=== PATIENT | female | born 1970 | race Caucasian/White ===

== ENCOUNTER → 2017-11-26 10:38 | Outpatient (REF) | payer OTHER, SELFPAY ==
[2017-11-26 13:50] LABS: Basophils # 0.1 K/mm3 (0-0.2); Basophils % 1.4 % (0.1-2.0); Eosinophils # 0.4 K/mm3 (0.0-0.4); Eosinophils % 6.4 % (0.1-12.0); Hematocrit 42.4 % (37.0-47.0); Hemoglobin 13.7 g/dL (12.2-16.2); Lymphocytes % 49.4 K/mm3 (10-50); Mean Corpuscular HGB Conc 32.3 g/dL (31.8-35.4); Mean Corpuscular Hemoglobin 31.1 pg (27.0-31.2); Mean Corpuscular Volume 96.2 fl (81-99); Mean Platelet Volume 9.8 fl (7.4-10.4); Monocytes # 0.3 K/mm3 (0.1-1.0); Monocytes % 5.1 % (1.7-9.3); Neutrophils # 2.3 K/mm3 (1.8-7.8); Neutrophils % 37.8 % (37.0-80.0); Platelet Count 360 K/mm3 (142-424); Red Blood Count 4.41 M/mm3 (4.20-5.40); Red Cell Distribution Width 13.4 % (11.5-17.5)
[2017-11-26 14:14] LABS: Alanine Aminotransferase 25 U/L (12-78); Albumin Level 3.9 gm/dL (3.4-5.0); Albumin/Globulin Ratio 1.1 (1.1-1.8); Alkaline Phosphatase 116 U/L (46-116); Anion Gap 12.6 mEq/L (5-15); Aspartate Amino Transferase 17 U/L (15-37); Bilirubin,Total 0.2 mg/dL (0.2-1.0); Blood Urea Nitrogen 8 mg/dL (7-18); Calcium 9.6 mg/dL (8.5-10.1); Carbon Dioxide 28 mmol/L (21.0-32.0); Chloride 103 mmol/L (98-107); Chol/HDL Ratio 6.4 (1-3.5); Cholesterol 290 mg/dL (140-200); Creatinine,Serum 0.76 mg/dL (0.55-1.02); Estimated Glomerular Filt Rate > 60 ml/min (>60); GFR (African American) > 60 ML/MIN (>60); Globulin 3.6 gm/dl (1.3-3.2); Glucose 87 mg/dL (74-106); HDL Cholesterol 45 mg/dL (29-89); LDL Cholesterol 205 mg/dL (0-130); Potassium 4.6 mmoL/L (3.5-5.1); Sodium 139 mmol/L (136-145); T4 (Thyroxine) 8.7 ug/dl (4.7-13.3); Thyroid Stimulating Hormone 5.23 uIU/ml (0.358-3.740); Total Protein,Serum 7.5 gm/dL (6.4-8.2); Triglycerides 202 mg/dL (30-200); VLDL Cholesterol 40 mg/dL (0-40)
[2017-11-28 17:13] LABS: Vitamin B12 311 pg/mL (232-1245); Vitamin D 25 Hydroxy 21.3 ng/mL (30.0-100.0)
== END ==
LOC: LAB 10:38
PROVIDERS: Visit Provider Physician Assistant
DX: M79.7 Fibromyalgia (principal); E78.5 Hyperlipidemia, unspecified; E03.9 Hypothyroidism, unspecified; E55.9 Vitamin D deficiency, unspecified
CPT/HCPCS: 80053; 80061; 82607; 82652; 84436; 84443; 85025

== ENCOUNTER 2018-01-22 11:24 | Emergency (ER) | payer OTHER, SELFPAY ==
[2018-01-22 11:43] VITALS: BP 139/85; PULSE 88; RESP 20; TEMP 36.6; O2SAT 98; BMI 29.2
--- NOTE | 2018-01-22 12:01 | HMH.EDUTC ---
[facility] [place] Disposition Clinical Impression: Viral upper respiratory illness, Nausea Disposition: Home, Self-Care Condition on Discharge: Good Instructions: Sore Throat, DI for Fever (Symptom) -- Adult, DI for Nasal Congestion, Diarrhea Additional Instructions: * Monitor Temp. Tylenol and/or Ibuprofen as needed. ER if fever is no less than 101 despite alternating Tylenol and Ibuprofen * Encourage fluids, water, Gatorade, powerade, pedialyte if /toddler/or child * Warm salt water gargles for throat irritation *Warm fluids *Sore throat lozenges *Sleep elevated *humidifier or vaporizer Lots of rest Increase fluids, water, Gatorade, powerade Follow up IMMEDIATELY for new or worsening of symptoms OR no noticeable improvement over the next 48-72 hours. 911 immediately for any life threatening symptoms such as chest pain or difficulty breathing Prescriptions: Ondansetron [Zofran 4mg ODT] 4 mg PO Q8H #20 tab.rapdis Referrals: Michelle Quiñonez PA [Primary Care Provider] - Forms: Work/School Release Time of Disposition: 12:17 Medical Decision Making - Medical Records Medical records reviewed: Yes: I reviewed the patient's medical records. Vital Signs: 01/22/18 11:43 Temperature 98 F Temperature Source Temporal Artery Scan Pulse Rate [Right] 88 Respiratory Rate 20 Blood Pressure [Right Arm] 139/85 Blood Pressure Mean [Right Arm] 103 Blood Pressure Source [Right Arm] Automatic Cuff Blood Pressure Position [Right Arm] Sitting 02 Sat by Pulse Oximetry 98 Oxygen Delivery Method Room Air - Lab Data Lab results reviewed: Yes: I reviewed the patient's lab results. - Hugo Inquiry Pt receiving controlled substance: No Hugo was queried for this patient: No [facility] HPI - General Stated complaint: nausea,diarrhea,fever,body aches Mode of Arrival: Ambulatory Source of Information: Patient Limitations: No Limitations Description of Symptoms (Recalled from Triage Doc. by RN): N/V BODY ACHES X2 DAYS HEENT Symptoms (Recalled from RN notes): Yes Resp Symptoms (Recalled from RN notes): No Skin Symptoms (Recalled from RN notes): No MS Symptoms (Recalled from RN notes): No Functional Status (Recalled from RN notes): N - History of Present Illness Provider Complaint: Patient states that her daughter recently had the flu States that now she is having flu like symptoms along with nausea, diarrhea, cough, and body aches States that she had to leave work earlier because she had a fever of 100.0 State that fever has been as high as 101.0 - Related Data Home Medications Medication Instructions Recorded Confirmed diazepam 2 mg tablet 2 mg PO BID 11/26/17 duloxetine 30 mg capsule,delayed 30 mg PO QDAY 11/26/17 release tramadol 50 mg tablet 50 mg PO QID 11/26/17 Previous Rx's Medication Instructions Recorded meloxicam 7.5 mg tablet 7.5 mg PO QDAY 90 Days #90 tab 11/26/17 atorvastatin 10 mg tablet 10 mg PO QDAY 90 Days #90 tab 12/01/17 cholecalciferol (vitamin D3) 1,000 1,000 unit PO ONCE 90 Days #90 cap 12/01/17 unit capsule ergocalciferol (vitamin D2) 50,000 50,000 unit PO QWEEK 90 Days #14 12/01/17 unit capsule cap levothyroxine 25 mcg capsule 25 mcg PO ONCE 90 Days #90 cap 12/01/17 meclizine 25 mg tablet 25 mg PO TID 10 Days #30 tab 01/12/18 Ondansetron [Zofran 4mg ODT] 4 mg PO Q8H #20 tab.rapdis 01/22/18 Allergies Allergy/AdvReac Type Severity Reaction Status Date / Time ketorolac [From TORADOL] Allergy Mild I-RASH Verified 01/22/18 11:47 Penicillins [PENICILLINS] Allergy Mild I-RASH Verified 01/22/18 11:47 - Worker's Comp Is this a Worker's Comp case?: No [facility] History I have reviewed the patient's past medical history: Yes Other Medical History: Reports: Arthritis, Fibromyalgia Other Surgeries: Yes: Hysterectomy-Partial, Tubal Ligation Amputation: No Fractures: No Comment: Left Knee. - Social History Smoking Status: Current every day smoker Tobacco Type: cigarette
--- NOTE | 2018-01-22 12:12 | ED_ITS ---
[facility] [place] Clinical Impression: Viral upper respiratory illness, Nausea Disposition: Home, Self-Care Condition on Discharge: Good Instructions: Sore Throat, DI for Fever (Symptom) -- Adult, DI for Nasal Congestion, Diarrhea Additional Instructions: * Monitor Temp. Tylenol and/or Ibuprofen as needed. ER if fever is no less than 101 despite alternating Tylenol and Ibuprofen * Encourage fluids, water, Gatorade, powerade, pedialyte if /toddler/or child * Warm salt water gargles for throat irritation *Warm fluids *Sore throat lozenges *Sleep elevated *humidifier or vaporizer Lots of rest Increase fluids, water, Gatorade, powerade Follow up IMMEDIATELY for new or worsening of symptoms OR no noticeable improvement over the next 48-72 hours. 911 immediately for any life threatening symptoms such as chest pain or difficulty breathing Prescriptions: Ondansetron [Zofran 4mg ODT] 4 mg PO Q8H #20 tab.rapdis Referrals: Michelle Quiñonez PA [Primary Care Provider] - Forms: Work/School Release Time of Disposition: 12:17 Medical Decision Making - Medical Records Medical records reviewed: Yes: I reviewed the patient's medical records. Vital Signs: 01/22/18 11:43 Temperature 98 F Temperature Source Temporal Artery Scan Pulse Rate [Right] 88 Respiratory Rate 20 Blood Pressure [Right Arm] 139/85 Blood Pressure Mean [Right Arm] 103 Blood Pressure Source [Right Arm] Automatic Cuff Blood Pressure Position [Right Arm] Sitting 02 Sat by Pulse Oximetry 98 Oxygen Delivery Method Room Air - Lab Data Lab results reviewed: Yes: I reviewed the patient's lab results. - Hugo Inquiry Pt receiving controlled substance: No Hugo was queried for this patient: No [facility] [place] HPI - General Stated complaint: nausea,diarrhea,fever,body aches Mode of Arrival: Ambulatory Source of Information: Patient Limitations: No Limitations Description of Symptoms (Recalled from Triage Doc. by RN): N/V BODY ACHES X2 DAYS HEENT Symptoms (Recalled from RN notes): Yes Resp Symptoms (Recalled from RN notes): No Skin Symptoms (Recalled from RN notes): No MS Symptoms (Recalled from RN notes): No Functional Status (Recalled from RN notes): N - History of Present Illness Provider Complaint: Patient states that her daughter recently had the flu States that now she is having flu like symptoms along with nausea, diarrhea, cough, and body aches States that she had to leave work earlier because she had a fever of 100.0 State that fever has been as high as 101.0 - Related Data Home Medications Medication Instructions Recorded Confirmed diazepam 2 mg tablet 2 mg PO BID 11/26/17 duloxetine 30 mg capsule,delayed 30 mg PO QDAY 11/26/17 release tramadol 50 mg tablet 50 mg PO QID 11/26/17 Previous Rx's Medication Instructions Recorded meloxicam 7.5 mg tablet 7.5 mg PO QDAY 90 Days #90 tab 11/26/17 atorvastatin 10 mg tablet 10 mg PO QDAY 90 Days #90 tab 12/01/17 cholecalciferol (vitamin D3) 1,000 1,000 unit PO ONCE 90 Days #90 cap 12/01/17 unit capsule ergocalciferol (vitamin D2) 50,000 50,000 unit PO QWEEK 90 Days #14 12/01/17 unit capsule cap levothyroxine 25 mcg capsule 25 mcg PO ONCE 90 Days #90 cap 12/01/17 meclizine 25 mg tablet 25 mg PO TID 10 Days #30 tab 01/12/18 Ondansetron [Zofran 4mg ODT] 4 mg PO Q8H #20 t
[2018-01-22 12:22] VITALS: BP 132/88; PULSE 88; RESP 18; TEMP 36.6
[2018-01-22 14:47] LABS: UTC Influenza A Antigen Negative (Negative); UTC Influenza B Antigen Negative (Negative)
== END 2018-01-22 12:32 | disposition home or self-care (01) ==
PROVIDERS: Emergency Provider Nurse Practitioner; PCP Physician Assistant
DX: J06.9 Acute upper respiratory infection, unspecified (principal); M79.7 Fibromyalgia; F17.210 Nicotine dependence, cigarettes, uncomplicated; Z51.81 Encounter for therapeutic drug level monitoring
CPT/HCPCS: 87804; 99202

== ENCOUNTER → 2018-06-16 12:30 | Outpatient (CLI) | payer OTHER, SELFPAY ==
--- NOTE | 2018-06-16 12:34 | XR_ITS ---
XR knee LT 4V HISTORY: ITS.REASON: knee pain ORDERING PHYSICIAN: Mone Siddiqui PATIENT AGE: 47 years COMPARISON: Left knee 05/23/2016 FINDINGS: Again noted is mild joint space narrowing medially and there is mild spurring of the tibial spines. There is mild narrowing of the patellofemoral space with spurring of the superior border of the patella. There is no definite effusion. There is no fracture or loose body seen. Again seen is a faint density adjacent to the medial border of the patella seen only on the sunrise view possibly an accessory ossification center. No other significant findings IMPRESSION: Mild degenerative changes of knee as noted basically stable and unchanged from the previous exam
== END ==
PROVIDERS: PCP Nurse Practitioner Family; Visit Provider Nurse Practitioner Family
DX: M25.562 Pain in left knee (principal)
CPT/HCPCS: 73564

== ENCOUNTER → 2018-07-20 13:36 | Outpatient (REF) | payer OTHER, SELFPAY ==
[2018-07-20 18:42] LABS: Basophils # 0.1 K/mm3 (0-0.2); Basophils % 0.8 % (0.1-2.0); Eosinophils # 0.2 K/mm3 (0.0-0.4); Eosinophils % 2.9 % (0.1-12.0); Hematocrit 43.5 % (37.0-47.0); Hemoglobin 14.3 g/dL (12.2-16.2); Lymphocytes # 2.7 K/mm3 (0.7-4.5); Lymphocytes % 41.3 K/mm3 (10-50); Mean Corpuscular HGB Conc 32.8 g/dL (31.8-35.4); Mean Corpuscular Hemoglobin 31.7 pg (27.0-31.2); Mean Corpuscular Volume 96.5 fl (81-99); Mean Platelet Volume 9.8 fl (7.4-10.4); Monocytes # 0.2 K/mm3 (0.1-1.0); Monocytes % 3.2 % (1.7-9.3); Neutrophils # 3.4 K/mm3 (1.8-7.8); Neutrophils % 51.7 % (37.0-80.0); Platelet Count 412 K/mm3 (142-424); Red Blood Count 4.51 M/mm3 (4.20-5.40); Red Cell Distribution Width 14.1 % (11.5-17.5); White Blood Count 6.6 K/mm3 (4.8-10.8)
[2018-07-20 18:58] LABS: Alanine Aminotransferase 21 U/L (12-78); Albumin Level 3.8 gm/dL (3.4-5.0); Albumin/Globulin Ratio 1.1 (1.1-1.8); Alkaline Phosphatase 112 U/L (46-116); Anion Gap 13.9 mEq/L (5-15); Aspartate Amino Transferase 13 U/L (15-37); Bilirubin,Total 0.3 mg/dL (0.2-1.0); Blood Urea Nitrogen 12 mg/dL (7-18); Calcium 9.6 mg/dL (8.5-10.1); Carbon Dioxide 28 mmol/L (21.0-32.0); Chloride 103 mmol/L (98-107); Estimated Glomerular Filt Rate 53 ml/min (>60); GFR (African American) 64 ML/MIN (>60); Globulin 3.6 gm/dl (1.3-3.2); Glucose 162 mg/dL (74-106); Potassium 3.9 mmoL/L (3.5-5.1); Sodium 141 mmol/L (136-145); T4 (Thyroxine) 8.7 ug/dl (4.7-13.3); Thyroid Stimulating Hormone 2.26 uIU/ml (0.358-3.740); Total Protein,Serum 7.4 gm/dL (6.4-8.2)
[2018-07-22 14:52] LABS: Vitamin D 25 Hydroxy 26.9 ng/mL (30.0-100.0)
== END ==
LOC: LAB 13:36
PROVIDERS: Visit Provider Physician Assistant
DX: M79.7 Fibromyalgia (principal)
CPT/HCPCS: 80053; 82652; 83036; 84436; 84443; 85025

== ENCOUNTER → 2018-07-20 15:45 | Outpatient (REF) | payer OTHER, SELFPAY ==
[2018-07-22 17:43] LABS: Hemoglobin A1C 5.7 % (0.0-7.0)
== END ==
LOC: LAB 15:45
PROVIDERS: Visit Provider Physician Assistant
DX: M79.7 Fibromyalgia (principal)
CPT/HCPCS: 83036

== ENCOUNTER 2019-03-23 14:54 | Observation (INO) ==
--- NOTE | 2019-03-23 14:52 | Emergency Department Note ---
ED Disposition Clinical Impression: Chest pain Qualifiers: Chest pain type: precordial pain Qualified Code(s): R07.2 - Precordial pain Disposition: Admitted as Observation Condition on Discharge: Fair - Critical Care Critical Care Time: No Attestation: On , the high probability of a clinically significant, sudden or life threatening deterioration of the following system(s) required my full and direct attention, intervention and personal management. The time I documented below is in addition to time spent performing reported procedures but includes the following listed in this critical care notation. Medical Decision Making - Hugo Inquiry Pt receiving controlled substance: Yes Hugo was queried for this patient: No Reason not queried -: Hugo login issues Risks and benefits of using a controlled substance: were not discussed with pt by me Vital Signs: 03/23/19 14:50 03/23/19 15:15 03/23/19 15:49 Temperature 98.0 F Temperature Source Temporal Artery Scan Pulse Rate [Right Brachial] 104 H 94 H 87 Respiratory Rate 22 20 Blood Pressure [Right Arm] 139/101 H 123/74 120/84 Blood Pressure Mean [Right Arm] 113 90 96 Blood Pressure Source [Right Arm] Automatic Cuff Automatic Cuff Automatic Cuff Blood Pressure Position [Right Arm] Sitting Sitting Supine 02 Sat by Pulse Oximetry 100 96 96 Oxygen Delivery Method Room Air Room Air Room Air 03/23/19 16:12 03/23/19 16:55 Temperature Temperature Source Pulse Rate [Right Brachial] 86 80 Respiratory Rate Blood Pressure [Right Arm] 141/83 H 106/73 L Blood Pressure Mean [Right Arm] 102 84 Blood Pressure Source [Right Arm] Automatic Cuff Automatic Cuff Blood Pressure Position [Right Arm] Supine Supine 02 Sat by Pulse Oximetry 97 97 Oxygen Delivery Method Room Air Room Air - Lab Data Lab Results 03/23/19 15:20: WBC 8.3, RBC 4.27, Hgb 13.3, Hct 39.4, MCV 92.3, MCH 31.1, MCHC 33.7, RDW 13.7, Plt Count 347, MPV 8.3, Neut % (Auto) 52.5, Lymph % (Auto) 39.1, [place] % (Auto) 3.5, Eos % (Auto) 4.1, Baso % (Auto) 0.8, Neut # (Auto) 4.4, Lymph # (Auto) 3.3, [place] # (Auto) 0.3, Eos # (Auto) 0.3, Baso # (Auto) 0.1 03/23/19 15:20: Sodium 142, Potassium 3.6, Chloride 105, Carbon Dioxide 26, Anion Gap 14.6, BUN 10, Creatinine 0.83, Estimated Creat Clear 105, Estimated GFR 73, Est GFR ( Amer) 88, Glucose 139 H, Calcium 9.3, Troponin I < 0.02 Result diagrams: 03/23/19 15:20 03/23/19 15:20 Orders (Tests/Meds): ED MEDICATIONS Discontinued Medications Generic Name Dose Route Start Last Admin Trade Name Freq PRN Reason Stop Dose Admin Morphine Sulfate 4 mg 03/23/19 16:50 03/23/19 17:12 Morphine 4mg/Ml Syringe IV 03/23/19 16:51 4 mg ONCE ONE Administration Nitroglycerin 0.4 mg 03/23/19 15:14 03/23/19 15:15 Nitrostat 0.4mg Sl Tablet SL 03/23/19 15:15 0.4 mg ONCE ONE Administration Ondansetron HCl 4 mg 03/23/19 15:22 03/23/19 15:23 Zofran 4mg/2ml Vial IV 03/23/19 15:23 4 mg ONCE ONE Administration - Radiology Data #1 Image(s): Chest Image Reviewed: Yes I have reviewed radiologist's interpretation Preliminary Findings: Normal/NAD - ECG Data Tracing #1 EKG interpreted by Sachin Singh MD: Rhythm: sinus tachycardia Rate: 114 [place]: normal Ectopy: Frequent unifocal PVCs, bigeminy Conduction: normal ST Segment Changes: none T Wave Changes: none Q Waves: none No evidence of acute ischemia or injury - Physician Consults Physician Consulted: Latesha Time: 16:50 Reason -: Admission Comment/Response: Agrees to admit the patient to the hospital. We discussed the patient's clinical information, including history, exam, laboratory and radiology results and ED course. Per hospital procedure, I will write temporary bridge inpatient orders on the patient. Specific orders requested by the admitting physician: Nitropaste, morphine for pain, serial cardiac enzymes, consult cardiology, echocardiogram Additional Consult: MICHAEL Matias, for Dr. Caraballo Time: 16:00 Reason -: Cardiology Eval/Care Comment/Response: He has left to the hospital already, but will follow the patient tomorrow. General Adult HPI - General Chief complaint: Chest Pain Stated complaint: chest pain,diaphoresis Time Seen by Provider: 03/23/19 14:52 - History of Present Illness HPI narrative: Brought in by ambulance from Dr. Charlton's office. She says she was being seen there for a on top of her head that the hairdresser accidentally ripped off a few days ago. However, she also states she in general has not been feeling well for several days. Feels generally weak and is getting pains and "my heart and shoulders". Gets episodes of tachycardia. Gets short of breath, nauseated, and diaphoretic. Nothing seems to bring the discomfort on, but it lasts for hours. She had an episode in the office at Dr. Charlton's. She was given nitroglycerin and aspirin and sent to the emergency room. States she has a history of mitral valve prolapse. She is a smoker. She has never had a stress test or heart cath to her knowledge. - Related Data Home Medications Medication Instructions Recorded Confirmed Cholecalciferol (Vitamin D3) 1,000 unit PO ONCE 09/20/18 03/23/19 [Vitamin D3 1,000 Unit Cap] Ergocalciferol (Vitamin D2) 50,000 unit PO QWEEK 09/20/18 03/23/19 [Drisdol] Meclizine HCl [Wal-[employer]ram 2] 25 mg PO TID PRN 09/20/18 03/23/19 levothyroxine 25 mcg tablet 25 mcg PO DAILY 30 Days #30 tab 10/27/18 03/23/19 tramadol 50 mg tablet 50 mg PO QID PRN tab 10/27/18 03/23/19 Previous Rx's Medication Instructions Recorded ondansetron 8 mg disintegrating 8 mg PO Q8H PRN 5 Days #10 tab 10/27/18 tablet promethazine 25 mg tablet 25 mg PO Q6H PRN #20 tab 10/27/18 Allergies Allergy/AdvReac Type Severity Reaction Status Date / Time ketorolac [From TORADOL] Allergy Mild I-RASH Verified 10/27/18 08:40 Penicillins [PENICILLINS] Allergy Mild I-RASH Verified 10/27/18 08:40 [facility] History - Hepatitis A Screen Attestation statement:: This patient has been screened for Hepatitis A risk factors. I have reviewed the patient's past medical history: Yes Medical History: Reports:: Anxiety, Hyperlipidemia Denies:: Diabetes Mellitus Type 1, Diabetes Mellitus Type 2 Other Medical History: Reports: Arthritis, Fibromyalgia Other Surgeries: Yes: Hysterectomy-Partial, Tubal Ligation Amputation: No Fractures: No Comment: Left Knee. - Social History Smoking Status: Current every day smoker Tobacco Type: cigarettes # Packs/Day (cigarettes): 1 Alcohol Intake: never Substance Use Type: denies use Occupational Status: unemployed Housing: house Household Members: family - Psychiatric History Pschychiatric History:: Reports:: Anxiety Family Hx:: Diabetes Comment: Mom- Fibromyalgia, arthritis ROS Obtained: Yes All systems reviewed & no additional complaints - Constitutional Constitutional: Reports fatigue - Cardiovascular Cardiovascular: Reports chest pain, Reports diaphoresis - Respiratory Respiratory: Yes dyspnea - Gastrointestinal Gastrointestingal: Reports: nausea Physical Exam - General General appearance: alert, anxious - Head Head exam: atraumatic, normocephalic, other (3mm scab on top of head) - Eye Eye exam: Present: normal appearance, EOMI - ENT ENT exam: Present: mucous membranes moist - Neck Neck exam: Present: normal inspection, trachea midline - Chest Chest inspection: Present: normal inspection, symmetric chest wall rise - Respiratory Respiratory exam: Present: normal lung sounds bilaterally. Absent: respiratory distress - Cardiovascular Cardiovascular exam: Present: irregular rhythm (Extrasystoles intermittently), normal heart sounds - Abdominal Exam Abdominal exam: Present: soft. Absent: distention, tenderness, guarding - Extremities Exam Extremities exam: Present: normal inspection, full ROM. Absent: tenderness, calf tenderness - Neurological Exam Neurological exam: Present: alert, oriented X3 - Psychiatric Psychiatric exam: Present: anxious, flat affect - Skin Skin exam: Present: warm, dry
[2019-03-23 15:29] LABS: Basophils # 0.1 K/mm3 (0-0.2); Basophils % 0.8 % (0.1-2.0); Eosinophils # 0.3 K/mm3 (0.0-0.4); Eosinophils % 4.1 % (0.1-12.0); Hematocrit 39.4 % (37.0-47.0); Hemoglobin 13.3 g/dL (12.2-16.2); Lymphocytes # 3.3 K/mm3 (0.7-4.5); Lymphocytes % 39.1 % (10-50); Mean Corpuscular HGB Conc 33.7 g/dL (31.8-35.4); Mean Corpuscular Hemoglobin 31.1 pg (27.0-31.2); Mean Corpuscular Volume 92.3 fl (81-99); Mean Platelet Volume 8.3 fl (7.4-10.4); Monocytes # 0.3 K/mm3 (0.1-1.0); Monocytes % 3.5 % (1.7-9.3); Neutrophils # 4.4 K/mm3 (1.8-7.8); Neutrophils % 52.5 % (37.0-80.0); Platelet Count 347 K/mm3 (142-424); Red Blood Count 4.27 M/mm3 (4.20-5.40); Red Cell Distribution Width 13.7 % (11.5-17.5); White Blood Count 8.3 K/mm3 (4.8-10.8)
[2019-03-23 15:42] LABS: Anion Gap 14.6 mEq/L (5-15); Blood Urea Nitrogen 10 mg/dL (7-18); Calcium 9.3 mg/dL (8.5-10.1); Carbon Dioxide 26 mmol/L (21.0-32.0); Chloride 105 mmol/L (98-107); Glucose 139 mg/dL (74-106); Potassium 3.6 mmoL/L (3.5-5.1); Sodium 142 mmol/L (136-145)
--- NOTE | 2019-03-23 20:41 | History & Physical Report ---
*Admission Date: 03/23/19 *Chief complaint: chest pain *History of present illness: this wf who had episodes of new chest pain with rad to shoulder with feeling of sob and feeling of near syncope and arrthymia - pt was seen in the pcp and referred to ed - [facility] in by ambulance from Dr. Charlton's office. She says she was being seen there for a on top of her head that the hairdresser accidentally ripped off a few days ago. However, she also states she in general has not been feeling well for several days. Feels generally weak and is getting pains and "my heart and shoulders". Gets episodes of tachycardia. Gets short of breath, nauseated, and diaphoretic. Nothing seems to bring the discomfort on, but it lasts for hours. She had an episode in the office at Dr. Charlton's. She was given nitroglycerin and aspirin and sent to the emergency room. States she has a history of mitral valve prolapse. She is a smoker. She has never had a stress test or heart cath to her knowledge. pt was admitted for treatment and eval by cardiology [facility] History I have reviewed the patient's past medical history: Yes Medical History: Reports:: Anxiety, Hyperlipidemia Denies:: Cancer, Diabetes Mellitus Type 1, Diabetes Mellitus Type 2, MRSA *Have you ever received a pneumonia vaccine?: No *Have you received a flu vaccine this season?: No Other Medical History: Reports: Arthritis, Fibromyalgia Other Surgeries: Yes: Hysterectomy-Partial, Tubal Ligation Amputation: No Fractures: No - *Social History Educational Level: Attended High School Smoking Status: Current every day smoker Tobacco Type: cigarettes # Packs/Day (cigarettes): 1 #Yrs smoked (if former smoker): 20 Alcohol Intake: never Substance Use Type: denies use *Occupational Status:: unemployed Housing: house Household Members: family *Travel in the last 8 weeks: None - Psychiatric History Expresses thoughts of harming self/others: None Suicide Plan Description: No Plan Pschychiatric History:: Reports:: Anxiety Family Hx:: Diabetes Review of Systems - Review of Systems Review of systems:: pertinent systems reviewed and negative unless documented below - Constitutional Denies fever(s) - Eyes Denies change in vision - ENT Denies sore throat - *Cardiovascular Reports chest pain at rest, Reports lightheadedness, Reports rapid, pounding, or irregular heartbeat, Reports radiating jaw, neck or arm pain, Reports fast heart rate, Denies shortness of breath - *Respiratory Denies cough - *Gastrointestinal Denies abdominal pain - *Genitourinary Denies blood in urine - *Musculoskeletal Denies joint pain - Integumentary/Breasts Denies rash - *Neurologic Denies seizure-like activity - Psychiatric Denies anxiety Meds Home Medications Medication Instructions Recorded Confirmed Type Cholecalciferol (Vitamin D3) 1,000 unit PO ONCE 09/20/18 03/23/19 History [Vitamin D3 1,000 Unit Cap] Ergocalciferol (Vitamin D2) 50,000 unit PO QWEEK 09/20/18 03/23/19 History [Drisdol] Meclizine HCl [Wal-Dram 2] 25 mg PO TID PRN 09/20/18 03/23/19 History levothyroxine 25 mcg tablet 25 mcg PO DAILY 30 Days #30 tab 10/27/18 03/23/19 History ondansetron 8 mg disintegrating 8 mg PO Q8H PRN 5 Days #10 tab 10/27/18 03/23/19 Rx tablet promethazine 25 mg tablet 25 mg PO Q6H PRN #20 tab 10/27/18 03/23/19 Rx tramadol 50 mg tablet 50 mg PO QID PRN tab 10/27/18 03/23/19 History Allergies Allergy/AdvReac Type Severity Reaction Status Date / Time ketorolac [From TORADOL] Allergy Mild I-RASH Verified 10/27/18 08:40 Penicillins [PENICILLINS] Allergy Mild I-RASH Verified 10/27/18 08:40 Exam Vital signs and Labs for Last 24 Hours: Temp Pulse Resp BP Pulse Ox 98.5 F 79 18 144/86 H 99 03/23/19 18:05 03/23/19 18:05 03/23/19 18:05 03/23/19 18:05 03/23/19 18:05 Laboratory Results - last 24 hr 03/23/19 15:20: WBC 8.3, RBC 4.27, Hgb 13.3, Hct 39.4, MCV 92.3, MCH 31.1, MCHC 33.7, RDW 13.7, Plt Count 347, MPV 8.3, Neut % (Auto) 52.5, Lymph % (Auto) 39.1, [place] % (Auto) 3.5, Eos % (Auto) 4.1, Baso % (Auto) 0.8, Neut # (Auto) 4.4, Lymph # (Auto) 3.3, [place] # (Auto) 0.3, Eos # (Auto) 0.3, Baso # (Auto) 0.1 03/23/19 15:20: Sodium 142, Potassium 3.6, Chloride 105, Carbon Dioxide 26, Anion Gap 14.6, BUN 10, Creatinine 0.83, Estimated Creat Clear 105, Estimated GFR 73, Est GFR ( Amer) 88, Glucose 139 H, Calcium 9.3, Troponin I < 0.02 I & O for Last 24 hours: Intake & Output 03/21/19 03/22/19 03/23/19 03/24/19 11:59 11:59 11:59 11:59 Weight 187 lb - Constitutional no acute distress, obese - *Routine HEENT Exam Head: Present: normocephalic Eye: Present: EOMI, PERRL ENT: Present: mucous membranes dry - *Routine Neck Exam Present: supple - *Routine Respiratory Exam Present: CTA bilaterally - *Routine Cardiovascular Exam Present: RRR, murmur - *Routine Abdominal Exam Present: soft - *Routine Extremities Exam Absent: Emiliano's sign - *Routine Skin Exam Present: intact - *Routine Neurological Exam Present: alert, oriented X3, CN II-XII intact - Routine Psychiatric Exam Present: normal affect Assessment and Plan (1) Angina at rest Current visit: Yes Status: Acute Category: Medical Code(s): I20.8 - Other forms of angina pectoris (2) Fibromyalgia Current visit: No Status: Chronic Category: Medical Code(s): M79.7 - Fibromyalgia (3) Hypothyroidism Current visit: No Status: Chronic Qualifiers: Hypothyroidism type: unspecified Qualified Code(s): E03.9 - Hypothyroidism, unspecified Category: Medical Code(s): E03.9 - Hypothyroidism, unspecified (4) Vitamin D deficiency Current visit: No Status: Chronic Category: Medical Code(s): E55.9 - Vitamin D deficiency, unspecified (5) Tobacco use Current visit: Yes Status: Acute Category: Medical Code(s): Z72.0 - Tobacco use (6) Obesity Current visit: Yes Status: Acute Qualifiers: Obesity type: due to excess calories Obesity classification: adult class 1 (BMI 30 - 34.9) Serious obesity comorbidity presence: with serious comorbidity Body mass index: BMI 32.0-32.9 Qualified Code(s): E66.09 - Other obesity due to excess calories; Z68.32 - Body mass index (BMI) 32.0-32.9, adult Category: Medical Code(s): E66.9 - Obesity, unspecified
[2019-03-23 21:24] LABS: Chol/HDL Ratio 8.3 (1-3.5)
[2019-03-23 21:30] LABS: Thyroid Stimulating Hormone 3.64 uIU/ml (0.358-3.740)
[2019-03-24 07:14] LABS: Basophils # 0.1 K/mm3 (0-0.2); Basophils % 0.7 % (0.1-2.0); Eosinophils # 0.3 K/mm3 (0.0-0.4); Hematocrit 36.8 % (37.0-47.0); Hemoglobin 12.2 g/dL (12.2-16.2); Lymphocytes # 3.1 K/mm3 (0.7-4.5); Lymphocytes % 36.8 % (10-50); Mean Corpuscular HGB Conc 33.2 g/dL (31.8-35.4); Mean Corpuscular Hemoglobin 31.5 pg (27.0-31.2); Mean Corpuscular Volume 94.9 fl (81-99); Monocytes # 0.4 K/mm3 (0.1-1.0); Monocytes % 4.9 % (1.7-9.3); Neutrophils # 4.5 K/mm3 (1.8-7.8); Neutrophils % 53.5 % (37.0-80.0); Platelet Count 308 K/mm3 (142-424); Red Blood Count 3.87 M/mm3 (4.20-5.40); Red Cell Distribution Width 13.7 % (11.5-17.5); White Blood Count 8.4 K/mm3 (4.8-10.8)
[2019-03-24 07:23] LABS: Calcium 8.9 mg/dL (8.5-10.1)
--- NOTE | 2019-03-24 07:36 | Pharmacy Consult Notes ---
[facility] Pharmacy VTE Monitoring - Patient Demographics Admission date: 03/23/19 Report Date: 03/24/19 Time: 07:36 Allergies/Adverse Reactions: Patient Allergies ketorolac [From TORADOL] Allergy (Mild, Verified 10/27/18 08:40) I-RASH Penicillins [PENICILLINS] Allergy (Mild, Verified 10/27/18 08:40) I-RASH Height: 1.63 m Weight: 84.822 kg Patient Problems: Current Active Problems (Updated 03/23/19 @ 20:48 by Forrest Charlton MD) Chest pain (Acute) Angina at rest (Acute) Tobacco use (Acute) Obesity (Acute) - VTE Risk Labs: VTE Related Lab Results Hgb 12.2 g/dL (12.2-16.2) 03/24/19 06:43 Hct 36.8 % (37.0-47.0) L 03/24/19 06:43 Plt Count 308 K/mm3 (142-424) 03/24/19 06:43 BUN 13 mg/dL (7-18) D 03/24/19 06:43 Creatinine 0.76 mg/dL (0.55-1.02) 03/24/19 06:43 Estimated Creat Clear 119 mL/min (50-200) 03/24/19 06:43 VTE Score: 3 VTE Risk Level: Low Risk - Prophylaxis VTE Prophylaxis Ordered?: Yes Types of VTE Prophylaxis: TEDS Knee High Location of Applied Device: Bilateral Lower Extremeties - VTE Diagnosis Confirmed Treatment or plan recommended: Continue Current Treatment
--- NOTE | 2019-03-24 08:24 | Progress Note ---
Internal Medicine - PN: Subj *Date: 03/24/19 *Time: 08:20 Interval history: pt doing better but still with pain - discussed with dr bobo Exam Vital signs and Labs for Last 24 Hours: Temp Pulse Resp BP Pulse Ox 98.2 F 75 16 104/60 L 98 03/24/19 08:00 03/24/19 08:00 03/24/19 08:00 03/24/19 08:00 03/24/19 08:00 Laboratory Results - last 24 hr 03/23/19 15:20: WBC 8.3, RBC 4.27, Hgb 13.3, Hct 39.4, MCV 92.3, MCH 31.1, MCHC 33.7, RDW 13.7, Plt Count 347, MPV 8.3, Neut % (Auto) 52.5, Lymph % (Auto) 39.1, [place] % (Auto) 3.5, Eos % (Auto) 4.1, Baso % (Auto) 0.8, Neut # (Auto) 4.4, Lymph # (Auto) 3.3, [place] # (Auto) 0.3, Eos # (Auto) 0.3, Baso # (Auto) 0.1 03/23/19 15:20: Sodium 142, Potassium 3.6, Chloride 105, Carbon Dioxide 26, Anion Gap 14.6, BUN 10, Creatinine 0.83, Estimated Creat Clear 105, Estimated GFR 73, Est GFR ( Amer) 88, Glucose 139 H, Calcium 9.3, Troponin I < 0.02 03/23/19 15:20: Hemoglobin A1c 5.7 03/23/19 20:20: Troponin I < 0.02 03/23/19 20:20: TSH 3.64 D, Thyroxine (T4) 7.1 03/23/19 20:20: Triglycerides 283 H, Cholesterol 266 H, LDL Cholesterol 177 H, VLDL Cholesterol 57 H, HDL Cholesterol 32, Cholesterol/HDL Ratio 8.3 H 03/23/19 23:10: Troponin I < 0.02 03/24/19 06:43: WBC 8.4, RBC 3.87 L, Hgb 12.2, Hct 36.8 L, MCV 94.9, MCH 31.5 H, MCHC 33.2, RDW 13.7, Plt Count 308, MPV 8.0, Neut % (Auto) 53.5, Lymph % (Auto) 36.8, [place] % (Auto) 4.9, Eos % (Auto) 4.0, Baso % (Auto) 0.7, Neut # (Auto) 4.5, Lymph # (Auto) 3.1, [place] # (Auto) 0.4, Eos # (Auto) 0.3, Baso # (Auto) 0.1 03/24/19 06:43: Sodium 140, Potassium 4.0, Chloride 106, Carbon Dioxide 26, Anion Gap 12.0, BUN 13 D, Creatinine 0.76, Estimated Creat Clear 119, Estimated GFR 81, Est GFR ( Amer) 97, Glucose 95 D, Calcium 8.9, Magnesium 2.2 I & O for Last 24 hours: Intake & Output 03/21/19 03/22/19 03/23/19 03/24/19 11:59 11:59 11:59 11:59 Intake Total 360 / 360 Balance 360 / 360 Weight 187 lb - Constitutional no acute distress, obese - *Routine HEENT Exam Head: Present: normocephalic Eye: Present: EOMI, PERRL ENT: Present: mucous membranes dry - *Routine Neck Exam Present: supple - *Routine Respiratory Exam Present: CTA bilaterally - *Routine Cardiovascular Exam Present: RRR, murmur - *Routine Abdominal Exam Present: soft - *Routine Extremities Exam Absent: Emiliano's sign - *Routine Skin Exam Present: intact - *Routine Neurological Exam Present: alert, CN II-XII intact - Routine Psychiatric Exam Present: normal affect Assessment and Plan (1) Angina at rest Current visit: Yes Status: Acute Category: Medical Code(s): I20.8 - Other forms of angina pectoris (2) Fibromyalgia Current visit: No Status: Chronic Category: Medical Code(s): M79.7 - Fibromyalgia (3) Hypothyroidism Current visit: No Status: Chronic Qualifiers: Hypothyroidism type: unspecified Qualified Code(s): E03.9 - Hypothyroidism, unspecified Category: Medical Code(s): E03.9 - Hypothyroidism, unspecified (4) Vitamin D deficiency Current visit: No Status: Chronic Category: Medical Code(s): E55.9 - Vitamin D deficiency, unspecified (5) Tobacco use Current visit: Yes Status: Acute Category: Medical Code(s): Z72.0 - Tobacco use (6) Obesity Current visit: Yes Status: Acute Qualifiers: Obesity type: due to excess calories Obesity classification: adult class 1 (BMI 30 - 34.9) Serious obesity comorbidity presence: with serious comorbidity Body mass index: BMI 32.0-32.9 Qualified Code(s): E66.09 - Other obesity due to excess calories; Z68.32 - Body mass index (BMI) 32.0-32.9, adult Category: Medical Code(s): E66.9 - Obesity, unspecified (7) Hyperlipidemia Current visit: Yes Status: Acute Qualifiers: Hyperlipidemia type: mixed hyperlipidemia Qualified Code(s): E78.2 - Mixed hyperlipidemia Category: Medical Code(s): E78.5 - Hyperlipidemia, unspecified
--- NOTE | 2019-03-24 10:58 | Consult Report ---
History of Present Illness Consult date: 03/24/19 Requesting physician: Forrest Charlton Consult reason: chest pain Chief complaint: Chest pain Additional Medical History:: 1. Mitral valve prolapse 2. Tobacco user 3. Hyperlipidemiauntreated History of present illness: This is a 48-year-old white female who was admitted to the hospital with chest pain. She states that on Friday she did not feel well. She was extremely fatigued and tired which is unusual for her. She states that she just persisted to feel bad throughout the day and then on Friday she had sudden onset of chest pain. She states that this was a sharp pain in the center of her chest that would shoot across to her left shoulder. She states that the sharp pain in the center of her chest persisted on and off all day throughout the day on Friday. And then yesterday the patient states she started having pressure and tightness in the center of her chest. This radiated to her left shoulder, left arm, left side of her neck and the back of her neck. She states that the left shoulder and neck pain are excruciating. She states that the pressure in the center of her chest is also moderate to severe. This is occurring with rest and with exertion. It is worsened with exertion. She states nothing was really helping to improve the pain. Is associated with shortness of breath and nausea. The patient states that she overall just does not feel well. She she was treated with nitroglycerin and aspirin in the emergency department. Today she continues to have have the chest tightness, shoulder pain and shortness of breath. The patient states that she feels like something is significantly wrong with her. She states that this is very unusual for her. She is a very active person and never feels like she is going to but with this pain and shortness of breath she states that she feels impending doom. She denies any fever, chills, vomiting, diarrhea, PND or orthopnea. [facility] History I have reviewed the patient's past medical history: Yes Medical History: Reports:: Anxiety, Hyperlipidemia, Valvular Heart Disease Denies:: Cancer, Diabetes Mellitus Type 1, Diabetes Mellitus Type 2, MRSA *Have you ever received a pneumonia vaccine?: No *Have you received a flu vaccine this season?: No Other Medical History: Reports: Arthritis, Fibromyalgia Other Surgeries: Yes: Hysterectomy-Partial, Tubal Ligation Amputation: No Fractures: No - *Social History Educational Level: Attended High School Smoking Status: Current every day smoker Tobacco Type: cigarettes # Packs/Day (cigarettes): 1 #Yrs smoked (if former smoker): 20 Alcohol Intake: never Substance Use Type: denies use *Occupational Status:: unemployed Housing: house Household Members: family *Travel in the last 8 weeks: None - Psychiatric History Expresses thoughts of harming self/others: None Suicide Plan Description: No Plan Pschychiatric History:: Reports:: Anxiety Family Hx:: Diabetes Meds Home Medications Medication Instructions Recorded Confirmed Type Cholecalciferol (Vitamin D3) 1,000 unit PO DAILY 09/20/18 03/24/19 History [Vitamin D3 1,000 Unit Cap] Ergocalciferol (Vitamin D2) 50,000 unit PO WEEKLY 09/20/18 03/24/19 History [Drisdol] Meclizine HCl [[employer]-Dram 2] 25 mg PO TIDP PRN 09/20/18 03/24/19 History levothyroxine 25 mcg tablet 25 mcg PO DAILY 30 Days #30 tab 10/27/18 03/23/19 History tramadol 50 mg tablet 50 mg PO QIDP PRN tab 10/27/18 03/24/19 History Allergies Allergy/AdvReac Type Severity Reaction Status Date / Time ketorolac [From TORADOL] Allergy Mild I-RASH Verified 10/27/18 08:40 Penicillins [PENICILLINS] Allergy Mild I-RASH Verified 10/27/18 08:40 Review of Systems - Review of Systems Review of systems:: pertinent systems reviewed and negative unless documented below - *Cardiovascular Reports chest pain, Reports chest pain at rest, Reports chest pain with activity, Reports excessive sweating, Reports shortness of breath, Reports shortness of breath with activity, Reports radiating jaw, neck or arm pain - *Respiratory Reports shortness of breath, Reports shortness of breath with activity - *Gastrointestinal Reports nausea - *Neurologic Denies seizure-like activity Exam Vital signs and Labs for Last 24 Hours: Temp Pulse Resp BP Pulse Ox 98.2 F 70 16 104/60 L 98 03/24/19 08:00 03/24/19 08:34 03/24/19 08:00 03/24/19 08:00 03/24/19 08:00 Laboratory Results - last 24 hr 03/23/19 15:20: WBC 8.3, RBC 4.27, Hgb 13.3, Hct 39.4, MCV 92.3, MCH 31.1, MCHC 33.7, RDW 13.7, Plt Count 347, MPV 8.3, Neut % (Auto) 52.5, Lymph % (Auto) 39.1, Wood % (Auto) 3.5, Eos % (Auto) 4.1, Baso % (Auto) 0.8, Neut # (Auto) 4.4, Lymph # (Auto) 3.3, Wood # (Auto) 0.3, Eos # (Auto) 0.3, Baso # (Auto) 0.1 03/23/19 15:20: Sodium 142, Potassium 3.6, Chloride 105, Carbon Dioxide 26, Anion Gap 14.6, BUN 10, Creatinine 0.83, Estimated Creat Clear 105, Estimated GFR 73, Est GFR ( Amer) 88, Glucose 139 H, Calcium 9.3, Troponin I < 0.02 03/23/19 15:20: Hemoglobin A1c 5.7 03/23/19 20:20: Troponin I < 0.02 03/23/19 20:20: TSH 3.64 D, Thyroxine (T4) 7.1 03/23/19 20:20: Triglycerides 283 H, Cholesterol 266 H, LDL Cholesterol 177 H, VLDL Cholesterol 57 H, HDL Cholesterol 32, Cholesterol/HDL Ratio 8.3 H 03/23/19 23:10: Troponin I < 0.02 03/24/19 06:43: WBC 8.4, RBC 3.87 L, Hgb 12.2, Hct 36.8 L, MCV 94.9, MCH 31.5 H, MCHC 33.2, RDW 13.7, Plt Count 308, MPV 8.0, Neut % (Auto) 53.5, Lymph % (Auto) 36.8, Wood % (Auto) 4.9, Eos % (Auto) 4.0, Baso % (Auto) 0.7, Neut # (Auto) 4.5, Lymph # (Auto) 3.1, Wood # (Auto) 0.4, Eos # (Auto) 0.3, Baso # (Auto) 0.1 03/24/19 06:43: Sodium 140, Potassium 4.0, Chloride 106, Carbon Dioxide 26, Anion Gap 12.0, BUN 13 D, Creatinine 0.76, Estimated Creat Clear 119, Estimated GFR 81, Est GFR ( Amer) 97, Glucose 95 D, Calcium 8.9, Magnesium 2.2 I & O for Last 24 hours: Intake & Output 03/21/19 03/22/19 03/23/19 03/24/19 23:59 23:59 23:59 23:59 Intake Total 360 / 360 Balance 360 / 360 Weight 187 lb 187 lb Narrative: EKG is sinus rhythm with ventricular bigeminy and nonspecific ST abnormalities. - Constitutional no acute distress, obese - *Routine HEENT Exam Head: Present: normocephalic, atraumatic Eye: Present: EOMI, PERRL ENT: Present: mucous membranes moist - *Routine Neck Exam Present: supple, full ROM, normal carotid upstroke. Absent: JVD, carotid bruit, lymphadenopathy - *Routine Respiratory Exam Present: CTA bilaterally - *Routine Cardiovascular Exam Present: RRR, Normal S1, Normal S2. Absent: murmur, gallop - *Routine Abdominal Exam Present: soft, normoactive bowel sounds. Absent: tenderness, distended - *Routine Extremities Exam Present: full ROM, pulses intact, normal capillary refill. Absent: cyanosis, clubbing, edema - *Routine Skin Exam Present: intact, warm. Absent: erythema, rash - *Routine Neurological Exam Present: alert, oriented X3, CN II-XII intact. Absent: sensory deficit, motor deficit - Detailed Eye Exam Eyelids: Left normal inspection Assessment and Plan (1) Typical angina Current visit: Yes Status: Acute Category: Medical Code(s): I20.9 - Angina pectoris, unspecified (2) SOB (shortness of breath) Current visit: Yes Status: Acute Category: Medical Code(s): R06.02 - Shortness of breath (3) Tobacco use Current visit: Yes Status: Acute Category: Medical Code(s): Z72.0 - Tobacco use (4) Hyperlipidemia Current visit: Yes Status: Acute Qualifiers: Hyperlipidemia type: mixed hyperlipidemia Qualified Code(s): E78.2 - Mixed hyperlipidemia Category: Medical Code(s): E78.5 - Hyperlipidemia, unspecified (5) Obesity Current visit: Yes Status: Acute Qualifiers: Obesity type: due to excess calories Obesity classification: adult class 1 (BMI 30 - 34.9) Serious obesity comorbidity presence: with serious comorbidity Body mass index: BMI 32.0-32.9 Qualified Code(s): E66.09 - Other obesity due to excess calories; Z68.32 - Body mass index (BMI) 32.0-32.9, adult Category: Medical Code(s): E66.9 - Obesity, unspecified (6) Fibromyalgia Current visit: No Status: Chronic Category: Medical Code(s): M79.7 - Fibromyalgia (7) Hypothyroidism Current visit: No Status: Chronic Qualifiers: Hypothyroidism type: unspecified Qualified Code(s): E03.9 - Hypothyroidism, unspecified Category: Medical Code(s): E03.9 - Hypothyroidism, unspecified (8) Vitamin D deficiency Current visit: No Status: Chronic Category: Medical Code(s): E55.9 - Vitamin D deficiency, unspecified (9) Abnormal EKG Current visit: Yes Status: Acute Category: Medical Code(s): R94.31 - Abnormal electrocardiogram [ECG] [EKG] - Assessment and plan all Dx Assessment and Plan for all problems:: Plan: 1. The patient was admitted with chest pain and shortness of breath. The patient is still complaining of chest pain and shortness of breath. She has ruled out for an LA. The patient states that she feels an impending doom. She states that she has never felt this way before. She states that she feels like she cannot get an adequate breath because of her severe chest pressure and tightness. 2. We will set the patient up for CTA of the chest today to rule out a PE. If the patient does have a pulmonary embolism then she will need to be on anticoagulation. If her CTA is negative for a PE then we will plan to proceed with left cardiac catheterization tomorrow. 3. The patient is having symptoms consistent with typical angina. She does have an abnormal EKG. She is a tobacco user and does have hyperlipidemia. The patient has high risk factors for coronary artery disease. If the CTA of her chest is negative, we will plan to proceed with left cardiac catheterization tomorrow to evaluate for coronary artery disease. The patient has been educated on the risks and benefits of proceeding with left cardiac catheterization. The patient verbalized understanding and is agreeable to proceeding with the procedure. 4. Her blood pressure is acceptable. 5. Her LDL goal is less than 100. Her LDL is currently 177. We will get her started on statin therapy. 6. Recommend aspirin 81 mg daily. 7. Echocardiogram to evaluate her LV function. 8. Further recommendations will be made pending the patient's response to treatment and the results of her echocardiogram and CTA of the chest today. Thank you for the opportunity to help participate in the care of this patient.
--- NOTE | 2019-03-25 08:36 | Progress Note ---
Subjective Date: 03/25/19 Time: 08:35 Principal diagnosis: Chest pain Interval history: 48-year-old white female in bed in no acute distress. She relates some shoulder discomfort overnight. CTA of the chest showed no evidence of pulmonary embolus or effusion/infiltrate. Patient is scheduled for cardiac catheterization today. All questions answered. Exam Vital signs and Labs for Last 24 Hours: Temp Pulse Resp BP Pulse Ox 98.0 F 89 18 105/55 L 97 03/25/19 04:00 03/25/19 04:00 03/25/19 04:00 03/25/19 04:00 03/25/19 04:00 I & O for Last 24 hours: Intake & Output 03/22/19 03/23/19 03/24/19 03/25/19 11:59 11:59 11:59 11:59 Intake Total 360 / 360 634 / 634 Balance 360 / 360 634 / 634 Weight 187 lb 187 lb 0.008 oz - *Routine HEENT Exam Head: Present: normocephalic Eye: Present: EOMI, PERRL ENT: Present: mucous membranes moist - *Routine Respiratory Exam Present: CTA bilaterally. Absent: accessory muscle use, rales, rhonchi, wheezes - *Routine Cardiovascular Exam Present: RRR. Absent: murmur, gallop, rubs - *Routine Neurological Exam Present: alert, oriented X3, moving all extremities Progress Note: A&P (1) Typical angina Status: Acute Current Visit: Yes (2) SOB (shortness of breath) Status: Acute Current Visit: Yes (3) Tobacco use Status: Acute Current Visit: Yes (4) Hyperlipidemia Status: Acute Current Visit: Yes (5) Obesity Status: Acute Current Visit: Yes (6) Fibromyalgia Status: Chronic Current Visit: No (7) Hypothyroidism Status: Chronic Current Visit: No (8) Vitamin D deficiency Status: Chronic Current Visit: No (9) Abnormal EKG Status: Acute Current Visit: Yes Assessment and Plan for All Diagnoses:: Left heart catheterization today. Further recommendations to follow.
--- NOTE | 2019-03-25 13:16 | Progress Note ---
Internal Medicine - PN: Subj *Date: 03/25/19 *Time: 13:13 Interval history: pt reports pain that radiates into left left shoulder. Exam Vital signs and Labs for Last 24 Hours: Temp Pulse Resp BP Pulse Ox 98.4 F 115 H 16 162/107 H 97 03/25/19 08:00 03/25/19 12:35 03/25/19 12:35 03/25/19 12:35 03/25/19 12:35 I & O for Last 24 hours: Intake & Output 03/23/19 03/24/19 03/25/19 03/26/19 11:59 11:59 11:59 11:59 Intake Total 360 / 360 634 / 634 Balance 360 / 360 634 / 634 Weight 187 lb 187 lb 0.008 oz - Constitutional no acute distress - *Routine HEENT Exam Head: Present: normocephalic Eye: Present: EOMI, PERRL ENT: Present: mucous membranes moist - *Routine Neck Exam Present: supple. Absent: lymphadenopathy - *Routine Respiratory Exam Present: CTA bilaterally - *Routine Cardiovascular Exam Present: RRR - *Routine Abdominal Exam Present: soft, normoactive bowel sounds. Absent: tenderness - *Routine Extremities Exam Absent: cyanosis, clubbing, edema - *Routine Skin Exam Present: warm. Absent: rash - *Routine Neurological Exam Present: alert, oriented X3 - Routine Psychiatric Exam Present: normal affect Assessment and Plan (1) Typical angina Current visit: Yes Status: Acute Category: Medical Code(s): I20.9 - Angina pectoris, unspecified (2) SOB (shortness of breath) Current visit: Yes Status: Acute Category: Medical Code(s): R06.02 - Shortness of breath (3) Tobacco use Current visit: Yes Status: Acute Category: Medical Code(s): Z72.0 - Tobacco use (4) Hyperlipidemia Current visit: Yes Status: Acute Qualifiers: Hyperlipidemia type: mixed hyperlipidemia Qualified Code(s): E78.2 - Mixed hyperlipidemia Category: Medical Code(s): E78.5 - Hyperlipidemia, unspecified (5) Obesity Current visit: Yes Status: Acute Qualifiers: Obesity type: due to excess calories Obesity classification: adult class 1 (BMI 30 - 34.9) Serious obesity comorbidity presence: with serious comorbidity Body mass index: BMI 32.0-32.9 Qualified Code(s): E66.09 - Other obesity due to excess calories; Z68.32 - Body mass index (BMI) 32.0-32.9, adult Category: Medical Code(s): E66.9 - Obesity, unspecified (6) Fibromyalgia Current visit: No Status: Chronic Category: Medical Code(s): M79.7 - Fibromyalgia (7) Hypothyroidism Current visit: No Status: Chronic Qualifiers: Hypothyroidism type: unspecified Qualified Code(s): E03.9 - Hypothyroidism, unspecified Category: Medical Code(s): E03.9 - Hypothyroidism, unspecified (8) Vitamin D deficiency Current visit: No Status: Chronic Category: Medical Code(s): E55.9 - Vitamin D deficiency, unspecified (9) Abnormal EKG Current visit: Yes Status: Acute Category: Medical Code(s): R94.31 - Abnormal electrocardiogram [ECG] [EKG] - Assessment and plan all Dx Assessment and Plan for all problems:: rounded with hilda and all orders per hilda possible dc in am
[2019-03-26 05:15] LABS: Anion Gap 14.5 mEq/L (5-15); Calcium 9.3 mg/dL (8.5-10.1); Potassium 3.5 mmoL/L (3.5-5.1)
[2019-03-26 05:16] LABS: Basophils # 0.1 K/mm3 (0-0.2); Basophils % 0.5 % (0.1-2.0); Eosinophils # 0.2 K/mm3 (0.0-0.4); Eosinophils % 1.9 % (0.1-12.0); Hematocrit 36.4 % (37.0-47.0); Hemoglobin 12.4 g/dL (12.2-16.2); Lymphocytes % 26.1 % (10-50); Mean Corpuscular HGB Conc 34.1 g/dL (31.8-35.4); Mean Corpuscular Hemoglobin 31.8 pg (27.0-31.2); Mean Corpuscular Volume 93.4 fl (81-99); Mean Platelet Volume 8.2 fl (7.4-10.4); Monocytes # 0.3 K/mm3 (0.1-1.0); Neutrophils # 7.9 K/mm3 (1.8-7.8); Neutrophils % 68.6 % (37.0-80.0); Platelet Count 341 K/mm3 (142-424); Red Blood Count 3.89 M/mm3 (4.20-5.40); Red Cell Distribution Width 13.8 % (11.5-17.5); White Blood Count 11.5 K/mm3 (4.8-10.8)
--- NOTE | 2019-03-26 09:19 | Progress Note ---
Subjective Date: 03/26/19 Time: 09:16 Principal diagnosis: Chest pain Interval history: 48-year-old white female in bed in no acute distress. Patient did have some shortness of breath last evening which was felt to be attributed to metoprolol. It was discontinued with institution of bisoprolol and resolution of shortness of breath per patient. She denies any chest pain, pressure or tightness. She is anxious to be discharged home today. Results of her cardiac cath were reviewed with her and need for dual antiplatelet therapy for 1 year. Exam Vital signs and Labs for Last 24 Hours: Temp Pulse Resp BP Pulse Ox 98.4 F 96 H 16 111/71 95 03/26/19 07:55 03/26/19 07:55 03/26/19 07:55 03/26/19 07:55 03/26/19 07:55 Laboratory Results - last 24 hr 03/25/19 11:42: Activated Clotting Time 216 H* 03/26/19 05:00: WBC 11.5 H D, RBC 3.89 L, Hgb 12.4, Hct 36.4 L, MCV 93.4, MCH 31.8 H, MCHC 34.1, RDW 13.8, Plt Count 341, MPV 8.2, Neut % (Auto) 68.6, Lymph % (Auto) 26.1, Baxter % (Auto) 3.0, Eos % (Auto) 1.9, Baso % (Auto) 0.5, Neut # (Auto) 7.9 H, Lymph # (Auto) 3.0, Baxter # (Auto) 0.3, Eos # (Auto) 0.2, Baso # (Auto) 0.1 03/26/19 05:00: Sodium 138, Potassium 3.5, Chloride 104, Carbon Dioxide 23, Anion Gap 14.5, BUN 8 D, Creatinine 1.02 D, Estimated Creat Clear 89, Estimated GFR 57 L, Est GFR ( Amer) 69 D, Glucose 166 H, Calcium 9.3 I & O for Last 24 hours: Intake & Output 03/23/19 03/24/19 03/25/19 03/26/19 11:59 11:59 11:59 11:59 Intake Total 360 / 360 634 / 634 460 / 460 Output Total 2300 / 2300 Balance 360 / 360 634 / 634 -1840 / -1840 Weight 187 lb 187 lb 0.008 oz 188 lb - *Routine HEENT Exam Head: Present: normocephalic Eye: Present: EOMI, PERRL ENT: Present: mucous membranes moist - *Routine Respiratory Exam Present: CTA bilaterally. Absent: accessory muscle use, rales, rhonchi, wheezes - *Routine Cardiovascular Exam Present: RRR. Absent: murmur, gallop, rubs - *Routine Neurological Exam Present: alert, oriented X3, moving all extremities Progress Note: A&P (1) Coronary artery dissection Status: Acute Current Visit: Yes (2) S/P coronary artery stent placement Status: Acute Current Visit: Yes (3) SOB (shortness of breath) Status: Acute Current Visit: Yes (4) Tobacco use Status: Acute Current Visit: Yes (5) Hyperlipidemia Status: Acute Current Visit: Yes (6) Obesity Status: Acute Current Visit: Yes (7) Fibromyalgia Status: Chronic Current Visit: No (8) Hypothyroidism Status: Chronic Current Visit: No (9) Vitamin D deficiency Status: Chronic Current Visit: No (10) Abnormal EKG Status: Acute Current Visit: Yes (11) Coronary artery disease Status: Acute Current Visit: Yes Assessment and Plan for All Diagnoses:: 1. Patient will ambulate in hallway on telemetry to evaluate for arrhythmias. 2. Possibly discharge home later today if stable with follow-up in our office in 1 week 3. Moderate coronary disease of LAD with plans for medical therapy and consideration of stress testing in the future to evaluate ischemic burden. 4. Medication recommendations: Brilinta 90 milligrams twice daily Aspirin 81 mg daily Lipitor 40 mg daily Bisoprolol 10 mg twice daily NTG SL 0.4 mg PRN chest pain
--- NOTE | 2019-03-26 12:05 | Discharge Summary ---
General - General Admission date:: 03/23/19 Discharge date: 03/26/19 HPI HPI: this wf who had episodes of new chest pain with rad to shoulder with feeling of sob and feeling of near syncope and arrthymia - pt was seen in the pcp and referred to ed [facility] in by ambulance from Dr. Charlton's office. She says she was being seen there for a on top of her head that the hairdresser accidentally ripped off a few days ago. However, she also states she in general has not been feeling well for several days. Feels generally weak and is getting pains and "my heart and shoulders". Gets episodes of tachycardia. Gets short of breath, nauseated, and diaphoretic. Nothing seems to bring the discomfort on, but it lasts for hours. She had an episode in the office at Dr. Charlton's. She was given nitroglycerin and aspirin and sent to the emergency room. States she has a history of mitral valve prolapse. She is a smoker. She has never had a stress test or heart cath to her knowledge. pt was admitted for treatment and eval by cardiology Hospital Course Hospital Course: heart cath:IMPRESSION: 1. Moderate coronary artery disease and mid LAD 2. 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 Successful stenting of the ostial proximal mid dominant right coronary artery critical disease reduced to 0% with 3 drug-eluting stents in a contiguous manner 4. Persistent moderate stenosis along a tortuous bend in the mid LAD 5. Moderately elevated LVEDP PLAN: 1. Brilinta and aspirin 2. LDL less than 55 3. Avoidance of tobacco products 4. Risk factor modification 5. In one month I would recommend and exercise Myoview to determine if the mid LAD stenosis has hemodynamic significance 6. Treatment of diastolic dysfunction with diuretics 7. Cardiac rehabilitation Patient admitted with cardiology consult and cardiology work-up. Heart cath was performed yesterday 3 stents placed. Today patient states she feels better still having pain up into her neck area states pain does not worsen with movement or walking. Patient will be discharged home today follow-up with cardiology in 1 week cardiology recommends Brilinta 90 mg twice a day aspirin 81 mg daily Lipitor 40 mg daily bisoprolol 10 mg twice a day and nitroglycerin sublingual 0.4 mg as needed chest pain. Objective Vital signs: Temp Pulse Resp BP Pulse Ox 98.4 F 96 H 16 111/71 95 03/26/19 07:55 03/26/19 08:00 03/26/19 08:00 03/26/19 07:55 03/26/19 08:00 no acute distress - *Routine HEENT Exam Head: Present: normocephalic Eye: Present: PERRL ENT: Present: mucous membranes moist - *Routine Respiratory Exam Present: CTA bilaterally - *Routine Cardiovascular Exam Present: RRR - *Routine Abdominal Exam Present: soft, normoactive bowel sounds - *Routine Extremities Exam Present: full ROM - *Routine Skin Exam Present: intact Comments: Dressing to wrist - *Routine Neurological Exam Present: alert, oriented X3 - Routine Psychiatric Exam Present: normal affect Results Labs on day of discharge: Labs from last 24 hours 03/26/19 03/26/19 03/25/19 05:00 05:00 11:42 WBC 11.5 H D RBC 3.89 L Hgb 12.4 Hct 36.4 L MCV 93.4 MCH 31.8 H MCHC 34.1 RDW 13.8 Plt Count 341 MPV 8.2 Neut % (Auto) 68.6 Lymph % (Auto) 26.1 [place] % (Auto) 3.0 Eos % (Auto) 1.9 Baso % (Auto) 0.5 Neut # (Auto) 7.9 H Lymph # (Auto) 3.0 [place] # (Auto) 0.3 Eos # (Auto) 0.2 Baso # (Auto) 0.1 Activated Clotting Time 216 H* Sodium 138 Potassium 3.5 Chloride 104 Carbon Dioxide 23 Anion Gap 14.5 BUN 8 D Creatinine 1.02 D Estimated Creat Clear 89 Estimated GFR 57 L Est GFR ( Amer) 69 D Glucose 166 H Calcium 9.3 - Additional Comments Rounded with Dr. Charlton all orders per Latesha DS: Diagnosis - Discharge Diagnosis (1) Coronary artery dissection Status: Acute (2) S/P coronary artery stent placement Status: Acute (3) SOB (shortness of breath) Status: Acute (4) Tobacco use Status: Acute (5) Hyperlipidemia Status: Acute (6) Obesity Status: Acute (7) Fibromyalgia Status: Chronic (8) Hypothyroidism Status: Chronic (9) Vitamin D deficiency Status: Chronic (10) Abnormal EKG Status: Acute (11) Coronary artery disease Status: Acute Discharge Plan - Patient Discharge Instructions ACTIVITY: Continue current activity DIET: continue same diet Patient Instructions: High Triglycerides, Angina, Echocardiogram, Nicotine Addiction, Cholesterol-lowering Diet, DI for Angina, DI for Obesity -- Adult - Follow up Plan Follow up with: Michelle Quiñonez PA [Physician Retrofit Installer] - 03/29/19 Louis Caraballo MD [Staff Physician] - 1 week Disposition: Home, Self-Assisted Medications: Home Medications Medication Instructions Recorded Confirmed Type Cholecalciferol (Vitamin D3) 1,000 unit PO DAILY 09/20/18 03/24/19 History [Vitamin D3 1,000 Unit Cap] Ergocalciferol (Vitamin D2) 50,000 unit PO WEEKLY 09/20/18 03/24/19 History [Drisdol] Meclizine HCl [Wal-Dram 2] 25 mg PO TIDP PRN 09/20/18 03/24/19 History levothyroxine 25 mcg tablet 25 mcg PO DAILY 30 Days #30 tab 10/27/18 03/23/19 History tramadol 50 mg tablet 50 mg PO QIDP PRN tab 10/27/18 03/24/19 History Aspirin [Aspirin 81mg EC Tab] 81 mg PO DAILY 30 Days #30 03/26/19 Rx tablet. Atorvastatin Calcium [Lipitor 40mg 40 mg PO HS 30 Days #30 tab 03/26/19 Rx Tablet] Bisoprolol Fumarate [Zebeta 5mg 10 mg PO BID 30 Days #60 tab 03/26/19 Rx tablet] Ticagrelor [Brilinta 90mg Tablet] 90 mg PO BID 30 Days #60 tab 03/26/19 Rx Prescriptions/Medication Reconciliation: New Ticagrelor [Brilinta 90mg Tablet] 90 mg PO BID 30 Days #60 tab Bisoprolol Fumarate [Zebeta 5mg tablet] 10 mg PO BID 30 Days #60 tab Aspirin [Aspirin 81mg EC Tab] 81 mg PO DAILY 30 Days #30 tablet. Atorvastatin Calcium [Lipitor 40mg Tablet] 40 mg PO HS 30 Days #30 tab Continued levothyroxine 25 mcg tablet 25 mcg PO DAILY 30 Days #30 tab tramadol 50 mg tablet 50 mg PO QIDP PRN tab PRN Reason: pain Cholecalciferol (Vitamin D3) [Vitamin D3 1,000 Unit Cap] 1,000 unit PO DAILY Meclizine HCl [Wal-Dram 2] 25 mg PO TIDP PRN PRN Reason: Dizziness Ergocalciferol (Vitamin D2) [Drisdol] 50,000 unit PO WEEKLY
--- NOTE | 2019-03-26 15:59 | Cardiology Report ---
PROCEDURE: 2-D M-mode and color Doppler study INDICATIONS FOR THE TEST: Chest pain X COPD Heart MurmurX Tobacco SmokingX PalpitationsX Fatigue Syncope Edema Hypertension Diabetes Mellitus Rheumatic Fever SOB VALLEJO ObesityXHyperlipidemiaX Family History HD Additional History PATIENT INFORMATION HEIGHT:65 WEIGHT:180 GENDER: Female B/P:144/86 2-D/M-MODE INTERPRETATION: 2-D MEASUREMENTS OBSERVED VALUES IN CMS Right Ventricular Dimension (RVDd) 2.2 Interventricular Septum (Thickness)(IVsd) 1.2 Left Ventricular Internal Dimensions(LVIDd) 4.7 Left Ventricular Posterior Wall (Thickness)(LVPWd) .7 Aortic Root 2.8 Aortic Cusp Separation 1.9 Left Atrial Dimensions (LAD) 3.7 2D 1. Left atrium is normal size, left ventricle is normal size, there is no concentric left ventricular hypertrophy, visually estimated ejection fraction 55% with no regional wall motion abnormality. 2. The right atrium and right ventricle are normal size and contractility. 3. The aortic, mitral and tricuspid valvular grossly normal. 4. The pulmonic valve is poorly visualized. 5. No significant pericardial effusion noted. DOPPLER INTERROGATION: Doppler interrogation of the aortic, mitral and tricuspid valvular presence of mild mitral and tricuspid regurgitation, tricuspid regurgitation jet velocity is inadequate for calculation of the right ventricular systolic pressure, diastolic parameters are within normal range. CONCLUSION: 1. Normal left ventricular size, preserved left ventricular systolic function, visually estimated ejection fraction of 55% with no regional wall motion abnormality, diastolic parameters are within normal range. 2. Mild mitral and tricuspid regurgitation 3. No significant pericardial effusion noted.
== END 2019-03-26 13:13 | disposition home or self-care (01) ==
LOC: ER 14:54 → 2ND 14:54 → ICU 03-25 12:25
PROVIDERS: ADMIT Emergency Medicine; ATTEND Emergency Medicine
CPT/HCPCS: 36415; 71010; 71045; 71275; 80048; 80061; 83036; 83735; 84436; 84443; 84484; 85025; 85347; 92928; 93005; 93306; 93458; 96374; 96375; 99152; 99153; 99284; C1725; C1769; C1876; C9600; G0378; J1644; J2405; Q9967

== ENCOUNTER → 2019-03-31 10:22 | Outpatient (CLI) | payer OTHER, SELFPAY ==
[2019-03-31 10:36] LABS: Basophils # 0.1 K/mm3 (0-0.2); Basophils % 0.8 % (0.1-2.0); Eosinophils # 0.3 K/mm3 (0.0-0.4); Eosinophils % 3.1 % (0.1-12.0); Hematocrit 39.7 % (37.0-47.0); Hemoglobin 13.3 g/dL (12.2-16.2); Lymphocytes # 1.9 K/mm3 (0.7-4.5); Mean Corpuscular HGB Conc 33.4 g/dL (31.8-35.4); Mean Corpuscular Hemoglobin 31.8 pg (27.0-31.2); Mean Corpuscular Volume 95.2 fl (81-99); Mean Platelet Volume 8.3 fl (7.4-10.4); Monocytes # 0.3 K/mm3 (0.1-1.0); Monocytes % 3.3 % (1.7-9.3); Neutrophils # 6.9 K/mm3 (1.8-7.8); Neutrophils % 72.9 % (37.0-80.0); Platelet Count 400 K/mm3 (142-424); Red Blood Count 4.17 M/mm3 (4.20-5.40); Red Cell Distribution Width 13.5 % (11.5-17.5); White Blood Count 9.4 K/mm3 (4.8-10.8)
[2019-03-31 11:14] LABS: Anion Gap 11.2 mEq/L (5-15); Blood Urea Nitrogen 14 mg/dL (7-18); Calcium 9.1 mg/dL (8.5-10.1); Carbon Dioxide 27 mmol/L (21.0-32.0); Chloride 105 mmol/L (98-107); Creatinine,Serum 0.91 mg/dL (0.55-1.02); Estimated Glomerular Filt Rate 65 ml/min (>60); GFR (African American) 79 ML/MIN (>60); Glucose 101 mg/dL (74-106); Potassium 4.2 mmoL/L (3.5-5.1); Sodium 139 mmol/L (136-145)
== END ==
PROVIDERS: Visit Provider Internal Medicine
DX: R07.2 Precordial pain (principal); R06.02 Shortness of breath; I25.110 Atherosclerotic heart disease of native coronary artery with unstable angina pectoris; E78.5 Hyperlipidemia, unspecified
CPT/HCPCS: 36415; 80048; 85025

== ENCOUNTER 2019-04-22 13:49 | Outpatient (RCR) | payer OTHER, SELFPAY | END 2019-06-04 13:18 | disposition home or self-care (01) | LOC: PT 13:49 | PROVIDERS: Visit Provider Urology | DX: Z95.5 Presence of coronary angioplasty implant and graft (principal); I25.10 Atherosclerotic heart disease of native coronary artery without angina pectoris ==

== ENCOUNTER → 2019-06-03 07:18 | Outpatient (CLI) | payer OTHER, SELFPAY ==
--- NOTE | 2019-06-03 07:21 | NM_ITS ---
CARDIOLITE SPECT MYOCARDIAL PERFUSION LEXISCAN, REST AND STRESS: History: Coronary artery disease, hypertension, hyperlipidemia, tobacco use, chest pain and shortness of breath Procedure: Patient received a 0.4 mg of intravenous Lexiscan, resting heart rate was 80 bpm resting blood pressure 131/85, with Lexiscan maximum heart rate achieved was 40 bpm which is less than 85% of the maximum predicted heart rate and a blood pressure was 137/66. With Lexiscan patient complained of nausea requiring intravenous Aminophyllin to reverse symptoms. Electrocardiogram: Resting electrocardiogram showed sinus rhythm nonspecific ST-T changes, with Lexiscan less than 1.[address] segment depression noted from the baseline EKG. Cardiac stress and resting SPECT images: Cardiac stress and the rest images were obtained using technetium 99 Myoview 29.4 mCi stress and 10.1 mCi at rest, gated SPECT further analysis of segmental wall motion and admission of the ejection fraction also done. Cardiac stress and the rest SPECT images show uniform myocardial activity without segmental perfusion abnormality, computer derived ejection fraction is 56% with no regional wall motion abnormality, right ventricle is normal size and contractility. Conclusion: 1. The EKG portion of the Lexiscan Myoview is nondiagnostic. 2. No scintigraphic evidence of reversible ischemia seen, computer derived ejection fraction is 56% with no regional wall motion abnormality, right ventricle is normal size and contractility. 3. Normal Lexiscan Myoview study.
--- NOTE | 2019-06-03 09:29 | HMH.ITSHM ---
Current Home Medications as stated by this patient Doris Ward or traffic representative. []VITAMIN D LEVOTHYROXINE FUROSEMIDE SPIRONOLACTONE VITAMIN D3 LISINROPIL TRAMADOL ASA NITRO METOPROLOL CLOPIDOGREL ATORVASTATIN
[2019-06-03 12:52] LABS: Alanine Aminotransferase 24 U/L (12-78); Albumin Level 3.5 gm/dL (3.4-5.0); Alkaline Phosphatase 117 U/L (46-116); Aspartate Amino Transferase 15 U/L (15-37); Bilirubin,Direct 0.1 mg/dL (0.0-0.2); Bilirubin,Indirect 0.2 mg/dL (0.0-0.9); Bilirubin,Total 0.3 mg/dL (0.2-1.0); Cholesterol 136 mg/dL (140-200); HDL Cholesterol 34 mg/dL (29-89); LDL Cholesterol 71 mg/dL (0-130); Total Protein,Serum 7.1 gm/dL (6.4-8.2); Triglycerides 153 mg/dL (30-200); VLDL Cholesterol 31 mg/dL (0-40)
== END ==
PROVIDERS: Nurse Practitioner Family; PCP Emergency Medicine; Visit Provider Internal Medicine
DX: I25.10 Atherosclerotic heart disease of native coronary artery without angina pectoris (principal); M25.511 Pain in right shoulder; R06.02 Shortness of breath; R53.83 Other fatigue; E78.2 Mixed hyperlipidemia
CPT/HCPCS: 36415; 78452; 80061; 80076; 93017; A9502; J2785

== ENCOUNTER 2019-06-05 06:55 | Observation (INO) ==
--- NOTE | 2019-06-05 07:17 | Emergency Department Note ---
ED Disposition Clinical Impression: Palpitations Disposition: Still a Patient Condition on Discharge: Good (Stable) Referrals: Michelle Quiñonez PA [Primary Care Provider] - - Critical Care Critical Care Time: No Attestation: On 06/05/19, the high probability of a clinically significant, sudden or life threatening deterioration of the following system(s) required my full and direct attention, intervention and personal management. The time I documented below is in addition to time spent performing reported procedures but includes the following listed in this critical care notation. Medical Decision Making - Medical Records Medical records reviewed: Yes: I reviewed the patient's medical records. - Hugo Inquiry Pt receiving controlled substance: No Hugo was queried for this patient: No Vital Signs: 06/05/19 06:51 06/05/19 07:49 06/05/19 07:50 Temperature 98.1 F Temperature Source Oral Pulse Rate [Right Brachial] 131 H 90 Respiratory Rate 16 Blood Pressure [Left Arm] 103/61 L Blood Pressure [Right Arm] 124/86 133/69 Blood Pressure Mean [Left Arm] 75 Blood Pressure Mean [Right Arm] 98 90 Blood Pressure Source [Left Arm] Automatic Cuff Blood Pressure Source [Right Arm] Automatic Cuff Automatic Cuff Blood Pressure Position [Left Arm] Sitting Blood Pressure Position [Right Arm] Sitting Sitting 02 Sat by Pulse Oximetry 100 Oxygen Delivery Method Room Air 06/05/19 08:00 Temperature Temperature Source Pulse Rate [Right Brachial] 92 H Respiratory Rate Blood Pressure [Left Arm] 103/61 L Blood Pressure [Right Arm] Blood Pressure Mean [Left Arm] 75 Blood Pressure Mean [Right Arm] Blood Pressure Source [Left Arm] Blood Pressure Source [Right Arm] Blood Pressure Position [Left Arm] Blood Pressure Position [Right Arm] 02 Sat by Pulse Oximetry 98 Oxygen Delivery Method Orders (Tests/Meds): ED MEDICATIONS Discontinued Medications Generic Name Dose Route Start Last Admin Trade Name Freq PRN Reason Stop Dose Admin Cyclobenzaprine HCl 10 mg 06/05/19 07:40 06/05/19 07:56 Flexeril 10mg Tablet PO 06/05/19 07:41 10 mg ONCE ONE Administration Morphine Sulfate 2 mg 06/05/19 08:04 06/05/19 08:11 Morphine 2mg/Ml Syringe IV 06/05/19 08:05 2 mg ONCE ONE Administration Promethazine HCl 12.5 mg 06/05/19 07:09 06/05/19 07:10 Phenergan 25mg/Ml 1ml Vial IV 06/05/19 07:10 12.5 mg ONCE ONE Administration Sodium Chloride 25 ml 06/05/19 07:09 06/05/19 07:10 Sod Chlor 0.9% 25ml Bag IV 06/05/19 07:10 25 ml ONCE ONE Administration ORDERS Category Date Time Status CT chest w con Stat Cat Scan 06/05/19 07:49 Ordered XR chest 2V Stat Exams 06/05/19 06:59 Taken Cardiac Enzymes Stat Lab 06/05/19 07:45 Received Complete Blood Count Auto Diff Stat Lab 06/05/19 06:59 Received Comprehensive Metabolic Panel Stat Lab 06/05/19 07:45 Received Free T4 (Free Thyroxine) Stat Lab 06/05/19 08:07 Ordered MAG [Magnesium] Stat Lab 06/05/19 07:45 Received Thyroid Stimulating Hormone Stat Lab 06/05/19 07:45 Received - ECG Data Tracing #1 I reviewed this ECG and interpreted as documented below: (EKG at 07:44 shows normal sinus rhythm.) Medical Decision Narrative: 07:45 Pt evaluated. Cardiac work up ordered and pending. Phenergan 12.5 mg IVPB and Flexeril 10 mg PO ordered. Pt care will be transferred to my relieving physician at 08:00. Arrhythmia/Palpitations HPI - General Chief Complaint: Arrhythmia/Palpitations Stated Complaint: INCR HR, BACK PAIN Time Seen by Provider: 06/05/19 07:10 Mode of Arrival: EMS Source of Information: Patient, Spouse Limitations: No Limitations - History of Present Illness HPI narrative: Pt is here in the ER for evaluation from home via EMS c/o rapid heart rate. Pt was seen here earlier this morning for chest pain. Cardiac work up that inclu ded an initial and 2 hour troponin was normal. Pt subsequently discharged to home. She states that she maybe slept for an hour then woke up feeling like her heart was racing. No sob at this time. She also denies having chest pain, but states she continues to feel nauseated and her back pain is persistent. Pt states her back pain runs from lower bilateral thoracic area up into bilateral shoulders. No abdominal pain. Pt is compliant with her home medicines. UDS earlier tonight was negative. 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 HR 110 now. - Related Data Home Medications Medication Instructions Recorded Confirmed Furosemide [Furosemide 20mg Tab] 20 mg PO DAILY 04/03/19 06/05/19 Meclizine HCl [Wal-Dram 2] 1 tab PO TID 04/03/19 06/05/19 Nicotine [Nicotine Patch 21 mg TRANSDERMAL DAILY 04/03/19 06/05/19 21mg/24hrs] Spironolactone [Spironolactone 25 mg PO DAILY 04/03/19 06/05/19 25mg Tablet] Atorvastatin Calcium [Lipitor 40mg 40 mg PO HS 06/04/19 06/05/19 Tablet] Clopidogrel Bisulfate [Plavix 75mg 75 mg PO DAILY 06/04/19 06/05/19 Tab] Metoprolol Succinate 50 mg PO DAILY 06/04/19 06/05/19 Nitroglycerin See Rx Instructions .ROUTE .COMPLEX 06/04/19 06/05/19 Ranolazine [Ranexa 500mg ER tablet] 500 mg PO Q12 06/04/19 06/05/19 Lisinopril [Lisinopril 5mg 5 mg PO DAILY 06/05/19 06/05/19 Tablet] Previous Rx's Medication Instructions Recorded cholecalciferol (vitamin D3) 1,000 1,000 unit PO DAILY #90 cap 03/29/19 unit capsule ergocalciferol (vitamin D2) 50,000 50,000 unit PO WEEKLY #4 cap 03/29/19 unit capsule levothyroxine 25 mcg tablet 25 mcg PO DAILY 90 Days #90 tab 03/29/19 tramadol 50 mg tablet 50 mg PO QID PRN #120 tab 04/21/19 aspirin 81 mg tablet,delayed 81 mg PO DAILY #90 tab 04/22/19 release Allergies Allergy/AdvReac Type Severity Reaction Status Date / Time ketorolac [From TORADOL] Allergy Mild I-RASH Verified 05/25/19 12:02 Penicillins [PENICILLINS] Allergy Mild I-RASH Verified 05/25/19 12:02 [facility] History - Hepatitis A Screen Drug use history?: No High risk sexual behaviors?: No History of sexually transmitted infection?: No Currently employed?: No Childcare worker?: No Do you have indoor plumbing?: Yes Do you have electricity?: Yes Attestation statement:: This patient has been screened for Hepatitis A risk factors. I have reviewed the patient's past medical history: Yes Medical History: Reports:: Anxiety, Coronary Artery Disease, Hyperlipidemia, Valvular Heart Disease Denies:: Cancer, Diabetes Mellitus Type 1, Diabetes Mellitus Type 2, Internal Pacemaker, MRSA Other Medical History: Reports: Arthritis, Fibromyalgia Other Surgeries: Yes: Cardiac Catheterization, Coronary Stent, Hysterectomy- Partial, Tubal Ligation. No: Pacemaker Amputation: No Fractures: No Comment: Left Knee. - Social History Educational Level: Completed High School Smoking Status: Unknown if ever smoked Tobacco Type: cigarettes # Packs/Day (cigarettes): 1 #Yrs smoked (if former smoker): 25 Alcohol Intake: never Substance Use Type: denies use Occupational Status: unemployed Housing: house Household Members: spouse, family - Psychiatric History Pschychiatric History:: Reports:: Anxiety Family Hx:: Diabetes Comment: Mom- Fibromyalgia, arthritis ROS Obtained: Yes All systems reviewed & no additional complaints - Constitutional Constitutional: Reports system reviewed and no additional complaints, except as docu - Eyes Eyes: Reports system reviewed and no additional complaints, except as docu - ENT Ears, Nose, Mouth, and Throat: Reports system reviewed and no additional complaints, except as docu - Cardiovascular Cardiovascular: Reports system reviewed and no additional complaints, except as docu, Reports as per HPI, Denies dyspnea, Reports rapid heart rate - Respiratory Respiratory: Yes system reviewed and no additional complaints, except as docu - Gastrointestinal Gastrointestingal: Reports: system reviewed and no additional complaints, except as docu - Genitourinary Female Genitourinary: Reports system reviewed and no additional complaints, except as docu - Musculoskeletal Musculoskeletal: Reports system reviewed and no additional complaints, except as docu, Reports as per HPI, Reports back pain - Integumentary/Breasts Skin/Breast: Reports system reviewed and no additional complaints, except as docu - Neurologic Neurologic: Reports system reviewed and no additional complaints, except as docu - Endocrine Endocrine: Reports system reviewed and no additional complaints, except as docu - Hematologic/Lymphatic Henatologic/Lymphatic: Reports system reviewed and no additional complaints, except as docu - Allergic/Immunologic Allergic/Immunologic: Reports system reviewed and no additional complaints, except as docu Physical Exam - General General appearance: alert, in no apparent distress, anxious (mildly) - Head Head exam: atraumatic, normocephalic, normal inspection - Eye Eye exam: Present: PERRL, EOMI - ENT ENT exam: Present: normal oropharynx, mucous membranes moist - Neck Neck exam: Present: full ROM, trachea midline - Chest Chest inspection: Present: normal inspection, symmetric chest wall rise. Absent: tenderness - Respiratory Respiratory exam: Present: normal lung sounds bilaterally. Absent: respiratory distress, wheezes, accessory muscle use - Cardiovascular Cardiovascular exam: Present: tachycardia. Absent: systolic murmur, rubs, gallop, JVD - Abdominal Exam Abdominal exam: Present: soft, normal bowel sounds. Absent: tenderness, guarding, rebound, rigidity - Extremities Exam Extremities exam: Present: normal inspection, full ROM - Back Exam Back exam: Present: normal inspection, full ROM. Absent: CVA tenderness (R), CVA tenderness (L), paraspinal tenderness, vertebral tenderness - Neurological Exam Neurological exam: Present: alert, oriented X3, CN II-XII intact - Psychiatric Psychiatric exam: Present: anxious (mildly) - Skin Skin exam: Present: warm, dry, intact. Absent: rash
[2019-06-05 08:04] LABS: Basophils # 0.1 K/mm3 (0-0.2); Basophils % 0.8 % (0.1-2.0); Eosinophils # 0.3 K/mm3 (0.0-0.4); Eosinophils % 3.1 % (0.1-12.0); Hematocrit 37.9 % (37.0-47.0); Hemoglobin 11.9 g/dL (12.2-16.2); Lymphocytes # 2.4 K/mm3 (0.7-4.5); Lymphocytes % 29.6 % (10-50); Mean Corpuscular HGB Conc 31.4 g/dL (31.8-35.4); Mean Corpuscular Volume 94.1 fl (81-99); Mean Platelet Volume 8.4 fl (7.4-10.4); Monocytes # 0.3 K/mm3 (0.1-1.0); Monocytes % 4.2 % (1.7-9.3); Neutrophils # 5.1 K/mm3 (1.8-7.8); Neutrophils % 62.4 % (37.0-80.0); Platelet Count 355 K/mm3 (142-424); Red Blood Count 4.02 M/mm3 (4.20-5.40); Red Cell Distribution Width 13.8 % (11.5-17.5); White Blood Count 8.2 K/mm3 (4.8-10.8)
[2019-06-05 08:33] LABS: Alanine Aminotransferase 29 U/L (12-78); Albumin Level 3.5 gm/dL (3.4-5.0); Albumin/Globulin Ratio 0.9 (1.1-1.8); Alkaline Phosphatase 115 U/L (46-116); Anion Gap 11.6 mEq/L (5-15); Bilirubin,Total 0.2 mg/dL (0.2-1.0); Blood Urea Nitrogen 13 mg/dL (7-18); Calcium 9.2 mg/dL (8.5-10.1); Carbon Dioxide 29 mmol/L (21.0-32.0); Chloride 101 mmol/L (98-107); Creatine Kinase 78 U/L (26-192); Globulin 3.9 gm/dl (1.3-3.2); Glucose 130 mg/dL (74-106); Sodium 138 mmol/L (136-145); Thyroid Stimulating Hormone 5.19 uIU/ml (0.358-3.740); Total Protein,Serum 7.4 gm/dL (6.4-8.2)
[2019-06-05 08:41] LABS: Aspartate Amino Transferase 23 U/L (15-37)
--- NOTE | 2019-06-05 09:28 | Emergency Department Note ---
ED Disposition Clinical Impression: Palpitations, CAD (coronary artery disease), Hyperthyroidism, Atypical chest pain, Tobacco use, Medication side effect, Anemia Disposition: Still a Patient Condition on Discharge: Fair Referrals: Michelle Quiñonez PA [Primary Care Provider] - - Critical Care Critical Care Time: No Attestation: On 06/05/19, the high probability of a clinically significant, sudden or life threatening deterioration of the following system(s) required my full and direct attention, intervention and personal management. The time I documented below is in addition to time spent performing reported procedures but includes the following listed in this critical care notation. Medical Decision Making - Hugo Inquiry Pt receiving controlled substance: No Hugo was queried for this patient: No Vital Signs: 06/05/19 06:51 06/05/19 07:49 06/05/19 07:50 Temperature 98.1 F Temperature Source Oral Pulse Rate [Right Brachial] 131 H 90 Respiratory Rate 16 Blood Pressure [Left Arm] 103/61 L Blood Pressure [Right Arm] 124/86 133/69 Blood Pressure Mean [Left Arm] 75 Blood Pressure Mean [Right Arm] 98 90 Blood Pressure Source [Left Arm] Automatic Cuff Blood Pressure Source [Right Arm] Automatic Cuff Automatic Cuff Blood Pressure Position [Left Arm] Sitting Blood Pressure Position [Right Arm] Sitting Sitting 02 Sat by Pulse Oximetry 100 Oxygen Delivery Method Room Air 06/05/19 08:00 06/05/19 08:34 06/05/19 09:05 Temperature Temperature Source Pulse Rate [Right Brachial] 92 H 90 88 Respiratory Rate Blood Pressure [Left Arm] 103/61 L 110/80 123/75 Blood Pressure [Right Arm] Blood Pressure Mean [Left Arm] 75 90 91 Blood Pressure Mean [Right Arm] Blood Pressure Source [Left Arm] Blood Pressure Source [Right Arm] Blood Pressure Position [Left Arm] Blood Pressure Position [Right Arm] 02 Sat by Pulse Oximetry 98 98 Oxygen Delivery Method - Lab Data Lab Results 06/05/19 07:45: WBC 8.2, RBC 4.02 L, Hgb 11.9 L, Hct 37.9, MCV 94.1, MCH 29.6, MCHC 31.4 L, RDW 13.8, Plt Count 355, MPV 8.4, Neut % (Auto) 62.4, Lymph % (Au to) 29.6, [place] % (Auto) 4.2, Eos % (Auto) 3.1, Baso % (Auto) 0.8, Neut # (Auto) 5.1, Lymph # (Auto) 2.4, [place] # (Auto) 0.3, Eos # (Auto) 0.3, Baso # (Auto) 0.1 06/05/19 07:45: Sodium 138, Potassium 3.6, Chloride 101, Carbon Dioxide 29, Anion Gap 11.6, BUN 13, Creatinine 0.92, Estimated Creat Clear 93, Estimated GFR 65, Est GFR ( Amer) 78, Glucose 130 H, Calcium 9.2, Total Bilirubin 0.2, AST 23 D, ALT 29, Alkaline Phosphatase 115, Total Creatine Kinase 78, CK-MB (CK-2) < 0.5, CK-MB (CK-2) Rel Index 0.6, Troponin I < 0.02, Total Protein 7.4, Albumin 3.5, Globulin 3.9 H, Albumin/Globulin Ratio 0.9 L, TSH 5.19 H D 06/05/19 07:45: Magnesium 1.8 06/05/19 07:45: Free T4 3.55 H Result diagrams: 06/05/19 07:45 06/05/19 07:45 Orders (Tests/Meds): ED MEDICATIONS Discontinued Medications Generic Name Dose Route Start Last Admin Trade Name Hunter PRN Reason Stop Dose Admin Cyclobenzaprine HCl 10 mg 06/05/19 07:40 06/05/19 07:56 Flexeril 10mg Tablet PO 06/05/19 07:41 10 mg ONCE ONE Administration Morphine Sulfate 2 mg 06/05/19 08:04 06/05/19 08:11 Morphine 2mg/Ml Syringe IV 06/05/19 08:05 2 mg ONCE ONE Administration Promethazine HCl 12.5 mg 06/05/19 07:09 06/05/19 07:10 Phenergan 25mg/Ml 1ml Vial IV 06/05/19 07:10 12.5 mg ONCE ONE Administration Sodium Chloride 25 ml 06/05/19 07:09 06/05/19 07:10 Sod Chlor 0.9% 25ml Bag IV 06/05/19 07:10 25 ml ONCE ONE Administration ORDERS Category Date Time Status CT chest w con Stat Cat Scan 06/05/19 07:49 Ordered - ECG Data Tracing #1 Normal sinus rhythm 89/min Baseline artifact no ST segment or T wave changes no acute findings. ECG initial impression date: 06/05/19 ECG initial impression time: 08:00 Medical Decision Narrative: I obtained a thyroid panel in the patient her TSH was elevated and so was her free T4. I discussed ordering a CT scan with Dr. Caraballo both was agreed that obtaining a CT chest with iodine dye would worsen her iodine load and her thyroid condition. The test was canceled. The patient will started Inderal 10 to 20 mg every 6 that may be increased to 40 as needed to control her heart rate and decreased peripheral conversion of of her T4 to T3. I discussed with Dr. Caraballo her admission to telemetry bed for heart rate monitoring he was agreeable. i discussed with Dr. Davila who agreed to admit the patient for observation bed on telemetry, she was started on Inderal 10 mg every 6 in addition to her beta- gely Lopressor 50 mg daily. Arrhythmia/Palpitations HPI - General Chief Complaint: Arrhythmia/Palpitations Stated Complaint: INCR HR, BACK PAIN Time Seen by Provider: 06/05/19 07:10 Mode of Arrival: EMS Source of Information: Patient, Spouse Limitations: No Limitations - History of Present Illness HPI narrative: 1 years old white female with history of fibromyalgia, coronary artery disease and ongoing smoking. She underwent cardiac catheterization with 3 stents 3 months ago. She is currently on aspirin and Plavix. Due to left main disease Dr. Caraballo did a Lexiscan 2 days ago. Since the Lexiscan, she has been experiencing worsening of her fibromyalgia involving neck back and shoulder pain rated 4/10. Yesterday she developed chest pain was evaluated in the emergency room with a normal EKG to the left troponin and was found to be hypertensive. The ED physician contacted Dr. Caraballo who added lisinopril to her medication was discharged home at 3:30 in the morning. After sleeping for 1 hour she was awakened with a another chest pain that is "gurgling sensation in her chest" that lasted for few minutes and a sense of palpitation that lasted for 30 minutes. On EMS arrival it was noted that her heart rate was 160/minutes and upon arrival to the ED she had an EKG with a ventricular rate of 89 normal sinus baseline artifact no acute ST or T wave changes. She continues to use tobacco and she is on nicotine patch. She is on a beta-gely. It is worth noting that her TSH and free T4 are above normal. Uses Synthroid 25 mcg by her primary care physician Michelle Quiñonez. She is cu rrently asymptomatic but seems very anxious.. complaint: rapid heart beat Onset (ago): hour(s) Time: 04:30 Duration: intermittent Severity: severe Context: occurred during rest Associated symptoms: chest pain Treatments prior to arrival: beta-gely - Related Data Home Medications Medication Instructions Recorded Confirmed Furosemide [Furosemide 20mg Tab] 20 mg PO DAILY 04/03/19 06/05/19 Meclizine HCl [Wal-Dram 2] 1 tab PO TID 04/03/19 06/05/19 Nicotine [Nicotine Patch 21 mg TRANSDERMAL DAILY 04/03/19 06/05/19 21mg/24hrs] Spironolactone [Spironolactone 25 mg PO DAILY 04/03/19 06/05/19 25mg Tablet] Atorvastatin Calcium [Lipitor 40mg 40 mg PO HS 06/04/19 06/05/19 Tablet] Clopidogrel Bisulfate [Plavix 75mg 75 mg PO DAILY 06/04/19 06/05/19 Tab] Metoprolol Succinate 50 mg PO DAILY 06/04/19 06/05/19 Nitroglycerin See Rx Instructions .ROUTE .COMPLEX 06/04/19 06/05/19 Ranolazine [Ranexa 500mg ER tablet] 500 mg PO Q12 06/04/19 06/05/19 Lisinopril [Lisinopril 5mg 5 mg PO DAILY 06/05/19 06/05/19 Tablet] Previous Rx's Medication Instructions Recorded cholecalciferol (vitamin D3) 1,000 1,000 unit PO DAILY #90 cap 03/29/19 unit capsule ergocalciferol (vitamin D2) 50,000 50,000 unit PO WEEKLY #4 cap 03/29/19 unit capsule levothyroxine 25 mcg tablet 25 mcg PO DAILY 90 Days #90 tab 03/29/19 tramadol 50 mg tablet 50 mg PO QID PRN #120 tab 04/21/19 aspirin 81 mg tablet,delayed 81 mg PO DAILY #90 tab 04/22/19 release Allergies Allergy/AdvReac Type Severity Reaction Status Date / Time ketorolac [From TORADOL] Allergy Mild I-RASH Verified 05/25/19 12:02 Penicillins [PENICILLINS] Allergy Mild I-RASH Verified 05/25/19 12:02 [facility] History - Hepatitis A Screen Drug use history?: No High risk sexual behaviors?: No History of sexually transmitted infection?: No Currently employed?: No Childcare worker?: No Do you have indoor plumbing?: Yes Do you have electricity?: Yes Attestation statement:: This patient has been screened for Hepatitis A risk factors. I have reviewed the patient's past medical history: Yes (See [facility] records..) Medical History: Reports:: Anxiety, Coronary Artery Disease, Hyperlipidemia, Valvular Heart Disease Denies:: Cancer, Diabetes Mellitus Type 1, Diabetes Mellitus Type 2, Internal Pacemaker, MRSA Other Medical History: Reports: Arthritis, Fibromyalgia Other Surgeries: Yes: Cardiac Catheterization, Coronary Stent, Hysterectomy- Partial, Tubal Ligation. No: Pacemaker Amputation: No Fractures: No Comment: Left Knee. - Social History Educational Level: Completed High School Smoking Status: Unknown if ever smoked Tobacco Type: cigarettes # Packs/Day (cigarettes): 1 #Yrs smoked (if former smoker): 25 Alcohol Intake: never Substance Use Type: denies use Occupational Status: unemployed Housing: house Household Members: spouse, family - Psychiatric History Pschychiatric History:: Reports:: Anxiety Family Hx:: Diabetes Comment: Mom- Fibromyalgia, arthritis ROS Obtained: Yes All systems reviewed & no additional complaints Physical Exam - General General appearance: alert, in no apparent distress, anxious (mildly) - Head Head exam: atraumatic, normocephalic, normal inspection - Eye Eye exam: Present: normal appearance, PERRL, EOMI. Absent: scleral icterus, nystagmus - ENT ENT exam: Present: normal exam, normal oropharynx, mucous membranes moist, TM's normal bilaterally, normal external ear exam - Neck Neck exam: Present: normal inspection, full ROM, trachea midline. Absent: tenderness, meningismus, lymphadenopathy - Chest Chest inspection: Present: normal inspection, symmetric chest wall rise. Absent: tenderness - Respiratory Respiratory exam: Present: normal lung sounds bilaterally. Absent: respiratory distress, wheezes - Cardiovascular Cardiovascular exam: Present: regular rate, normal rhythm, normal heart sounds. Absent: JVD - Abdominal Exam Abdominal exam: Present: soft, normal bowel sounds. Absent: distention, tenderness, guarding, rebound, rigidity - External exam: Present: normal external exam - Extremities Exam Extremities exam: Present: normal inspection, full ROM, normal capillary refill. Absent: calf tenderness - Back Exam Back exam: Present: normal inspection. Absent: tenderness, CVA tenderness (R), CVA tenderness (L) - Neurological Exam Neurological exam: Present: alert, oriented X3, CN II-XII intact, motor sensory deficit, reflexes normal - Psychiatric Psychiatric exam: Present: depressed, anxious - Skin Skin exam: Present: warm, dry, intact, normal color - Lymphatic Lymphatic Findings: no adenopathy
--- NOTE | 2019-06-05 15:10 | H&P/Discharge Summary ---
General - General Admission date:: 06/05/19 Discharge date: 06/05/19 *Admission Date: 06/05/19 *Chief complaint: Palpitations/chest fullness *History of present illness: 48-year-old white female with history of hyperthyroidism, on low-dose thyroid replacement therapy, history of coronary disease with residual LAD lesion not amenable to catheterization who saw cardiology service in the first part of May and was recommended to have imaging stress testing-which was done around June 04. This was unremarkable with normal perfusion and normal ejection fraction, but since that time patient has reported palpitations, a feeling of chest fullness and vague fatigue. She is been in the ER a couple of times, and the ER physician and the second time was extremely concerned about "tachycardia and hyperthyroidism." This was based on her presentation heart rate of 130, and an elevated free T4 level along with an elevated TSH level. He recommended admission for observation. Apparently he discussed the case with Dr. Caraballo who recommended adding Inderal to her ongoing beta-gely therapy for heart rate control. [facility] History I have reviewed the patient's past medical history: Yes Medical History: Reports:: Anxiety, Coronary Artery Disease, Hyperlipidemia, Hypertension, Myocardial Infarction, Palpitations, Valvular Heart Disease Denies:: Cancer, Diabetes Mellitus Type 1, Diabetes Mellitus Type 2, Internal Pacemaker, MRSA *Have you ever received a pneumonia vaccine?: No *Have you received a flu vaccine this season?: No Other Medical History: Reports: Arthritis, Fibromyalgia Other Surgeries: Yes: Cardiac Catheterization, Coronary Stent, Hysterectomy- Total, Hysterectomy-Partial, Tubal Ligation. No: Pacemaker Amputation: No Fractures: No - *Social History Educational Level: Attended High School Smoking Status: Current every day smoker Tobacco Type: cigarettes # Packs/Day (cigarettes): 1 #Yrs smoked (if former smoker): 25 Alcohol Intake: never Substance Use Type: denies use *Occupational Status:: unemployed Housing: house Household Members: spouse, family *Travel in the last 8 weeks: None - Psychiatric History Expresses thoughts of harming self/others: None Suicide Plan Description: No Plan Pschychiatric History:: Reports:: Anxiety Family Hx:: Thyroid Disorder Review of Systems - Review of Systems Review of systems:: pertinent systems reviewed and negative unless documented below At the time of my exam on the second floor patient was sleeping, comfortable. Denied palpitations since admission. Denied chest pain, has eaten lunch well with no GI distress. Denies changes in neurologic symptoms. Denies swelling or skin rash. Otherwise complete review of systems negative Exam Vital signs and Labs for Last 24 Hours: Temp Pulse Resp BP Pulse Ox 98.6 F 81 17 126/78 99 06/05/19 12:28 06/05/19 12:28 06/05/19 12:28 06/05/19 12:28 06/05/19 12:28 Laboratory Results - last 24 hr 06/05/19 07:45: WBC 8.2, RBC 4.02 L, Hgb 11.9 L, Hct 37.9, MCV 94.1, MCH 29.6, MCHC 31.4 L, RDW 13.8, Plt Count 355, MPV 8.4, Neut % (Auto) 62.4, Lymph % (Auto) 29.6, [place] % (Auto) 4.2, Eos % (Auto) 3.1, Baso % (Auto) 0.8, Neut # (Auto) 5.1, Lymph # (Auto) 2.4, [place] # (Auto) 0.3, Eos # (Auto) 0.3, Baso # (Auto) 0.1 06/05/19 07:45: Sodium 138, Potassium 3.6, Chloride 101, Carbon Dioxide 29, Anion Gap 11.6, BUN 13, Creatinine 0.92, Estimated Creat Clear 93, Estimated GFR 65, Est GFR ( Amer) 78, Glucose 130 H, Calcium 9.2, Total Bilirubin 0.2, AST 23 D, ALT 29, Alkaline Phosphatase 115, Total Creatine Kinase 78, CK-MB (CK-2) < 0.5, CK-MB (CK-2) Rel Index 0.6, Troponin I < 0.02, Total Protein 7.4, Albumin 3.5, Globulin 3.9 H, Albumin/Globulin Ratio 0.9 L, TSH 5.19 H D 06/05/19 07:45: Magnesium 1.8 06/05/19 07:45: Free T4 3.55 H 06/05/19 13:36: Troponin I < 0.02 I & O for Last 24 hours: Intake & Output 06/03/19 06/04/19 06/05/19 06/06/19 11:59 11:59 11:59 11:59 Intake Total 240 / 240 Balance 240 / 240 Weight 178 lb 1 oz Narrative: Patient is well-appearing. Heart rate is 80, sinus rhythm on monitor and on my review of records was tachycardic for the first 30 to 40 minutes of presentation in the ER. Other pulse rates recorded by nursing staff of been normal including all the readings here on second floor. Patient herself is alert, pleasant, oriented, in no distress and wishes to go home. Lungs have good air movement. Heart rate regular, no murmurs. Abdomen soft, good distal perfusion of the feet and hands. No peripheral swelling. She is able to move arms and legs well. No joint swelling, no rash. Abdomen soft and nontender. No goiter. No stigmata of hyperthyroidism. Hospital Course Hospital Course: Patient was admitted to the floor the recommendation of the ER physician. She is not tachycardic, she has no signs of overt hyperthyroid storm and her laboratory studies are contradictory but none of them are in need of being addressed on inpatient status. Her TSH and free T4 elevations are mild. I recommend discharging patient on Inderal, 10 mg 4 times daily and close follow-up with cardiology as well as her regular provider for reevaluation of her thyroid status. Results Labs on day of discharge: Labs from last 24 hours 06/05/19 06/05/19 06/05/19 13:36 07:45 07:45 WBC RBC Hgb Hct MCV MCH MCHC RDW Plt Count MPV Neut % (Auto) Lymph % (Auto) [place] % (Auto) Eos % (Auto) Baso % (Auto) Neut # (Auto) Lymph # (Auto) [place] # (Auto) Eos # (Auto) Baso # (Auto) Sodium Potassium Chloride Carbon Dioxide Anion Gap BUN Creatinine Estimated Creat Clear Estimated GFR Est GFR ( Amer) Glucose Calcium Magnesium 1.8 Total Bilirubin AST ALT Alkaline Phosphatase Total Creatine Kinase CK-MB (CK-2) CK-MB (CK-2) Rel Index Troponin I < 0.02 Total Protein Albumin Globulin Albumin/Globulin Ratio TSH Free T4 3.55 H 06/05/19 06/05/19 07:45 07:45 WBC 8.2 RBC 4.02 L Hgb 11.9 L Hct 37.9 MCV 94.1 MCH 29.6 MCHC 31.4 L RDW 13.8 Plt Count 355 MPV 8.4 Neut % (Auto) 62.4 Lymph % (Auto) 29.6 [place] % (Auto) 4.2 Eos % (Auto) 3.1 Baso % (Auto) 0.8 Neut # (Auto) 5.1 Lymph # (Auto) 2.4 [place] # (Auto) 0.3 Eos # (Auto) 0.3 Baso # (Auto) 0.1 Sodium 138 Potassium 3.6 Chloride 101 Carbon Dioxide 29 Anion Gap 11.6 BUN 13 Creatinine 0.92 Estimated Creat Clear 93 Estimated GFR 65 Est GFR ( Amer) 78 Glucose 130 H Calcium 9.2 Magnesium Total Bilirubin 0.2 AST 23 D ALT 29 Alkaline Phosphatase 115 Total Creatine Kinase 78 CK-MB (CK-2) < 0.5 CK-MB (CK-2) Rel Index 0.6 Troponin I < 0.02 Total Protein 7.4 Albumin 3.5 Globulin 3.9 H Albumin/Globulin Ratio 0.9 L TSH 5.19 H D Free T4 DS: Diagnosis - Discharge Diagnosis (1) Hyperthyroidism Status: Chronic (2) Palpitations Status: Resolved (3) Coronary artery disease Status: Chronic Discharge Plan - Patient Discharge Instructions ACTIVITY: Continue current activity DIET: continue same diet - Follow up Plan Follow up with: Laura Medrano APRN [Nurse Practitioner] - 1 week Michelle Quiñonez PA [Primary Care Provider] - 2 weeks Disposition: Home, Self-Assisted Medications: Home Medications Medication Instructions Recorded Confirmed Type cholecalciferol (vitamin D3) 1,000 1,000 unit PO DAILY #90 cap 03/29/19 06/05/19 Rx unit capsule ergocalciferol (vitamin D2) 50,000 50,000 unit PO WEEKLY #4 cap 03/29/19 Rx unit capsule levothyroxine 25 mcg tablet 25 mcg PO DAILY 90 Days #90 tab 03/29/19 06/05/19 Rx Furosemide [Furosemide 20mg Tab] 20 mg PO DAILY 04/03/19 06/05/19 History Meclizine HCl [Wal-Dram 2] 1 tab PO TID 04/03/19 06/05/19 History Nicotine [Nicotine Patch 21 mg TRANSDERMAL DAILY 04/03/19 06/05/19 History 21mg/24hrs] Spironolactone [Spironolactone 25 mg PO DAILY 04/03/19 06/05/19 History 25mg Tablet] tramadol 50 mg tablet 50 mg PO QID PRN #120 tab 04/21/19 06/05/19 Rx aspirin 81 mg tablet,delayed 81 mg PO DAILY #90 tab 04/22/19 06/05/19 Rx release Atorvastatin Calcium [Lipitor 40mg 40 mg PO HS 06/04/19 06/05/19 History Tablet] Clopidogrel Bisulfate [Plavix 75mg 75 mg PO DAILY 06/04/19 06/05/19 History Tab] Metoprolol Succinate 50 mg PO DAILY 06/04/19 06/05/19 History Nitroglycerin See Rx Instructions .ROUTE .COMPLEX 06/04/19 06/05/19 History Lisinopril [Lisinopril 5mg 5 mg PO DAILY 06/05/19 06/05/19 History Tablet] Propranolol HCl 10 mg PO Q8 #30 tab 06/05/19 Rx Prescriptions/Medication Reconciliation: New Propranolol HCl 10 mg PO Q8 #30 tab Continued ergocalciferol (vitamin D2) 50,000 unit capsule 50,000 unit PO WEEKLY #4 cap cholecalciferol (vitamin D3) 1,000 unit capsule 1,000 unit PO DAILY #90 cap levothyroxine 25 mcg tablet 25 mcg PO DAILY 90 Days #90 tab tramadol 50 mg tablet 50 mg PO QID PRN #120 tab PRN Reason: pain aspirin 81 mg tablet,delayed release 81 mg PO DAILY #90 tab Spironolactone [Spironolactone 25mg Tablet] 25 mg PO DAILY Nicotine [Nicotine Patch 21mg/24hrs] 21 mg TRANSDERMAL DAILY Furosemide [Furosemide 20mg Tab] 20 mg PO DAILY Meclizine HCl [Wal-Dram 2] 1 tab PO TID Nitroglycerin See Rx Instructions .ROUTE .COMPLEX Metoprolol Succinate 50 mg PO DAILY Clopidogrel Bisulfate [Plavix 75mg Tab] 75 mg PO DAILY Lisinopril [Lisinopril 5mg Tablet] 5 mg PO DAILY Atorvastatin Calcium [Lipitor 40mg Tablet] 40 mg PO HS
== END 2019-06-05 15:48 | disposition home or self-care (01) ==
LOC: 2ND 06:55 → ER 06:55 → 2ND 10:48
PROVIDERS: ADMIT Internal Medicine Adolescent Medicine; ATTEND Internal Medicine Adolescent Medicine
DX: I25.10 Atherosclerotic heart disease of native coronary artery without angina pectoris; Z72.0 Tobacco use; E03.9 Hypothyroidism, unspecified; Z95.818 Presence of other cardiac implants and grafts; R07.9 Chest pain, unspecified; Z79.899 Other long term (current) drug therapy; D64.9 Anemia, unspecified; Z88.0 Allergy status to penicillin; R00.2 Palpitations; Z79.02 Long term (current) use of antithrombotics/antiplatelets; M79.7 Fibromyalgia; Z88.8 Allergy status to other drugs, medicaments and biological substances; I10 Essential (primary) hypertension; Z79.82 Long term (current) use of aspirin
CPT/HCPCS: 71020; 71046; 80053; 82550; 82553; 83735; 84439; 84443; 84484; 85025; 93005; 96375; 96376; 99284; G0378

== ENCOUNTER → 2019-06-08 17:29 | Outpatient (CLI) | payer OTHER, SELFPAY ==
[2019-06-08 19:13] LABS: T4 (Thyroxine) 8.4 ug/dl (4.7-13.3); Thyroid Stimulating Hormone 3.92 uIU/ml (0.358-3.740)
[2019-06-10 08:14] LABS: Thyroid Peroxidase Antibodies 41 IU/mL (0-34)
[2019-06-10 16:10] LABS: Calcium, Ionized 5.6 mg/dL (4.5-5.6)
[2019-06-10 22:04] LABS: Triiodothyronine (T3) Free 3.3 pg/mL (2.0-4.4)
[2019-06-10 22:05] LABS: FSH 101.7 mIU/mL (.); Parathyroid Hormone Intact 31 pg/mL (15-65); Prolactin 13.2 ng/mL (4.8-23.3)
[2019-06-11 17:48] LABS: Calcitonin <2.0 pg/mL (0.0-5.0)
== END ==
PROVIDERS: Visit Provider Physician Assistant
DX: I49.9 Cardiac arrhythmia, unspecified (principal)
CPT/HCPCS: 82308; 82330; 83001; 83002; 83970; 84146; 84436; 84443; 84481; 86376

== ENCOUNTER → 2019-06-09 10:18 | Outpatient (CLI) | payer OTHER, SELFPAY | PROVIDERS: PCP Physician Assistant; Visit Provider Physician Assistant | DX: I49.9 Cardiac arrhythmia, unspecified (principal) | CPT/HCPCS: 93225; 93226 ==

== ENCOUNTER → 2019-06-23 14:48 | Outpatient (CLI) | payer OTHER, SELFPAY ==
--- NOTE | 2019-06-23 14:50 | US_ITS ---
US thyroid HISTORY: Hypothyroidism, pain ITS.REASON: possible Comfort's ORDERING PHYSICIAN: MICHAEL Killian PATIENT AGE: 48 years Comparison: None FINDINGS: Right lobe: 3.6 x 1.6 x 1.2 cm Left lobe: 4 x 1.2 x 1.3 cm Isthmus: Unremarkable There is homogeneous echogenicity of both lobes of the thyroid gland. No discrete nodule evident IMPRESSION: Unremarkable thyroid ultrasound
== END ==
PROVIDERS: PCP Physician Assistant; Visit Provider Physician Assistant
DX: E03.9 Hypothyroidism, unspecified (principal)
CPT/HCPCS: 76536

== ENCOUNTER → 2019-08-23 13:32 | Outpatient (CLI) | payer OTHER, SELFPAY | PROVIDERS: Visit Provider Physician Assistant | DX: J02.9 Acute pharyngitis, unspecified (principal) | CPT/HCPCS: 87070; 87077 ==

== ENCOUNTER 2019-09-07 22:38 | Observation (INO) ==
[2019-09-07 23:22] LABS: Basophils # 0.1 K/mm3 (0-0.2); Basophils % 0.2 % (0.1-2.0); Eosinophils % 0.1 % (0.1-12.0); Hematocrit 45.4 % (37.0-47.0); Hemoglobin 14.1 g/dL (12.2-16.2); Lymphocytes # 3.3 K/mm3 (0.7-4.5); Lymphocytes % 12.9 % (10-50); Mean Corpuscular HGB Conc 31.1 g/dL (31.8-35.4); Mean Corpuscular Volume 98.4 fl (81-99); Mean Platelet Volume 9.2 fl (7.4-10.4); Monocytes # 0.9 K/mm3 (0.1-1.0); Monocytes % 3.3 % (1.7-9.3); Neutrophils # 21.5 K/mm3 (1.8-7.8); Neutrophils % 83.5 % (37.0-80.0); Platelet Count 410 K/mm3 (142-424); Red Blood Count 4.61 M/mm3 (4.20-5.40); White Blood Count 25.8 K/mm3 (4.8-10.8)
[2019-09-07 23:23] LABS: Amphetamine/Metha Screen,Urine Negative ng/mL (<1000); Barbiturates Screen,Urine Negative ng/mL (<200); Benzodiazepines Screen,Urine Negative ng/mL (<200); Cannabinoid Screen,Urine Negative ng/mL (<50); Cocaine Screen,Urine Negative ng/mL (<300); Methadone Screen,Urine Negative ng/mL (<300); Opiate Screen,Urine Negative ng/mL (<300); Phencyclidine Screen,Urine Negative ng/mL (<25)
[2019-09-07 23:25] LABS: Alanine Aminotransferase 19 U/L (12-78); Albumin Level 3.9 gm/dL (3.4-5.0); Alkaline Phosphatase 114 U/L (46-116); Anion Gap 14.5 mEq/L (5-15); Aspartate Amino Transferase 8 U/L (15-37); Bilirubin,Total 0.1 mg/dL (0.2-1.0); Blood Urea Nitrogen 13 mg/dL (7-18); Calcium 9.8 mg/dL (8.5-10.1); Carbon Dioxide 26 mmol/L (21.0-32.0); Chloride 104 mmol/L (98-107); Glucose 183 mg/dL (74-106); Sodium 141 mmol/L (136-145); Thyroid Stimulating Hormone 1.62 uIU/ml (0.358-3.740); Total Protein,Serum 8.2 gm/dL (6.4-8.2)
[2019-09-07 23:27] LABS: Bilirubin,Indirect 0.1 mg/dL (0.0-0.9); Ethyl Alcohol 0 mg/dL (0-99)
[2019-09-07 23:31] LABS: Microscopic, Urine URINE MICROSCOPIC (MICROSCOPIC)
[2019-09-07 23:33] LABS: Appearance,Urine CLEAR (Clear); Bilirubin,Urine Negative (Negative); Blood, Urine Negative (Negative); Color,Urine YELLOW (Yellow); Glucose,Urine (UA) Negative (Negative); Ketones,Urine Negative (Negative); Leukocyte Esterase,Urine Negative (Negative); PH,Urine 6.5 (5.0-8.5); Protein,Urine Negative (Negative); Urobilinogen,Urine 0.2 EU/dl (0.2)
[2019-09-07 23:37] LABS: Bacteria,Urine Trace /lpf
[2019-09-07 23:45] LABS: Lymphocytes % 17 % (10-50); Neutrophils % 83 % (42-76); Total Cells Counted 100
[2019-09-07 23:46] LABS: Anisocytosis 1+
--- NOTE | 2019-09-08 00:32 | Emergency Department Note ---
ED Disposition Clinical Impression: Tobacco use disorder, Obesity (BMI 30.0-34.9), SIRS (systemic inflammatory response syndrome) Chest pain Qualifiers: Chest pain type: precordial pain Qualified Code(s): R07.2 - Precordial pain Leukocytosis Qualifiers: Leukocytosis type: unspecified Qualified Code(s): D72.829 - Elevated white blood cell count, unspecified Disposition: Admitted as Observation Condition on Discharge: Good Referrals: Michelle Quiñonez PA [Primary Care Provider] - - Critical Care Critical Care Time: No Attestation: On 09/07/19, the high probability of a clinically significant, sudden or life threatening deterioration of the following system(s) required my full and direct attention, intervention and personal management. The time I documented below is in addition to time spent performing reported procedures but includes the following listed in this critical care notation. Medical Decision Making - Medical Records Medical records reviewed: Yes: I reviewed the patient's medical records. - [place] Inquiry Pt receiving controlled substance: No Vital Signs: 09/07/19 22:38 09/07/19 23:58 Temperature 98.5 F 98.3 F Temperature Source Oral Oral Pulse Rate [Right] 141 H 110 H Respiratory Rate 18 18 Blood Pressure [Right Arm] 140/97 H 155/99 H Blood Pressure Mean [Right Arm] 111 117 02 Sat by Pulse Oximetry 100 100 Oxygen Delivery Method Room Air - Lab Data Lab results reviewed: Yes: I reviewed the patient's lab results. Lab Results 09/07/19 22:50: WBC 25.8 H* D, RBC 4.61, Hgb 14.1, Hct 45.4, MCV 98.4, MCH 30.7, MCHC 31.1 L, RDW 14.0, Plt Count 410, MPV 9.2, Neut % (Auto) 83.5 H, Lymph % (Auto) 12.9, [place] % (Auto) 3.3, Eos % (Auto) 0.1, Baso % (Auto) 0.2, Neut # (Auto) 21.5 H, Lymph # (Auto) 3.3, [place] # (Auto) 0.9, Eos # (Auto) 0.0, Baso # (Auto) 0.1, Total Counted 100, Neutrophils % (Manual) 83 H, Lymphocytes % (Manual) 17, Platelet Estimate Normal, Anisocytosis 1+ 10/15/19 22:50: Sodium 141, Potassium 3.5, Chloride 104, Carbon Dioxide 26, Anion Gap 14.5, BUN 13 D, Creatinine 0.89, Estimated Creat Clear 96, Estimated GFR 67, Est GFR ( Amer) 81, Glucose 183 H, Calcium 9.8, Total Bilirubin 0.1 L, Direct Bilirubin 0.0, Indirect Bilirubin 0.1, AST 8 L D, ALT 19, Alkaline Phosphatase 114, Troponin I < 0.02, Total Protein 8.2, Albumin 3.9, TSH 1.62 D, Thyroxine (T4) 8.9, Plasma/Serum Alcohol 0 09/07/19 23:00: Urine Opiates Screen Negative, Urine Methadone Screen Negative, Ur Barbituates Screen Negative, Ur Phencyclidine Scrn Negative, Ur Amphetamines Screen Negative, U Benzodiazepines Scrn Negative, Urine Cocaine Screen Negative, U Marijuana (THC) Screen Negative 09/07/19 23:00: Urine Color Yellow, Urine Appearance Clear, Urine pH 6.5, Ur Specific [place] 1.010, Urine Protein Negative, Urine Glucose (UA) Negative, Urine Ketones Negative, Urine Blood Negative, Urine Nitrate Negative, Urine Bilirubin Negative, Urine Urobilinogen 0.2, Ur Leukocyte Esterase Negative, Urine WBC 3-5, Ur Squamous Epith Cells 5-10, Urine Bacteria Trace 09/07/19 23:44: Lactate 1.5 09/07/19 23:52: Influenza Type A Ag Negative, Influenza Type B Ag Negative Result diagrams: 09/07/19 22:50 09/07/19 22:50 Orders (Tests/Meds): ED MEDICATIONS Generic Name Dose Route Start Last Admin Trade Name Freq PRN Reason Stop Dose Admin Sodium Chloride 1,000 mls @ 999 mls/hr 09/07/19 22:45 09/07/19 23:02 Sod Chlor 0.9% 1000ml Bag IV 09/07/19 23:45 999 mls/hr .Q1H1M [place] Administration Discontinued Medications Generic Name Dose Route Start Last Admin Trade Name Freq PRN Reason Stop Dose Admin Aspirin 324 mg 09/07/19 22:43 09/07/19 23:02 Aspirin 81mg Chewable Tablet PO 09/07/19 22:44 324 mg ONCE ONE Administration ORDERS Category Date Time Status CT head/brain wo con Stat Cat Scan 09/07/19 22:44 Taken XR chest 2V Stat Exams 09/07/19 22:44 Taken CRP [C-Reactive Protein] Stat Lab 09/08/19 00:39 Ordered Erythrocyte Sedimentation Rate Stat Lab 09/08/19 00:39 Ordered Blood Culture Stat Micro 09/07/19 23:44 Received - Radiology Data #1 Image(s): Chest Image Reviewed: Yes I reviewed the patient's radiology image Preliminary Findings: Normal/NAD - ECG Data Tracing #1 Arrhythmias present: sinus tach Ischemic changes: non-specific ST-T wave changes Chest Pain HPI - General Chief Complaint: Chest Pain Stated Complaint: chest pain, WHITAKER, heart fluttering Time Seen by Provider: 09/08/19 00:31 Mode of Arrival: Ambulatory Source of Information: Patient, Relative, Medical Record Limitations: No Limitations Description of Symptoms (Recalled from ER Triage Doc. by RN): Pt seen here yesterday for a migraine, states her migraine has gotten worse and now she has developed CP with fluttering in her chest. - History of Present Illness HPI narrative: wf with rt sided whitaker with hx of migraines and no fever or rash and no trauma - she has chest pain today with fast hr - no cough - MD complaint: chest pain indicative of cardiac Onset (ago): hour(s) Duration: intermittent Activity at onset: during rest Pain location: left chest Severity: moderate Risk Factors for CAD: Family Hx of CAD, Smoking Treatments prior to or on arrival for Cardiac Chest Pain: none - LISA Score for Non-Stemi Age of Patient: 50-59 years old Heart Rate: 110-149 bpm Systolic Blood Pressure: 140-159 mmHg Serum Creatinine: 0.80-1.19 mg/dl CHF [place] Class: I-No CHF Other Risk Factors: None Non-Stemi Risk Score: 96 - Related Data On Oral Contraceptives: No Home Medications Medication Instructions Recorded Confirmed Meclizine HCl [Wal-Dram 2] 1 tab PO TID 04/03/19 08/23/19 Nicotine [Nicotine Patch 21 mg TRANSDERMAL DAILY 04/03/19 08/23/19 21mg/24hrs] Spironolactone [Spironolactone 25 mg PO DAILY 04/03/19 08/23/19 25mg Tablet] Atorvastatin Calcium [Lipitor 40mg 40 mg PO HS 06/04/19 08/23/19 Tablet] Clopidogrel Bisulfate [Plavix 75mg 75 mg PO DAILY 06/04/19 08/23/19 Tab] Metoprolol Succinate 50 mg PO DAILY 06/04/19 08/23/19 Nitroglycerin See Rx Instructions .ROUTE .COMPLEX 06/04/19 08/23/19 Propranolol HCl 10 mg PO Q8 06/08/19 08/23/19 Previous Rx's Medication Instructions Recorded Topiramate [Topamax 25mg tablet] 25 mg PO DAILY #21 tab 06/11/19 cholecalciferol (vitamin D3) 1,000 See Rx Instructions .ROUTE 06/28/19 unit (25 mcg) tablet .COMPLEX #30 tablet ondansetron HCl 4 mg tablet 4 mg PO TID PRN #30 tab 07/09/19 furosemide 20 mg tablet 20 mg PO DAILY #90 tab 07/14/19 lisinopril 5 mg tablet 5 mg PO DAILY #90 tab 07/14/19 ergocalciferol (vitamin D2) 50,000 50,000 unit PO WEEKLY #4 cap 08/03/19 unit capsule tramadol 50 mg tablet 50 mg PO QID #120 tab 08/23/19 atorvastatin 40 mg tablet See Rx Instructions .ROUTE 09/07/19 .COMPLEX #90 tab Allergies Allergy/AdvReac Type Severity Reaction Status Date / Time ketorolac [From TORADOL] Allergy Mild I-RASH Verified 09/06/19 20:01 Penicillins [PENICILLINS] Allergy Mild I-RASH Verified 09/06/19 20:01 [facility] History - Hepatitis A Screen Drug use history?: No High risk sexual behaviors?: No History of sexually transmitted infection?: No 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 I have reviewed the patient's past medical history: Yes Medical History: Reports:: Anxiety, Coronary Artery Disease, Hyperlipidemia, Hypertension, Myocardial Infarction, Palpitations, Valvular Heart Disease Denies:: Cancer, Diabetes Mellitus Type 1, Diabetes Mellitus Type 2, Internal Pacemaker, MRSA Other Medical History: Reports: Arthritis, Fibromyalgia Other Surgeries: Yes: Cardiac Catheterization, Coronary Stent, Hysterectomy- Total, Hysterectomy-Partial, Tubal Ligation. No: Pacemaker Amputation: No Fractures: No Comment: Left Knee. - Social History Smoking Status: Current every day smoker Tobacco Type: cigarettes # Packs/Day (cigarettes): 1 #Yrs smoked (if former smoker): 25 Alcohol Intake: never Substance Use Type: denies use Occupational Status: unemployed Housing: house Household Members: spouse, family - Psychiatric History Pschychiatric History:: Reports:: Anxiety Family Hx:: Thyroid Disorder Comment: Mom- Fibromyalgia, arthritis ROS Obtained: Yes All systems reviewed & no additional complaints - Constitutional Constitutional: Reports as per HPI, Denies fever(s), Reports headache(s) - Eyes Eyes: Denies change in vision - ENT Ears, Nose, Mouth, and Throat: Denies sore throat - Cardiovascular Cardiovascular: Reports chest pain, Reports rapid heart rate - Respiratory Respiratory: No chest congestion, No cough - Gastrointestinal Gastrointestingal: Denies: abdominal pain - Genitourinary Female Genitourinary: Denies hematuria - Musculoskeletal Musculoskeletal: Denies joint pain, Denies joint swelling - Integumentary/Breasts Skin/Breast: Denies rash - Neurologic Neurologic: Reports as per HPI, Denies confusion, Denies focal weakness, Reports headache(s), Denies loss of vision, Denies seizure-like activity Physical Exam - General General appearance: alert, obese - Head Head exam: atraumatic, normocephalic - Eye Eye exam: Present: PERRL, EOMI. Absent: scleral icterus - ENT ENT exam: Present: mucous membranes dry - Neck Neck exam: Present: full ROM, trachea midline. Absent: tenderness, meningismus - Respiratory Respiratory exam: Present: normal lung sounds bilaterally. Absent: respiratory distress - Cardiovascular Cardiovascular exam: Present: regular rate, systolic murmur. Absent: rubs - Abdominal Exam Abdominal exam: Present: soft - Extremities Exam Extremities exam: Present: full ROM. Absent: calf tenderness - Neurological Exam Neurological exam: Present: alert, oriented X3, CN II-XII intact - Psychiatric Psychiatric exam: Present: normal affect - Skin Skin exam: Absent: rash
[2019-09-08 01:10] LABS: C-Reactive Protein < 0.2 mg/dL (0.0-0.9); Thyroid Stimulating Hormone 1.69 uIU/ml (0.358-3.740)
[2019-09-08 04:31] LABS: Anion Gap 12.7 mEq/L (5-15)
[2019-09-08 04:48] LABS: Basophils # 0.1 K/mm3 (0-0.2); Basophils % 0.3 % (0.1-2.0); Eosinophils # 0.1 K/mm3 (0.0-0.4); Eosinophils % 0.2 % (0.1-12.0); Hematocrit 36.8 % (37.0-47.0); Lymphocytes # 4.3 K/mm3 (0.7-4.5); Lymphocytes % 20.3 % (10-50); Mean Corpuscular HGB Conc 30.8 g/dL (31.8-35.4); Mean Platelet Volume 9.1 fl (7.4-10.4); Monocytes % 4.5 % (1.7-9.3); Neutrophils # 15.8 K/mm3 (1.8-7.8); Neutrophils % 74.6 % (37.0-80.0); Platelet Count 335 K/mm3 (142-424); Red Blood Count 3.72 M/mm3 (4.20-5.40); White Blood Count 21.2 K/mm3 (4.8-10.8)
[2019-09-08 04:50] LABS: Hemoglobin 11.4 g/dL (12.2-16.2)
[2019-09-08 05:00] LABS: Calcium 8.8 mg/dL (8.5-10.1)
--- NOTE | 2019-09-08 07:52 | Pharmacy Consult Notes ---
[facility] Pharmacy VTE Monitoring - Patient Demographics Admission date: 09/08/19 Report Date: 09/08/19 Time: 07:52 Allergies/Adverse Reactions: Patient Allergies ketorolac [From TORADOL] Allergy (Mild, Verified 09/06/19 20:01) I-RASH Penicillins [PENICILLINS] Allergy (Mild, Verified 09/06/19 20:01) I-RASH Height: 1.63 m Weight: 80.002 kg Patient Problems: Current Active Problems Leukocytosis (Acute) Obesity (BMI 30.0-34.9) (Acute) SIRS (systemic inflammatory response syndrome) (Acute) Tobacco use disorder (Chronic) Chest pain (Chronic) - VTE Risk Labs: VTE Related Lab Results Hgb 11.4 g/dL (12.2-16.2) L D 09/08/19 04:10 Hct 36.8 % (37.0-47.0) L 09/08/19 04:10 Plt Count 335 K/mm3 (142-424) 09/08/19 04:10 BUN 10 mg/dL (7-18) 09/08/19 04:10 Creatinine 0.66 mg/dL (0.55-1.02) D 09/08/19 04:10 Estimated Creat Clear 127 mL/min (50-200) 09/08/19 04:10 Was VTE Risk Assessment Performed: Yes VTE Score: 3 VTE Risk Level: Low Risk Clinical Trial Participant: No - Prophylaxis VTE Prophylaxis Ordered?: Yes Types of VTE Prophylaxis: TEDS Knee High
--- NOTE | 2019-09-08 10:41 | Consult Report ---
History of Present Illness Consult date: 09/08/19 Requesting physician: Forrest Charlton Consult reason: chest pain Chief complaint: Chest pain Additional Medical History:: 1. CAD 2. HTN 3. HLD 4. VA 5. Anxiety 6. palpitations 7. thyroid disease [facility] 03.25.19: 1. Moderate coronary artery disease and mid LAD 2. 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 Successful stenting of the ostial proximal mid dominant right coronary artery critical disease reduced to 0% with 3 drug-eluting stents in a contiguous manner 4. Persistent moderate stenosis along a tortuous bend in the mid LAD 5. Moderately elevated LVEDP PLAN: 1. Brilinta and aspirin 2. LDL less than 55 3. Avoidance of tobacco products 4. Risk factor modification 5. In one month I would recommend and exercise Myoview to determine if the mid LAD stenosis has hemodynamic significance 6. Treatment of diastolic dysfunction with diuretics 7. Cardiac rehabilitation Myoview 06.03.19: 1. The EKG portion of the Lexiscan Myoview is nondiagnostic. 2. No scintigraphic evidence of reversible ischemia seen, computer derived ejection fraction is 56% with no regional wall motion abnormality, right ventricle is normal size and contractility. 3. Normal Lexiscan Myoview study. History of present illness: This is a 48-year-old white female who presented to the emergency department with complaints of racing of the heart and chest pain. The patient states that yesterday she had a migraine. She was seen yesterday because of the severe migraine and treated with morphine. She denies using any Imitrex or any medications of that sort. She states that she went home and then last night had sudden onset of pain in the center of her chest. She states that this was a sharp pain with a sudden onset of fluttering in her chest. The patient states that her heart rate was over 120 bpm and that is why she decided to come into the emergency department. The patient reports that she has had multiple episodes in the last month of her heart racing. She states that her heart rate has been has high as 176 bpm. While in the hospital her heart rate was anywhere from 110 to 149 bpm. The patient states that her biggest issue right now is the racing of her heart. She currently denies any chest pain or pressure and states that has resolved. She denies any shortness of breath or edema. She denies any fever, chills, nausea, vomiting, diarrhea, PND or orthopnea. The patient has ruled out for an VA. She did have stents placed in March of this year with a normal stress test in May of this year. [facility] History I have reviewed the patient's past medical history: Yes Medical History: Reports:: Anxiety, Coronary Artery Disease, Hyperlipidemia, Hypertension, Myocardial Infarction, Palpitations, Valvular Heart Disease Denies:: Cancer, Diabetes Mellitus Type 1, Diabetes Mellitus Type 2, Internal Pacemaker, MRSA *Have you ever received a pneumonia vaccine?: No *Have you received a flu vaccine this season?: No Other Medical History: Reports: Arthritis, Fibromyalgia, Thyroid Disease ([place]) Laterality Cases: Left: Arthroscopy Knee Other Surgeries: Yes: Cardiac Catheterization, Coronary Stent, Hysterectomy- Total, Hysterectomy-Partial, Tubal Ligation. No: Pacemaker Amputation: No Fractures: No - *Social History Smoking Status: Current every day smoker Tobacco Type: cigarettes # Packs/Day (cigarettes): 1 #Yrs smoked (if former smoker): 25 Alcohol Intake: never Substance Use Type: denies use *Occupational Status:: unemployed Housing: house Household Members: spouse, family *Travel in the last 8 weeks: None - Psychiatric History Pschychiatric History:: Reports:: Anxiety Family Hx:: Cancer, Diabetes, Heart Attack, Hyperlipidemia, Hypertension, Stroke Meds Home Medications Medication Instructions Recorded Confirmed Type Meclizine HCl [Wal-Dram 2] 1 tab PO TID 04/03/19 09/08/19 History Spironolactone [Spironolactone 25 mg PO DAILY 04/03/19 09/08/19 History 25mg Tablet] Atorvastatin Calcium [Lipitor 40mg 40 mg PO HS 06/04/19 09/08/19 History Tablet] Clopidogrel Bisulfate [Plavix 75mg 75 mg PO DAILY 06/04/19 09/08/19 History Tab] Metoprolol Succinate 50 mg PO DAILY 06/04/19 09/08/19 History Nitroglycerin See Rx Instructions .ROUTE 06/04/19 09/08/19 History .COMPLEX PRN Propranolol HCl 10 mg PO Q8 06/08/19 09/08/19 History Topiramate [Topamax 25mg tablet] 25 mg PO DAILY #21 tab 06/11/19 09/08/19 Rx cholecalciferol (vitamin D3) 1,000 See Rx Instructions .ROUTE 06/28/19 09/08/19 Rx unit (25 mcg) tablet .COMPLEX #30 tablet ondansetron HCl 4 mg tablet 4 mg PO TID PRN #30 tab 07/09/19 09/08/19 Rx furosemide 20 mg tablet 20 mg PO DAILY #90 tab 07/14/19 09/08/19 Rx lisinopril 5 mg tablet 5 mg PO DAILY #90 tab 07/14/19 09/08/19 Rx ergocalciferol (vitamin D2) 50,000 50,000 unit PO WEEKLY #4 cap 08/03/19 Rx unit capsule tramadol 50 mg tablet 50 mg PO QID #120 tab 08/23/19 09/08/19 Rx Aspirin [Aspir-Low] 81 mg PO HS 09/08/19 09/08/19 History Levothyroxine Sodium 25 mcg PO DAILY 09/08/19 09/08/19 History [Levothyroxine 25mcg (0.025mg) Tab] Lisinopril [Lisinopril 2.5mg Tab] 2.5 mg PO DAILY 09/08/19 09/08/19 History 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,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] 15 mg PO DAILY 09/08/19 09/08/19 History Allergies Allergy/AdvReac Type Severity Reaction Status Date / Time ketorolac [From TORADOL] Allergy Mild I-RASH Verified 09/06/19 20:01 Penicillins [PENICILLINS] Allergy Mild I-RASH Verified 09/06/19 20:01 Review of Systems - Review of Systems Review of systems:: pertinent systems reviewed and negative unless documented below - Constitutional Reports fatigue, Reports lack of energy - *Cardiovascular Reports chest pain, Reports chest pain at rest, Reports chest pain with activity, Reports shortness of breath, Reports irregular heart rhythm, Reports rapid, pounding, or irregular heartbeat - *Respiratory Reports shortness of breath - *Neurologic Reports headache(s), Denies confusion, Denies localized weakness, Denies loss of vision, Denies seizure-like activity Exam Vital signs and Labs for Last 24 Hours: Temp Pulse Resp BP Pulse Ox 97.9 F 72 18 110/60 98 09/08/19 08:00 09/08/19 08:00 09/08/19 08:00 09/08/19 08:00 09/08/19 08:00 Laboratory Results - last 24 hr 09/07/19 22:50: WBC 25.8 H* D, RBC 4.61, Hgb 14.1, Hct 45.4, MCV 98.4, MCH 30.7, MCHC 31.1 L, RDW 14.0, Plt Count 410, MPV 9.2, Neut % (Auto) 83.5 H, Lymph % (Auto) 12.9, [place] % (Auto) 3.3, Eos % (Auto) 0.1, Baso % (Auto) 0.2, Neut # (Auto) 21.5 H, Lymph # (Auto) 3.3, [place] # (Auto) 0.9, Eos # (Auto) 0.0, Baso # (Auto) 0.1, Total Counted 100, Neutrophils % (Manual) 83 H, Lymphocytes % (Manual) 17, Platelet Estimate Normal, Anisocytosis 1+ 09/07/19 22:50: Sodium 141, Potassium 3.5, Chloride 104, Carbon Dioxide 26, Anion Gap 14.5, BUN 13 D, Creatinine 0.89, Estimated Creat Clear 96, Estimated GFR 67, Est GFR ( Amer) 81, Glucose 183 H, Calcium 9.8, Total Bilirubin 0.1 L, Direct Bilirubin 0.0, Indirect Bilirubin 0.1, AST 8 L D, ALT 19, Alkaline Phosphatase 114, Troponin I < 0.02, Total Protein 8.2, Albumin 3.9, TSH 1.62 D, Thyroxine (T4) 8.9, Plasma/Serum Alcohol 0 09/07/19 23:00: Urine Opiates Screen Negative, Urine Methadone Screen Negative, Ur Barbituates Screen Negative, Ur Phencyclidine Scrn Negative, Ur Amphetamines Screen Negative, U Benzodiazepines Scrn Negative, Urine Cocaine Screen Negative, U Marijuana (THC) Screen Negative 09/07/19 23:00: Urine Color Yellow, Urine Appearance Clear, Urine pH 6.5, Ur Specific [place] 1.010, Urine Protein Negative, Urine Glucose (UA) Negative, Urine Ketones Negative, Urine Blood Negative, Urine Nitrate Negative, Urine Bilirubin Negative, Urine Urobilinogen 0.2, Ur Leukocyte Esterase Negative, Urine WBC 3-5, Ur Squamous Epith Cells 5-10, Urine Bacteria Trace 09/07/19 23:44: Lactate 1.5 09/07/19 23:52: Influenza Type A Ag Negative, Influenza Type B Ag Negative 09/08/19 00:00: ESR 53 H 09/08/19 00:00: C-Reactive Protein < 0.2 D, TSH 1.69, Thyroxine (T4) 8.5 09/08/19 04:10: Troponin I < 0.02 09/08/19 04:10: WBC 21.2 H*, RBC 3.72 L, Hgb 11.4 L D, Hct 36.8 L, MCV 99.0, MCH 30.5, MCHC 30.8 L, RDW 14.0, Plt Count 335, MPV 9.1, Neut % (Auto) 74.6, Lymph % (Auto) 20.3, [place] % (Auto) 4.5, Eos % (Auto) 0.2, Baso % (Auto) 0.3, Neut # (Auto) 15.8 H, Lymph # (Auto) 4.3, [place] # (Auto) 1.0, Eos # (Auto) 0.1, Baso # (Auto) 0.1 09/08/19 04:10: Sodium 144, Potassium 3.7, Chloride 109 H, Carbon Dioxide 26, Anion Gap 12.7, BUN 10, Creatinine 0.66 D, Estimated Creat Clear 127, Estimated GFR 95, Est GFR ( Amer) 115 D, Glucose 118 H D, Calcium 8.8 D, Magnesium 1.7 I & O for Last 24 hours: Intake & Output 09/05/19 09/06/19 09/07/19 09/08/19 23:59 23:59 23:59 23:59 Intake Total 1651 / 1651 Balance 1651 / 1651 Weight 178 lb 176 lb 6 oz Narrative: Her EKG is sinus tachycardia with a rate of [address] and T wave abnormalities. Her telemetry strip is sinus rhythm with a rate of 72. - Constitutional no acute distress, average body habitus - *Routine HEENT Exam Head: Present: normocephalic, atraumatic Eye: Present: EOMI, PERRL ENT: Present: mucous membranes moist - *Routine Neck Exam Present: supple, full ROM, normal carotid upstroke. Absent: JVD, carotid bruit, lymphadenopathy - *Routine Respiratory Exam Present: CTA bilaterally - *Routine Cardiovascular Exam Present: RRR, Normal S1, Normal S2. Absent: murmur - *Routine Abdominal Exam Present: soft, normoactive bowel sounds. Absent: tenderness, distended - *Routine Extremities Exam Present: full ROM, pulses intact, normal capillary refill. Absent: cyanosis, clubbing, edema - *Routine Skin Exam Present: intact, warm. Absent: erythema, rash - *Routine Neurological Exam Present: alert, oriented X3, CN II-XII intact. Absent: sensory deficit, motor deficit - Routine Psychiatric Exam Present: normal affect, normal thought process - Detailed Eye Exam Eyelids: Left normal inspection Assessment and Plan (1) Chest pain Current visit: Yes Status: Acute Category: Medical Code(s): R07.9 - Chest pain, unspecified (2) Sinus tachycardia Current visit: Yes Status: Acute Category: Medical Code(s): R00.0 - Tachycardia, unspecified (3) Thyroid disorder Current visit: Yes Status: Acute Category: Medical Code(s): E07.9 - Disorder of thyroid, unspecified (4) Migraine Current visit: Yes Status: Acute Category: Medical Code(s): G43.909 - Migraine, unspecified, not intractable, without status migrainosus (5) Coronary artery disease Current visit: No Status: Chronic Qualifiers: Coronary Disease-Associated Artery/Lesion type: [place] artery [place] vs. transplanted heart: [place] heart Associated angina: without angina Qualified Code(s): I25.10 - Atherosclerotic heart disease of [place] coronary artery without angina pectoris Category: Medical Code(s): I25.10 - Atherosclerotic heart disease of [place] coronary artery without angina pectoris (6) Diastolic dysfunction Current visit: No Status: Chronic Category: Medical Code(s): I51.89 - Other ill-defined heart diseases (7) HHD (hypertensive heart disease) Current visit: No Status: Chronic Qualifiers: Heart failure presence: without heart failure Qualified Code(s): I11.9 - Hypertensive heart disease without heart failure Category: Medical Code(s): I11.9 - Hypertensive heart disease without heart failure (8) Hyperlipidemia Current visit: No Status: Chronic Qualifiers: Hyperlipidemia type: mixed hyperlipidemia Qualified Code(s): E78.2 - Mixed hyperlipidemia Category: Medical Code(s): E78.5 - Hyperlipidemia, unspecified (9) S/P coronary artery stent placement Current visit: No Status: Chronic Category: Surgical Code(s): Z95.5 - Presence of coronary angioplasty implant and graft (10) Palpitations Current visit: No Status: Resolved Category: Medical Code(s): R00.2 - Palpitations - Assessment and plan all Dx Assessment and Plan for all problems:: Plan: 1. The patient was admitted with chest pain and racing of the heart. The patient states that she has been having palpitations, tachycardia and racing of the heart for several weeks. She states that this has woken her up from her sleep. She states that she notices it when she is exerting herself. The patient states that the racing of her heart occurs very often now. She states that this is associated with a sharp pain in her chest. She states that this is much milder and different than the chest pain that she had when she needed stents. Given the patient's tachycardia will increase her metoprolol XL to 50 mg p.o. twice daily for better heart rate control. 2. Recommend placing a 30-day event monitor on the patient to evaluate her tachycardia and rule out any arrhythmias. 3. Coronary artery disease is present. She has ruled out for an VA. She had a normal stress test in May after stenting in March. Her coronary artery disease is likely stable. No plans for invasive testing at this time. 4. Her blood pressure is well controlled. 5. Her LDL goal is less than 55. 6. The patient does report that she has thyroid disease and she has been off of all of her thyroid medications because she has not been able to tolerate the t hyroid medications. This could be a very likely cause of her tachycardia. She has an appointment with Dr. Gomez tomorrow for management of her thyroid disease. 7. Tobacco cessation is highly advised and counseled. 8. No further recommendations at this time from a cardiac standpoint. As mentioned before we will increase her Toprol-XL to 50 mg [address] twice daily and place a 30-day event monitor prior to discharge home today. She will need to follow-up in 1 week. Thank you for the opportunity to help participate in the care of this patient.
--- NOTE | 2019-09-08 16:44 | History & Physical Report ---
*Admission Date: 09/08/19 *Chief complaint: chest pain *History of present illness: this wf who presented to the ed pt with chest pain and palpitations t seen here yesterday for a migraine, states her migraine has gotten worse and now she has developed CP with fluttering wf with rt sided levine with hx of migraines and no fever or rash and no trauma - she has chest pain today with fast hr - no cough - MD complaint: chest pain indicative of cardiac pt was seen and admitted [facility] History I have reviewed the patient's past medical history: Yes Medical History: Reports:: Anxiety, Coronary Artery Disease, Hyperlipidemia, Hypertension, Myocardial Infarction, Palpitations, Valvular Heart Disease Denies:: Cancer, Diabetes Mellitus Type 1, Diabetes Mellitus Type 2, Internal Pacemaker, MRSA *Have you ever received a pneumonia vaccine?: No *Have you received a flu vaccine this season?: No Other Medical History: Reports: Arthritis, Fibromyalgia, Thyroid Disease (hoshimotos) Laterality Cases: Left: Arthroscopy Knee Other Surgeries: Yes: Cardiac Catheterization, Coronary Stent, Hysterectomy-Tot al, Hysterectomy-Partial, Tubal Ligation. No: Pacemaker Amputation: No Fractures: No - *Social History Smoking Status: Current every day smoker Tobacco Type: cigarettes # Packs/Day (cigarettes): 1 #Yrs smoked (if former smoker): 25 Alcohol Intake: never Substance Use Type: denies use *Occupational Status:: unemployed Housing: house Household Members: spouse, family *Travel in the last 8 weeks: None - Psychiatric History Pschychiatric History:: Reports:: Anxiety Family Hx:: Cancer, Diabetes, Heart Attack, Hyperlipidemia, Hypertension, Stroke Review of Systems - Review of Systems Review of systems:: pertinent systems reviewed and negative unless documented below - Constitutional Denies fever(s) - Eyes Denies change in vision - ENT Denies sore throat - *Cardiovascular Reports fast heart rate, Denies chest pain at rest, Denies shortness of breath - *Respiratory Denies cough - *Gastrointestinal Denies abdominal pain - *Genitourinary Denies blood in urine - *Musculoskeletal Denies joint pain - Integumentary/Breasts Denies rash - *Neurologic Reports headache(s), Denies confusion, Denies localized weakness, Denies loss of vision, Denies seizure-like activity - Psychiatric Denies anxiety Meds Home Medications Medication Instructions Recorded Confirmed Type Meclizine HCl [Wal-Dram 2] 1 tab PO TID 04/03/19 09/08/19 History Spironolactone [Spironolactone 25 mg PO DAILY 04/03/19 09/08/19 History 25mg Tablet] Atorvastatin Calcium [Lipitor 40mg 40 mg PO HS 06/04/19 09/08/19 History Tablet] Clopidogrel Bisulfate [Plavix 75mg 75 mg PO DAILY 06/04/19 09/08/19 History Tab] Metoprolol Succinate 50 mg PO DAILY 06/04/19 09/08/19 History Nitroglycerin 0.4 mg SL DIRECTED PRN 06/04/19 09/08/19 History Propranolol HCl 10 mg PO TID 06/08/19 09/08/19 History Topiramate [Topamax 25mg tablet] 25 mg PO DAILY #21 tab 06/11/19 09/08/19 Rx ondansetron HCl 4 mg tablet 4 mg PO TID PRN #30 tab 07/09/19 09/08/19 Rx furosemide 20 mg tablet 20 mg PO DAILY #90 tab 07/14/19 09/08/19 Rx lisinopril 5 mg tablet 5 mg PO DAILY #90 tab 07/14/19 09/08/19 Rx ergocalciferol (vitamin D2) 50,000 50,000 unit PO WEEKLY #4 cap 08/03/19 09/08/19 Rx unit capsule tramadol 50 mg tablet 50 mg PO QID #120 tab 08/23/19 09/08/19 Rx Aspirin [Aspir-Low] 81 mg PO HS 09/08/19 09/08/19 History Cholecalciferol (Vitamin D3) 1,000 units PO DAILY 09/08/19 09/08/19 History [Vitamin D3 1,000 Unit Tab] Allergies Allergy/AdvReac Type Severity Reaction Status Date / Time ketorolac [From TORADOL] Allergy Mild I-RASH Verified 09/06/19 20:01 Penicillins [PENICILLINS] Allergy Mild I-RASH Verified 09/06/19 20:01 Exam Vital signs and Labs for Last 24 Hours: Temp Pulse Resp BP Pulse Ox 98.2 F 55 L 17 133/64 97 09/08/19 16:00 09/08/19 16:00 09/08/19 16:00 09/08/19 16:00 09/08/19 16:00 Laboratory Results - last 24 hr 09/07/19 22:50: WBC 25.8 H* D, RBC 4.61, Hgb 14.1, Hct 45.4, MCV 98.4, MCH 30.7, MCHC 31.1 L, RDW 14.0, Plt Count 410, MPV 9.2, Neut % (Auto) 83.5 H, Lymph % (Auto) 12.9, [place] % (Auto) 3.3, Eos % (Auto) 0.1, Baso % (Auto) 0.2, Neut # (Auto) 21.5 H, Lymph # (Auto) 3.3, [place] # (Auto) 0.9, Eos # (Auto) 0.0, Baso # (Auto) 0.1, Total Counted 100, Neutrophils % (Manual) 83 H, Lymphocytes % (Manual) 17, Platelet Estimate Normal, Anisocytosis 1+ 09/07/19 22:50: Sodium 141, Potassium 3.5, Chloride 104, Carbon Dioxide 26, Anion Gap 14.5, BUN 13 D, Creatinine 0.89, Estimated Creat Clear 96, Estimated GFR 67, Est GFR ( Amer) 81, Glucose 183 H, Calcium 9.8, Total Bilirubin 0.1 L, Direct Bilirubin 0.0, Indirect Bilirubin 0.1, AST 8 L D, ALT 19, Alkaline Phosphatase 114, Troponin I < 0.02, Total Protein 8.2, Albumin 3.9, TSH 1.62 D , Thyroxine (T4) 8.9, Plasma/Serum Alcohol 0 09/07/19 23:00: Urine Opiates Screen Negative, Urine Methadone Screen Negative, Ur Barbituates Screen Negative, Ur Phencyclidine Scrn Negative, Ur Amphetamines Screen Negative, U Benzodiazepines Scrn Negative, Urine Cocaine Screen Negative, U Marijuana (THC) Screen Negative 09/07/19 23:00: Urine Color Yellow, Urine Appearance Clear, Urine pH 6.5, Ur Specific [place] 1.010, Urine Protein Negative, Urine Glucose (UA) Negative, Urine Ketones Negative, Urine Blood Negative, Urine Nitrate Negative, Urine Bilirubin Negative, Urine Urobilinogen 0.2, Ur Leukocyte Esterase Negative, Urine WBC 3-5, Ur Squamous Epith Cells 5-10, Urine Bacteria Trace 09/07/19 23:44: Lactate 1.5 09/07/19 23:52: Influenza Type A Ag Negative, Influenza Type B Ag Negative 09/08/19 00:00: ESR 53 H 09/08/19 00:00: C-Reactive Protein < 0.2 D, TSH 1.69, Thyroxine (T4) 8.5 09/08/19 04:10: Troponin I < 0.02 09/08/19 04:10: WBC 21.2 H*, RBC 3.72 L, Hgb 11.4 L D, Hct 36.8 L, MCV 99.0, MCH 30.5, MCHC 30.8 L, RDW 14.0, Plt Count 335, MPV 9.1, Neut % (Auto) 74.6, Lymph % (Auto) 20.3, [place] % (Auto) 4.5, Eos % (Auto) 0.2, Baso % (Auto) 0.3, Neut # (Auto) 15.8 H, Lymph # (Auto) 4.3, [place] # (Auto) 1.0, Eos # (Auto) 0.1, Baso # (Auto) 0.1 09/08/19 04:10: Sodium 144, Potassium 3.7, Chloride 109 H, Carbon Dioxide 26, Anion Gap 12.7, BUN 10, Creatinine 0.66 D, Estimated Creat Clear 127, Estimated GFR 95, Est GFR ( Amer) 115 D, Glucose 118 H D, Calcium 8.8 D, Magnesium 1.7 09/08/19 10:55: Troponin I < 0.02 I & O for Last 24 hours: Intake & Output 09/06/19 09/07/19 09/08/19 09/09/19 11:59 11:59 11:59 11:59 Intake Total 1651 / 1651 360 / 360 Balance 1651 / 1651 360 / 360 Weight 176 lb 6 oz - Constitutional no acute distress, obese - *Routine HEENT Exam Head: Present: normocephalic Eye: Present: EOMI, PERRL ENT: Present: mucous membranes dry - *Routine Neck Exam Present: supple. Absent: JVD, meningismus - *Routine Respiratory Exam Present: CTA bilaterally - *Routine Cardiovascular Exam Present: RRR, murmur - *Routine Abdominal Exam Present: soft. Absent: tenderness - *Routine Extremities Exam Present: pulses intact. Absent: edema - *Routine Skin Exam Present: intact - *Routine Neurological Exam Present: alert, oriented X3, CN II-XII intact. Absent: altered mental status - Routine Psychiatric Exam Present: normal affect Assessment and Plan (1) Chest pain Current visit: Yes Status: Acute Category: Medical Code(s): R07.9 - Chest pain, unspecified (2) Sinus tachycardia Current visit: Yes Status: Acute Category: Medical Code(s): R00.0 - Tachycardia, unspecified (3) Thyroid disorder Current visit: Yes Status: Acute Category: Medical Code(s): E07.9 - Disorder of thyroid, unspecified (4) Migraine Current visit: Yes Status: Acute Category: Medical Code(s): G43.909 - Migraine, unspecified, not intractable, without status migrainosus (5) Coronary artery disease Current visit: No Status: Chronic Qualifiers: Coronary Disease-Associated Artery/Lesion type: [place] artery [place] vs. transplanted heart: [place] heart Associated angina: without angina Qualified Code(s): I25.10 - Atherosclerotic heart disease of [place] coronary artery without angina pectoris Category: Medical Code(s): I25.10 - Atherosclerotic heart disease of [place] coronary artery without angina pectoris (6) Diastolic dysfunction Current visit: No Status: Chronic Category: Medical Code(s): I51.89 - Other ill-defined heart diseases (7) HHD (hypertensive heart disease) Current visit: No Status: Chronic Qualifiers: Heart failure presence: without heart failure Qualified Code(s): I11.9 - Hypertensive heart disease without heart failure Category: Medical Code(s): I11.9 - Hypertensive heart disease without heart failure (8) Hyperlipidemia Current visit: No Status: Chronic Qualifiers: Hyperlipidemia type: mixed hyperlipidemia Qualified Code(s): E78.2 - Mixed hyperlipidemia Category: Medical Code(s): E78.5 - Hyperlipidemia, unspecified (9) S/P coronary artery stent placement Current visit: No Status: Chronic Category: Surgical Code(s): Z95.5 - Presence of coronary angioplasty implant and graft (10) Palpitations Current visit: No Status: Resolved Category: Medical Code(s): R00.2 - Palpitations
--- NOTE | 2019-09-08 18:25 | Electrocardiograph Report ---
APPROVED REPORT Exam: Resting ECG HR:126 bpm ECG Measurements Heart Rate 126 AXES IA 164 P 63 QRSd 80 QRS 37 QT 290 T56 QTc 420 <Conclusion> Sinus tachycardia Nonspecific T wave abnormality Abnormal ECG Electronically signed by : Praveen Antonio 09/08/2019 18:24:56
--- NOTE | 2019-09-08 19:10 | Cardiology Report ---
APPROVED REPORT EXAM: Comprehensive 2D, Doppler, and color-flow Echocardiogram Internetworking Technician: Eulalia Daugherty RVT Ht: 5 ft 4 in Wt: 178lbs BSA: 1.86 BP: 117/88 mmHg Indications: Chest Pain, Shortness of Breath, Palpitations, Fatigue, CAD, Hyperlipidemia, Hypertension,smoker 2D Dimensions IVSd 1.00 cm F: 0.6-1.0LVEF (Visual) 64.00 % PWd 0.90 cm F: 0.6 - 1.0 LVDd 3.80 cm F: 3.9 - 5.3 LVDs 2.50 cm F: 2.2 - 3.5 LVOT 1.80 cm (M/F) 1.5-2.5 M-Mode Dimensions LA Diam 2.50 cm (1.9-4.0)LVDd 5.90 cm (3.5-5.7) Ao Diam 2.30 cm (2.0-3.7)LVDs 4.50 cm (3.5-5.7) AV Cusp 2.10 cm (1.5-2.6)IVSd 1.30 cm (0.6-1.1) PWd 0.80 cm (0.6-1.1)EF (Teich) 46.60% FS 23.70% EDV (Teich) 173.00 mL ESV (Teich) 92.40 mL LV Diastology E/A Ratio 1.4MED E' 8.58 (< 7 cm/sec) E'/MED E' Ratio9.70 (>14)LAT E' 13.90 (<10 cm/sec) E/LAT E' Ratio 6.00 (>14) Aortic Valve AoV Peak Antoine. 102.00 (50-130 cm/s)AO Peak GR. 4.00 mmHg Mitral Valve MV E Max Antoine. 82.90 (40-130 cm/s)MV A Velocity 58.70 (40-130 cm/s) E/A Ratio 1.40 Pulmonary Valve PA Accel Time 49.00 (>120 msec) Tricuspid Valve TR P. Ofrtqdyi014.00 cm/s Left Ventricle Left atrium is mildly enlarged, left ventricle is normal size, mild concentric left ventricular hypertrophy, visually estimated ejection fraction 55% with no regional wall motion abnormality. Diastolic parameters are within normal range. Right Ventricle Right atrium right ventricular normal size and contractility. Aortic Valve Aortic valve is minimally thickened and fibrosed, there is no aortic stenosis or aortic insufficiency. Mitral Valve Mitral valve is grossly normal, there is no mitral stenosis, there is mild mitral regurgitation. Tricuspid Valve Tricuspid valve is grossly normal, there is mild tricuspid regurgitation. Tricuspid regurgitation jet velocity is inadequate for calculation of the right ventricular systolic pressure. Pulmonic Valve Pulmonic valve is poorly visualized. Great Vessels Aortic root is normal size. Pericardium No significant pericardial effusion noted. Conclusion 1. Mildly low left atrium, normal left ventricular size, mild concentric left ventricular hypertrophy, visually estimated ejection fraction 55% with no regional wall motion abnormality, grade 1 diastolic dysfunction seen without tissue Doppler evidence of raise left atrial pressure. 2. Mild mitral and tricuspid regurgitation 3. No significant pericardial effusion noted. Electronically signed by : Pavan Pacheco, 09/08/2019 19:10:11
--- NOTE | 2019-09-08 20:19 | Discharge Summary ---
General - General Admission date:: 09/08/19 Discharge date: 09/08/19 HPI HPI: this wf who presented to the ed pt with chest pain and palpitations t seen here yesterday for a migraine, states her migraine has gotten worse and now she has developed CP with fluttering wf with rt sided levine with hx of migraines and no fever or rash and no trauma - she has chest pain today with fast hr - no cough - MD complaint: chest pain indicative of cardiac pt was seen and admitted Hospital Course Hospital Course: pt did well and has stable labs and had some improvement in wbc- she was seen by card - complaint: Chest pain Additional Medical History:: 1. CAD 2. HTN 3. HLD 4. VA 5. Anxiety 6. palpitations 7. thyroid disease [facility] 03.25.19: 1. Moderate coronary artery disease and mid LAD 2. 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 Successful stenting of the ostial proximal mid dominant right coronary artery critical disease reduced to 0% with 3 drug-eluting stents in a contiguous manner 4. Persistent moderate stenosis along a tortuous bend in the mid LAD 5. Moderately elevated LVEDP PLAN: 1. Brilinta and aspirin 2. LDL less than 55 3. Avoidance of tobacco products 4. Risk factor modification 5. In one month I would recommend and exercise Myoview to determine if the mid LAD stenosis has hemodynamic significance 6. Treatment of diastolic dysfunction with diuretics 7. Cardiac rehabilitation Myoview 19: 1. The EKG portion of the Lexiscan Myoview is nondiagnostic. 2. No scintigraphic evidence of reversible ischemia seen, computer derived ejection fraction is 56% with no regional wall motion abnormality, right ventricle is normal size and contractility. is is a 48-year-old white female who presented to the emergency department with complaints of racing of the heart and chest pain. The patient states that yesterday she had a migraine. She was seen yesterday because of the severe migraine and treated with morphine. She denies using any Imitrex or any medi cations of that sort. She states that she went home and then last night had sudden onset of pain in the center of her chest. She states that this was a sharp pain with a sudden onset of fluttering in her chest. The patient states that her heart rate was over 120 bpm and that is why she decided to come into the emergency department. The patient reports that she has had multiple episodes in the last month of her heart racing. She states that her heart rate has been has high as 176 bpm. While in the hospital her heart rate was anywhere from 110 to 149 bpm. The patient states that her biggest issue right now is the racing of her heart. She currently denies any chest pain or pressure and states that has resolved. She denies any shortness of breath or edema. She denies any fever, chills, nausea, vomiting, diarrhea, PND or orthopnea. The patient has ruled out for an VA. She did have stents placed in March of this year with a normal stress test in May of this year. The patient was admitted with chest pain and racing of the heart. The patient states that she has been having palpitations, tachycardia and racing of the heart for several weeks. She states that this has woken her up from her sleep. She states that she notices it when she is exerting herself. The patient states that the racing of her heart occurs very often now. She states that this is associated with a sharp pain in her chest. She states that this is much milder and different than the chest pain that she had when she needed stents. Given the patient's tachycardia will increase her metoprolol XL to 50 mg p.o. twice daily for better heart rate control. 2. Recommend placing a 30-day event monitor on the patient to evaluate her tachycardia and rule out any arrhythmias. 3. Coronary artery disease is present. She has ruled out for an VA. She had a normal stress test in May after stenting in March. Her coronary artery disease is likely stable. No plans for invasive testing at this time. 4. Her blood pressure is well controlled. 5. Her LDL goal is less than 55. 6. The patient does report that she has thyroid disease and she has been off of all of her thyroid medications because she has not been able to tolerate the thyroid medications. This could be a very likely cause of her tachycardia. She has an appointment with Dr. Gomez tomorrow for management of her thyroid disease. 7. Tobacco cessation is highly advised and counseled. 8. No further recommendations at this time from a cardiac standpoint. As mentioned before we will increase her Toprol-XL to 50 mg p[address] twice daily and place a 30-day event monitor prior to discharge home today. She will need to follow-up in 1 week. Objective Vital signs: Temp Pulse Resp BP Pulse Ox 98.2 F 55 L 17 133/64 97 09/08/19 16:00 09/08/19 16:00 09/08/19 16:00 09/08/19 16:00 09/08/19 16:00 no acute distress - *Routine HEENT Exam Head: Present: normocephalic Eye: Present: EOMI, PERRL ENT: Present: mucous membranes dry - *Routine Neck Exam Present: supple. Absent: JVD - *Routine Respiratory Exam Present: CTA bilaterally - *Routine Cardiovascular Exam Present: RRR. Absent: murmur - *Routine Abdominal Exam Present: soft - *Routine Extremities Exam Absent: calf tenderness - *Routine Skin Exam Present: intact - *Routine Neurological Exam Present: alert, oriented X3, CN II-XII intact - Routine Psychiatric Exam Present: normal affect Results Labs on day of discharge: Labs from last 24 hours 09/08/19 09/08/19 09/08/19 10:55 04:10 04:10 WBC 21.2 H* RBC 3.72 L Hgb 11.4 L D Hct 36.8 L MCV 99.0 MCH 30.5 MCHC 30.8 L RDW 14.0 Plt Count 335 MPV 9.1 Neut % (Auto) 74.6 Lymph % (Auto) 20.3 [place] % (Auto) 4.5 Eos % (Auto) 0.2 Baso % (Auto) 0.3 Neut # (Auto) 15.8 H Lymph # (Auto) 4.3 [place] # (Auto) 1.0 Eos # (Auto) 0.1 Baso # (Auto) 0.1 Total Counted Neutrophils % (Manual) Lymphocytes % (Manual) Platelet Estimate Anisocytosis ESR Sodium 144 Potassium 3.7 Chloride 109 H Carbon Dioxide 26 Anion Gap 12.7 BUN 10 Creatinine 0.66 D Estimated Creat Clear 127 Estimated GFR 95 Est GFR ( Amer) 115 D Glucose 118 H D Lactate Calcium 8.8 D Magnesium 1.7 Total Bilirubin Direct Bilirubin Indirect Bilirubin AST ALT Alkaline Phosphatase Troponin I < 0.02 C-Reactive Protein Total Protein Albumin TSH Thyroxine (T4) Urine Color Urine Appearance Urine pH Ur Specific [place] Urine Protein Urine Glucose (UA) Urine Ketones Urine Blood Urine Nitrate Urine Bilirubin Urine Urobilinogen Ur Leukocyte Esterase Urine WBC Ur Squamous Epith Cells Urine Bacteria Urine Opiates Screen Urine Methadone Screen Ur Barbituates Screen Ur Phencyclidine Scrn Ur Amphetamines Screen U Benzodiazepines Scrn Urine Cocaine Screen U Marijuana (THC) Screen Plasma/Serum Alcohol Influenza Type A Ag Influenza Type B Ag 09/08/19 09/08/19 09/08/19 04:10 00:00 00:00 WBC RBC Hgb Hct MCV MCH MCHC RDW Plt Count MPV Neut % (Auto) Lymph % (Auto) [place] % (Auto) Eos % (Auto) Baso % (Auto) Neut # (Auto) Lymph # (Auto) [place] # (Auto) Eos # (Auto) Baso # (Auto) Total Counted Neutrophils % (Manual) Lymphocytes % (Manual) Platelet Estimate Anisocytosis ESR 53 H Sodium Potassium Chloride Carbon Dioxide Anion Gap BUN Creatinine Estimated Creat Clear Estimated GFR Est GFR ( Amer) Glucose Lactate Calcium Magnesium Total Bilirubin Direct Bilirubin Indirect Bilirubin AST ALT Alkaline Phosphatase Troponin I < 0.02 C-Reactive Protein < 0.2 D Total Protein Albumin TSH 1.69 Thyroxine (T4) 8.5 Urine Color Urine Appearance Urine pH Ur Specific [place] Urine Protein Urine Glucose (UA) Urine Ketones Urine Blood Urine Nitrate Urine Bilirubin Urine Urobilinogen Ur Leukocyte Esterase Urine WBC Ur Squamous Epith Cells Urine Bacteria Urine Opiates Screen Urine Methadone Screen Ur Barbituates Screen Ur Phencyclidine Scrn Ur Amphetamines Screen U Benzodiazepines Scrn Urine Cocaine Screen U Marijuana (THC) Screen Plasma/Serum Alcohol Influenza Type A Ag Influenza Type B Ag 09/07/19 09/07/19 09/07/19 23:52 23:44 23:00 WBC RBC Hgb Hct MCV MCH MCHC RDW Plt Count MPV Neut % (Auto) Lymph % (Auto) [place] % (Auto) Eos % (Auto) Baso % (Auto) Neut # (Auto) Lymph # (Auto) [place] # (Auto) Eos # (Auto) Baso # (Auto) Total Counted Neutrophils % (Manual) Lymphocytes % (Manual) Platelet Estimate Anisocytosis ESR Sodium Potassium Chloride Carbon Dioxide Anion Gap BUN Creatinine Estimated Creat Clear Estimated GFR Est GFR ( Amer) Glucose Lactate 1.5 Calcium Magnesium Total Bilirubin Direct Bilirubin Indirect Bilirubin AST ALT Alkaline Phosphatase Troponin I C-Reactive Protein Total Protein Albumin TSH Thyroxine (T4) Urine Color Yellow Urine Appearance Clear Urine pH 6.5 Ur Specific [place] 1.010 Urine Protein Negative Urine Glucose (UA) Negative Urine Ketones Negative Urine Blood Negative Urine Nitrate Negative Urine Bilirubin Negative Urine Urobilinogen 0.2 Ur Leukocyte Esterase Negative Urine WBC 3-5 Ur Squamous Epith Cells 5-10 Urine Bacteria Trace Urine Opiates Screen Urine Methadone Screen Ur Barbituates Screen Ur Phencyclidine Scrn Ur Amphetamines Screen U Benzodiazepines Scrn Urine Cocaine Screen U Marijuana (THC) Screen Plasma/Serum Alcohol Influenza Type A Ag Negative Influenza Type B Ag Negative 09/07/19 09/07/19 09/07/19 23:00 22:50 22:50 WBC 25.8 H* D RBC 4.61 Hgb 14.1 Hct 45.4 MCV 98.4 MCH 30.7 MCHC 31.1 L RDW 14.0 Plt Count 410 MPV 9.2 Neut % (Auto) 83.5 H Lymph % (Auto) 12.9 [place] % (Auto) 3.3 Eos % (Auto) 0.1 Baso % (Auto) 0.2 Neut # (Auto) 21.5 H Lymph # (Auto) 3.3 [place] # (Auto) 0.9 Eos # (Auto) 0.0 Baso # (Auto) 0.1 Total Counted 100 Neutrophils % (Manual) 83 H Lymphocytes % (Manual) 17 Platelet Estimate Normal Anisocytosis 1+ ESR Sodium 141 Potassium 3.5 Chloride 104 Carbon Dioxide 26 Anion Gap 14.5 BUN 13 D Creatinine 0.89 Estimated Creat Clear 96 Estimated GFR 67 Est GFR ( Amer) 81 Glucose 183 H Lactate Calcium 9.8 Magnesium Total Bilirubin 0.1 L Direct Bilirubin 0.0 Indirect Bilirubin 0.1 AST 8 L D ALT 19 Alkaline Phosphatase 114 Troponin I < 0.02 C-Reactive Protein Total Protein 8.2 Albumin 3.9 TSH 1.62 D Thyroxine (T4) 8.9 Urine Color Urine Appearance Urine pH Ur Specific [place] Urine Protein Urine Glucose (UA) Urine Ketones Urine Blood Urine Nitrate Urine Bilirubin Urine Urobilinogen Ur Leukocyte Esterase Urine WBC Ur Squamous Epith Cells Urine Bacteria Urine Opiates Screen Negative Urine Methadone Screen Negative Ur Barbituates Screen Negative Ur Phencyclidine Scrn Negative Ur Amphetamines Screen Negative U Benzodiazepines Scrn Negative Urine Cocaine Screen Negative U Marijuana (THC) Screen Negative Plasma/Serum Alcohol 0 Influenza Type A Ag Influenza Type B Ag DS: Diagnosis - Discharge Diagnosis (1) Chest pain Status: Acute (2) Sinus tachycardia Status: Acute (3) Thyroid disorder Status: Acute (4) Migraine Status: Acute (5) Coronary artery disease Status: Chronic (6) Diastolic dysfunction Status: Chronic (7) HHD (hypertensive heart disease) Status: Chronic (8) Hyperlipidemia Status: Chronic (9) S/P coronary artery stent placement Status: Chronic (10) Palpitations Status: Resolved (11) Leukocytosis Status: Acute Discharge Plan - Patient Discharge Instructions ACTIVITY: Continue current activity DIET: continue same diet Patient Instructions: Angina, Echocardiogram, DI for Angina - Follow up Plan Follow up with: Forrest Charlton MD [Emergency Provider] - Disposition: Home, Self-Assisted Medications: Home Medications Medication Instructions Recorded Confirmed Type Meclizine HCl [Wal-Dram 2] 1 tab PO TID 04/03/19 09/08/19 History Spironolactone [Spironolactone 25 mg PO DAILY 04/03/19 09/08/19 History 25mg Tablet] Atorvastatin Calcium [Lipitor 40mg 40 mg PO HS 06/04/19 09/08/19 History Tablet] Clopidogrel Bisulfate [Plavix 75mg 75 mg PO DAILY 06/04/19 09/08/19 History Tab] Nitroglycerin 0.4 mg SL DIRECTED PRN 06/04/19 09/08/19 History Propranolol HCl 10 mg PO TID 06/08/19 09/08/19 History Topiramate [Topamax 25mg tablet] 25 mg PO DAILY #21 tab 06/11/19 09/08/19 Rx ondansetron HCl 4 mg tablet 4 mg PO TID PRN #30 tab 07/09/19 09/08/19 Rx furosemide 20 mg tablet 20 mg PO DAILY #90 tab 07/14/19 09/08/19 Rx lisinopril 5 mg tablet 5 mg PO DAILY #90 tab 07/14/19 09/08/19 Rx ergocalciferol (vitamin D2) 50,000 50,000 unit PO WEEKLY #4 cap 08/03/19 09/08/19 Rx unit capsule tramadol 50 mg tablet 50 mg PO QID #120 tab 08/23/19 09/08/19 Rx Aspirin [Aspir-Low] 81 mg PO HS 09/08/19 09/08/19 History Cholecalciferol (Vitamin D3) 1,000 units PO DAILY 09/08/19 09/08/19 History [Vitamin D3 1,000 Unit Tab] Metoprolol Succinate 50 mg PO BID #60 tab.er.24h 09/08/19 Rx cephALEXin [Keflex 500mg Cap] 500 mg PO TID #30 cap 09/08/19 Rx Prescriptions/Medication Reconciliation: New cephALEXin [Keflex 500mg Cap] 500 mg PO TID #30 cap Continued furosemide 20 mg tablet 20 mg PO DAILY #90 tab lisinopril 5 mg tablet 5 mg PO DAILY #90 tab ondansetron HCl 4 mg tablet 4 mg PO TID PRN #30 tab PRN Reason: nausea and vomiting ergocalciferol (vitamin D2) 50,000 unit capsule 50,000 unit PO WEEKLY #4 cap tramadol 50 mg tablet 50 mg PO QID #120 tab Spironolactone [Spironolactone 25mg Tablet] 25 mg PO DAILY Meclizine HCl [Wal-Dram 2] 1 tab PO TID Clopidogrel Bisulfate [Plavix 75mg Tab] 75 mg PO DAILY Aspirin [Aspir-Low] 81 mg PO HS Cholecalciferol (Vitamin D3) [Vitamin D3 1,000 Unit Tab] 1,000 units PO DAILY Atorvastatin Calcium [Lipitor 40mg Tablet] 40 mg PO HS Topiramate [Topamax 25mg tablet] 25 mg PO DAILY #21 tab Changed Metoprolol Succinate 50 mg PO BID #60 tab.er.24h Discontinued Nitroglycerin 0.4 mg SL DIRECTED PRN PRN Reason: Angina Propranolol HCl 10 mg PO TID - Problem Reconciliation Problems Reviewed?: Yes
== END 2019-09-08 20:53 | disposition home or self-care (01) ==
LOC: 2ND 22:38 → ER 22:38 → 2ND 09-08 01:33
PROVIDERS: ADMIT Emergency Medicine; ATTEND Emergency Medicine
CPT/HCPCS: 36415; 70450; 71020; 71046; 80048; 80076; 80305; 81001; 83605; 83735; 84436; 84443; 84484; 85007; 85025; 85651; 86140; 87040; 87275; 87276; 93005; 93306; 96365; 96367; 96375; 99285; G0378; J2405

== ENCOUNTER → 2019-09-09 14:55 | Outpatient (CLI) | payer OTHER, SELFPAY ==
[2019-09-09 17:18] LABS: Free T4 (Free Thyroxine) 3.61 ng/dl (0.76-1.46); Thyroid Stimulating Hormone 1.95 uIU/ml (0.358-3.740)
[2019-09-11 08:12] LABS: Thyroid Peroxidase Antibodies 20 IU/mL (0-34)
[2019-09-11 20:02] LABS: Triiodothyronine (T3) Free 2.7 pg/mL (2.0-4.4)
[2019-09-14 15:06] LABS: Thyroid Stimulating Immunoglob <0.10 IU/L (0.00-0.55)
== END ==
PROVIDERS: Visit Provider Otolaryngology
DX: E06.3 Autoimmune thyroiditis (principal)
CPT/HCPCS: 36415; 84439; 84443; 84445; 84481; 86376

== ENCOUNTER → 2019-09-27 15:48 | Outpatient (CLI) | payer OTHER, SELFPAY ==
[2019-09-27 16:59] LABS: Basophils # 0.1 K/mm3 (0-0.2); Basophils % 0.8 % (0.1-2.0); Eosinophils # 0.2 K/mm3 (0.0-0.4); Eosinophils % 3.5 % (0.1-12.0); Hematocrit 43.9 % (37.0-47.0); Hemoglobin 13.9 g/dL (12.2-16.2); Lymphocytes # 2.7 K/mm3 (0.7-4.5); Lymphocytes % 40.1 % (10-50); Mean Corpuscular HGB Conc 31.6 g/dL (31.8-35.4); Mean Corpuscular Hemoglobin 31.8 pg (27.0-31.2); Mean Corpuscular Volume 100.7 fl (81-99); Monocytes # 0.4 K/mm3 (0.1-1.0); Neutrophils # 3.4 K/mm3 (1.8-7.8); Neutrophils % 49.5 % (37.0-80.0); Platelet Count 379 K/mm3 (142-424); Red Blood Count 4.36 M/mm3 (4.20-5.40); Red Cell Distribution Width 13.3 % (11.5-17.5); White Blood Count 6.8 K/mm3 (4.8-10.8)
[2019-09-27 18:01] LABS: Troponin I < 0.02 ng/ml (0.00-0.06)
[2019-09-27 18:08] LABS: Anion Gap 13.9 mEq/L (5-15); Blood Urea Nitrogen 12 mg/dL (7-18); Calcium 9.9 mg/dL (8.5-10.1); Carbon Dioxide 30 mmol/L (21.0-32.0); Chloride 104 mmol/L (98-107); Estimated Glomerular Filt Rate 89 ml/min (>60); Free T4 (Free Thyroxine) 3.21 ng/dl (0.76-1.46); GFR (African American) 107 ML/MIN (>60); Glucose 86 mg/dL (74-106); Potassium 3.9 mmoL/L (3.5-5.1); Sodium 144 mmol/L (136-145); Thyroid Stimulating Hormone 2.57 uIU/ml (0.358-3.740)
== END ==
PROVIDERS: PCP Physician Assistant; Referring Provider Nurse Practitioner Family; Visit Provider Nurse Practitioner Family
DX: R00.2 Palpitations (principal); R06.02 Shortness of breath; R07.2 Precordial pain; R94.31 Abnormal electrocardiogram [ECG] [EKG]; E78.2 Mixed hyperlipidemia; I11.9 Hypertensive heart disease without heart failure; I25.10 Atherosclerotic heart disease of native coronary artery without angina pectoris; I10 Essential (primary) hypertension; F17.200 Nicotine dependence, unspecified, uncomplicated; Z95.5 Presence of coronary angioplasty implant and graft
CPT/HCPCS: 36415; 80048; 84439; 84443; 84484; 85025; 93270

== ENCOUNTER 2020-04-19 09:48 | Outpatient (RCR) | payer OTHER, SELFPAY ==
--- NOTE | 2020-04-19 10:21 | HMH.PTOPEV ---
PT Outpatient Evaluation Rehab PT Outpatient Evaluation Start: 04/19/20 10:13 Freq: Status: Active Protocol: Document 04/19/20 10:13 TIN (Rec: 04/19/20 10:21 TIN [id number]) Electronically Signed By Dontae Nowak, PT 04/19/20 10:13 Outpatient Therapy Subjective History Subjective History Pt reports h/o chronic LBP beginning ~ 1yr ago, insidious onset. Pt reports LBP on both R&L sides w/intermittent s/s into BLE's. Pt reports PMH of fibromyalgia. Chief Complaint Pain,Stiff,Paresthesia, Weakness Symptom Type Ache,Sharp,Dull Symptoms Relieved By Nothing Symptoms Aggravated By Sitting,Standing,Walking Prior Functional Limitations Lifting,Housework,Standing Current Functional Limitations Lifting,Housework,Standing, Sitting,Walking Symptom Description Constant but Variable Level of pain today (0-10) 5 Pain scale - at its best (0-10) 5 Pain scale - at its worst (0-10) 10 Lumbopelvic Eval Posture Thoracic Spine Posture Standing Position Neutral Lumbar Spine Posture Standing Position Neutral Assistive device Assistive Devices None / NA Gait Observation General Gait Pattern Observation Antalgic Gait Palapation tenderness bilateral thoracic spinal tenderness Yes: 3/4 lumbar spinal tenderness Yes: 3/4 paraspinal tenderness Yes: 3/4 buttock tenderness Yes: 3/4 Lumbar/Sacral Palpation Findings Tenderness Accessory Movement T-spine Vertebrae Accessory Movements Central P[facility] that Elicit Symptoms T10 bilateral T11 bilateral T12 bilateral L-spine Vertebrae Accessory Movements Central P/[facility] that Elicit Symptoms L2 bilateral L3 bilateral L4 bilateral L5 bilateral S1 bilateral Range of Motion Lumbar Spine Active Flexion Range of 0-40 Motion (degrees) Lumbar Spine Active Extension Range of 0-10 Motion (degrees) Left Lumbar Spine Lateral Flexion Active 0-15 Range of Motion (degrees) Right Lumbar Spine Lateral Flexion 0-15 Active Range of Motion (degrees) Lumbar Spine ROM Limitations Soft Tissue Tightness,Pain Manual Muscle Test Bilateral Knee Extension Strength Grade 4 Good Knee Flexion Strength Grade 4- Good- Hip Flexion Strength Grade 4- Good- Extensor Hallucis Longus Strength Grade 5 Normal Ankle Dorsiflexion Strength Grade 5
== END 2020-04-19 09:50 | disposition home or self-care (01) ==
LOC: PT 09:48
PROVIDERS: PCP Physician Assistant; Visit Provider Physician Assistant
DX: M54.5 Low back pain (principal)
CPT/HCPCS: 97163

== ENCOUNTER → 2020-04-19 10:28 | Outpatient (CLI) | payer OTHER, SELFPAY ==
--- NOTE | 2020-04-19 10:28 | US_ITS ---
PROCEDURE: US TRANSVAGINAL CLINICAL INDICATION: Pelvic pain Lower abdominal pain COMPARISON: PTV US PELVIS-TRANSVAGINAL ONLY from 09/28/2015 FINDINGS: Prior hysterectomy. Unremarkable appearing vaginal cuff. No obvious pelvic mass. Left ovary measures 17 x 10 mm. Right ovary is not demonstrated. No abnormal fluid collections. IMPRESSION: Post hysterectomy changes, no acute finding Dictated by: Willian Boothe MD 04/19/2020 18:14 Electronically signed by Willian Boothe MD in [place] 04/19/2020 18:14
== END ==
PROVIDERS: PCP Physician Assistant; Visit Provider Physician Assistant
DX: R10.2 Pelvic and perineal pain (principal); M25.50 Pain in unspecified joint
CPT/HCPCS: 36415; 76830; 80053; 85025; 85613; 85651; 86140; 86200; 86225; 86235; 86431

== ENCOUNTER → 2020-04-19 11:06 | Outpatient (CLI) | payer OTHER, SELFPAY ==
[2020-04-19 11:37] LABS: Basophils # 0.1 K/mm3 (0-0.2); Basophils % 1.4 % (0.1-2.0); Eosinophils # 0.3 K/mm3 (0.0-0.4); Eosinophils % 3.3 % (0.1-12.0); Hematocrit 40.4 % (37.0-47.0); Hemoglobin 13.7 g/dL (12.2-16.2); Lymphocytes # 2.8 K/mm3 (0.7-4.5); Lymphocytes % 30.1 % (10-50); Mean Corpuscular Hemoglobin 33.1 pg (27.0-31.2); Mean Corpuscular Volume 97.3 fl (81-99); Mean Platelet Volume 8.1 fl (7.4-10.4); Monocytes # 0.4 K/mm3 (0.1-1.0); Monocytes % 4.1 % (1.7-9.3); Neutrophils # 5.7 K/mm3 (1.8-7.8); Platelet Count 390 K/mm3 (142-424); Red Blood Count 4.15 M/mm3 (4.20-5.40); Red Cell Distribution Width 13.9 % (11.5-17.5); White Blood Count 9.3 K/mm3 (4.8-10.8)
[2020-04-19 13:36] LABS: Erythrocyte Sedimentation Rate 36 mm/hr (0-30)
[2020-04-19 15:26] LABS: Alanine Aminotransferase 20 U/L (12-78); Albumin Level 4.4 g/dl (3.5-5.0); Albumin/Globulin Ratio 1.4 (1.1-1.8); Alkaline Phosphatase 102 U/L (38-126); Anion Gap 10.5 mEq/L (5-15); Aspartate Amino Transferase 24 U/L (14-36); Bilirubin,Total 0.4 mg/dl (0.2-1.3); Blood Urea Nitrogen 19 mg/dl (7-17); Calcium 10.2 mg/dl (8.4-10.2); Carbon Dioxide 27 mmol/L (22.0-30.0); Chloride 103 mmol/L (98-107); Estimated Glomerular Filt Rate 88 ml/min (>60); GFR (African American) 107 ML/MIN (>60); Globulin 3.1 g/dL (1.3-3.2); Glucose 90 mg/dl (74-100); Potassium 4.5 mmoL/L (3.5-5.1); Sodium 136 mmol/L (136-145); Total Protein,Serum 7.5 g/dl (6.3-8.2)
[2020-04-19 15:32] LABS: C-Reactive Protein 3.2 mg/L (0-4)
[2020-04-20 10:05] LABS: RA Latex Turbid. <10.0 IU/mL (0.0-13.9)
[2020-04-20 12:10] LABS: Anti-Centromere B Antibodies <0.2 AI (0.0-0.9); Anti-Jo-1 <0.2 AI (0.0-0.9); Anti-Smith Antibody <0.2 AI (0.0-0.9); Antichromatin Antibodies <0.2 AI (0.0-0.9); Antiscleroderma-70 Antibodies <0.2 AI (0.0-0.9); RNP Antibodies <0.2 AI (0.0-0.9); Sjogren's Anti-SS-A <0.2 AI (0.0-0.9); Sjogren's Anti-SS-B <0.2 AI (0.0-0.9)
[2020-04-20 12:25] LABS: Anti-DNA (DS) Ab Qn <1 IU/mL (0-9)
[2020-04-21 09:11] LABS: PTT-LA 34.5 sec (0.0-51.9); dRVVT 48.6 sec (0.0-47.0); dRVVT Mix 45.7 sec (0.0-47.0)
[2020-04-21 13:40] LABS: Lupus Reflex Interpretation Comment: (.)
[2020-04-22 11:12] LABS: Anti-Cyclic Citrullinated Pept 7 units (0-19)
== END ==
PROVIDERS: Visit Provider Physician Assistant
DX: M25.50 Pain in unspecified joint (principal)
CPT/HCPCS: 36415; 80053; 85025; 85613; 85651; 86140; 86200; 86225; 86235; 86431

== ENCOUNTER 2020-05-02 17:36 | Emergency (ER) | payer OTHER, SELFPAY ==
[2020-05-02 17:37] VITALS: BP 125/80; PULSE 97; RESP 18; TEMP 36.7; O2SAT 100; BMI 33.6
--- NOTE | 2020-05-02 17:47 | CT_ITS ---
PROCEDURE: CT ABDOMEN PELVIS WO CON CLINICAL INDICATION: abdomen Upper abdominal pain with nausea vomiting COMPARISON: ABDPELW CT abdomen pelvis w con from 10/21/2018 TECHNIQUE: Axial images obtained with sagittal and coronal reformats. All CT scans at the facility use one or more dose reduction, viz: automated exposure control, ma/kV adjustment per patient size (including targeted exams where dose is matched to indication, i.e. head), or iterative reconstruction technique. FINDINGS: LOWER THORAX: Mild atelectasis or scarring in the lingula ABDOMEN & PELVIS: Hypodensity right lobe of the liver at 1 cm not significantly changed. The gallbladder, spleen, adrenal glands, and pancreas have an unremarkable appearance. No renal or ureteral calculi. No intestinal obstruction or free air. No evidence of appendicitis. Post hysterectomy change. No pelvic mass or abnormal fluid collection. No evidence of diverticulitis. Dextro curvature of the thoracolumbar spine. No acute bony anomalies. IMPRESSION: No acute finding Dictated by: Willian Boothe MD 05/03/2020 08:55 Electronically signed by Willian Boothe MD in [place] 05/03/2020 08:55
--- NOTE | 2020-05-02 17:49 | HMH.EDGENADL ---
ED Disposition Clinical Impression: Chronic abdominal pain, Early satiety Vomiting Qualifiers: Vomiting type: unspecified Vomiting Intractability: intractable Nausea presence: with nausea Qualified Code(s): R11.2 - Nausea with vomiting, unspecified Disposition: Home, Self-Care Condition on Discharge: Fair Instructions: DI for Abdominal Pain-Adult, DI for Vomiting -- Adult Additional Instructions: Follow-up for EGD in 2 days as scheduled. Follow-up with Dr. Jones about your previously discovered gallstone. Tell him about this when you go in for your EGD. Phenergan for nausea and vomiting. Pepcid as prescribed. Continue tramadol for pain. Additional instructions for ABDOMINAL PAIN: See your physician as soon as possible for further evaluation. Return immediately if worsening abdominal pain, vomiting, shortness of breath, fever, vomiting of blood or abdominal distention. Prescriptions: Promethazine HCl [Phenergan 25mg tab] 25 mg PO Q6HP PRN #10 tab PRN Reason: Nausea And Vomiting Transmission Status: Received by [facility] Famotidine [Pepcid 20mg Tablet] 20 mg PO BID 5 Days #10 tab Transmission Status: Received by [facility] Referrals: Michelle Quiñonez PA [Primary Care Provider] - - Critical Care Critical Care Time: No Attestation: On 05/02/20, the high probability of a clinically significant, sudden or life threatening deterioration of the following system(s) required my full and direct attention, intervention and personal management. The time I documented below is in addition to time spent performing reported procedures but includes the following listed in this critical care notation. Medical Decision Making - Medical Records Medical records reviewed: Yes: I reviewed the patient's medical records. - Hugo Inquiry Pt receiving controlled substance: Yes Hugo was queried for this patient: Yes Reference #:: [id number] Risks and benefits of using a controlled substance: were not discussed with pt by me Comment: 17 rxs. last rxs tramadol (120) and clonazepam Vital Signs: 05/02/20 17:37 Temperature 98.0 F Temperature Source Oral Pulse Rate [Radial] 97 H Respiratory Rate 18 Blood Pressure [Right Arm] 125/80 Blood Pressure Mean [Right Arm] 95 Blood Pressure Source [Right Arm] Automatic Cuff Blood Pressure Position [Right Arm] Sitting 02 Sat by Pulse Oximetry 100 Oxygen Delivery Method Room Air - Lab Data Lab results reviewed: Yes: I reviewed the patient's lab results. Lab Results 05/02/20 18:17: WBC 10.5, RBC 4.27, Hgb 13.9, Hct 41.5, MCV 97.3, MCH 32.6 H, MCHC 33.5, RDW 13.8, Plt Count 339, MPV 8.2, Neut % (Auto) 52.7, Lymph % (Auto) 38.3, [place] % (Auto) 4.2, Eos % (Auto) 3.9, Baso % (Auto) 0.9, Neut # (Auto) 5.5, Lymph # (Auto) 4.0, [place] # (Auto) 0.4, Eos # (Auto) 0.4, Baso # (Auto) 0.1 05/02/20 18:17: Sodium 137, Potassium 4.2, Chloride 103, Carbon Dioxide 29, Anion Gap 9.2, BUN 14, Creatinine 0.80, Estimated Creat Clear 113, Estimated GFR 76, Est GFR ( Amer) 92, Glucose 114 H, Calcium 9.4, Total Bilirubin 0.6, AST 50 H, ALT 19, Alkaline Phosphatase 98, Troponin I < 0.01, Total Protein 7.7, Albumin 4.2, Globulin 3.5 H, Albumin/Globulin Ratio 1.2 05/02/20 18:17: Amylase 48, Lipase 34 Result diagrams: 05/02/20 18:17 05/02/20 18:17 Orders (Tests/Meds): ED MEDICATIONS Generic Name Dose Route Start Last Admin Trade Name Freq PRN Reason Stop Dose Admin Sodium Chloride 8 ml 05/02/20 18:06 Sodium Chloride 0.9% 10ml Vial IV 06/01/20 18:05 NEEDED PRN dilute pepcid Discontinued Medications Generic Name Dose Route Start Last Admin Trade Name Freq PRN Reason Stop Dose Admin Famotidine 20 mg 05/02/20 18:06 05/02/20 18:50 Pepcid 20mg/2ml Vial IV 05/02/20 18:07 20 mg ONCE ONE Administration Metoclopramide HCl 5 mg 05/02/20 18:06 05/02/20 18:50 Reglan 10mg/2ml Vial IVP 05/02/20 18:07 5 mg O
--- NOTE | 2020-05-02 18:05 | ECG_ITS ---
APPROVED REPORT Exam: Resting ECG HR:85 bpm ECG Measurements Heart Rate 85 AXES NV 154 P 64 QRSd 74 QRS 48 QT 366 T 49 QTc 435 <Conclusion> Normal sinus rhythm Normal ECG Electronically signed by : Telly Collier, 05/03/2020 06:12:25
[2020-05-02 18:28] LABS: Basophils # 0.1 K/mm3 (0-0.2); Basophils % 0.9 % (0.1-2.0); Eosinophils # 0.4 K/mm3 (0.0-0.4); Eosinophils % 3.9 % (0.1-12.0); Hematocrit 41.5 % (37.0-47.0); Hemoglobin 13.9 g/dL (12.2-16.2); Lymphocytes % 38.3 % (10-50); Mean Corpuscular HGB Conc 33.5 g/dL (31.8-35.4); Mean Corpuscular Hemoglobin 32.6 pg (27.0-31.2); Mean Corpuscular Volume 97.3 fl (81-99); Mean Platelet Volume 8.2 fl (7.4-10.4); Monocytes # 0.4 K/mm3 (0.1-1.0); Monocytes % 4.2 % (1.7-9.3); Neutrophils # 5.5 K/mm3 (1.8-7.8); Neutrophils % 52.7 % (37.0-80.0); Platelet Count 339 K/mm3 (142-424); Red Blood Count 4.27 M/mm3 (4.20-5.40); Red Cell Distribution Width 13.8 % (11.5-17.5); White Blood Count 10.5 K/mm3 (4.8-10.8)
[2020-05-02 18:47] LABS: Amylase 48 U/L (30-110); Lipase 34 U/L (23-300)
[2020-05-02 18:57] LABS: Chloride 103 mmol/L (98-107); Sodium 137 mmol/L (136-145)
[2020-05-02 18:58] LABS: Potassium 4.2 mmoL/L (3.5-5.1)
[2020-05-02 19:00] LABS: Alanine Aminotransferase 19 U/L (12-78); Alkaline Phosphatase 98 U/L (38-126); Aspartate Amino Transferase 50 U/L (14-36); Bilirubin,Total 0.6 mg/dl (0.2-1.3); Blood Urea Nitrogen 14 mg/dl (7-17); Creatinine Clearance Estimated 113 mL/min (50-200); Estimated Glomerular Filt Rate 76 ml/min (>60); GFR (African American) 92 ML/MIN (>60)
[2020-05-02 19:01] LABS: Albumin Level 4.2 g/dl (3.5-5.0); Albumin/Globulin Ratio 1.2 (1.1-1.8); Anion Gap 9.2 mEq/L (5-15); Calcium 9.4 mg/dl (8.4-10.2); Carbon Dioxide 29 mmol/L (22.0-30.0); Globulin 3.5 g/dL (1.3-3.2); Glucose 114 mg/dl (74-100); Total Protein,Serum 7.7 g/dl (6.3-8.2)
[2020-05-02 19:16] LABS: Troponin I < 0.01 ng/ml (0.00-0.034)
[2020-05-02 20:11] VITALS: BP 123/76; PULSE 88; RESP 16; TEMP 36.7; O2SAT 100
== END 2020-05-02 20:16 | disposition home or self-care (01) ==
PROVIDERS: Emergency Provider Emergency Medicine; PCP Physician Assistant
DX: R10.11 Right upper quadrant pain (principal); R68.81 Early satiety; M79.7 Fibromyalgia; F41.9 Anxiety disorder, unspecified; E78.5 Hyperlipidemia, unspecified; I10 Essential (primary) hypertension; I25.2 Old myocardial infarction; Z79.899 Other long term (current) drug therapy; Z88.0 Allergy status to penicillin
CPT/HCPCS: 74176; 80053; 82150; 83690; 84484; 85025; 93005; 96365; 96375; 96376; 99283; J2405

== ENCOUNTER → 2020-05-03 14:29 | Outpatient (CLI) | payer OTHER, SELFPAY ==
[2020-05-03 16:13] LABS: Coronavirus 19 IgG Antibody Negative (Negative); Coronavirus 19 IgM Antibody Negative (Negative)
== END ==
PROVIDERS: Visit Provider Surgery
DX: Z01.818 Encounter for other preprocedural examination (principal)
CPT/HCPCS: 36415; 86328

== ENCOUNTER 2020-05-04 07:50 | Day surgery (SDC) | payer OTHER, SELFPAY ==
[2020-05-03 09:33] VITALS: BMI 32.5
[2020-05-04 08:18] VITALS: BP 117/69; PULSE 87; RESP 20; TEMP 36.3; O2SAT 100
[2020-05-04 09:09] VITALS: O2SAT 100
[2020-05-04 09:28] VITALS: BP 106/96; PULSE 80; RESP 20; TEMP 36.2; O2SAT 97
--- NOTE | 2020-05-04 09:28 | HMH.SCOPE ---
- Procedure: Date: 05/04/20 Procedure Performed:: Esophagogastroduodenoscopy with biopsy Indications:: The patient presents with multiple gastrointestinal complaints including concerns for Crohn's disease and reflux. She has had fairly significant nausea with intermittent emesis recently and states that she understands that thorough gastroenterology evaluation is warranted. However, she wishes to simply undergo esophagogastroduodenoscopy initially and then be more fully evaluated by the gastroenterology service. Performing Provider:: Antonio Jones MD Referring Provider:: . Sedation:: Monitored anesthesia care Procedure:: After informed consent was obtained the patient was taken to the endoscopy suite. Sedation ensued after the patient was transferred to the left lateral decubitus position. Pulse, blood pressure, and oxygen saturation were monitored throughout the procedure. The endoscope was advanced beyond the duodenal bulb. Retroflexion within the gastric lumen was accomplished. The gastroscope was carefully removed and the patient was transferred to recovery in stable condition. Please see findings and specimens below for detail. Findings:: Sliding hiatal hernia Gastroesophageal junction at 35 cm Mild gastritis No obvious strictures, mass lesions, or ulcerations noted. Specimens:: Antral biopsy Mid gastric body biopsy (increased focal inflammatory response) Recommendations:: Follow-up pathology Gastroenterology consultation pending Complications:: No immediate Estimated blood obtained (mL): 1
--- NOTE | 2020-05-04 09:34 | P.PN_ITS ---
[facility] Anesthesia Checklist - Patient Identification Patient Identification: Arm Band - Structural Data Admitted From: Home Planned Operative Procedure/s: egd Consent for Planned Operative Procedure(s) Verified: Yes Verified Documents: Surgical Consent, History and Physical - NPO Status Verified Time NPO: 00:00 - Additional verifications Anesthesia Reactions: No - Airway Assessment C-Spine Mobility Assessed: Yes (mp2) TMJ Mobility Assessed: Yes Dentition: Poor Dentition - Neurological Assessment Level of Consciousness: Awake, Alert - Anesthesia Plan Anesthesia Risk discussed: Yes Anesthesia Plan: Verified ASA Class: III Anesthesia Type: MAC [facility] History I have reviewed the patient's past medical history: Yes Medical History: Reports:: Anxiety, Coronary Artery Disease, Hyperlipidemia, Hypertension, Myocardial Infarction, Palpitations, Valvular Heart Disease Denies:: Cancer, Diabetes Mellitus Type 1, Diabetes Mellitus Type 2, Internal Pacemaker, MRSA, Seizures *Have you ever received a pneumonia vaccine?: Yes *Have you received a flu vaccine this season?: Yes Other Medical History: Reports: Arthritis, Fibromyalgia, Thyroid Disease Anesthesia experience/problems:: nac Laterality Cases: Left: Arthroscopy Knee Other Surgeries: Yes: Cardiac Catheterization, Coronary Stent (March 2019), Hysterectomy-Total, Hysterectomy-Partial, Tubal Ligation. No: Pacemaker Amputation: No Fractures: No - *Social History Smoking Status: Current every day smoker Tobacco Type: cigarettes # Packs/Day (cigarettes): 30 #Yrs smoked (if former smoker): 25 Alcohol Intake: never Substance Use Type: denies use *Occupational Status:: other Housing: house Household Members: spouse, family *Travel in the last 8 weeks: None - Psychiatric History Pschychiatric History:: Reports:: Anxiety Family Hx:: No significant family history
[2020-05-04 09:38] VITALS: BP 123/79; PULSE 80; RESP 20; TEMP 36.2; O2SAT 98
[2020-05-04 09:48] VITALS: BP 125/64; PULSE 70; RESP 20; TEMP 36.2; O2SAT 99
[2020-05-04 10:02] VITALS: BP 104/65; PULSE 70; RESP 18; TEMP 36.2; O2SAT 98
== END 2020-05-04 10:04 | disposition home or self-care (01) ==
LOC: OUTP 07:50
PROVIDERS: PCP Physician Assistant; Visit Provider Surgery
PROC: 0DJ08ZZ Inspection of Upper Intestinal Tract, Via Natural or Artificial Opening Endoscopic (ICD-10-PCS; CPT 43235; principal; 2020-05-04 09:00)
DX: K44.9 Diaphragmatic hernia without obstruction or gangrene (principal); K29.70 Gastritis, unspecified, without bleeding; Z88.0 Allergy status to penicillin; Z88.8 Allergy status to other drugs, medicaments and biological substances; Z79.82 Long term (current) use of aspirin; Z79.899 Other long term (current) drug therapy; Z72.0 Tobacco use; Z83.3 Family history of diabetes mellitus; Z82.49 Family history of ischemic heart disease and other diseases of the circulatory system; Z83.438 Family history of other disorder of lipoprotein metabolism and other lipidemia; Z82.3 Family history of stroke; Z80.9 Family history of malignant neoplasm, unspecified; Z82.61 Family history of arthritis
CPT/HCPCS: 43239

== ENCOUNTER → 2020-08-14 11:15 | Outpatient (POV) | payer OTHER, SELFPAY ==
[2020-08-14 13:47] LABS: Chloride 104 mmol/L (98-107); Potassium 4.5 mmoL/L (3.5-5.1); Sodium 141 mmol/L (136-145)
[2020-08-14 13:50] LABS: Alanine Aminotransferase 23 U/L (12-78); Albumin Level 4.4 g/dl (3.5-5.0); Albumin/Globulin Ratio 1.4 (1.1-1.8); Alkaline Phosphatase 113 U/L (38-126); Anion Gap 14.5 mEq/L (5-15); Aspartate Amino Transferase 25 U/L (14-36); Bilirubin,Total 0.4 mg/dl (0.2-1.3); Blood Urea Nitrogen 12 mg/dl (7-17); Calcium 10.4 mg/dl (8.4-10.2); Carbon Dioxide 27 mmol/L (22.0-30.0); Estimated Glomerular Filt Rate 88 ml/min (>60); GFR (African American) 107 ML/MIN (>60); Globulin 3.1 g/dL (1.3-3.2); Glucose 95 mg/dl (74-100); Total Protein,Serum 7.5 g/dl (6.3-8.2)
== END ==
PROVIDERS: Visit Provider Nurse Practitioner Family
DX: R10.84 Generalized abdominal pain (principal); R11.2 Nausea with vomiting, unspecified; R14.0 Abdominal distension (gaseous); R19.7 Diarrhea, unspecified; Z12.11 Encounter for screening for malignant neoplasm of colon
CPT/HCPCS: 36415; 80053

== ENCOUNTER → 2020-08-26 09:09 | Outpatient (CLI) | payer OTHER, SELFPAY ==
[2020-08-26 12:54] LABS: Coronavirus 19 IgG Antibody Negative (Negative); Coronavirus 19 IgM Antibody Negative (Negative)
== END ==
PROVIDERS: Visit Provider Internal Medicine Gastroenterology
DX: Z01.89 Encounter for other specified special examinations (principal); Z12.11 Encounter for screening for malignant neoplasm of colon
CPT/HCPCS: 36415; 86328

== ENCOUNTER 2020-08-28 07:11 | Day surgery (SDC) | payer OTHER, SELFPAY ==
[2020-08-23 11:01] VITALS: BMI 35.4
[2020-08-28] VITALS (7 sets, daily range): BP systolic 102–144; BP diastolic 66–85; PULSE 65–83; RESP 18; TEMP 36.1–36.4; O2SAT 96–100
--- NOTE | 2020-08-28 08:32 | P.PCN_ITS ---
[facility] Procedure Note Procedure Note:: Colonoscopy Procedure Report: Colonoscopy with cold snare polypectomy and cold biopsies Endoscopist: Homar Guzmán II, MD Referring physician: Michelle Quiñonez PA-C Date of Procedure: August 28, 2020 Equipment: Olympus 180 variable stiffness pediatric colonoscope Sedation: MAC sedation Indication: Mrs. Ward is a 49-year-old female with irregular bowel function that began a couple of years ago. About 6 months ago, she developed nausea, vomiting, early satiety and some loss of appetite. Over the last 3 or 4 months she began to have lower abdominal discomfort that often precedes her occurs with her bowel movements. She may get some relief with bowel evacuation. She has had alternating constipation with diarrhea. 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 She has had some weight gain. She has a first cousin with Crohn's disease. Her grandfather had gastric cancer and her maternal aunt and maternal uncle both were diagnosed with colon cancer in their 60s or 70s. The patient was placed on dietary measures, probiotic (align) and combine fiber bowel regimen (MiraLAX plus Metamucil). She is slightly improved. This is her first colonoscopy performed for diagnostic purposes. She did have an EGD with Dr. Antonio Jones in April 2020 showing some mild gastritis. Procedure: Prior to the procedure, a history and physical exam was performed, and patient's medications and allergies were reviewed. The risks, benefits and alternatives of the sedation and procedure were discussed with the patient. All questions were answered and informed consent was obtained. The patient was brought to the procedure room. Patient identification and proposed procedure were verified by the physician and the nurse. The patient was placed in a left lateral decubitus position and the scope was passed under direct vision. Throughout the procedure, the patient's blood pressure, pulse, and oxygen saturations were monitored continuously. The colonoscopy was accomplished without difficulty. The patient tolerated the procedure well. Findings: On digital rectal examination there was normal rectal tone. There were no external hemorrhoids. The colonoscope was introduced through the anal canal to the rectum and advanced to the cecum. The ileocecal valve and appendiceal orifice were identified. The scope was advanced a short distance into the ileum which appeared grossly normal. There was no evidence of Crohn's disease. The scope was then withdrawn into the colon. The cecum, ascending, transverse, descending, sigmoid and rectum were grossly normal. There was a diminutive hyperplastic appearing sigmoid polyp (4 to 5 mm) which was removed via cold snare polypectomy. Cold biopsies were taken from the right colon to rule out microscopic colitis. There were no other mucosal abnormalities identified. Upon retroflexion within the rectum there were grade 1-2 internal hemorrhoids.The pr eparation was excellent throughout with Frankenmuth Preparation Score of 9. The cecal time was 12 minutes. Impression: 1. Diminutive sigmoid polyp (probable hyperplastic polyp) 2. Grade 1-2 internal hemorrhoids Plan: There was no evidence of colitis, Crohn's disease or diverticulosis. I do feel that the patient does have IBS constipation. We will discuss additional dietary measures and treatment options. I will follow up the polyp pathology and recommend repeat colonoscopy again in 5-10 years based upon the polyp histology. I would encourage continuation of the diet, probiotic and fiber bowel regimen (MiraLAX plus Metamucil) on a long-term daily maintenance basis.
--- NOTE | 2020-08-28 08:34 | HMH.ANESCL ---
[facility] Anesthesia Checklist - Structural Data Admitted From: Home Planned Operative Procedure/s: colonoscopy Consent for Planned Operative Procedure(s) Verified: Yes - Additional verifications Anesthesia Reactions: No - Airway Assessment C-Spine Mobility Assessed: Yes TMJ Mobility Assessed: Yes Dentition: Dentures-good fit - Neurological Assessment Level of Consciousness: Awake, Alert, Appropriate - Anesthesia Plan Anesthesia Risk discussed: Yes Anesthesia Plan: Verified ASA Class: III Anesthesia Type: MAC [facility] History I have reviewed the patient's past medical history: Yes Medical History: Reports:: Anxiety, Coronary Artery Disease, Hyperlipidemia, Hypertension, Myocardial Infarction, Palpitations, Valvular Heart Disease Denies:: Cancer, Diabetes Mellitus Type 1, Diabetes Mellitus Type 2, Internal Pacemaker, MRSA, Seizures *Have you ever received a pneumonia vaccine?: No *Have you received a flu vaccine this season?: Yes Other Medical History: Reports: Arthritis, Fibromyalgia, Thyroid Disease Anesthesia experience/problems:: none Laterality Cases: Left: Arthroscopy Knee Other Surgeries: Yes: Cardiac Catheterization, Coronary Stent, EGD, Hysterectomy-Total, Hysterectomy-Partial, Tubal Ligation. No: Pacemaker Amputation: No Fractures: No - *Social History Last grade of school completed: 9th or 10th Smoking Status: Current every day smoker Tobacco Type: cigarettes # Packs/Day (cigarettes): 30 #Yrs smoked (if former smoker): 25 Alcohol Intake: never Substance Use Type: denies use *Occupational Status:: other Housing: house Household Members: spouse, family *Travel in the last 8 weeks: None - Psychiatric History Pschychiatric History:: Reports:: Anxiety Family Hx:: No significant family history
--- NOTE | 2020-08-28 09:54 | SUR.PHASEII ---
MEDICATED WITH TYLENOL 500MG PO PER MD ORDER FOR C/O R ABD PAIN RADIATING INTO BACK.
== END 2020-08-28 09:55 | disposition home or self-care (01) ==
LOC: OUTP 07:13
PROVIDERS: PCP Physician Assistant; Visit Provider Internal Medicine Gastroenterology
PROC: 0DJD8ZZ Inspection of Lower Intestinal Tract, Via Natural or Artificial Opening Endoscopic (ICD-10-PCS; CPT 45378; principal; 2020-08-28 08:30)
DX: K63.5 Polyp of colon (principal); K64.0 First degree hemorrhoids; K58.1 Irritable bowel syndrome with constipation; I10 Essential (primary) hypertension; E78.5 Hyperlipidemia, unspecified; I25.2 Old myocardial infarction; F41.9 Anxiety disorder, unspecified; I25.10 Atherosclerotic heart disease of native coronary artery without angina pectoris; R00.2 Palpitations; M19.90 Unspecified osteoarthritis, unspecified site; M79.18 Myalgia, other site; Z72.0 Tobacco use
CPT/HCPCS: 45380; 45385

== ENCOUNTER 2020-09-23 19:10 | Emergency (ER) | payer OTHER, SELFPAY ==
[2020-09-23 19:10] VITALS: BP 119/89; PULSE 116; RESP 16; TEMP 37; O2SAT 97; BMI 34.3
[2020-09-23 19:30] VITALS: BP 127/81; PULSE 120; RESP 17; O2SAT 98
--- NOTE | 2020-09-23 19:37 | XR_ITS ---
PROCEDURE: XR CHEST AP CLINICAL HISTORY: cough, fever COMPARISON: CT AGCHEST CT angio chest from 03/24/2019 CR XR CHEST 2V from 10/16/2019 CR XR CHEST 2V from 10/21/2019 CR XR CHEST PORTABLE from 02/15/2020 FINDINGS: The cardiomediastinal silhouette and pulmonary vascularity are within normal limits. There is some scarring in the left lung base. The lungs are otherwise clear. No acute bony abnormalities. IMPRESSION: No acute findings. Dictated by: Willian Boothe MD 09/23/2020 21:53 Willian Boothe MD in [place] 09/23/2020 21:53
--- NOTE | 2020-09-23 19:39 | HMH.EDURI ---
ED Disposition Clinical Impression: COVID-19, Viral infection Disposition: Still a Patient Condition on Discharge: Good Referrals: Michelle Quiñonez PA [Primary Care Provider] - - Critical Care Critical Care Time: No Attestation: On 09/23/20, the high probability of a clinically significant, sudden or life threatening deterioration of the following system(s) required my full and direct attention, intervention and personal management. The time I documented below is in addition to time spent performing reported procedures but includes the following listed in this critical care notation. Medical Decision Making - Hugo Inquiry Pt receiving controlled substance: No Vital Signs: 09/23/20 19:10 Temperature 98.6 F Temperature Source Oral Pulse Rate [Left Radial] 116 H Respiratory Rate 16 Blood Pressure [Right Arm] 119/89 Blood Pressure Mean [Right Arm] 99 Blood Pressure Source [Right Arm] Automatic Cuff Blood Pressure Position [Right Arm] Sitting 02 Sat by Pulse Oximetry 97 Oxygen Delivery Method Room Air Orders (Tests/Meds): ED MEDICATIONS Generic Name Dose Route Start Last Admin Trade Name Freq PRN Reason Stop Dose Admin Lactated Ringer's 1,000 mls @ 999 mls/hr 09/23/20 19:45 09/23/20 19:56 Lactated Ringer's 1000 Ml Bag IV 09/23/20 20:45 999 mls/hr .Q1H1M [place] Administration Discontinued Medications Generic Name Dose Route Start Last Admin Trade Name Freq PRN Reason Stop Dose Admin Acetaminophen 625 mg 09/23/20 19:42 Acetaminophen 500mg Tab PO 09/23/20 19:43 ONCE ONE Acetaminophen 650 mg 09/23/20 19:54 09/23/20 19:55 Acetaminophen 325mg Tab PO 09/23/20 19:55 650 mg ONCE ONE Administration Hydrocodone Bitart/Acetaminophen 1 tab 09/23/20 19:42 09/23/20 19:54 Hydrocodone/Apap 5/325 Mg Tablet PO 09/23/20 19:43 1 tab ONCE ONE Administration Dexamethasone 10 mg 09/23/20 19:43 09/23/20 19:54 Dexamethasone 4mg Tablet PO 09/23/20 19:44 10 mg ONCE ONE Administration ORDERS Category Date Time Status XR chest AP Stat Exams 09/23/20 19:37 Ordered Complete Blood Count Auto Diff Stat Lab 09/23/20 19:38 Ordered Comprehensive Metabolic Panel Stat Lab 09/23/20 19:38 Ordered Medical Decision Narrative: 49-year-old female who presents with shortness of breath cough and sore throat for 2 days worsening subjective fever and the aches over the course of the day. Also endorsing loss of taste of sense of smell. This constellation of symptoms is concerning for COVID-19 infection. Patient is also tachycardic on arrival and with persistent nausea and fever this is likely due to dehydration as well as infectious syndrome. Exam is not concerning for pneumonia however chest x-ray is ordered to evaluate for airspace disease. Differential further includes viral URI, influenza, and others. Not having chest pain at this time therefore no concern for acute ischemia. Laboratory data will include CBC, CMP, lactate, blood cultures, respiratory panel, COVID-19 swab, COVID-19 serology. She is given tylenol 650mg PO, oral [place] for pain, IV fluid bolus 1 L, and dexamethasone 10 mg orally. URI/Sore Throat HPI - General Chief Complaint: Upper Respiratory Infection Stated Complaint: sore throat, vomiting, cough Time Seen by Provider: 09/23/20 19:40 Mode of Arrival: Ambulatory Source of Information: Patient Limitations: No Limitations Description of Symptoms (Recalled from ER Triage Doc. by RN): pt c/o sore throat, lethargy, lost of taste and smell for the last two days. - History of Present Illness HPI Narrative: 49-year-old female with history of CAD and hypertension who presents with 2 days of progressively worsening sore throat and cough that has now developed into shortness of breath and associated loss of senses of taste and smell. She is having body aches and subjective fever today MD Complaint: fever, cough, sore throat, other (body aches) Onset (
[2020-09-23 20:00] VITALS: BP 124/80; PULSE 118; RESP 17; O2SAT 98
--- NOTE | 2020-09-23 20:11 | ECG_ITS ---
APPROVED REPORT Exam: Resting ECG HR:112 bpm ECG Measurements Heart Rate 112 AXES MO 144 P 53 QRSd 74 QRS 0 QT 330 T 46 QTc 450 Conclusion Sinus tachycardia Minimal voltage criteria for LVH, may be normal variant Borderline ECG Electronically signed by : Telly Collier, 09/24/2020 06:26:03
[2020-09-23 20:20] LABS: Basophils # 0.1 K/mm3 (0-0.2); Basophils % 0.6 % (0.1-2.0); Eosinophils # 0.3 K/mm3 (0.0-0.4); Eosinophils % 2.4 % (0.1-12.0); Hematocrit 44.8 % (37.0-47.0); Lymphocytes # 1.6 K/mm3 (0.7-4.5); Lymphocytes % 11.8 % (10-50); Mean Corpuscular HGB Conc 33.6 g/dL (31.8-35.4); Mean Corpuscular Hemoglobin 31.8 pg (27.0-31.2); Mean Corpuscular Volume 94.8 fl (81-99); Mean Platelet Volume 8.7 fl (7.4-10.4); Monocytes # 0.6 K/mm3 (0.1-1.0); Monocytes % 4.5 % (1.7-9.3); Neutrophils # 10.9 K/mm3 (1.8-7.8); Neutrophils % 80.7 % (37.0-80.0); Platelet Count 404 K/mm3 (142-424); Red Blood Count 4.72 M/mm3 (4.20-5.40); Red Cell Distribution Width 13.9 % (11.5-17.5); White Blood Count 13.5 K/mm3 (4.8-10.8)
[2020-09-23 20:29] LABS: Alanine Aminotransferase 20 U/L (12-78); Albumin Level 4.6 g/dl (3.5-5.0); Albumin/Globulin Ratio 1.3 (1.1-1.8); Alkaline Phosphatase 151 U/L (38-126); Aspartate Amino Transferase 26 U/L (14-36); Bilirubin,Total 0.4 mg/dl (0.2-1.3); Blood Urea Nitrogen 9 mg/dl (7-17); Calcium 10.3 mg/dl (8.4-10.2); Carbon Dioxide 29 mmol/L (22.0-30.0); Chloride 100 mmol/L (98-107); Creatinine Clearance Estimated 119 mL/min (50-200); Estimated Glomerular Filt Rate 76 ml/min (>60); GFR (African American) 92 ML/MIN (>60); Globulin 3.6 g/dL (1.3-3.2); Glucose 119 mg/dl (74-100); Sodium 139 mmol/L (136-145); Total Protein,Serum 8.2 g/dl (6.3-8.2)
[2020-09-23 21:00] VITALS: BP 122/80; PULSE 91; RESP 16; O2SAT 94
[2020-09-23 21:01] VITALS: BP 97/53; PULSE 87; RESP 16; O2SAT 96
[2020-09-23 21:31] LABS: Lactic Acid 1.9 mmol/L (0.7-2.1)
[2020-09-23 21:37] LABS: Coronavirus 19 IgG Antibody Negative (Negative); Coronavirus 19 IgM Antibody Negative (Negative)
[2020-09-23 21:46] VITALS: BP 113/56; PULSE 86; RESP 16; TEMP 37.2; O2SAT 96
== END 2020-09-23 21:47 | disposition home or self-care (01) ==
PROVIDERS: Student in an Organized Health Care Education/Training Program; Emergency Provider Emergency Medicine; PCP Physician Assistant
DX: Z20.828 Contact with and (suspected) exposure to other viral communicable diseases (principal); B34.9 Viral infection, unspecified; Z01.84 Encounter for antibody response examination; Z79.899 Other long term (current) drug therapy; E78.5 Hyperlipidemia, unspecified; I10 Essential (primary) hypertension; I25.2 Old myocardial infarction; M79.7 Fibromyalgia; E03.9 Hypothyroidism, unspecified; F17.210 Nicotine dependence, cigarettes, uncomplicated; Z88.0 Allergy status to penicillin; Z88.8 Allergy status to other drugs, medicaments and biological substances
CPT/HCPCS: 71045; 80053; 83605; 85025; 86328; 87040; 93005; 96365; 96375; 99284; U0003

== ENCOUNTER → 2020-10-04 10:31 | Outpatient (CLI) | payer OTHER, SELFPAY ==
--- NOTE | 2020-10-04 10:37 | XR_ITS ---
PROCEDURE: XR RIBS LT MIN 3V W CXR1V CLINICAL INDICATION: left rib pain with cough COMPARISON: CT AGCHEST CT angio chest from 03/24/2019 CR XR CHEST 2V from 10/21/2019 CR XR CHEST PORTABLE from 02/15/2020 CR XR CHEST AP from 09/23/2020 FINDINGS: A frontal view of the chest shows unremarkable cardiovascular structures. Opacities are present in the left lung base and may be related to atelectatic changes. Coronary artery stent is present. The left ribs have an unremarkable appearance. No fracture or dislocation. No lytic or blastic change. There is mild lumbar curvature convex right. IMPRESSION: Left lower lobe atelectatic changes otherwise negative chest with left ribs Dictated by: Willian Boothe MD 10/04/2020 14:43 Willian Boothe MD in [place] 10/04/2020 14:43
== END ==
PROVIDERS: PCP Physician Assistant; Visit Provider Physician Assistant
DX: R07.81 Pleurodynia (principal)
CPT/HCPCS: 71101

== ENCOUNTER → 2021-01-25 16:44 | Outpatient (CLI) | payer OTHER, SELFPAY ==
[2021-01-25 18:44] LABS: Amphetamine/Metha Screen,Urine Negative ng/ml (<1000); Benzodiazepines Screen,Urine Negative ng/ml (<200)
[2021-01-25 18:45] LABS: Barbiturates Screen,Urine Negative ng/ml (<200)
[2021-01-25 18:46] LABS: Cannabinoid Screen,Urine Negative ng/ml (<50); Cocaine Screen,Urine Negative ng/ml (<300)
[2021-01-25 18:47] LABS: Methadone Screen,Urine Negative ng/ml (<300)
[2021-01-25 18:48] LABS: Opiate Screen,Urine Negative ng/ml (<300); Phencyclidine Screen,Urine Negative ng/ml (<25)
== END ==
PROVIDERS: Visit Provider Physician Assistant
DX: Z79.899 Other long term (current) drug therapy (principal)
CPT/HCPCS: 80305

== ENCOUNTER → 2021-01-31 08:16 | Outpatient (CLI) | payer OTHER, SELFPAY ==
--- NOTE | 2021-01-31 08:16 | MM_ITS ---
PROCEDURE: MM DIG SCREENING MAMM BI W/CAD Digital Breast Tomosynthesis Included CLINICAL INDICATION: breast cancer screening There is a history of breast cancer in the patient's 3 maternal cousins and in the patient's paternal cousin COMPARISON: this is a baseline screening exam, patient without complaints TECHNIQUE: Standard CC and MLO images and 3D Tomosynthesis was obtained. R2 CAD reviewed. FINDINGS: There are scattered fibroglandular densities are seen throughout both breast. The right breast is slightly larger than the left. There are 3 mole markers left breast and a single mole marker right breast. There is a small asymmetric nodular density deep to the nipple right breast with benign features but since this is a baseline study and in view of the patient's age recommend the patient return for ultrasound examination of the subareolar region right breast. There are no suspicious microcalcifications. IMPRESSION: Fibrofatty parenchyma with asymmetric nodular lesion right breast BI-RAD Category: 0 Need Additional Imaging Evaluation FOLLOW-UP: IMM Immediate Follow-up Recommended (A letter has been sent to the patient regarding results of the study.) Dictated by: Dr. Gabe Mays MD 02/04/2021 19:24 Dr. Gabe Mays MD in [place] 02/04/2021 19:24
--- NOTE | 2021-01-31 08:30 | CT_ITS ---
PROCEDURE: CT HEAD/BRAIN WO CON CLINICAL INDICATION: new headache Hc of H/A's Headache frontal arch getting worse No trauma C/o dizziness COMPARISON: CT CT HEAD/BRAIN WO CON from 09/07/2019 TECHNIQUE: Axial images obtained. All CT scans at the facility use one or more dose reduction, viz: automated exposure control, ma/kV adjustment per patient size (including targeted exams where dose is matched to indication, i.e. head), or iterative reconstruction technique. FINDINGS: No midline shift, mass effect, intracranial hemorrhage, hydrocephalus, or extra-axial fluid collection is evident. There is mild asymmetric prominence of the left lateral ventricle compared to the right side which is a chronic finding. There is also minimal prominence of the temporal horns of the lateral ventricles not significantly changed. The calvarium has an unremarkable appearance. No mastoid effusion. Minimal mucosal thickening of the sphenoid sinus on the left IMPRESSION: No acute intracranial finding Dictated by: Willian Boothe MD 02/01/2021 12:13 Willian Boothe MD in [place] 02/01/2021 12:13
== END ==
PROVIDERS: PCP Physician Assistant; Visit Provider Nurse Practitioner Family
DX: Z12.31 Encounter for screening mammogram for malignant neoplasm of breast (principal); R51.9 Headache, unspecified
CPT/HCPCS: 70450; 77063; 77067

== ENCOUNTER → 2021-02-22 10:32 | Outpatient (CLI) | payer OTHER, SELFPAY ==
--- NOTE | 2021-02-22 10:32 | US_ITS ---
PROCEDURE: US BREAST RT COMPLETE CLINICAL INDICATION: abn mamm Follow-up abnormal mammogram, breast nodules COMPARISON: MG MM DIG SCREENING MAMM BI W/CAD from 01/31/2021 FINDINGS: There is a 6 x 2 mm and a 4 x 3 mm cystic area in the right subareolar region which may correspond to the mammographic abnormalities. Suggest 6 month follow-up to confirm stability. No solid lesions or suspicious lesions are evident. IMPRESSION: BI-RADS category 3 probably benign. Recommend six-month mammographic follow-up of the right breast to confirm short term stability Dictated by: Willian Boothe MD 03/17/2021 15:49 Willian Boothe MD in [place] 03/17/2021 15:49
== END ==
PROVIDERS: PCP Physician Assistant; Visit Provider Physician Assistant
DX: R92.8 Other abnormal and inconclusive findings on diagnostic imaging of breast (principal)
CPT/HCPCS: 76641

== ENCOUNTER 2021-05-24 13:32 | Emergency (ER) | payer OTHER, SELFPAY ==
[2021-05-24 13:35] VITALS: BP 125/80; PULSE 79; RESP 21; TEMP 37.1; O2SAT 99; BMI 33.5
--- NOTE | 2021-05-24 14:03 | HMH.EDUTC ---
[facility] Disposition Clinical Impression: Exposure to COVID-19 virus Disposition: Home, Self-Care Condition on Discharge: Good Instructions: DI for COVID-19 (Suspected or Confirmed ), Coronavirus Disease 2019, Preventing the Spread of Coronavirus Discharge Instructions Additional Instructions: *Monitor Temp, Over the counter Motrin or Tylenol as directed/as needed Tylenol every 4 hours and Motrin every 6 hours (as long as your family doctor has told you that you can take it) for fever or pain. and straight to ER if unable to lower temp less than 101.0 after medication given Follow up IMMEDIATELY for new or worsening symptoms or no Noticeable improvement over the next 48-72 hours. 911 for difficulty breathing or swallowing You were tested for today for COVID19 your test result should be back in the next 24-48 hours, you may call to the [facility] to see if your test results are back in the next 48 hours [phone] [facility] hours are 9am-9pm You was given a handout with instructions for Self Quarantine and Self isolation for while you wait on test results and what to do if they are positive If you are positive the Health Dept will be contacting you also Referrals: Michelle Quiñonez PA [Primary Care Provider] - As needed Time of Disposition: 14:15 Medical Decision Making - Hugo Inquiry Pt receiving controlled substance: No Hugo was queried for this patient: No Vital Signs: 05/24/21 13:35 Temperature 98.7 F Temperature Source Oral Pulse Rate [Right Brachial] 79 Respiratory Rate 21 Blood Pressure [Right Arm] 125/80 Blood Pressure Mean [Right Arm] 95 Blood Pressure Source [Right Arm] Automatic Cuff Blood Pressure Position [Right Arm] Sitting 02 Sat by Pulse Oximetry 99 Oxygen Delivery Method Room Air Orders (Tests/Meds): ORDERS Category Date Time Status Covid-19 Nasal PCR ([facility]) Routine Lab 05/24/21 13:43 Received [facility] HPI - General Stated complaint: Covid test Time Seen by Provider: 05/24/21 14:03 Mode of Arrival: Ambulatory Source of Information: Patient Limitations: No Limitations Description of Symptoms (Recalled from Triage Doc. by RN): COVID TEST D/T EXPOSURE. DENIES SYMPTOMS HEENT Symptoms (Recalled from RN notes): No Resp Symptoms (Recalled from RN notes): No Skin Symptoms (Recalled from RN notes): No MS Symptoms (Recalled from RN notes): No Functional Status (Recalled from RN notes): WNL - History of Present Illness Provider Complaint: Patient state that she was recently around a family member that tested positive for COVID States that she is not having any symptoms and has been vacinated but wanted to get tested - Related Data Previous Rx's Medication Instructions Recorded albuterol sulfate 90 mcg/actuation 2 puff INHALATION Q6H #6.7 g 01/23/21 aerosol inhaler aspirin 81 mg tablet,delayed 81 mg PO HS #90 tab 01/23/21 release atorvastatin 40 mg tablet 40 mg PO HS #90 tab 01/23/21 cholecalciferol (vitamin D3) 25 1,000 unit PO DAILY #90 tab 01/23/21 mcg (1,000 unit) tablet ergocalciferol (vitamin D2) 1,250 See Rx Instructions .ROUTE 01/23/21 mcg (50,000 unit) capsule .COMPLEX #7 cap meclizine 12.5 mg tablet 12.5 mg PO TID PRN #30 tab 01/23/21 metoprolol succinate 100 mg 100 mg PO DAILY #90 tab 01/23/21 tablet,extended release 24 hr paroxetine HCl 20 mg tablet 20 mg PO QAM #90 tab 01/23/21 spironolactone 25 mg tablet 25 mg PO DAILY #90 tab 01/23/21 clonazepam 0.5 mg tablet 0.25 mg PO BID #60 tab 04/11/21 hydrocodone 5 mg-acetaminophen 325 1 tab PO BID PRN #20 tab 05/07/21 mg tablet lisinopril 5 mg tablet See Rx Instructions .ROUTE 05/17/21 .COMPLEX #30 tab ondansetron HCl 4 mg tablet 4 mg PO Q8H PRN #30 tab 05/22/21 promethazine 25 mg tablet 25 mg PO TID PRN #30 tab 05/22/21 tramadol 50 mg tablet 50 mg PO QID PRN #120 tab 05/22/21 Allergies Allergy/AdvReac Type Severity Reaction Status Date / Time ketorolac [From TORADOL] Allergy Mild I-RASH Verified 05/22/21 11:30 P
[2021-05-24 14:05] VITALS: BP 125/80; PULSE 79; RESP 21; TEMP 37.1; O2SAT 99
== END 2021-05-24 14:08 | disposition home or self-care (01) ==
PROVIDERS: Emergency Provider Nurse Practitioner; PCP Physician Assistant
DX: Z20.822 Contact with and (suspected) exposure to COVID-19 (principal); I25.10 Atherosclerotic heart disease of native coronary artery without angina pectoris; E78.5 Hyperlipidemia, unspecified; I10 Essential (primary) hypertension; I25.2 Old myocardial infarction; M79.7 Fibromyalgia; F17.210 Nicotine dependence, cigarettes, uncomplicated; Z88.0 Allergy status to penicillin
CPT/HCPCS: 99202; G0463; U0003

== ENCOUNTER 2021-07-02 22:31 | Emergency (ER) | payer OTHER, SELFPAY ==
--- NOTE | 2021-07-02 22:25 | ECG_ITS ---
APPROVED REPORT Exam: Resting ECG HR:96 bpm ECG Measurements Heart Rate 96 AXES KS 150 P 63 QRSd 80 QRS 22 QT 360 T 46 QTc 454 Conclusion Normal sinus rhythm Normal ECG Electronically signed by : Telly Collier MD 07/03/2021 21:04:03
[2021-07-02 22:31] VITALS: BP 145/80; RESP 19; TEMP 36.8; O2SAT 100; BMI 32.5
[2021-07-02 22:36] VITALS: BMI 32.5
--- NOTE | 2021-07-02 22:38 | XR_ITS ---
PROCEDURE INFORMATION: Exam: XR Chest Exam date and time: 07/02/2021 10:38 PM Age: 50 years old Clinical indication: Other: RT sided neck pain; Additional info: Chest pain TECHNIQUE: Imaging protocol: XR of the chest. Views: 2 views. COMPARISON: CR XR RIBS LT MIN 3V W CXR1V 10/04/2020 10:40 AM FINDINGS: Lungs: The lungs are clear without consolidation. Pleural spaces: Unremarkable. No pleural effusion. No pneumothorax. Heart/Mediastinum: The cardiac silhouette, mediastinal contours and hilar shadows appear unremarkable. Bones/joints: Osseous structures grossly intact. IMPRESSION: No acute cardiopulmonary disease.
--- NOTE | 2021-07-02 22:43 | CT_ITS ---
PROCEDURE INFORMATION: Exam: CT Cervical Spine Without Contrast Exam date and time: 07/02/2021 10:43 PM Age: 50 years old Clinical indication: Pain; Other: RT shoulder; Additional info: R neck pain radiated to R shoulder TECHNIQUE: Imaging protocol: Computed tomography images of the cervical spine without contrast. Radiation optimization: All CT scans at this facility use at least one of these dose optimization techniques: automated exposure control; mA and/or kV adjustment per patient size (includes targeted exams where dose is matched to clinical indication); or iterative reconstruction. COMPARISON: CT HEAD/BRAIN WO CON 01/31/2021 8:56 AM FINDINGS: Bones/joints: The anterior, posterior and spinal laminar lines are maintained. The vertebral body heights are maintained as well. The posterior elements appear intact and normally articulated. The atlantooccipital and atlantoaxial articulations are anatomic. The visualized skull base appears intact. Discs/Spinal canal/Neural foramina: Detail of the spinal canal is limited by CT evaluation. However, no large disc protrusion epidural hematoma or epidural abscess identified. No severe spinal canal stenosis. Lungs: Lung apices are clear. Soft tissues: No prevertebral or posterior paraspinous swelling. IMPRESSION: No acute fracture or dislocation of the cervical spine.
--- NOTE | 2021-07-02 22:45 | XR_ITS ---
PROCEDURE INFORMATION: Exam: XR Right Shoulder Exam date and time: 07/02/2021 10:45 PM Age: 50 years old Clinical indication: Pain; Shoulder; Right; Additional info: Shoulder pain TECHNIQUE: Imaging protocol: XR Right shoulder. Views: 2 or more views. COMPARISON: CR XR CHEST AP 09/23/2020 7:53 PM FINDINGS: Bones/joints: The glenohumeral joint is anatomic without a fracture or dislocation. The acromioclavicular and coracoclavicular spaces are maintained. The clavicle, scapula, proximal humerus and visualized right ribs are intact. 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 Soft tissues: Normal. IMPRESSION: Mild degenerative changes in the right shoulder but no acute osseous abnormality.
[2021-07-02 22:46] LABS: Basophils # 0.1 K/mm3 (0-0.2); Basophils % 1.4 % (0.1-2.0); Eosinophils # 0.5 K/mm3 (0.0-0.4); Eosinophils % 5.2 % (0.1-12.0); Hematocrit 42.5 % (37.0-47.0); Hemoglobin 13.9 g/dL (12.2-16.2); Lymphocytes # 3.9 K/mm3 (0.7-4.5); Lymphocytes % 41.3 % (10-50); Mean Corpuscular HGB Conc 32.6 g/dL (31.8-35.4); Mean Corpuscular Hemoglobin 31.8 pg (27.0-31.2); Mean Corpuscular Volume 97.5 fl (81-99); Mean Platelet Volume 8.6 fl (7.4-10.4); Monocytes # 0.4 K/mm3 (0.1-1.0); Monocytes % 4.2 % (1.7-9.3); Neutrophils # 4.5 K/mm3 (1.8-7.8); Neutrophils % 47.9 % (37.0-80.0); Platelet Count 364 K/mm3 (142-424); Red Blood Count 4.36 M/mm3 (4.20-5.40); Red Cell Distribution Width 13.7 % (11.5-17.5); White Blood Count 9.4 K/mm3 (4.8-10.8)
[2021-07-02 22:50] LABS: Anion Gap 10.7 mEq/L (5-15); Blood Urea Nitrogen 8 mg/dl (7-17); Calcium 9.6 mg/dl (8.4-10.2); Carbon Dioxide 31 mmol/L (22.0-30.0); Chloride 104 mmol/L (98-107); Creatinine Clearance Estimated 128 mL/min (50-200); Estimated Glomerular Filt Rate 88 ml/min (>60); GFR (African American) 106 ML/MIN (>60); Glucose 89 mg/dl (74-100); Potassium 3.7 mmoL/L (3.5-5.1); Sodium 142 mmol/L (136-145)
[2021-07-02 22:56] LABS: C-Reactive Protein 4.6 mg/L (0-4)
--- NOTE | 2021-07-02 23:07 | PC.NURSE ---
pt back in room from radiology.
[2021-07-02 23:09] LABS: Procalcitonin 0.043 ng/mL (0.0-2.0)
[2021-07-02 23:10] LABS: Troponin I < 0.01 ng/ml (0.00-0.034)
[2021-07-02 23:21] LABS: Erythrocyte Sedimentation Rate 47 mm/hr (0-30)
[2021-07-02 23:30] VITALS: BP 120/75; PULSE 89; RESP 16; O2SAT 99
[2021-07-03 00:01] VITALS: BP 123/82; PULSE 91; RESP 19; O2SAT 98
--- NOTE | 2021-07-03 00:11 | HMH.EDCP ---
ED Disposition Clinical Impression: Tobacco use disorder, Cervical disc disease Chest pain Qualifiers: Chest pain type: precordial pain Qualified Code(s): R07.2 - Precordial pain Disposition: Home, Self-Care Condition on Discharge: Good Instructions: DI for Atypical Chest Pain Additional Instructions: see pcp and card this am Referrals: Michelle Quiñonez PA [Primary Care Provider] - - Critical Care Critical Care Time: No Attestation: On 07/02/21, the high probability of a clinically significant, sudden or life threatening deterioration of the following system(s) required my full and direct attention, intervention and personal management. The time I documented below is in addition to time spent performing reported procedures but includes the following listed in this critical care notation. Medical Decision Making - Medical Records Medical records reviewed: Yes: I reviewed the patient's medical records. - Hugo Inquiry Pt receiving controlled substance: No Vital Signs: 07/02/21 22:31 07/02/21 23:30 07/03/21 00:01 Temperature 98.2 F Temperature Source Oral Pulse Rate 89 91 H Respiratory Rate 19 16 19 Blood Pressure 120/75 123/82 Blood Pressure [Right Arm] 145/80 H Blood Pressure Mean [Right Arm] 101 Blood Pressure Source [Right Arm] Automatic Cuff 02 Sat by Pulse Oximetry 100 99 98 Oxygen Delivery Method Room Air 07/03/21 00:48 07/03/21 02:15 Temperature 98.0 F Temperature Source Oral Pulse Rate 84 88 Respiratory Rate 12 19 Blood Pressure 104/78 L 136/90 Blood Pressure [Right Arm] Blood Pressure Mean [Right Arm] Blood Pressure Source [Right Arm] 02 Sat by Pulse Oximetry 97 Oxygen Delivery Method Room Air - Lab Data Lab results reviewed: Yes: I reviewed the patient's lab results. Lab Results 07/02/21 22:33: WBC 9.4, RBC 4.36, Hgb 13.9, Hct 42.5, MCV 97.5, MCH 31.8 H, MCHC 32.6, RDW 13.7, Plt Count 364, MPV 8.6, Neut % (Auto) 47.9, Lymph % (Auto) 41.3, [place] % (Auto) 4.2, Eos % (Auto) 5.2, Baso % (Auto) 1.4, Neut # (Auto) 4.5, Lymph # (Auto) 3.9, [place] # (Auto) 0.4, Eos # (Auto) 0.5 H, Baso # (Auto) 0.1, ESR 47 H 07/02/21 22:33: Sodium 142, Potassium 3.7, Chloride 104, Carbon Dioxide 31 H, Anion Gap 10.7, BUN 8, Creatinine 0.70, Estimated Creat Clear 128, Estimated GFR 88, Est GFR ( Amer) 106, Glucose 89, Calcium 9.6, Troponin I < 0.01, C-Reactive Protein 4.6 H, Procalcitonin 0.043 Result diagrams: 07/02/21 22:33 07/02/21 22:33 Orders (Tests/Meds): ED MEDICATIONS Generic Name Dose Route Start Last Admin Trade Name Freq PRN Reason Stop Dose Admin Sodium Chloride 1,000 mls @ 999 mls/hr 07/02/21 22:45 07/02/21 22:45 Sod Chlor 0.9% 1000ml Bag IV 07/02/21 23:45 999 mls/hr .Q1H1M [place] Administration Discontinued Medications Generic Name Dose Route Start Last Admin Trade Name Freq PRN Reason Stop Dose Admin Acetaminophen/Codeine Phosphate 1 deepak 07/03/21 02:07 07/03/21 02:09 Acetaminophen 300mg W/Codeine 30mg Take Home Pack (6) PO 07/03/21 02:08 1 deepak ONCE ONE Administration Aspirin 243 mg 07/02/21 22:38 07/02/21 22:58 Aspirin 81mg Chewable Tablet PO 07/02/21 22:39 Not Given ONCE ONE Hydromorphone HCl 1 mg 07/03/21 00:34 07/03/21 00:51 Hydromorphone 2mg/Ml Syringe IV 07/03/21 00:35 1 mg ONCE ONE Administration Methylprednisolone Sodium Succinate 125 mg 07/02/21 22:46 07/02/21 22:50 Methylprednisolone Sod Succ 125mg Vial IV 07/02/21 22:47 125 mg ONCE ONE Administration Ondansetron HCl 4 mg 07/03/21 00:34 07/02/21 22:50 Ondansetron 4mg/2ml Vial IV 07/03/21 00:35 4 mg ONCE ONE Administration ORDERS Category Date Time Status Rapid PCR Covid and Flu A/B Stat Lab 07/02/21 22:47 Ordered Troponin I Q3H Lab 07/03/21 02:04 Received Troponin I Q3H Lab 07/03/21 04:45 Ordered - Radiology Data #1 Image(s): Chest Image Reviewed: Yes I reviewed the patient's radiology
[2021-07-03 00:48] VITALS: BP 104/78; PULSE 84; RESP 12; O2SAT 97
[2021-07-03 02:15] VITALS: BP 136/90; PULSE 88; RESP 19; TEMP 36.7; O2SAT 99
[2021-07-03 02:35] LABS: Troponin I < 0.01 ng/ml (0.00-0.034)
== END 2021-07-03 02:20 | disposition home or self-care (01) ==
PROVIDERS: Emergency Provider Emergency Medicine; PCP Physician Assistant
DX: M50.90 Cervical disc disorder, unspecified, unspecified cervical region (principal); R07.2 Precordial pain; I10 Essential (primary) hypertension; E78.5 Hyperlipidemia, unspecified; I25.2 Old myocardial infarction; M79.7 Fibromyalgia; F17.210 Nicotine dependence, cigarettes, uncomplicated
CPT/HCPCS: 71046; 72125; 73030; 80048; 84145; 84484; 85025; 85651; 86140; 93005; 96365; 96375; 99283; J2405

== ENCOUNTER 2021-07-05 20:03 | Emergency (ER) | payer OTHER, SELFPAY ==
[2021-07-05 20:03] VITALS: BP 130/91; PULSE 80; RESP 15; TEMP 36.6; O2SAT 99; BMI 33.6
--- NOTE | 2021-07-05 20:03 | ECG_ITS ---
APPROVED REPORT Exam: Resting ECG HR:100 bpm ECG Measurements Heart Rate 100 AXES MA 144 P 69 QRSd 76 QRS 35 QT 358 T 60 QTc 461 Conclusion Normal sinus rhythm Normal ECG Electronically signed by : Telly Collier MD 07/06/2021 16:56:13
--- NOTE | 2021-07-05 20:12 | XR_ITS ---
PROCEDURE INFORMATION: Exam: XR Chest Exam date and time: 07/05/2021 8:12 PM Age: 50 years old Clinical indication: Sternal or substernal pain; Prior surgery; Surgery type: Stents; Additional info: Chest pain TECHNIQUE: Imaging protocol: XR of the chest. Views: 2 views. COMPARISON: CR XR CHEST 2V 07/02/2021 10:39 PM FINDINGS: Lungs: Normal. Pleural spaces: Unremarkable. No pleural effusion. No pneumothorax. Heart/Mediastinum: Left coronary metallic stent. Bones/joints: Mild multilevel thoracic spine degenerative disc space narrowing. IMPRESSION: No acute cardiopulmonary abnormality.
[2021-07-05 20:36] LABS: Basophils # 0.1 K/mm3 (0-0.2); Eosinophils # 0.6 K/mm3 (0.0-0.4); Eosinophils % 4.9 % (0.1-12.0); Hematocrit 38.7 % (37.0-47.0); Hemoglobin 12.9 g/dL (12.2-16.2); Lymphocytes # 5.1 K/mm3 (0.7-4.5); Lymphocytes % 40.6 % (10-50); Mean Corpuscular HGB Conc 33.4 g/dL (31.8-35.4); Mean Corpuscular Hemoglobin 31.7 pg (27.0-31.2); Mean Corpuscular Volume 95.2 fl (81-99); Mean Platelet Volume 8.9 fl (7.4-10.4); Monocytes # 0.6 K/mm3 (0.1-1.0); Monocytes % 4.5 % (1.7-9.3); Neutrophils # 6.1 K/mm3 (1.8-7.8); Platelet Count 335 K/mm3 (142-424); Red Blood Count 4.07 M/mm3 (4.20-5.40); White Blood Count 12.5 K/mm3 (4.8-10.8)
[2021-07-05 20:40] LABS: Chloride 106 mmol/L (98-107); Potassium 3.9 mmoL/L (3.5-5.1); Sodium 141 mmol/L (136-145)
[2021-07-05 20:42] LABS: Blood Urea Nitrogen 16 mg/dl (7-17); Creatinine Clearance Estimated 128 mL/min (50-200); Estimated Glomerular Filt Rate 88 ml/min (>60); GFR (African American) 106 ML/MIN (>60)
[2021-07-05 20:43] LABS: Alanine Aminotransferase 25 U/L (12-78); Albumin Level 4.2 g/dl (3.5-5.0); Alkaline Phosphatase 93 U/L (38-126); Anion Gap 10.9 mEq/L (5-15); Aspartate Amino Transferase 29 U/L (14-36); Bilirubin,Direct 0.5 mg/dl (0.0-0.4); Bilirubin,Total 0.5 mg/dl (0.2-1.3); Carbon Dioxide 28 mmol/L (22.0-30.0); Glucose 135 mg/dl (74-100); Total Protein,Serum 7.3 g/dl (6.3-8.2)
[2021-07-05 20:54] LABS: NT Pro Brain Natriuretic Pep. 102 pg/mL (0-125)
[2021-07-05 21:14] LABS: Thyroid Stimulating Hormone 3.49 uIU/mL (0.465-4.68)
[2021-07-05 21:35] LABS: Troponin I < 0.01 ng/ml (0.00-0.034)
[2021-07-05 22:08] LABS: Microscopic, Urine URINE MICROSCOPIC (MICROSCOPIC)
[2021-07-05 22:09] LABS: Appearance,Urine CLEAR (Clear); Bilirubin,Urine Negative (Negative); Blood, Urine Negative (Negative); Color,Urine YELLOW (Yellow); Glucose,Urine (UA) Negative (Negative); Ketones,Urine Negative (Negative); Leukocyte Esterase,Urine Negative (Negative); Nitrate,Urine Negative (Negative); PH,Urine 8.5 (5.0-8.5); Protein,Urine 1+ (Negative); Urobilinogen,Urine 0.2 EU/dl (0.2)
[2021-07-05 22:21] LABS: WBC,Urine Occasional #/hpf (0-3)
[2021-07-05 22:22] LABS: Barbiturates Screen,Urine Negative ng/ml (<200)
[2021-07-05 22:23] LABS: Benzodiazepines Screen,Urine Positive ng/ml (<200)
[2021-07-05 22:24] LABS: Amphetamine/Metha Screen,Urine Negative ng/ml (<1000); Cannabinoid Screen,Urine Negative ng/ml (<50)
[2021-07-05 22:25] LABS: Cocaine Screen,Urine Negative ng/ml (<300); Methadone Screen,Urine Negative ng/ml (<300)
[2021-07-05 22:26] LABS: Opiate Screen,Urine Negative ng/ml (<300)
[2021-07-05 22:27] LABS: Phencyclidine Screen,Urine Negative ng/ml (<25)
--- NOTE | 2021-07-05 22:29 | HMH.EDCP ---
ED Disposition Clinical Impression: Chest pain Qualifiers: Chest pain type: precordial pain Qualified Code(s): R07.2 - Precordial pain Disposition: Left Against Medical Advice Condition on Discharge: Good Instructions: DI for Atypical Chest Pain Additional Instructions: call office in am Referrals: Michelle Quiñonez PA [Primary Care Provider] - - Critical Care Critical Care Time: No Attestation: On 07/05/21, the high probability of a clinically significant, sudden or life threatening deterioration of the following system(s) required my full and direct attention, intervention and personal management. The time I documented below is in addition to time spent performing reported procedures but includes the following listed in this critical care notation. Medical Decision Making - Medical Records Medical records reviewed: Yes: I reviewed the patient's medical records. - Hugo Inquiry Pt receiving controlled substance: No Vital Signs: 07/05/21 20:03 Temperature 97.8 F Temperature Source Oral Pulse Rate [Right Brachial] 80 Respiratory Rate 15 Blood Pressure [Right Arm] 130/91 H Blood Pressure Mean [Right Arm] 104 Blood Pressure Source [Right Arm] Automatic Cuff Blood Pressure Position [Right Arm] Sitting 02 Sat by Pulse Oximetry 99 Oxygen Delivery Method Room Air - Lab Data Lab results reviewed: Yes: I reviewed the patient's lab results. Lab Results 07/05/21 20:25: WBC 12.5 H D, RBC 4.07 L, Hgb 12.9, Hct 38.7, MCV 95.2, MCH 31.7 H, MCHC 33.4, RDW 14.0, Plt Count 335, MPV 8.9, Neut % (Auto) 49.0, Lymph % (Auto) 40.6, [place] % (Auto) 4.5, Eos % (Auto) 4.9, Baso % (Auto) 1.0, Neut # (Auto) 6.1, Lymph # (Auto) 5.1 H, [place] # (Auto) 0.6, Eos # (Auto) 0.6 H, Baso # (Auto) 0.1 07/05/21 20:25: Sodium 141, Potassium 3.9, Chloride 106, Carbon Dioxide 28, Anion Gap 10.9, BUN 16 D, Creatinine 0.70, Estimated Creat Clear 128, Estimated GFR 88, Est GFR ( Amer) 106, Glucose 135 H, Calcium 9.0, Total Bilirubin 0.5, Direct Bilirubin 0.5 H, Conjugated Bilirubin 0.0, Indirect Bilirubin 0.0, Unconjugated Bilirubin 0.0, AST 29, ALT 25, Alkaline Phosphatase 93, Troponin I < 0.01, NT-Pro-B Natriuret Pep 102, Total Protein 7.3, Albumin 4.2, TSH 3.49, Thyroxine (T4) 8.0 07/05/21 21:41: Urine Color Yellow, Urine Appearance Clear, Urine pH 8.5, Ur Specific [place] 1.010, Urine Protein 1+, Urine Glucose (UA) Negative, Urine Ketones Negative, Urine Blood Negative, Urine Nitrate Negative, Urine Bilirubin Negative, Urine Urobilinogen 0.2, Ur Leukocyte Esterase Negative, Urine RBC None, Urine WBC Occasional, Ur Squamous Epith Cells 3-5, Urine Bacteria None 07/05/21 21:41: Urine Opiates Screen Negative, Urine Methadone Screen Negative, Ur Barbituates Screen Negative, Ur Phencyclidine Scrn Negative, Ur Amphetamines Screen Negative, U Benzodiazepines Scrn Positive H, Urine Cocaine Screen Negative, U Marijuana (THC) Screen Negative Result diagrams: 07/05/21 20:25 07/05/21 20:25 Orders (Tests/Meds): ED MEDICATIONS Generic Name Dose Route Start Last Admin Trade Name Freq PRN Reason Stop Dose Admin Sodium Chloride 8 ml 07/05/21 22:28 Sodium Chloride 0.9% 10ml Vial IV 08/04/21 22:27 NEEDED PRN dilute pepcid Discontinued Medications Generic Name Dose Route Start Last Admin Trade Name Freq PRN Reason Stop Dose Admin Famotidine 20 mg 07/05/21 22:28 07/05/21 22:31 Famotidine 20mg/2ml Vial IV 07/05/21 22:29 20 mg ONCE ONE Administration Metoclopramide HCl 10 mg 07/05/21 22:28 07/05/21 22:31 Metoclopramide Hcl 10mg/2ml Vial IVP 07/05/21 22:29 10 mg ONCE ONE Administration ORDERS Category Date Time Status Amylase Stat Lab 07/05/21 22:40 Received Lipase Routine Lab 07/05/21 22:40 Received Troponin I Q3H Lab 07/05/21 22:40 Received Troponin I Q3H Lab 07/06/21 02:15 Ordered - Radiology Data #1 Image(s): Chest Image Reviewed: Yes I reviewed the patient's radiology piedad
[2021-07-05 22:55] LABS: Amylase 36 U/L (30-110); Lipase 19 U/L (23-300)
[2021-07-05 22:58] VITALS: BP 132/70; PULSE 75; RESP 18; TEMP 36.7; O2SAT 98
[2021-07-05 23:08] LABS: Troponin I < 0.01 ng/ml (0.00-0.034)
== END 2021-07-05 23:00 | disposition left against medical advice (07) ==
PROVIDERS: Emergency Provider Emergency Medicine; PCP Physician Assistant
DX: R07.2 Precordial pain (principal); R10.13 Epigastric pain; I25.10 Atherosclerotic heart disease of native coronary artery without angina pectoris; I25.2 Old myocardial infarction; I10 Essential (primary) hypertension; E78.5 Hyperlipidemia, unspecified; F17.210 Nicotine dependence, cigarettes, uncomplicated; Z79.899 Other long term (current) drug therapy
CPT/HCPCS: 71046; 80048; 80076; 80305; 81001; 82150; 83690; 83880; 84436; 84443; 84484; 85025; 93005; 96374; 96375; 99283

== ENCOUNTER → 2021-07-23 10:02 | Outpatient (CLI) | payer OTHER, SELFPAY ==
--- NOTE | 2021-07-23 10:02 | US_ITS ---
PROCEDURE: US GALLBLADDER CLINICAL INDICATION: RUQ COMPARISON: CT CT ABDOMEN PELVIS WO CON from 05/02/2020 FINDINGS: Pancreas: Unremarkable/Not well seen Liver: 2 x 1 cm cyst in the right hepatic lobe.. There is appropriate direction of blood flow within a non dilated portal vein. Right kidney: Unremarkable appearing. No hydronephrosis. Gallbladder: Cholelithiasis. 16 mm stone is present in the fundus of the gallbladder. Common bile duct is normal at 2 mm. No gallbladder wall thickening or pericholecystic fluid. IMPRESSION: Cholelithiasis Dictated by: Willian Boothe MD 07/23/2021 11:42 Willian Boothe MD in [place] 07/23/2021 11:42
--- NOTE | 2021-07-23 10:30 | CA_ITS ---
APPROVED REPORT EXAM: Comprehensive 2D, Doppler, and color-flow Echocardiogram Automatic Cigar Wrapper Tender: Eulalia Daugherty RVT Ht: 5 ft 3 in Wt: 200lbs BSA: 1.93 BP: 130/91 mmHg Indications: CP,CAD,STENT,HX CO,SMOKER,PALPS,FATIGUE,HTN,HLD 2D Dimensions LVOT 2.26 cm (M/F) 1.5-2.5 LA Volume 19.80 mL LA Volume Index 10.25 mL/m2 (M/F) 16-34 M-Mode Dimensions RVDd 2.10 cm (0.9-2.6) LA Diam 3.60 cm (1.9-4.0) LVDd 3.98 cm (3.5-5.7) Ao Diam 3.01 cm (2.0-3.7) LVDs 2.73 cm (3.5-5.7) IVSd 0.95 cm (0.6-1.1) PWd 0.53 cm (0.6-1.1) EF (Teich) 59.80% FS 31.40% EDV (Teich) 69.20 mL TAPSE 2.06 (<1.7) ESV (Teich) 27.80 mL LV Diastology E Decel Time 150.00 (160-240 msec) E/A Ratio 1.4 MED E' 10.80 (< 7 cm/sec) E'/MED E' Ratio 5.92 (>14) LAT E' 12.90 (<10 cm/sec) E/LAT E' Ratio 4.95 (>14) Aortic Valve AO Peak GR. 4.20 mmHg Mitral Valve MV E Max Antoine. 64.00 (40-130 cm/s) MV A Velocity 45.00 (40-130 cm/s) E/A Ratio 1.41 MV Decel. Time 150.00 (160-240 ms) MV PHT 44.00 ms Pulmonary Valve PV Peak Velocity 81.00 (50-150 cm/s) Tricuspid Valve TR P. Velocity 192.00 cm/s RAP Estimate 10.00 mmHg RVSP 24.80 mmHg Left Ventricle Left atrium is mildly enlarged, left ventricle is normal size, there is no concentric left ventricular hypertrophy, visually estimated ejection fraction 50%, there appears to be mild inferior basal wall hypokinesis, endocardial surfaces are very poorly visualized. Diastolic parameters are within normal range. Right Ventricle Right atrium and right ventricle are normal size and contractility. Aortic Valve Aortic valve is minimally thickened and fibrosed, there is no aortic stenosis or aortic insufficiency. Mitral Valve Mitral valve grossly normal, there is trace mitral regurgitation. Tricuspid Valve Tricuspid valve grossly normal, there is trace tricuspid regurgitation, tricuspid regurgitation jet velocity is inadequate for calculation of the right ventricular systolic pressure. Pulmonic Valve Pulmonic valve is poorly visualized. Great Vessels Aortic root is normal size. Pericardium No significant pericardial effusion noted. Conclusion 1. Normal left ventricular size, visually estimated ejection fraction 50%, inferior basal wall appears to be mildly hypokinetic, endocardial surfaces are very poorly visualized, diastolic parameters are within normal range. 2. Trace mitral and tricuspid regurgitation. 3. No significant pericardial effusion noted. Electronically signed by : Pavan Pacheco MD 07/24/2021 06:50:08
== END ==
LOC: RAD 10:02
PROVIDERS: PCP Physician Assistant; Visit Provider Emergency Medicine
DX: R07.89 Other chest pain (principal); R10.11 Right upper quadrant pain; I10 Essential (primary) hypertension; E78.5 Hyperlipidemia, unspecified; R94.31 Abnormal electrocardiogram [ECG] [EKG]
CPT/HCPCS: 76705; 93306

== ENCOUNTER → 2021-07-23 15:26 | Outpatient (CLI) | payer OTHER, SELFPAY ==
[2021-07-23 15:28] LABS: Microscopic, Urine URINE MICROSCOPIC (MICROSCOPIC)
[2021-07-23 16:12] LABS: Basophils # 0.1 K/mm3 (0-0.2); Basophils % 1.2 % (0.1-2.0); Eosinophils # 0.4 K/mm3 (0.0-0.4); Eosinophils % 4.3 % (0.1-12.0); Hematocrit 44.1 % (37.0-47.0); Hemoglobin 14.2 g/dL (12.2-16.2); Lymphocytes # 4.2 K/mm3 (0.7-4.5); Lymphocytes % 41.5 % (10-50); Mean Corpuscular HGB Conc 32.2 g/dL (31.8-35.4); Mean Corpuscular Hemoglobin 32.4 pg (27.0-31.2); Mean Corpuscular Volume 100.9 fl (81-99); Mean Platelet Volume 9.7 fl (7.4-10.4); Monocytes # 0.5 K/mm3 (0.1-1.0); Monocytes % 4.7 % (1.7-9.3); Neutrophils # 4.9 K/mm3 (1.8-7.8); Neutrophils % 48.3 % (37.0-80.0); Platelet Count 370 K/mm3 (142-424); Red Blood Count 4.37 M/mm3 (4.20-5.40); Red Cell Distribution Width 13.4 % (11.5-17.5); White Blood Count 10.2 K/mm3 (4.8-10.8)
[2021-07-23 18:43] LABS: Appearance,Urine CLEAR (Clear); Bilirubin,Urine Negative (Negative); Blood, Urine Negative (Negative); Color,Urine YELLOW (Yellow); Glucose,Urine (UA) Negative (Negative); Ketones,Urine Negative (Negative); Leukocyte Esterase,Urine Negative (Negative); Nitrate,Urine Negative (Negative); Protein,Urine Negative (Negative); Specific Gravity, Urine >= 1.030 (1.005-1.030); Urobilinogen,Urine 0.2 EU/dl (0.2)
[2021-07-23 18:57] LABS: Alanine Aminotransferase 23 U/L (12-78); Albumin Level 4.1 g/dl (3.5-5.0); Albumin/Globulin Ratio 1.4 (1.1-1.8); Alkaline Phosphatase 106 U/L (38-126); Anion Gap 12.8 mEq/L (5-15); Aspartate Amino Transferase 23 U/L (14-36); Bilirubin,Total 0.2 mg/dl (0.2-1.3); Blood Urea Nitrogen 9 mg/dl (7-17); Carbon Dioxide 29 mmol/L (22.0-30.0); Chloride 106 mmol/L (98-107); Estimated Glomerular Filt Rate 88 ml/min (>60); GFR (African American) 106 ML/MIN (>60); Glucose 84 mg/dl (74-100); Potassium 4.8 mmoL/L (3.5-5.1); Sodium 143 mmol/L (136-145); Total Protein,Serum 7.1 g/dl (6.3-8.2)
[2021-07-23 19:21] LABS: Squamous Epithelial Cell,Urine Occasional #/hpf (0-5)
== END ==
PROVIDERS: Visit Provider Physician Assistant
DX: K80.20 Calculus of gallbladder without cholecystitis without obstruction (principal)
CPT/HCPCS: 36415; 80053; 81001; 85025

== ENCOUNTER → 2021-08-09 11:56 | Outpatient (CLI) | payer OTHER, SELFPAY ==
--- NOTE | 2021-08-09 | CA_ITS ---
APPROVED REPORT Exam: Pharmacologic Technologist: Rebekah Holland Ht: 5 ft 3 in Wt: 195 lbs BSA: 1.91 m2 HR: 117 bpm BP: 138/92 mmHg Indications: Chest pain Medical History Medications: Lisinopril,,,,, Aspirin,,,,, Metoprolol,,,,, Vitamin D3,,,,, Atorvastatin,,,,, Lasix,,,,, PERCOCET,,,,, ClonAZEPAM,,,,, Albuterol,,,,, PaROXETINE,,,,, DicyCLOMINE,,,,, Meclizine,,,,, Stress Test Details Test: LEXISCAN Reversal agent Aminophyline 100.0 mg, given intravenously for other. HR Resting HR: 120 bpm Max Heart Rate (APMHR): 168.958944 bpm Max HR Achieved: 179 bpm Target HR (85% APMHR): 142.566529 bpm % of APMHR: 106.55 Recovery HR: 94 bpm BP Resting BP: 138.0/92.0 mmHg Max BP: 156.0/95.0 mmHg Recovery BP: 114.0/82.0 mmHg ECG Resting ECG: Sinus tachycardia, otherwise normal. Clinical Exercise duration: 04:03 min Highest Stage Achieved: Exercise capacity: 1.0 METs Stress ECG Conclusion Switched from Exercise after patient only able to walk 1:34 minutes of stage I Iain. Symptoms: Mild chest pressure, mild shortness of air, lightheaded Arrhythmias/Ectopy: Sinus tachycardia up to [address]-T Changes: 0.5 to 1mm [address] horizontal [address] depression inferiorly and laterally. Conclusion: Non-diagnostic Lexiscan stress. Myoview images reported separately. Test Summary RECOVERY 04:00 . . 142 . 127/ 94 . . REST 04:54 . . 120 . 138/ 92 . . Stage 1 . . . . . . . Myoview Injected Stage 1 01:00 . . 173 . . . . Stage 2 01:00 . . 170 . 148/ 92 . . Stage 3 01:00 . . 161 . 149/ 94 . . Stage 4 01:00 . . 152 . 146/ 94 . . Stage 4 01:03 . . 154 . 146/ 94 . Stop exercise at 04:03 RECOVERY 01:00 . . 148 . 156/ 95 . . RECOVERY 02:00 . . 148 . 156/ 95 . . RECOVERY 03:00 . . 144 . 156/ 95 . . RECOVERY 04:00 . . 142 . 127/ 94 . . RECOVERY 05:00 . . 142 . 127/ 94 . . RECOVERY 06:00 . . 142 . 127/ 94 . . RECOVERY 07:00 . . 135 . 127/ 94 . . RECOVERY 08:00 . . 114 . 140/ 97 . . RECOVERY 09:00 . . 103 . 129/ 92 . . RECOVERY 10:00 . . 111 . 124/ 88 . . RECOVERY 11:00 . . 102 . 124/ 88 . . RECOVERY 12:00 . . 102 . 124/ 88 . . RECOVERY 13:00 . . 99 . 124/ 88 . . RECOVERY 14:00 . . 98 . 136/ 94 . . RECOVERY 15:00 . . 95 . 107/ 83 . . RECOVERY 16:00 . . 96 . 107/ 83 . . RECOVERY 17:00 . . 94 . 107/ 83 . . RECOVERY 17:54 . . 89 . 114/ 82 . . Electronically signed by : Pavan Pacheco MD 08/09/2021 16:46:27
--- NOTE | 2021-08-09 11:56 | NM_ITS ---
APPROVED REPORT Exam: Nuclear Stress Test Indication: Chest pain, SOB, Palpitations, Fatigue, CAD, HTN, High cholesterol, Tobacco use, Family history Patient Location: Outpatient Stress Tech: Rebekah Holland [place] Tech:Apurva GloriaLAURA RT(R)(N) Ht: 5 ft 4 in Wt: 180 lbs Bra Size: 38DD HR: 120 bpm BP: 138/92 mmHg BSA: 1.87 m2 BMI: 30.8 History: Chest pain, SOB, Palpitations, Fatigue, CAD, HTN, High cholesterol, Tobacco use, Family history Procedure: Patient received a 0.4 mg of intravenous Lexiscan, resting heart rate 120 bpm, resting blood pressure 138/92 mmHg, with Lexiscan maximum heart rate achived was 179 bpm which is Less than 85 % of the maximum predicted heart rate and blood pressure was 156/95 mmHg. Electrocardiogram Resting electrocardiogram shows sinus rhythm, with Lexiscan there is less than 1.[address] segment depression noted from the baseline EKG. The EKG portion of the Lexiscan Myoview is nondiagnostic. Cardiac Stress and Resting SPECT Images: Cardiac Stress and Resting SPECT images were obtained using technetium 99m Myoview 32.7 mCi stress and 11.15 mCi at rest. Gated SPECT for analysis of segmental wall motion and calculation of the ejection fraction also done, prone images were also obtained. Cardiac stress and resting SPECT images show uniform myocardial activity without segmental perfusion abnormality, computer derived ejection fraction is 56% with no regional wall motion abnormality, right ventricle is normal size and contractility. Conclusion: 1. The EKG portion of the Lexiscan Myoview is nondiagnostic. 2. No scintigraphic evidence of reversible ischemia seen, compared right ejection fraction is 56% with no regional wall motion abnormality, right ventricle is normal size and contractility. 3. Normal Lexiscan Myoview study. Electronically signed by : Pavan Pacheco MD 08/09/2021 16:53:31
== END ==
PROVIDERS: PCP Physician Assistant; Visit Provider Nurse Practitioner Family
DX: R07.89 Other chest pain (principal); R06.02 Shortness of breath; I25.10 Atherosclerotic heart disease of native coronary artery without angina pectoris; I10 Essential (primary) hypertension; Z95.5 Presence of coronary angioplasty implant and graft
CPT/HCPCS: 78452; 93017; A9502; J0280; J2785

== ENCOUNTER → 2021-08-10 14:17 | Outpatient (CLI) | payer OTHER, SELFPAY | PROVIDERS: PCP Physician Assistant; Visit Provider Nurse Practitioner | DX: Z20.822 Contact with and (suspected) exposure to COVID-19 (principal) | CPT/HCPCS: C9803; U0003; U0005 ==

== ENCOUNTER → 2021-10-04 12:59 | Outpatient (CLI) | payer OTHER, SELFPAY | PROVIDERS: PCP Physician Assistant; Visit Provider Nurse Practitioner | DX: Z20.822 Contact with and (suspected) exposure to COVID-19 (principal) | CPT/HCPCS: C9803; U0003; U0005 ==

== ENCOUNTER → 2021-10-11 16:30 | Outpatient (CLI) | payer OTHER, SELFPAY | PROVIDERS: PCP Physician Assistant; Visit Provider Nurse Practitioner | DX: Z20.822 Contact with and (suspected) exposure to COVID-19 (principal) | CPT/HCPCS: C9803; U0003; U0005 ==

== ENCOUNTER → 2021-10-31 12:40 | Outpatient (CLI) | payer OTHER, SELFPAY ==
--- NOTE | 2021-10-31 12:40 | US_ITS ---
PROCEDURE: US BREAST RT COMPLETE CLINICAL INDICATION: follow up from abnormal US COMPARISON: US US BREAST RT COMPLETE from 02/22/2021 FINDINGS: Prominent duct is noted in the retroareolar region. No solid or suspicious nodules. The ductal dilatation may correspond to the cystic areas noted on the previous ultrasound. Recommend follow-up mammogram to evaluate stability of the asymmetric nodular density in the right breast described on the previous mammogram. IMPRESSION: Ductal dilatation in the retroareolar region. BI-RADS category 0 incomplete. Recommend right breast mammogram as soon as possible to complete the six-month follow-up protocol. Dictated by: Willian Boothe MD 11/02/2021 17:18 Willian Boothe MD in [place] 11/02/2021 17:18
== END ==
PROVIDERS: PCP Physician Assistant; Visit Provider Emergency Medicine
DX: R92.8 Other abnormal and inconclusive findings on diagnostic imaging of breast (principal)
CPT/HCPCS: 76641

== ENCOUNTER → 2021-11-02 14:02 | Outpatient (CLI) | payer OTHER, SELFPAY | PROVIDERS: PCP Physician Assistant; Visit Provider Internal Medicine Cardiovascular Disease | DX: I25.118 Atherosclerotic heart disease of native coronary artery with other forms of angina pectoris (principal); R06.00 Dyspnea, unspecified; R07.2 Precordial pain; R00.2 Palpitations; E66.09 Other obesity due to excess calories; I51.89 Other ill-defined heart diseases; K21.9 Gastro-esophageal reflux disease without esophagitis; Z72.0 Tobacco use | CPT/HCPCS: 93270 ==

== ENCOUNTER → 2021-11-28 13:45 | Outpatient (CLI) | payer OTHER, SELFPAY ==
--- NOTE | 2021-11-28 13:45 | MM_ITS ---
PROCEDURE INFORMATION: Exam: MG Right Diagnostic Breast Tomosynthesis Exam date and time: 11/28/2021 1:45 PM Age: 51 years old Clinical indication: Short-term follow-up for right breast asymmetry. Patient reports persistent recent enlargement of the right breast. Sonography performed 10/31/2021 do not demonstrate any suspicious findings. TECHNIQUE: Imaging protocol: Right Diagnostic tomosynthesis and 2D mammography including computer-aided detection (CAD) when performed. Unilateral or bilateral exam. COMPARISON: 1. MG MM DIG SCREENING MAMM BI W/CAD 01/31/2021 8:15 AM 2. US BREAST RT COMPLETE 10/31/2021 12:53 PM FINDINGS: MAMMOGRAPHY: The breast tissue is composed of scattered areas of fibroglandular density. There is no stellate mass, architectural distortion or suspicious to suggest malignancy. No skin thickening or axillary adenopathy. There is no significant interval change in parenchymal pattern. No evidence of breast edema or axillary adenopathy. IMPRESSION: No mammographic evidence of malignancy. Annual bilateral mammographic screening is recommended in January 2022 unless otherwise clinically indicated. ASSESSMENT: BI-RADS Category 1: Negative
== END ==
PROVIDERS: PCP Physician Assistant; Visit Provider Emergency Medicine
DX: R92.8 Other abnormal and inconclusive findings on diagnostic imaging of breast (principal)
CPT/HCPCS: 77061; 77065; G0279

== ENCOUNTER → 2022-01-03 16:00 | Outpatient (CLI) | payer OTHER, SELFPAY ==
[2022-01-03 14:00] LABS: Basophils # 0.1 K/mm3 (0-0.2); Basophils % 1.4 % (0.1-2.0); Eosinophils # 0.3 K/mm3 (0.0-0.4); Eosinophils % 4.4 % (0.1-12.0); Hematocrit 44.8 % (37.0-47.0); Hemoglobin 14.4 g/dL (12.2-16.2); Lymphocytes # 2.9 K/mm3 (0.7-4.5); Lymphocytes % 41.2 % (10-50); Mean Corpuscular HGB Conc 32.2 g/dL (31.8-35.4); Mean Corpuscular Hemoglobin 32.4 pg (27.0-31.2); Mean Corpuscular Volume 100.5 fl (81-99); Mean Platelet Volume 11.1 fl (7.4-10.4); Monocytes # 0.4 K/mm3 (0.1-1.0); Monocytes % 5.1 % (1.7-9.3); Neutrophils # 3.4 K/mm3 (1.8-7.8); Neutrophils % 47.9 % (37.0-80.0); Platelet Count 408 K/mm3 (142-424); Red Blood Count 4.45 M/mm3 (4.20-5.40); Red Cell Distribution Width 13.4 % (11.5-17.5); White Blood Count 7.1 K/mm3 (4.8-10.8)
[2022-01-03 14:48] LABS: Alanine Aminotransferase 22 U/L (12-78); Albumin Level 4.4 g/dl (3.5-5.0); Albumin/Globulin Ratio 1.6 (1.1-1.8); Alkaline Phosphatase 111 U/L (38-126); Anion Gap 11.6 mEq/L (5-15); Aspartate Amino Transferase 26 U/L (14-36); Bilirubin,Total 0.3 mg/dl (0.2-1.3); Blood Urea Nitrogen 15 mg/dl (7-17); Calcium 9.9 mg/dl (8.4-10.2); Carbon Dioxide 29 mmol/L (22.0-30.0); Chloride 104 mmol/L (98-107); Chol/HDL Ratio 4.2 (1-3.5); Cholesterol 166 mg/dl (140-200); Estimated Glomerular Filt Rate 88 ml/min (>60); GFR (African American) 106 ML/MIN (>60); Globulin 2.7 g/dL (1.3-3.2); Glucose 89 mg/dl (74-100); HDL Cholesterol 40 mg/dl (40-60); Potassium 5.6 mmoL/L (3.5-5.1); Sodium 139 mmol/L (136-145); Total Protein,Serum 7.1 g/dl (6.3-8.2); Triglycerides 166 mg/dl (30-150); VLDL Cholesterol 33 mg/dL (0-40)
[2022-01-03 14:59] LABS: Free T4 (Free Thyroxine) 0.88 ng/dl (0.78-2.19)
[2022-01-03 15:00] LABS: Direct LDL Cholesterol 102.56 mg/dL (100-129)
[2022-01-03 15:01] LABS: 25-OH Vitamin D, Total 20.4 ng/mL (30-100)
[2022-01-03 15:20] LABS: Thyroid Stimulating Hormone 4.81 uIU/mL (0.465-4.68)
[2022-01-05 10:12] LABS: Thyroid Peroxidase Antibodies 38 IU/mL (0-34); Triiodothyronine (T3) Free 3.3 pg/mL (2.0-4.4)
[2022-01-05 13:47] LABS: Peripheral Smear Review Scanned Result
[2022-01-06 14:23] LABS: Thyroid Stimulating Immunoglob <0.10 IU/L (0.00-0.55)
== END ==
PROVIDERS: Visit Provider Physician Assistant
DX: E01.0 Iodine-deficiency related diffuse (endemic) goiter (principal); R22.0 Localized swelling, mass and lump, head; R22.1 Localized swelling, mass and lump, neck; R79.89 Other specified abnormal findings of blood chemistry; E55.9 Vitamin D deficiency, unspecified
CPT/HCPCS: 80053; 80061; 82306; 84439; 84443; 84445; 84481; 85025; 86376

== ENCOUNTER → 2022-01-10 13:42 | Outpatient (CLI) | payer OTHER, SELFPAY ==
--- NOTE | 2022-01-10 13:42 | US_ITS ---
FINAL REPORT TECHNIQUE: Sonographic images of the thyroid were obtained. CLINICAL HISTORY: abnl thyroid blood test FINDINGS: THYROID ULTRASOUND The right thyroid gland measures 3.5 x 1.3 x 1.3 cm. The parenchyma shows normal echogenicity. There is a tiny nodule measuring 4 x 2 x 2 mm. It is solid and hypoechoic and consistent with a TI-RADS 4 nodule. The left thyroid gland measures 3.5 x 1.4 x 1.4 cm. The parenchyma shows normal echogenicity. There is a 5 x 3 x 2 mm solid/anechoic nodule consistent with a TI-RADS 1 nodule. IMPRESSION: 1. TI-RADS 4 nodule in the right thyroid lobe. 2. TI-RADS 1 nodule in the left thyroid lobe. No follow-up is required due to size. Reviewed, Interpreted and Dictated by Palomo Sandoval III, MD Transcribed by Laura Coelho Authenticated by Palomo Sandoval III, MD on 01/10/2022 04:46:34 PM [facility]
[2022-01-10 15:26] LABS: Anion Gap 13.2 mEq/L (5-15); Blood Urea Nitrogen 13 mg/dl (7-17); Calcium 9.4 mg/dl (8.4-10.2); Carbon Dioxide 26 mmol/L (22.0-30.0); Chloride 106 mmol/L (98-107); Estimated Glomerular Filt Rate 88 ml/min (>60); GFR (African American) 106 ML/MIN (>60); Glucose 88 mg/dl (74-100); Potassium 5.2 mmoL/L (3.5-5.1); Sodium 140 mmol/L (136-145)
[2022-01-10 16:34] LABS: Vitamin B12 229 pg/mL (239-931)
[2022-01-10 16:35] LABS: Folate 6.47 ng/mL
== END ==
PROVIDERS: PCP Physician Assistant; Visit Provider Physician Assistant
DX: E01.0 Iodine-deficiency related diffuse (endemic) goiter (principal); E06.3 Autoimmune thyroiditis; R22.0 Localized swelling, mass and lump, head; R22.1 Localized swelling, mass and lump, neck; R79.89 Other specified abnormal findings of blood chemistry
CPT/HCPCS: 36415; 76536; 80048; 82607; 82746

== ENCOUNTER → 2022-01-16 12:50 | Outpatient (CLI) | payer OTHER, SELFPAY ==
--- NOTE | 2022-01-16 12:50 | CT_ITS ---
FINAL REPORT TECHNIQUE: Thin section axial CT images with coronal reformats were obtained through the neck after the administration of IV contrast. This study was performed with techniques to keep radiation doses as low as reasonably achievable (ALARA). Individualized dose reduction techniques using automated exposure control or adjustment of mA and/or kV according to the patient''s size were employed. CLINICAL HISTORY: swelling of anterior neck FINDINGS: There are multiple scattered cervical lymph nodes measuring up to 2.0 cm in greatest dimension. The thyroid is unremarkable. Limited images of the lung apices are unremarkable. The glottis and supraglottic areas are unremarkable. No acute osseous abnormality is identified. There is mild mucoperiosteal thickening of the right maxillary sinus. There are no air-fluid levels. IMPRESSION: Mild to moderate cervical lymphadenopathy may be reactive. There is no dominant mass. A follow-up CT is recommended to assess chronicity. Reviewed, Interpreted and Dictated by Kurt Swartz MD Transcribed by MICHAEL Horner Authenticated by Kurt Swartz MD on 01/16/2022 03:53:25 PM [facility]
--- NOTE | 2022-01-16 12:50 | CT_ITS ---
FINAL REPORT TECHNIQUE: After the administration of intravenous contrast, axial images through the chest were performed by computed tomography. This study was performed with techniques to keep radiation doses as low as reasonably achievable, (ALARA). Individualized dose reduction techniques using automated exposure control or adjustment of mA and/or kV according to the patient's size were employed. CLINICAL HISTORY: swelling of anterior neck COMPARISON: March 24, 2019 FINDINGS: There is no axillary adenopathy. There is no hilar or mediastinal adenopathy. The heart size is normal. There is no pericardial or pleural effusion. Limited images of the upper abdomen demonstrates benign appearing cysts in the liver with the largest measuring up to 1.9 cm in greatest dimension. There are some small lymph nodes about the celiac axis. Individual nodes measure up to 1.6 cm and are unchanged from the previous. No suspicious infiltrate or nodule identified. IMPRESSION: Benign-appearing cysts in the liver. Borderline size celiac lymph nodes. Reviewed, Interpreted and Dictated by Kutr Swartz MD Transcribed by Pallavi Moody Authenticated by Kurt Swartz MD on 01/16/2022 02:58:[address] [facility]
== END ==
PROVIDERS: PCP Physician Assistant; Visit Provider Physician Assistant
DX: R22.0 Localized swelling, mass and lump, head (principal); R22.1 Localized swelling, mass and lump, neck
CPT/HCPCS: 70491; 71260; Q9967

== ENCOUNTER → 2022-04-30 09:40 | Outpatient (CLI) | payer OTHER, SELFPAY | PROVIDERS: PCP Physician Assistant; Visit Provider Physician Assistant | DX: R21 Rash and other nonspecific skin eruption (principal); B95.7 Other staphylococcus as the cause of diseases classified elsewhere | CPT/HCPCS: 87070; 87077; 87186; 87205 ==

== ENCOUNTER → 2022-06-06 11:05 | Outpatient (CLI) | payer OTHER, SELFPAY ==
--- NOTE | 2022-06-06 11:05 | MR_ITS ---
FINAL REPORT CLINICAL HISTORY: lbp bilateral radiculopathy. BILATERAL LEG PAIN, NUMBNBESS AND TINGLING. LBP FOR 6-7MONTHS. NO INJURY OR TRAUMA. FINDINGS: Multiplanar MR imaging of the lumbar spine was performed without contrast. On the sagittal T2-weighted images, there is abnormal decreased signal throughout the lumbar discs. The vertebrae are of normal height. The vertebral alignment is normal. L1-2: There is no significant canal stenosis or neural foraminal narrowing. L2-3: There is no significant canal stenosis or neural foraminal narrowing. L3-4: There is no significant canal stenosis or neural foraminal narrowing. L4-5: There is a mild diffuse disc bulge with mild bilateral neural foraminal narrowing. L5-S1: There is no significant canal stenosis or neural foraminal narrowing. IMPRESSION: Mild disc bulge with mild bilateral neural foraminal narrowing at L4-L5. Reviewed, Interpreted and Dictated by Kurt Swartz MD Transcribed by Rufus Oquendo Authenticated and [facility]
== END ==
PROVIDERS: PCP Physician Assistant; Visit Provider Physician Assistant
DX: M54.50 Low back pain, unspecified (principal); M54.10 Radiculopathy, site unspecified
CPT/HCPCS: 72148; 76376

== ENCOUNTER 2022-06-08 19:40 | Emergency (ER) | payer OTHER, SELFPAY ==
[2022-06-08 19:41] VITALS: BP 181/100; PULSE 108; RESP 16; TEMP 36.7; O2SAT 98; BMI 33.5
--- NOTE | 2022-06-08 21:23 | HMH.EDBACK ---
ED Disposition Clinical Impression: Lumbar radiculopathy Disposition: Home, Self-Care Condition on Discharge: Good Instructions: DI for Lumbar Radiculopathy Additional Instructions: use meds and see pcp for follow up Prescriptions: predniSONE [Prednisone 20mg Tab] 20 mg PO BID #10 tab Transmission Status: Pending to [id number] Referrals: Michelle Quiñonez PA [Primary Care Provider] - - Critical Care Critical Care Time: No Attestation: On 06/08/22, the high probability of a clinically significant, sudden or life threatening deterioration of the following system(s) required my full and direct attention, intervention and personal management. The time I documented below is in addition to time spent performing reported procedures but includes the following listed in this critical care notation. Medical Decision Making - Medical Records Medical records reviewed: Yes: I reviewed the patient's medical records. - Hugo Inquiry Pt receiving controlled substance: No Vital Signs: 06/08/22 19:41 Temperature 98.1 F Temperature Source Oral Pulse Rate [Right] 108 H Respiratory Rate 16 Blood Pressure [Right Arm] 181/100 H Blood Pressure Mean [Right Arm] 127 02 Sat by Pulse Oximetry 98 Orders (Tests/Meds): ED MEDICATIONS Discontinued Medications Generic Name Dose Route Start Last Admin Trade Name Freq PRN Reason Stop Dose Admin Hydromorphone HCl 1 mg 06/08/22 21:22 Hydromorphone 2mg/Ml Syringe IM 06/08/22 21:23 ONCE ONE Methylprednisolone Sodium Succinate 125 mg 06/08/22 21:22 Methylprednisolone Sod Succ 125mg Vial IM 06/08/22 21:23 ONCE ONE Medical Decision Narrative: has acute lumbar radicular pain with no cauda equina sx and has seen pcp Back Pain HPI - General Chief Complaint: Back Pain/Injury Stated Complaint: pain back&Leg Time Seen by Provider: 06/08/22 21:23 Mode of Arrival: Wheelchair Source of Information: Patient, Parent(s), Medical Record Limitations: No Limitations Description of Symptoms (Recalled from ER Triage Doc. by RN): pt c/o lower back pain radiating bilateral to legs x 3 weeks.pt states unable to lift lt leg but is able able to bear weight pt had mri on 06/06 - History of Present Illness HPI Narrative: acute exacerbation of lumbar pain with radiation to lt lower leg - w/o fever/trauma or rash - has known lumbar dis - no cauda equina sx Complaint: back pain Onset (ago): day(s) Duration: constant Similar Symptoms Previously: Yes Location: lumbar spine Severity: severe Quality: sharp Radiation: left leg Exacerbating factors: movement Associated symptoms: denies other symptoms Treatments prior to arrival: prescription analgesics - Related Data Home Medications Medication Instructions Recorded Confirmed furosemide 20 mg tablet 20 mg PO tab 12/06/21 05/31/22 ketoconazole 2 % topical cream applic TOPICAL 01/03/22 05/31/22 cyanocobalamin (vitamin B-12) 1,000 mcg SQ QMONTH ml 04/30/22 05/31/22 1,000 mcg/mL injection solution famotidine 20 mg tablet 20 mg PO HS tab 04/30/22 05/31/22 syringe with needle 3 mL 25 gauge See Rx Instructions .ROUTE 04/30/22 05/31/22 x 1 .MEDSUPPLY #1 each Previous Rx's Medication Instructions Recorded meclizine 12.5 mg tablet 12.5 mg PO TID PRN #30 tab 01/23/21 cholecalciferol (vitamin D3) 25 25 mcg PO DAILY #90 cap 01/09/22 mcg (1,000 unit) capsule levothyroxine 25 mcg capsule 25 mcg PO DAILY #90 cap 01/09/22 cholecalciferol (vitamin D3) 1,250 See Rx Instructions .ROUTE 04/02/22 mcg (50,000 unit) capsule .COMPLEX #4 cap albuterol sulfate 90 mcg/actuation See Rx Instructions .ROUTE 04/29/22 aerosol inhaler .COMPLEX #8.5 g aspirin 81 mg tablet,delayed See Rx Instructions .ROUTE 04/29/22 release .COMPLEX #90 tab atorvastatin 40 mg tablet See Rx Instructions .ROUTE 04/29/22 .COMPLEX #90 tab lisinopril 5 mg tablet See Rx Instructions .ROUTE 04/29/22 .COMPLEX #90 tab
[2022-06-08 21:25] VITALS: BP 167/78; PULSE 100; RESP 16; TEMP 36.7; O2SAT 98
== END 2022-06-08 21:39 | disposition home or self-care (01) ==
PROVIDERS: Emergency Provider Emergency Medicine; PCP Physician Assistant
DX: M54.16 Radiculopathy, lumbar region (principal); F17.210 Nicotine dependence, cigarettes, uncomplicated
CPT/HCPCS: 96372; 99283

== ENCOUNTER 2022-06-10 14:25 | Emergency (ER) | payer OTHER, SELFPAY ==
[2022-06-10] VITALS (10 sets, daily range): BP systolic 104–170; BP diastolic 50–106; PULSE 61–84; RESP 14–18; TEMP 36.6–36.7; O2SAT 95–100; BMI 33.5
--- NOTE | 2022-06-10 14:23 | ECG_ITS ---
APPROVED REPORT Exam: Resting ECG HR:76 bpm ECG Measurements Heart Rate 76 AXES AL 159 P 68 QRSd 88 QRS 49 QT 359 T 50 QTc 389 Conclusion SINUS RHYTHM NORMAL ECG UNCONFIRMED REPORT Electronically signed by : Telly Collier MD 06/12/2022 21:05:51
--- NOTE | 2022-06-10 14:30 | XR_ITS ---
FINAL REPORT CLINICAL HISTORY: CHEST PAIN FINDINGS: The heart size is normal. The mediastinum is normal. There is mild left lung base atelectasis or scarring. There are no pleural effusions. There is no pneumothorax. There is no osseous abnormality. IMPRESSION: Mild left base atelectasis or scarring. Reviewed, Interpreted and Dictated by Palomo Sandoval III, MD Transcribed by Rufus Oquendo Authenticated and . [facility]
--- NOTE | 2022-06-10 15:04 | HMH.EDCP ---
ED Disposition Clinical Impression: Chest pain Qualifiers: Chest pain type: precordial pain Qualified Code(s): R07.2 - Precordial pain Disposition: Home, Self-Care Condition on Discharge: Good Instructions: DI for Atypical Chest Pain Additional Instructions: Call your station cook tomorrow morning for close follow-up. Avoid exertion. Return for worsening chest pain or other concerns. You may also consider following up with pain management and/or a local neurosurgeon with respect to your back and lower extremity issues. Referrals: Telly Collier MD [Primary Care Provider] - - Critical Care Critical Care Time: No Attestation: On , the high probability of a clinically significant, sudden or life threatening deterioration of the following system(s) required my full and direct attention, intervention and personal management. The time I documented below is in addition to time spent performing reported procedures but includes the following listed in this critical care notation. Medical Decision Making - Medical Records Medical records reviewed: Yes: I reviewed the patient's medical records. - Hugo Inquiry Pt receiving controlled substance: No Vital Signs: 06/10/22 14:26 06/10/22 15:04 06/10/22 15:30 Temperature 97.8 F Temperature Source Oral Pulse Rate 84 Pulse Rate [Left Radial] 84 Respiratory Rate 18 16 Blood Pressure 120/81 137/90 Blood Pressure [Right Arm] 136/79 Blood Pressure Mean 98 97 Blood Pressure Mean [Right Arm] 98 Blood Pressure Source [Right Arm] Automatic Cuff Blood Pressure Position [Right Arm] Sitting 02 Sat by Pulse Oximetry 98 100 98 Oxygen Delivery Method Room Air 06/10/22 16:01 06/10/22 16:30 06/10/22 16:55 Temperature Temperature Source Pulse Rate 66 68 76 Pulse Rate [Left Radial] Respiratory Rate 16 18 18 Blood Pressure 158/94 H 170/106 H 112/75 Blood Pressure [Right Arm] Blood Pressure Mean 115 117 90 Blood Pressure Mean [Right Arm] Blood Pressure Source [Right Arm] Blood Pressure Position [Right Arm] 02 Sat by Pulse Oximetry 97 98 97 Oxygen Delivery Method Room Air 06/10/22 17:15 06/10/22 17:30 Temperature Temperature Source Pulse Rate 61 65 Pulse Rate [Left Radial] Respiratory Rate 14 18 Blood Pressure 104/50 L 127/81 Blood Pressure [Right Arm] Blood Pressure Mean 92 Blood Pressure Mean [Right Arm] Blood Pressure Source [Right Arm] Blood Pressure Position [Right Arm] 02 Sat by Pulse Oximetry 95 97 Oxygen Delivery Method - Lab Data Lab results reviewed: Yes: I reviewed the patient's lab results. Lab Results 06/10/22 14:45: WBC 19.0 H, RBC 4.32, Hgb 13.8, Hct 40.8, MCV 94.6, MCH 32.1 H, MCHC 33.9, RDW 13.9, Plt Count 396, MPV 8.6, Neut % (Auto) 63.0, Lymph % (Auto) 31.0, [place] % (Auto) 3.9, Eos % (Auto) 1.4, Baso % (Auto) 0.6, Neut # (Auto) 12.0 H, Lymph # (Auto) 5.9 H, [place] # (Auto) 0.8, Eos # (Auto) 0.3, Baso # (Auto) 0.1, Total Counted 100, Neutrophils % (Manual) 47, Lymphocytes % (Manual) 46, Monocytes % (Manual) 4, Eosinophils % (Manual) 3, Platelet Estimate Normal, Target Cells 1+, Stomatocytes 1+ 06/10/22 14:45: Sodium 141, Potassium 3.6, Chloride 106, Carbon Dioxide 31 H, Anion Gap 7.6, BUN 14, Creatinine 0.70, Estimated Creat Clear 130, Estimated GFR 88, Est GFR ( Amer) 106, Glucose 103 H, Calcium 9.9, Troponin I < 0.01 06/10/22 16:43: Troponin I < 0.01 Result diagrams: 06/10/22 14:45 06/10/22 14:45 Orders (Tests/Meds): ED MEDICATIONS Generic Name Dose Route Start Last Admin Trade Name Freq PRN Reason Stop Dose Admin Sodium Chloride 10 ml 06/10/22 14:30 Sodium Chloride 0.9% 10ml Flush Syringe IV 07/10/22 14:29 NEEDED PRN Maintain IV Site Discontinued Medications Generic Name Dose Route Start Last Admin Trade Name Freq PRN Reason Stop Dose Admin Hydromorphone HCl 1 mg 06/10/22 16:31 06/10/22 16:33 Hydromorphone 2mg/Ml Syringe IV 06/10/22 1
[2022-06-10 15:08] LABS: Chloride 106 mmol/L (98-107); Potassium 3.6 mmoL/L (3.5-5.1); Sodium 141 mmol/L (136-145)
[2022-06-10 15:10] LABS: Blood Urea Nitrogen 14 mg/dl (7-17)
[2022-06-10 15:11] LABS: Anion Gap 7.6 mEq/L (5-15); Calcium 9.9 mg/dl (8.4-10.2); Carbon Dioxide 31 mmol/L (22.0-30.0); Creatinine Clearance Estimated 130 mL/min (50-200); Estimated Glomerular Filt Rate 88 ml/min (>60); GFR (African American) 106 ML/MIN (>60); Glucose 103 mg/dl (74-100)
[2022-06-10 15:17] LABS: Basophils # 0.1 K/mm3 (0-0.2); Basophils % 0.6 % (0.1-2.0); Eosinophils # 0.3 K/mm3 (0.0-0.4); Eosinophils % 1.4 % (0.1-12.0); Hematocrit 40.8 % (37.0-47.0); Hemoglobin 13.8 g/dL (12.2-16.2); Lymphocytes # 5.9 K/mm3 (0.7-4.5); Mean Corpuscular HGB Conc 33.9 g/dL (31.8-35.4); Mean Corpuscular Hemoglobin 32.1 pg (27.0-31.2); Mean Corpuscular Volume 94.6 fl (81-99); Mean Platelet Volume 8.6 fl (7.4-10.4); Monocytes # 0.8 K/mm3 (0.1-1.0); Monocytes % 3.9 % (1.7-9.3); Platelet Count 396 K/mm3 (142-424); Red Blood Count 4.32 M/mm3 (4.20-5.40); Red Cell Distribution Width 13.9 % (11.5-17.5)
--- NOTE | 2022-06-10 15:18 | PC.NURSE ---
pt medicated per ANNE MARIE warm blanket given, glass of ice water given (okayed per ER ) call light within reach
[2022-06-10 15:20] LABS: MANUAL DIFFERENTIAL MANUAL DIFFERENTIAL (MANUAL DIFF)
[2022-06-10 15:28] LABS: Troponin I < 0.01 ng/ml (0.00-0.034)
--- NOTE | 2022-06-10 15:45 | PC.NURSE ---
PT C/O PAIN EVERYWHERE , HIPS, LOW BACK AND CHEST PT REQUESTING MORE PAIN MEDS , MD AWARE AND NEW MED ORDERS IN
--- NOTE | 2022-06-10 16:20 | PC.NURSE ---
MD aware of pain still having pain with no relief with morphine
--- NOTE | 2022-06-10 16:26 | PC.NURSE ---
hair rooting machine operator paging dr. bobo
--- NOTE | 2022-06-10 16:28 | PC.NURSE ---
KAHLIL CAMARA speaking with Dr. Caraballo
--- NOTE | 2022-06-10 16:30 | PC.NURSE ---
per ER MD dr. bobo request pt get a second troponin level when is due ER MD gave verbal order for Dilaudid 1mg IV One time dose
--- NOTE | 2022-06-10 16:41 | PC.NURSE ---
medicated pt per MAR for pain, adjusted pt bed for comfort, assured pt we are monitoring her VS, pt was concerned about bp. Have notified ER MD of pt concern about BP, no new orders obtained regarding bp. pt also requested medication for nausea. ER MD gave verbal order for phenergan 12.5 mg IV Once
--- NOTE | 2022-06-10 16:46 | PC.NURSE ---
2nd troponin sent to lab.
[2022-06-10 17:16] LABS: Troponin I < 0.01 ng/ml (0.00-0.034)
[2022-06-10 18:08] LABS: Eosinophils % 3 % (0-3); Lymphocytes % 46 % (10-50); Monocytes % 4 % (2-9); Neutrophils % 47 % (42-76); Platelet Estimate Normal; Target Cells 1+; Total Cells Counted 100
[2022-06-10 18:09] LABS: Stomatocytes 1+
== END 2022-06-10 18:54 | disposition home or self-care (01) ==
PROVIDERS: Emergency Provider Emergency Medicine; PCP Internal Medicine Adolescent Medicine
DX: R07.2 Precordial pain (principal); Z79.899 Other long term (current) drug therapy; Z88.0 Allergy status to penicillin; Z88.6 Allergy status to analgesic agent; Z88.8 Allergy status to other drugs, medicaments and biological substances; I25.10 Atherosclerotic heart disease of native coronary artery without angina pectoris; I25.2 Old myocardial infarction; I10 Essential (primary) hypertension; E78.5 Hyperlipidemia, unspecified; R00.2 Palpitations; F41.9 Anxiety disorder, unspecified; E07.9 Disorder of thyroid, unspecified
CPT/HCPCS: 71045; 80048; 84484; 85007; 85025; 93005; 96374; 96375; 96376; 99284; J2405

== ENCOUNTER → 2022-06-18 12:45 | Outpatient (CLI) | payer OTHER, SELFPAY | PROVIDERS: PCP Physician Assistant; Visit Provider Physician Assistant | DX: G47.33 Obstructive sleep apnea (adult) (pediatric) (principal); R06.83 Snoring | CPT/HCPCS: 95806 ==

== ENCOUNTER 2022-06-23 19:36 | Emergency (ER) | payer OTHER, SELFPAY ==
[2022-06-23 19:37] VITALS: BP 128/64; PULSE 83; RESP 17; TEMP 37; O2SAT 99; BMI 33.5
[2022-06-23 19:50] LABS: Coronavirus 19, PCR Not Detected (NotDetected); Influenza A, PCR Not Detected (NotDetected); Influenza B, PCR Not Detected (NotDetected)
--- NOTE | 2022-06-23 19:56 | XR_ITS ---
PROCEDURE INFORMATION: Exam: XR Chest Exam date and time: 06/23/2022 8:11 PM Age: 51 years old Clinical indication: Other: Lue tingling and pain; Prior surgery; Surgery date: 6+ months; Surgery type: Cardiac stents 3 years ago. Patient HX: Patient had cardiac stents placed 3 years ago. Smoker. TECHNIQUE: Imaging protocol: Radiologic exam of the chest. Views: 1 view. COMPARISON: CR XR CHEST PORTABLE 06/10/2022 2:59 PM FINDINGS: Lungs: Mild atelectasis in the left lung base. Granulomatous change. No consolidation. Pleural spaces: Unremarkable. No pleural effusion. No pneumothorax. Heart/Mediastinum: Unremarkable. No cardiomegaly. Bones/joints: Unremarkable. IMPRESSION: No acute findings.
--- NOTE | 2022-06-23 20:03 | PC.NURSE ---
RAD at BS for XRAY
[2022-06-23 20:05] VITALS: BP 122/92; PULSE 79; O2SAT 98
--- NOTE | 2022-06-23 20:21 | HMH.EDGENADL ---
ED Disposition <Pierce Phillips - Last Filed: 06/23/22 20:28> Condition on Discharge: Good - Critical Care Critical Care Time: No <Tania Hills - Last Filed: 06/24/22 01:19> Clinical Impression: Fibromyalgia, Cervical radicular pain Chronic pain Qualifiers: Chronic pain type: chronic pain syndrome Qualified Code(s): G89.4 - Chronic pain syndrome Disposition: Home, Self-Care Instructions: DI for Chronic Pain -- Adult Additional Instructions: Please follow-up with your primary care provider over the next 48 hours. It is important that you establish care with a pain clinic. Return to the emergency department for any new or concerning symptoms. Referrals: Michelle Quiñonez PA [Primary Care Provider] - Attestation: On 06/23/22, the high probability of a clinically significant, sudden or life threatening deterioration of the following system(s) required my full and direct attention, intervention and personal management. The time I documented below is in addition to time spent performing reported procedures but includes the following listed in this critical care notation. Medical Decision Making - Hugo Inquiry Pt receiving controlled substance: No <Pierce Phillips - Last Filed: 06/23/22 20:28> - Hugo Inquiry Pt receiving controlled substance: No - Lab Data Result diagrams: 06/23/22 21:10 06/23/22 21:10 <Tania Hills N - Last Filed: 06/24/22 01:19> Vital Signs: 06/23/22 19:37 06/23/22 20:05 06/23/22 20:35 Temperature 98.6 F Temperature Source Oral Pulse Rate 79 74 Pulse Rate [Right] 83 Respiratory Rate 17 Blood Pressure 122/92 H 126/81 Blood Pressure [Right Arm] 128/64 Blood Pressure Mean [Right Arm] 85 Blood Pressure Source [Right Arm] Automatic Cuff 02 Sat by Pulse Oximetry 99 98 96 Oxygen Delivery Method Room Air 06/23/22 21:06 06/23/22 21:35 06/23/22 23:18 Temperature 98.2 F Temperature Source Oral Pulse Rate 77 68 85 Pulse Rate [Right] Respiratory Rate 20 Blood Pressure 123/80 128/82 152/85 H Blood Pressure [Right Arm] Blood Pressure Mean [Right Arm] Blood Pressure Source [Right Arm] 02 Sat by Pulse Oximetry 96 98 Oxygen Delivery Method Room Air Room Air Room Air - Lab Data Lab Results 06/23/22 19:40: SARS-CoV-2 (PCR) Not detected, Influenza A Untype (PCR) Not detected, Influenza Type B (PCR) Not detected 06/23/22 21:10: WBC 10.5, RBC 4.21, Hgb 13.3, Hct 40.5, MCV 96.3, MCH 31.6 H, MCHC 32.8, RDW 14.0, Plt Count 362, MPV 9.3, Neut % (Auto) 54.0, Lymph % (Auto) 35.1, [place] % (Auto) 4.7, Eos % (Auto) 4.6, Baso % (Auto) 1.6, Neut # (Auto) 5.7, Lymph # (Auto) 3.7, [place] # (Auto) 0.5, Eos # (Auto) 0.5 H, Baso # (Auto) 0.2 06/23/22 21:10: Sodium 139, Potassium 3.9, Chloride 106, Carbon Dioxide 27, Anion Gap 9.9, BUN 11, Creatinine 0.80, Estimated Creat Clear 114, Estimated GFR 75, Est GFR ( Amer) 91, Glucose 121 H, Calcium 9.9, Total Bilirubin < 0.1 L, AST 25, ALT 22, Alkaline Phosphatase 127 H, Troponin I < 0.01, Total Protein 7.3, Albumin 4.3, Globulin 3.0, Albumin/Globulin Ratio 1.4, Lipase 32 Orders (Tests/Meds): ED MEDICATIONS Discontinued Medications Generic Name Dose Route Start Last Admin Trade Name Hunter PRN Reason Stop Dose Admin Hydrocodone Bitart/Acetaminophen 2 tab 06/23/22 19:56 06/23/22 20:50 Hydrocodone/Apap 5/325 Mg Tablet PO 06/23/22 19:57 2 tab ONCE ONE Administration Gabapentin 300 mg 06/23/22 21:51 06/23/22 23:13 Gabapentin 300mg Capsule PO 06/23/22 21:52 300 mg ONCE ONE Administration Hydromorphone HCl 1 mg 06/23/22 23:03 06/23/22 23:16 Hydromorphone 2mg/Ml Syringe IM 06/23/22 23:04 1 mg ONCE ONE Administration Ondansetron HCl 4 mg 06/23/22 23:03 06/23/22 23:16 Ondansetron 4mg Odt SL 06/23/22 23:04 4 mg ONCE ONE Administration Medical Decision Narrative: this is a 51-year-old female with history of fibromyalgia, Scoliosis, degenerative disc disease, os
--- NOTE | 2022-06-23 20:30 | ECG_ITS ---
APPROVED REPORT Exam: Resting ECG HR:84 bpm ECG Measurements Heart Rate 84 AXES LA 155 P 76 QRSd 88 QRS 66 QT 346 T 73 QTc 387 Conclusion SINUS RHYTHM NORMAL ECG UNCONFIRMED REPORT Electronically signed by : Telly Collier MD 06/24/2022 20:36:48
[2022-06-23 20:35] VITALS: BP 126/81; PULSE 74; O2SAT 96
--- NOTE | 2022-06-23 21:05 | PC.NURSE ---
LAB at attempting to draw blood for labs
[2022-06-23 21:06] VITALS: BP 123/80; PULSE 77; O2SAT 96
[2022-06-23 21:19] LABS: Basophils # 0.2 K/mm3 (0-0.2); Basophils % 1.6 % (0.1-2.0); Eosinophils # 0.5 K/mm3 (0.0-0.4); Eosinophils % 4.6 % (0.1-12.0); Hematocrit 40.5 % (37.0-47.0); Hemoglobin 13.3 g/dL (12.2-16.2); Lymphocytes # 3.7 K/mm3 (0.7-4.5); Lymphocytes % 35.1 % (10-50); Mean Corpuscular HGB Conc 32.8 g/dL (31.8-35.4); Mean Corpuscular Hemoglobin 31.6 pg (27.0-31.2); Mean Corpuscular Volume 96.3 fl (81-99); Mean Platelet Volume 9.3 fl (7.4-10.4); Monocytes # 0.5 K/mm3 (0.1-1.0); Monocytes % 4.7 % (1.7-9.3); Neutrophils # 5.7 K/mm3 (1.8-7.8); Platelet Count 362 K/mm3 (142-424); Red Blood Count 4.21 M/mm3 (4.20-5.40); White Blood Count 10.5 K/mm3 (4.8-10.8)
[2022-06-23 21:25] LABS: Chloride 106 mmol/L (98-107)
[2022-06-23 21:26] LABS: Potassium 3.9 mmoL/L (3.5-5.1); Sodium 139 mmol/L (136-145)
[2022-06-23 21:28] LABS: Alanine Aminotransferase 22 U/L (12-78); Aspartate Amino Transferase 25 U/L (14-36); Blood Urea Nitrogen 11 mg/dl (7-17); Creatinine Clearance Estimated 114 mL/min (50-200); Estimated Glomerular Filt Rate 75 ml/min (>60); GFR (African American) 91 ML/MIN (>60)
[2022-06-23 21:29] LABS: Albumin Level 4.3 g/dl (3.5-5.0); Albumin/Globulin Ratio 1.4 (1.1-1.8); Alkaline Phosphatase 127 U/L (38-126); Anion Gap 9.9 mEq/L (5-15); Calcium 9.9 mg/dl (8.4-10.2); Carbon Dioxide 27 mmol/L (22.0-30.0); Glucose 121 mg/dl (74-100); Lipase 32 U/L (23-300); Total Protein,Serum 7.3 g/dl (6.3-8.2)
[2022-06-23 21:32] LABS: Bilirubin,Total < 0.1 mg/dl (0.2-1.3)
[2022-06-23 21:35] VITALS: BP 128/82; PULSE 68; O2SAT 98
[2022-06-23 21:47] LABS: Troponin I < 0.01 ng/ml (0.00-0.034)
--- NOTE | 2022-06-23 22:38 | PC.NURSE ---
Pt very difficult stick. Multiple staff members have attempted multiple try. [facility] was able to obtain some blood. PT resting in bed at this time
--- NOTE | 2022-06-23 22:58 | PC.NURSE ---
at BS speaking with pt
[2022-06-23 23:18] VITALS: BP 152/85; PULSE 85; RESP 20; TEMP 36.8; O2SAT 97
== END 2022-06-23 23:20 | disposition home or self-care (01) ==
PROVIDERS: Emergency Provider Emergency Medicine; PCP Physician Assistant
DX: G89.4 Chronic pain syndrome (principal); Z79.899 Other long term (current) drug therapy; M79.7 Fibromyalgia; M41.9 Scoliosis, unspecified; M19.90 Unspecified osteoarthritis, unspecified site; I25.10 Atherosclerotic heart disease of native coronary artery without angina pectoris; Z88.0 Allergy status to penicillin; Z88.6 Allergy status to analgesic agent; Z88.8 Allergy status to other drugs, medicaments and biological substances; I10 Essential (primary) hypertension; I25.2 Old myocardial infarction; R00.2 Palpitations; E07.9 Disorder of thyroid, unspecified
CPT/HCPCS: 36415; 71045; 80053; 83690; 84484; 85025; 93005; 96372; 99285; C9803; U0003; U0005

== ENCOUNTER → 2022-07-09 08:20 | Outpatient (POV) | payer OTHER, SELFPAY ==
[2022-07-09 08:28] VITALS: BP 111/72; PULSE 83; RESP 18; O2SAT 96; BMI 33.5
--- NOTE | 2022-07-09 15:03 | HMH.PMCON ---
Assessment and Plan (1) Low back pain Status: Acute Category: Medical Code(s): M54.50 - Low back pain, unspecified (2) Right shoulder pain Status: Acute Category: Medical Code(s): M25.511 - Pain in right shoulder (3) Bilateral knee pain Status: Acute Category: Medical Code(s): M25.561 - Pain in right knee; M25.562 - Pain in left knee - Assessment and plan all Dx Assessment and Plan for all problems:: Patient has significant pain in her right shoulder, and low back that radiates down bilateral extremities, as well as bilateral knee pain. I have discussed with the patient regarding trying a diagnostic lumbar epidural steroid injection. Risk and benefits were discussed with the patient. She would like to proceed forward with this injection. She is not currently on any blood thinners. I will also order the patient bilateral knee x-rays and refer the patient for physical therapy for her low back pain and knee pain. I will also order the patient a compounding cream at today's visit. We will schedule the patient for a LESI at L4-L5. We will follow-up and reevaluate her symptoms following this injection. Patient has been instructed to contact the clinic with any concerns before the next appointment. Dr. Xie has reviewed this note and agrees with this plan of care. This note was dictated using voice recognition software and make contain errors or omissions. HPI - Data of Consult Patient: new to practice Consult date: 07/09/22 Requesting Physician: Tania Jewell APRN Primary Care Provider: MICHAEL Killian - Consult Narrative Reason for consult: Bilateral knee pain, low back pain, right shoulder pain History of present illness: Ms. Ward is a 51 year old female who presents today as a new patient. She is a referral from Michelle Quiñonez. Today she rates her pain a 6 out of 10. She states she has pain in her right shoulder and low back that radiates down bilateral legs to her toes. She also states she has bilateral knee pain. Patient denies any new trauma or injury. She states that she has had chronic pain for several years. She states that she started having leg pain since 2016. She describes her pain as a stiff, aching, throbbing sensation that radiates down bilateral lower extremities and has a numbing, tingling sensation. Patient has tried qzpb-sam-xvnnava ibuprofen that did initially help however it no longer does. She states heat seems to make her pain worse. She has tried ice and topical [id number] creams with minimal relief. She has also been seen in the ER for this pain. Patient states she has had a MRI of her lumbar spine recently and a cervical CT. She is managed with Lyrica 50 mg 3 times a day by Michelle Quiñonez. Patient denies any side effects from this medication. Patient just recently started taking this medication in the middle of May and states that he has not noticed a significant difference in her pain symptoms just yet. She she is interested in injective therapy. Her Hugo is [phone]. It has been reviewed and appropriate. CC: Tania Jewell APRN [facility] History I have reviewed the patient's past medical history: Yes Medical History: Reports:: Anxiety, Coronary Artery Disease, Hyperlipidemia, Hypertension, Myocardial Infarction, Palpitations, Valvular Heart Disease Denies:: Cancer, Diabetes Mellitus Type 1, Diabetes Mellitus Type 2, Internal Pacemaker, MRSA, Seizures *Have you ever received a pneumonia vaccine?: No *Have you received a flu vaccine this season?: No Other Medical History: Reports: Arthritis, Fibromyalgia, Hypothyroidism, Thyroid Disease Laterality Cases: Left: Arthroscopy Knee Other Surgeries: Yes: Cardiac Catheterization, Cardiac Surgery, Colonoscopy, Coronary Stent, EGD, Hysterectomy-Total, Hysterectomy-Partial, Tubal Ligation, Other. No: Pacemaker Amputation: No Fractures: No - *Social History Smoking Status: Current every day smoker Tobacco Type: cigarettes
== END ==
PROVIDERS: PCP Physician Assistant; Visit Provider Nurse Practitioner Family
DX: M54.50 Low back pain, unspecified (principal); M25.511 Pain in right shoulder; M25.561 Pain in right knee; M25.562 Pain in left knee
CPT/HCPCS: 99202; G0463

== ENCOUNTER → 2022-07-09 09:10 | Outpatient (CLI) | payer OTHER, SELFPAY ==
--- NOTE | 2022-07-09 | XR_ITS ---
FINAL REPORT CLINICAL HISTORY: bilat knee pain FINDINGS: Two weight-bearing views of the right knee were obtained. There is no evidence of fracture or dislocation. The bony alignment is normal. The joint spaces are preserved. There are mild and moderate degenerative changes. No localized soft tissue abnormality is identified. IMPRESSION: Degenerative changes with no acute abnormality identified. Reviewed, Interpreted and Dictated by Palomo Sandoval III, MD Transcribed by Grisel Dai Authenticated and . [facility]
--- NOTE | 2022-07-09 | XR_ITS ---
FINAL REPORT CLINICAL HISTORY: bilat knee pain FINDINGS: Two weight-bearing views of the left knee were obtained. There is no evidence of fracture or dislocation. The bony alignment is normal. There are mild and moderate degenerative changes. There is no evidence of joint effusion. No localized soft tissue abnormality is seen. There is a small calcification adjacent to the superior pole of the patella that may represent a loose body. IMPRESSION: No acute abnormality identified. Small calcification adjacent to the superior pole of the patella that may represent loose body. Reviewed, Interpreted and Dictated by Palomo Sandoval III, MD Transcribed by Grisel Dai Authenticated and [facility]
== END ==
PROVIDERS: PCP Physician Assistant; Visit Provider Nurse Practitioner Family
DX: M25.562 Pain in left knee (principal); M25.561 Pain in right knee; M54.50 Low back pain, unspecified
CPT/HCPCS: 73560

== ENCOUNTER 2022-07-23 09:36 | Day surgery (SDC) | payer OTHER, SELFPAY ==
[2022-07-23 09:41] VITALS: BP 124/76; BP 143/81; PULSE 65; PULSE 69; RESP 20; TEMP 36.4; O2SAT 99; BMI 32.5
[2022-07-23 09:57] VITALS: BP 127/79; PULSE 68; RESP 18; O2SAT 99
[2022-07-23 09:59] VITALS: BP 127/79; PULSE 63; RESP 18; O2SAT 100
--- NOTE | 2022-07-23 10:11 | EXP.PAIN.PRO ---
Procedure Date: 07/23/22 Time: 10:11 Anesthesiologist:: Jj Noe CRNA Complications:: None Pre-procedure Diagnosis:: Degenerative disc disease lumbar spine multilevels. Lumbar radiculopathy symptoms. Post-procedure Diagnosis:: Same Indications for Procedure:: This patient is a pleasant 51-year-old female that comes our clinic today for initial lumbar epidural steroid injection at the L4-5 level. Patient reports low back pain as well as bilateral hip and leg radicular pain. Patient rates her low back pain 8/10. Procedure Details:: Procedure: Lumbar epidural steroid injection under fluoroscopy Informed consent was obtained and the risks and benefits of the procedure were explained to the patient. The patient was taken to the procedure room and noninvasive monitors placed, including noninvasive blood pressure cuff and pulse oximeter. The back was viewed using C-arm Fluoroscopy and prepped using Betadine as a cleansing solution and the L4-L5 interspace was palpated. Skin and subcutaneous tissues were anesthetized using lidocaine 1.5% and a 25-gauge needle. After this, an 18-gauge Touhy epidural needle was placed into the L4-L5 interspace and advanced using fluoroscopic guidance and loss of resistance to air until the epidural space was encountered. After confirmation of needle placement in the epidural space, with dye, a solution containing lidocaine 1.5%, 4 mL and Depo-Medrol 80 mg were incrementally injected into the lumbar epidural space. The patient tolerated the procedure well with no complications. The patient was observed in the Pain Clinic and then discharged home neurologically intact. Plan and Disposition:: Patient was discharged without incident
== END 2022-07-23 10:07 | disposition home or self-care (01) ==
LOC: SC.PAINP 09:37
PROVIDERS: PCP Physician Assistant; Visit Provider Nurse Anesthetist, Certified Registered
DX: M51.16 Intervertebral disc disorders with radiculopathy, lumbar region (principal)
CPT/HCPCS: 62323; J1040

== ENCOUNTER 2022-08-07 10:00 | Outpatient (RCR) | payer OTHER, SELFPAY ==
--- NOTE | 2022-07-11 16:51 | HMH.PTOPEV ---
PT Outpatient Evaluation Rehab PT Outpatient Evaluation Start: 07/11/22 15:00 Freq: Status: Active Protocol: Document 07/11/22 15:00 MONROE (Rec: 07/11/22 16:51 PDESEROUX [id number]) Electronically Signed By Jj Joshua, PT 07/11/22 15:00 Outpatient Therapy Subjective History Subjective History Pt. is a 51 year old female who presents to [facility] in [place] for the initial evaluation this date( 07/11/22) w/ c's/o chronic and constant lumbar/BLE(L>R) knee P!, numbness/tingling, TTP, and weakness onset 5 years ago that has worsened the last 2 years. Pt. reports being able to manage symptoms 5 years ago w/ OTC Tylenol/Ibuprofen/ Aleve, but states was unable to manage symptoms w/ those OTC medications 2 years ago to date. Pt. reports she is scheduled for an epidural injection this month at the Pain Clinic at [facility]. Recent diagnostic imaging(MRI) positive for bulging discs at L4/L5 and scoliosis per pt. report. Recent diagnostic imaging(radiograph) bilateral knees positive for OA and loose body per pt. report. Pt . reports she currently requires assistance from her to stand up from the toilet, getting into/out of the bed and tub secondary to weakness and P!. Current medication list include Omeprazole, Metoprolol, Levothyroxine, Lisinopril, Lyrica, Hydrocodone, Atorvastatin, Aspirin, Tramadol, Spirolactone, and Vit. D3. PMH includes S/P LLE knee surgical reconstruction, fibromyalgia, S/P Cardiac Stents x 3, CAD, Diastolic Dysfunction, Mitral Valve Prolapse, and Hysterectomy. Chief
== END 2022-09-09 08:44 | disposition home or self-care (01) ==
LOC: PT.CARL 10:00
PROVIDERS: PCP Physician Assistant; Visit Provider Nurse Practitioner Family
DX: M54.50 Low back pain, unspecified (principal); M25.562 Pain in left knee; M25.561 Pain in right knee
CPT/HCPCS: 97010; 97012; 97014; 97110; 97140; 97163; G0283

== ENCOUNTER → 2022-08-08 16:57 | Outpatient (CLI) | payer OTHER, SELFPAY ==
[2022-08-08 15:21] LABS: Basophils # 0.1 K/mm3 (0-0.2); Basophils % 1.1 % (0.1-2.0); Eosinophils # 0.3 K/mm3 (0.0-0.4); Hematocrit 44.9 % (37.0-47.0); Hemoglobin 14.3 g/dL (12.2-16.2); Lymphocytes # 3.8 K/mm3 (0.7-4.5); Lymphocytes % 36.4 % (10-50); Mean Corpuscular HGB Conc 31.9 g/dL (31.8-35.4); Mean Corpuscular Hemoglobin 32.2 pg (27.0-31.2); Mean Platelet Volume 10.7 fl (7.4-10.4); Monocytes # 0.5 K/mm3 (0.1-1.0); Neutrophils # 5.8 K/mm3 (1.8-7.8); Neutrophils % 54.4 % (37.0-80.0); Platelet Count 384 K/mm3 (142-424); Red Blood Count 4.45 M/mm3 (4.20-5.40); Red Cell Distribution Width 13.9 % (11.5-17.5); White Blood Count 10.6 K/mm3 (4.8-10.8)
[2022-08-08 15:35] LABS: Alanine Aminotransferase 22 U/L (12-78); Albumin Level 3.8 g/dl (3.5-5.0); Albumin/Globulin Ratio 1.3 (1.1-1.8); Alkaline Phosphatase 119 U/L (38-126); Anion Gap 16.5 mEq/L (5-15); Aspartate Amino Transferase 22 U/L (14-36); Bilirubin,Total 0.2 mg/dl (0.2-1.3); Blood Urea Nitrogen 15 mg/dl (7-17); Calcium 9.4 mg/dl (8.4-10.2); Carbon Dioxide 25 mmol/L (22.0-30.0); Chloride 102 mmol/L (98-107); Chol/HDL Ratio 3.4 (1-3.5); Cholesterol 155 mg/dl (140-200); Estimated Glomerular Filt Rate 88 ml/min (>60); GFR (African American) 106 ML/MIN (>60); Globulin 2.9 g/dL (1.3-3.2); Glucose 89 mg/dl (74-100); HDL Cholesterol 45 mg/dl (40-60); Potassium 4.5 mmoL/L (3.5-5.1); Sodium 139 mmol/L (136-145); Total Protein,Serum 6.7 g/dl (6.3-8.2); Triglycerides 136 mg/dl (30-150); VLDL Cholesterol 27 mg/dL (0-40)
[2022-08-08 15:38] LABS: Hemoglobin A1C 5.9 % (4.0-6.0)
[2022-08-08 15:47] LABS: Direct LDL Cholesterol 79.58 mg/dL (100-129)
[2022-08-08 15:53] LABS: 25-OH Vitamin D, Total 27.6 ng/mL (30-100)
[2022-08-08 16:08] LABS: Thyroid Stimulating Hormone 3.66 uIU/mL (0.465-4.68)
== END ==
LOC: LAB 08-09 00:14 → LAB.DROPOF 08-09 11:20
PROVIDERS: PCP Physician Assistant; Visit Provider Physician Assistant
DX: R73.09 Other abnormal glucose (principal); E78.5 Hyperlipidemia, unspecified; E55.9 Vitamin D deficiency, unspecified
CPT/HCPCS: 80053; 80061; 82306; 83036; 84443; 85025

== ENCOUNTER → 2022-08-15 14:05 | Outpatient (CLI) | payer OTHER, SELFPAY ==
--- NOTE | 2022-08-15 14:05 | MM_ITS ---
PROCEDURE INFORMATION: Exam: US Right Breast, Complete MG Bilateral Diagnostic Breast Tomosynthesis Exam date and time: 08/15/2022 2:02 PM Age: 51 years old Clinical indication: Right breast pain; Right breast swelling TECHNIQUE: Imaging protocol: Complete ultrasound of all four quadrants of the Right breast and the retroareolar regions, including ultrasound of the axilla when performed. Bilateral Diagnostic tomosynthesis and 2D mammography including computer-aided detection (CAD) when performed. Unilateral or bilateral exam. COMPARISON: 1. MG MM DIG MAMM DX UNILAT RT CAD 11/28/2021 2:01 PM 2. MG MM DIG SCREENING MAMM BI W/CAD 01/31/2021 8:15 AM FINDINGS: MAMMOGRAPHY: The breast tissue is composed of scattered areas of fibroglandular density. There is no stellate mass, architectural distortion or suspicious microcalcifications in either breast to suggest malignancy. No skin thickening or axillary adenopathy. ULTRASOUND: Sonographic images of the right breast including the retroareolar region, all 4 quadrants and the axilla do not demonstrate any solid or cystic masses. No architectural distortion or acoustical shadowing. No skin thickening or axillary adenopathy. IMPRESSION: No mammographic or sonographic evidence of malignancy. Annual bilateral mammographic screening is recommended unless otherwise clinically indicated. ASSESSMENT: BI-RADS Category 1: Negative
[2022-08-15 17:03] LABS: Blood Urea Nitrogen 14 mg/dl (7-17); Estimated Glomerular Filt Rate 75 ml/min (>60); GFR (African American) 91 ML/MIN (>60)
== END ==
PROVIDERS: PCP Physician Assistant; Visit Provider Student in an Organized Health Care Education/Training Program
DX: N64.4 Mastodynia (principal)
CPT/HCPCS: 36415; 76641; 77062; 77066; 82565; 84520; G0279

== ENCOUNTER → 2022-08-16 09:48 | Outpatient (CLI) | payer OTHER, SELFPAY ==
--- NOTE | 2022-08-16 09:48 | MR_ITS ---
FINAL REPORT CLINICAL HISTORY: low back pain, radiating into LLE, weak L quad X 1 YEAR COMPARISON: 06/06/2022 FINDINGS: Multiplanar MR imaging of the lumbar spine was performed without contrast. On the sagittal T2-weighted images, abnormal decreased signal is seen at L4-5 and L5-S1 The vertebrae are of normal height. The vertebral alignment is normal. L1-2: There is no significant canal stenosis or neural foraminal narrowing. L2-3: There is no significant canal stenosis or neural foraminal narrowing. L3-4: There is no significant canal stenosis or neural foraminal narrowing. L4-5: Mild diffuse disc bulge is present with mild bilateral neural foraminal narrowing. There is moderate facet hypertrophy bilaterally. L5-S1: There is moderate facet hypertrophy bilaterally. IMPRESSION: Diffuse disc bulge at L4-5 with mild bilateral neural foraminal narrowing. Findings are similar to previous. Reviewed, Interpreted and Dictated by Kurt Swartz MD Transcribed by Kiya Hoffman Authenticated and [facility]
== END ==
PROVIDERS: PCP Physician Assistant; Visit Provider Physician Assistant
DX: M54.50 Low back pain, unspecified (principal); M54.10 Radiculopathy, site unspecified; R29.898 Other symptoms and signs involving the musculoskeletal system
CPT/HCPCS: 72148; 76376

== ENCOUNTER → 2022-08-19 12:40 | Outpatient (CLI) | payer OTHER, SELFPAY ==
--- NOTE | 2022-08-19 12:40 | CT_ITS ---
FINAL REPORT TECHNIQUE: Thin section axial CT images with coronal and sagittal reformats were performed after the administration of IV contrast. This study was performed with techniques to keep radiation doses as low as reasonably achievable (ALARA). Individualized dose reduction techniques using automated exposure control or adjustment of mA and/or kV according to the patient''s size were employed. CLINICAL HISTORY: lymph node swelling, BB's placed on palpable areas COMPARISON: 01/16/2022 FINDINGS: Resolved adenopathy. Largest residual lymph node in the right submandibular region measures 12 mm and previously measured 15 mm. Other lymph nodes are more significantly improved or resolved. Salivary glands are normal. Larynx is unremarkable. Thyroid gland is unremarkable. IMPRESSION: Resolved adenopathy. Reviewed, Interpreted and Dictated by Jevon Lemus MD Transcribed by Rufus Oquendo Authenticated and [facility]
== END ==
PROVIDERS: PCP Physician Assistant; Visit Provider Student in an Organized Health Care Education/Training Program
DX: E04.1 Nontoxic single thyroid nodule (principal)
CPT/HCPCS: 70491; Q9967

== ENCOUNTER → 2022-08-19 14:38 | Outpatient (POV) | payer OTHER, SELFPAY ==
[2022-08-19 14:56] VITALS: BP 138/84; PULSE 74; RESP 18; TEMP 36.3; O2SAT 99; BMI 32.5
--- NOTE | 2022-08-19 15:29 | EXP.PAIN.SOA ---
[facility] Pain Management SOAP Note Subjective:: Patient is a pleasant 51-year-old female who presents today for follow-up of lumbar epidural steroid injection L4-L5 on 07/23/2022. We are currently treating the patient for degenerative disc disease lumbar spine multilevels with lumbar radiculopathy symptoms. Patient states that she had at least 50% improvement following this injection however it only lasted for 2 weeks. Today the patient rates her pain a 7 out of 10. She states the pain is primarily in her low back that radiates into her bilateral extremities. Patient describes this as a stiff, achy, throbbing sensation that is worse with increased activity. She also has numbness and tingling in her legs. Patient also experiences right shoulder and bilateral knee pain. Recently the patient did have a MRI of her lumbar spine without contrast and she would like to review this imaging at today's visit. Patient does use [id number] ibuprofen however she has had minimal improvement. Patient states heat makes her pain worse and ice does help along with topical creams however it is very minimal improvement of her symptoms. Patient is managed with Lyrica 50 mg 3 times a day and is also prescribed tramadol 50 mg 4 times a day by Michelle Quiñonez. She denies any side effects from these medications. She states these medications is helping some with her symptoms. Patient states they did call regarding her compounding cream order and ask for her Medicaid number. Patient states she has not heard back from the local pharmacy since this time. Patient is currently seen physical therapy that states has provided improvement of her symptoms. Her Hugo is [id number]. It has been reviewed and appropriate. Review of Systems: General: No recent weight changes, no fever, no sleep disturbances Respiratory: No cough, no shortness of air, no recurring pulmonary infections Cardiovascular/peripheral vascular: No chest pain, no palpitations, no edema, no shortness of breath Gastrointestinal: No new onset incontinence, normal bowel movements reported Genitourinary: No new onset incontinence Musculoskeletal: Low back pain, bilateral leg pain, right shoulder pain, bilateral knee pain Psychiatric: [Normal mood/affect] Neurological: [Denies weakness in extremities], [denies balance issues] Objective:: Physical Exam: General: Alert and oriented x3, no acute distress, pleasant and cooperative Lungs: Respirations even and unlabored, symmetrical chest expansion Eyes: PERRL Musculoskeletal: Flexion and extension of lumbar [spine] somewhat guarded secondary to pain, [antalgic gait noted] Neurological: Speech clear, no gross sensory deficit Assessment:: Degenerative disc disease lumbar spine multilevels with lumbar radiculopathy symptoms, right shoulder pain, bilateral knee pain Plan:: Patient continues to experience significant pain in her low back that radiates into her lower extremities as well as right shoulder and bilateral knee pain. Today the patient had limited range of motion of her lumbar spine during today's exam. Patient's lumbar imaging did show diffuse disc bulge at L4-5 with mild bilateral neuroforaminal narrowing and facet hypertrophy. I have discussed with the patient regarding having a repeat lumbar epidural steroid injection. Risk and benefits were discussed with the patient. She would like to proceed forward with this injection. She is not currently on any blood thinners. I will also order the patient tizanidine 4 mg 3 times a day and provide a 1 month supply of this medication. I have counseled the patient to contact the [facility] regarding her compounding cream. Patient did have questions regarding possible referral to an orthospine surgeon to see if she needed to have surgery. At our next visit if the patient continues to have minimal improvement of her symptoms we will refer her onto Dr. Jewell at [facility]. We will schedule the patient for a LESI L4-
== END | disposition home or self-care (01) ==
PROVIDERS: Visit Provider Nurse Practitioner Family
DX: M51.16 Intervertebral disc disorders with radiculopathy, lumbar region (principal); M17.0 Bilateral primary osteoarthritis of knee; M25.511 Pain in right shoulder
CPT/HCPCS: 99212; G0463

== ENCOUNTER 2022-08-27 10:49 | Day surgery (SDC) | payer OTHER, SELFPAY ==
[2022-08-27 11:23] VITALS: BP 127/67; PULSE 82; RESP 20; TEMP 37.1; O2SAT 94; BMI 32.5
[2022-08-27 11:43] VITALS: BP 133/77; PULSE 84; RESP 17; O2SAT 97
[2022-08-27 11:45] VITALS: BP 133/77; PULSE 84; RESP 17; O2SAT 97
--- NOTE | 2022-08-27 11:56 | EXP.PAIN.PRO ---
Procedure Date: 08/27/22 Time: 11:56 Anesthesiologist:: Jj Noe CRNA Complications:: None Pre-procedure Diagnosis:: Degenerative disc disease lumbar spine multilevels. Lumbar radiculopathy symptoms Post-procedure Diagnosis:: Same. Indications for Procedure:: Patient is a pleasant 51-year-old female that comes today for repeat lumbar epidural steroid injection at the L4-5 level. Patient had 1 injection a month ago with 2 weeks of relief. After which time her symptoms return in their entirety. She complains of low back pain. However, mostly bilateral hip and leg radicular symptoms in the hips and anterior thighs. I discussed bilateral SI joint injections with her if in fact this lumbar epidural steroid injection does not help her anymore than the first round. She rates her pain today 07/03. Procedure Details:: Procedure: Lumbar epidural steroid injection under fluoroscopy Informed consent was obtained and the risks and benefits of the procedure were explained to the patient. The patient was taken to the procedure room and noninvasive monitors placed, including noninvasive blood pressure cuff and pulse oximeter. The back was viewed using C-arm Fluoroscopy and prepped using Betadine as a cleansing solution and the L4-L5 interspace was palpated. Skin and subcutaneous tissues were anesthetized using lidocaine 1.5% and a 25-gauge needle. After this, an 18-gauge Touhy epidural needle was placed into the L4-L5 interspace and advanced using fluoroscopic guidance and loss of resistance to air until the epidural space was encountered. After confirmation of needle placement in the epidural space, with dye, a solution containing lidocaine 1.5%, 4 mL and Depo-Medrol 80 mg were incrementally injected into the lumbar epidural space. The patient tolerated the procedure well with no complications. The patient was observed in the Pain Clinic and then discharged home neurologically intact. Plan and Disposition:: Patient was discharged without incident
[2022-08-27 12:01] VITALS: BP 115/74; PULSE 79; RESP 20; O2SAT 94
== END 2022-08-27 12:00 | disposition home or self-care (01) ==
PROVIDERS: PCP Physician Assistant; Visit Provider Nurse Anesthetist, Certified Registered
DX: M51.16 Intervertebral disc disorders with radiculopathy, lumbar region (principal)
CPT/HCPCS: 62323; J1040

== ENCOUNTER → 2022-09-17 08:36 | Outpatient (POV) | payer OTHER, SELFPAY ==
[2022-09-17 08:57] VITALS: BP 125/80; PULSE 72; RESP 18; TEMP 37.1; O2SAT 98; BMI 32.4
--- NOTE | 2022-09-17 09:25 | EXP.PAIN.SOA ---
[facility] Pain Management SOAP Note Subjective:: Patient is a pleasant 51-year-old female who presents today for follow-up of lumbar epidural steroid injection L4-L5 on 08/27/2022. We are currently treating the patient for degenerative disc disease of lumbar spine multilevels with lumbar radiculopathy symptoms. The patient states that she is gotten at least 50% improvement of her symptoms following this injection however it only lasted approximately a week and a half. Today the patient rates her pain a 6 out of 10. She states the pain is primarily in her low back that radiates into her legs. Patient states her legs are sore to touch and frequently in the middle of the night she is woken up with cramping primarily on the right leg. Patient also states she continues to have trouble with her left leg for movement and even being able to raise it more than a couple inches off the ground. Patient is currently prescribed tramadol 50 mg 4 times a day by Dr. Hebert's office. Patient denies any side effects from this medication. She states she does not notice significant improvement of her leg cramps with this medicine however it does help her low back pain. Her Hugo is [id number]. It is been reviewed and appropriate. Review of Systems: General: No recent weight changes, no fever, no sleep disturbances Respiratory: No cough, no shortness of air, no recurring pulmonary infections Cardiovascular/peripheral vascular: No chest pain, no palpitations, no edema, no shortness of breath Gastrointestinal: No new onset incontinence, normal bowel movements reported Genitourinary: No new onset incontinence Musculoskeletal: Low back pain, bilateral leg pain Psychiatric: [Normal mood/affect] Neurological: [Denies weakness in extremities], [denies balance issues] Objective:: Physical Exam: General: Alert and oriented x3, no acute distress, pleasant and cooperative Lungs: Respirations even and unlabored, symmetrical chest expansion Eyes: PERRL Musculoskeletal: Flexion and extension of lumbar [spine] somewhat guarded secondary to pain, [antalgic gait noted]. Extreme point tenderness along bilateral SI's and positive bilateral Idania's, Reanna's, Gaenslen's, compression and distraction exam Neurological: Speech clear, no gross sensory deficit Assessment:: Degenerative disc disease lumbar spine with lumbar radiculopathy symptoms, bilateral sacroiliitis Plan:: Patient continues to have significant pain in her low back that radiates into her bilateral lower extremities. Patient did have limited range of motion of her lumbar spine at today's visit along with extreme point tenderness along bilateral SI's and positive bilateral Idania's, Reanna's, Gaenslen's, compression and distraction exam. I have discussed with the patient regarding doing bilateral SI injections. Risk and benefits were discussed with the patient. She would like to proceed forward with this plan of care. I have also counseled the patient regarding possible restless leg syndrome and will add ropinirole 0.25 mg at bedtime and provide a 2-week supply of this medication. I have also discussed with the patient that she may be a beneficial candidate for a spinal cord stimulator. Educational handouts were given during today's visit and risk and benefits discussed. We will schedule the patient for bilateral SI injections. Patient has been instructed to contact the clinic with any concerns before the next appointment. Dr. Xie has reviewed this note and agrees with this plan of care. This note was dictated using voice recognition software and make contain errors or omissions. [facility] Medical History Anxiety Coronary artery disease Diastolic dysfunction Dyspnea Fibromyalgia Gastroesophageal reflux disease Comfort's thyroiditis Hypothyroidism Lumbar radiculopathy Vertigo Vitamin D deficiency Surgical History H/
== END | disposition home or self-care (01) ==
PROVIDERS: PCP Physician Assistant; Visit Provider Nurse Practitioner Family
DX: M51.16 Intervertebral disc disorders with radiculopathy, lumbar region (principal); M46.1 Sacroiliitis, not elsewhere classified; Z72.0 Tobacco use
CPT/HCPCS: 99212; G0463

== ENCOUNTER 2022-09-24 11:39 | Day surgery (SDC) | payer OTHER, SELFPAY ==
[2022-09-24 11:50] VITALS: BP 116/78; PULSE 69; RESP 18; O2SAT 98
[2022-09-24 11:52] VITALS: BP 120/76; PULSE 68; RESP 18; TEMP 36.4; O2SAT 98; BMI 32.5
--- NOTE | 2022-09-24 12:02 | P.PCN_ITS ---
Procedure Date: 09/24/22 Time: 12:03 Anesthesiologist:: Jj Noe CRNA Complications:: None Pre-procedure Diagnosis:: Degenerative disc disease of lumbar spine multilevels with lumbar radiculopathy symptoms, sacroiliitis Post-procedure Diagnosis:: Same Indications for Procedure:: Patient is a pleasant 51-year-old female who presents today for bilateral SI injections. We are currently treating the patient for degenerative disc disease of lumbar spine multilevels with lumbar radiculopathy symptoms. Today the patient rates her pain a 8 out of 10. She states her pain is worse and is radiating into her groin and states she did not get any sleep last night due to the pain. Patient is on tizanidine 4 mg 3 times daily however patient states she has not noticed significant improvement. Patient is prescribed tramadol 50 mg 4 times a day from an outside provider. Patient denies any side effects from this medication. General: Alert and oriented x3, no acute distress, pleasant and cooperative Lungs: Respiration even unlabored, symmetrical chest expansion Eyes: PERRL Musculoskeletal: Flexion and extension of lumbar spine somewhat guarded secondary to pain, antalgic gait noted. Extreme point tenderness along bilateral SI's and positive bilateral Idania's, Reanna's, Gaenslen's, compression and distraction exam Neurological: Speech clear, no gross sensory deficit Procedure Details:: Informed consent was obtained and the risks and benefits of the procedure were explained to the patient.~ The patient was taken to the procedure room and noninvasive monitors were placed including a noninvasive blood pressure cuff and pulse oximeter.~ The patient was placed prone on the procedure table. Both hips were cleansed using Betadine as a cleansing solution. C-arm fluoroscopy was used to view the right sacroiliac joint.~ The skin and subcutaneous tissues were anesthetized using lidocaine 1.5% and a 25-gauge needle.~ After this, a 22-gauge spinal needle was inserted under fluoroscopic guidance into the inferior aspect of the right sacroiliac joint.~ Omnipaque dye was injected and good spread was seen throughout the joint.~ After this, approximately 5 mL of bupivacaine, 0.25% and Depo-Medrol, 40 mg was incrementally injected into the right sacroiliac joint. We then moved to the left sacroiliac joint.~ The skin and subcutaneous tissues were anesthetized using lidocaine 1.5% and a 25-gauge needle.~ After this, a 22- gauge spinal needle was inserted under fluoroscopic guidance into the inferior aspect of the left sacroiliac joint.~ Omnipaque dye was injected and good spread was seen throughout the joint. After this, approximately 5 mL of bupivacaine, 0.25% and Depo-Medrol, 40 mg was incrementally injected into the left sacroiliac joint.~ The patient tolerated the procedure well with no complications. The patient was observed in the Pain Clinic and then was discharged home neurologically intact. Plan and Disposition:: We will follow-up with the patient in 2 weeks. I have discussed with the patient regarding changing her muscle relaxer from tizanidine to Flexeril 10 mg 3 times daily. Patient will return to clinic in 2 weeks for reevaluation of symptoms and follow-up. Patient has been counseled to contact the office with any questions or concerns before the next appointment date. Dr. Xie is read this note and agrees with this plan of care. This note was dictated using voice recognition software and may contain errors or omissions.
[2022-09-24 12:04] VITALS: BP 137/83; PULSE 65; RESP 18; O2SAT 97
== END 2022-09-24 12:04 | disposition home or self-care (01) ==
PROVIDERS: PCP Physician Assistant; Visit Provider Nurse Anesthetist, Certified Registered
DX: M51.16 Intervertebral disc disorders with radiculopathy, lumbar region (principal); M46.1 Sacroiliitis, not elsewhere classified
CPT/HCPCS: 27096; G0260; J1030

== ENCOUNTER → 2022-10-29 11:46 | Outpatient (POV) | payer OTHER, SELFPAY ==
[2022-10-29 11:50] VITALS: BP 125/73; PULSE 77; RESP 20; O2SAT 100; BMI 32.1
--- NOTE | 2022-10-29 12:40 | EXP.PAIN.SOA ---
[facility] Pain Management SOAP Note Subjective:: Patient is a pleasant 52-year-old female who presents today for follow-up of bilateral SI injections on 09/24/2022. We are currently treating the patient for degenerative disc disease of lumbar spine multilevels with lumbar radiculopathy symptoms, sacroiliitis. Today the patient states her pain is a 10 out of 10. Patient states that everything has changed from the last time we saw her. Patient states she is having problems with her eyes including seeing double vision and eye pain along with ice pick headaches. Patient states she has had increased headaches with stiffness in her shoulders, neck and upper back. Patient states she has had increasing difficulty with ambulation and has to get assistance getting in and out of the tub or sitting on the toilet. Patient states she does experience tremors that come and go along with numbness and tingling in her legs, feet and arms. Patient states she has had increasing weakness in her legs with frequent falls. Patient states she has to have somebody with her at all times to help with ambulating. Patient also states she has started having urinary incontinence. Patient states she will get up to go to the bathroom and by the time she gets there she has already completely soiled herself. Patient states with coughing or sneezing she has urinary incontinence. Patient has been to see her primary care provider who did discuss about ordering an MRI of her brain and upper back however, patient states at this time these have not been ordered. Patient also sees Dr. Rizvi and states that she recently saw her however, did not seem as concerned and only discussed her sleep apnea. Patient states she did recently see an aboriginal community council member who stated her vision was all within normal limits that she did need glasses however he had increased concern regarding her symptoms. Patient states that he discussed with her that he was going to personally contact her primary care doctor and Dr. Rizvi's office. Patient is currently prescribed tramadol 50 mg 4 times a day and pregabalin 50 mg 3 times a day from Michelle Quiñonez's office. Patient also takes clonazepam 1 mg twice a day. Patient denies any side effects from these medications. She states these medications are not effectively managing her pain symptoms. Her Hugo is [id number]. It is been reviewed and appropriate. Review of Systems: General: No recent weight changes, no fever, no sleep disturbances Respiratory: No cough, no shortness of air, no recurring pulmonary infections Cardiovascular/peripheral vascular: No chest pain, no palpitations, no edema, no shortness of breath Gastrointestinal: New onset incontinence, normal bowel movements reported Genitourinary: new onset bladder incontinence Musculoskeletal: Upper back pain, shoulder pain, low back pain Psychiatric: [Normal mood/affect] Neurological: Weakness in extremities, balance unstable Objective:: Physical Exam: General: Alert and oriented x3, no acute distress, pleasant and cooperative Lungs: Respirations even and unlabored, symmetrical chest expansion Eyes: PERRL Musculoskeletal: Flexion and extension of cervical, lumbar [spine] somewhat guarded secondary to pain, [antalgic gait noted] Neurological: Speech clear, no gross sensory deficit Assessment:: Degenerative disc disease of lumbar spine multilevels with lumbar radiculopathy symptoms, sacroiliitis, upper back pain with cervical radiculopathy symptoms, shoulder pain, headaches, leg weakness Plan:: Patient is experiencing significant issues that are consistent and concerning for possible MS. I will order the patient a MRI without contrast of her brain and MRI without contrast of her cervical spine during today's visit. I have counseled the patient to contact her neurologist immediately and schedule a visit. I have also told the patient to contact her primary care doctor and to be seen as soon as possible. I did discuss with the patient th
== END ==
PROVIDERS: PCP Physician Assistant; Visit Provider Nurse Practitioner Family
DX: M51.16 Intervertebral disc disorders with radiculopathy, lumbar region (principal); M46.1 Sacroiliitis, not elsewhere classified; M25.519 Pain in unspecified shoulder; R51.9 Headache, unspecified
CPT/HCPCS: 99212; G0463

== ENCOUNTER → 2022-11-04 13:31 | Outpatient (CLI) | payer OTHER, SELFPAY ==
--- NOTE | 2022-11-04 13:40 | MR_ITS ---
FINAL REPORT CLINICAL HISTORY: CONFUSION, CHANGE OF VISION, FALLS, UPPER BACK PAIN. numbness and tingling in upper and lower limbs. headache. memory loss, confusion,. pain at base of skull. COMPARISON: CT dated January 2021 FINDINGS: Multiplanar MR imaging of the brain was performed without contrast. There is no evidence of intracranial hemorrhage or mass. The ventricular size is normal. There is no evidence of shift of the midline structures. No abnormal extra-axial fluid collection is identified. The posterior fossa and brainstem have an unremarkable appearance. No area of abnormal restricted diffusion is identified. Normal major vessel vascular flow voids are seen. There are retention cysts or polyps in the bilateral maxillary sinuses. IMPRESSION: No acute intracranial abnormality. Reviewed, Interpreted and Dictated by Palomo Sandoval III, MD Transcribed by Rufus Oquendo Authenticated and [facility]
--- NOTE | 2022-11-04 13:40 | MR_ITS ---
FINAL REPORT CLINICAL HISTORY: headache. pain at base of skull. bilateral shoulder pain. bilateral arm numbness and tingling. FINDINGS: Multiplanar MR imaging of the cervical spine was performed without contrast. On the sagittal T2-weighted images, disc degeneration is seen throughout. There is no evidence of fracture. The vertebral alignment is normal. The cervical spinal cord has an unremarkable appearance without evidence of mass, edema or syrinx. No significant canal stenosis is identified. The cervicomedullary junction is normal. C2-3: Right uncovertebral osteophytes are present. C3-4: Right uncovertebral osteophytes are present. C4-5: An annular disc bulge is present. There is a small central disc protrusion. C5-6: A disc osteophyte complex is present. There is a left paracentral disc protrusion which indents the thecal sac. C6-7: An annular disc bulge is present. C7-T1: There is no significant canal stenosis or neural foraminal narrowing. IMPRESSION: Multilevel degenerative disc disease and spondylosis. Disc protrusions at C4-5 and C5-6. Reviewed, Interpreted and Dictated by Palomo Sandoval III, MD Transcribed by Pallavi Moody Authenticated and [facility]
== END ==
PROVIDERS: PCP Physician Assistant; Visit Provider Nurse Practitioner Family
DX: R41.0 Disorientation, unspecified (principal); H53.9 Unspecified visual disturbance; M54.9 Dorsalgia, unspecified; W19.XXXA Unspecified fall, initial encounter
CPT/HCPCS: 70551; 72141; 76376

== ENCOUNTER → 2022-11-05 17:22 | Outpatient (CLI) | payer OTHER, SELFPAY ==
[2022-11-05 19:05] LABS: Basophils # 0.2 K/mm3 (0-0.2); Basophils % 1.7 % (0.1-2.0); Eosinophils # 0.3 K/mm3 (0.0-0.4); Eosinophils % 2.5 % (0.1-12.0); Hematocrit 43.3 % (37.0-47.0); Hemoglobin 14.2 g/dL (12.2-16.2); Lymphocytes # 3.2 K/mm3 (0.7-4.5); Lymphocytes % 32.5 % (10-50); Mean Corpuscular HGB Conc 32.8 g/dL (31.8-35.4); Mean Corpuscular Hemoglobin 32.8 pg (27.0-31.2); Mean Corpuscular Volume 100.1 fl (81-99); Mean Platelet Volume 10.3 fl (7.4-10.4); Monocytes # 0.3 K/mm3 (0.1-1.0); Monocytes % 3.1 % (1.7-9.3); Neutrophils # 5.9 K/mm3 (1.8-7.8); Neutrophils % 60.2 % (37.0-80.0); Platelet Count 384 K/mm3 (142-424); Red Blood Count 4.33 M/mm3 (4.20-5.40); Red Cell Distribution Width 14.4 % (11.5-17.5); White Blood Count 9.8 K/mm3 (4.8-10.8)
[2022-11-05 19:45] LABS: Erythrocyte Sedimentation Rate 41 mm/hr (0-30)
[2022-11-05 19:51] LABS: Alanine Aminotransferase 23 U/L (12-78); Albumin Level 4.3 g/dl (3.5-5.0); Anion Gap 13.5 mEq/L (5-15); Aspartate Amino Transferase 23 U/L (14-36); Bilirubin,Total 0.3 mg/dl (0.2-1.3); Blood Urea Nitrogen 17 mg/dl (7-17); Calcium 10.1 mg/dl (8.4-10.2); Carbon Dioxide 26 mmol/L (22.0-30.0); Chloride 104 mmol/L (98-107); Creatine Kinase 45 U/L (30-135); Estimated Glomerular Filt Rate 65 ml/min (>60); GFR (African American) 79 ML/MIN (>60); Globulin 2.7 g/dL (1.3-3.2); Glucose 135 mg/dl (74-100); Potassium 4.5 mmoL/L (3.5-5.1); Sodium 139 mmol/L (136-145)
[2022-11-05 19:52] LABS: Albumin/Globulin Ratio 1.6 (1.1-1.8); Alkaline Phosphatase 134 U/L (38-126); Chol/HDL Ratio 3.9 (1-3.5); Cholesterol 182 mg/dl (140-200); HDL Cholesterol 47 mg/dl (40-60); Triglycerides 181 mg/dl (30-150); VLDL Cholesterol 36 mg/dL (0-40)
[2022-11-05 20:04] LABS: C-Reactive Protein 1.9 mg/L (0-4); Direct LDL Cholesterol 97.66 mg/dL (100-129)
[2022-11-05 20:11] LABS: 25-OH Vitamin D, Total 32.4 ng/mL (30-100)
[2022-11-05 20:23] LABS: Thyroid Stimulating Hormone 2.01 uIU/mL (0.465-4.68)
[2022-11-05 20:43] LABS: Vitamin B12 338 pg/mL (239-931)
[2022-11-07 10:06] LABS: RA Latex Turbid. <10.0 IU/mL (<14.0)
[2022-11-07 11:39] LABS: Hemoglobin A1C 5.8 % (4.0-6.0)
[2022-11-07 12:10] LABS: Anti-Cyclic Citrullinated Pept 1 units (0-19)
[2022-11-07 14:46] LABS: Anticardiolipin Ab,IgA,Qn <9 APL U/mL (0-11); Tissue Transglutaminase IgA Ab <2 U/mL (0-3); Tissue Transglutaminase IgG Ab 7 U/mL (0-5)
[2022-11-07 15:10] LABS: Anti-Centromere B Antibodies <0.2 AI (0.0-0.9); Anti-DNA (DS) Ab Qn <1 IU/mL (0-9); Anti-Jo-1 <0.2 AI (0.0-0.9); Anti-Smith Antibody <0.2 AI (0.0-0.9); Antichromatin Antibodies <0.2 AI (0.0-0.9); Antiscleroderma-70 Antibodies <0.2 AI (0.0-0.9); RNP Antibodies <0.2 AI (0.0-0.9); Sjogren's Anti-SS-A <0.2 AI (0.0-0.9); Sjogren's Anti-SS-B <0.2 AI (0.0-0.9)
[2022-11-08 15:16] LABS: Lupus Reflex Interpretation Comment: (.); PTT-LA 40.2 sec (0.0-51.9); dRVVT 58.4 sec (0.0-47.0); dRVVT Confirm 1.5 ratio (0.8-1.2); dRVVT Mix 48.5 sec (0.0-40.4)
[2022-11-12 10:08] LABS: Hep A Ab, IgM NEGATIVE; Hepatitis B Core Antibody IgM NEGATIVE; Hepatitis B Surface Antigen NEGATIVE
[2022-11-12 10:09] LABS: Hepatitis C Antibody <0.1
[2022-11-15 12:29] LABS: APTT 27.6 sec (.); Anti-Cardiolipin Antibody IgG <10 GPL (.); Anti-Cardiolipin Antibody IgM <10 MPL (.); Beta-2 Glycoprotein I Ab, IgA 21 SAU (.); Beta-2 Glycoprotein I Ab, IgG <10 SGU (.); Beta-2 Glycoprotein I Ab, IgM <10 SMU (.); Hexagonal Phase Phospholipid 0 sec (.); Thrombin Time 16.4 sec (.)
== END ==
PROVIDERS: PCP Physician Assistant; Visit Provider Physician Assistant
DX: M25.50 Pain in unspecified joint (principal); M79.10 Myalgia, unspecified site; R25.3 Fasciculation; R73.09 Other abnormal glucose; Z79.899 Other long term (current) drug therapy
CPT/HCPCS: 36415; 80053; 80061; 80074; 82306; 82550; 82607; 83036; 83516; 83970; 84443; 85025; 85597; 85598; 85610; 85613; 85651; 85670; 85730; 86140; 86146; 86147; 86200; 86225; 86235; 86431

== ENCOUNTER → 2022-11-25 15:18 | Outpatient (CLI) | payer OTHER, SELFPAY | PROVIDERS: PCP Physician Assistant; Visit Provider Physician Assistant | DX: N39.0 Urinary tract infection, site not specified (principal) | CPT/HCPCS: 87086 ==

== ENCOUNTER → 2022-11-27 14:22 | Outpatient (POV) | payer OTHER, SELFPAY ==
[2022-11-27 15:39] VITALS: BP 111/82; PULSE 77; RESP 18; O2SAT 97; BMI 30.7
--- NOTE | 2022-11-27 17:13 | EXP.PAIN.SOA ---
[facility] Pain Management SOAP Note Subjective:: Patient is a pleasant 52-year-old female who presents today for follow-up of MRI imaging of her cervical spine and brain. We are currently treating the patient for degenerative disc disease of lumbar spine multilevels with lumbar radiculopathy symptoms, sacroiliitis, confusion, headache, bilateral lower extremity weakness, bowel/bladder incontinence. Today the patient rates her pain a 7 out of 10. Patient states she continues to have bilateral leg weakness with occasional falls. From our last meeting patient has gotten a cane to help with ambulation. Patient states that she has had lab work that did show lupus and celiac disease. Patient states she is being referred for a GI specialist as well as a rheumatology. Patient does state that she has continued pain from her neck down her spine and describes this as a burning, achy sensation with occasional sharp pains. Patient states she cannot stand up or walk for prolonged periods due to the pain. Patient states she does still continue to have occasional episodes of incontinence of both bowel and bladder. Patient also is experiencing memory issues. Patient states her primary care physician is requesting she schedule a lumbar puncture with IV sedation. Patient has previously been seen Dr. Rizvi however she continues to states she is not pleased with her care that she is getting. Patient feels like that she is not being listened to with her concerns. At our last visit I did send a referral for a second opinion with neurology however she states she has not had any phone calls at this time. Patient is currently managed with gabapentin 800 mg 3 times a day, clonazepam 1 mg twice a day and tramadol 50 mg 4 times a day from her primary care provider. Patient denies any side effects from this medication. Patient states this does help her pain symptoms. Previously the patient was on pregabalin 50 mg 3 times a day however she stated that this was not doing anything for her symptoms and was discontinued and changed to the gabapentin. Previously we did order her methocarbamol 500 mg 3 times a day. Patient states this medication does help some time. Her Hugo is [phone]. Has been reviewed and appropriate. Review of Systems: General: No recent weight changes, no fever, no sleep disturbances Respiratory: No cough, no shortness of air, no recurring pulmonary infections Cardiovascular/peripheral vascular: No chest pain, no palpitations, no edema, no shortness of breath Gastrointestinal: Continued intermittent incontinence, normal bowel movements reported Genitourinary: Continue intermittent incontinence Musculoskeletal: Neck pain, bilateral lower extremity weakness, headaches Psychiatric: [Normal mood/affect] Neurological: [Denies weakness in extremities], [denies balance issues] Objective:: Physical Exam: General: Alert and oriented x3, no acute distress, pleasant and cooperative Lungs: Respirations even and unlabored, symmetrical chest expansion Eyes: PERRL Musculoskeletal: Flexion and extension of cervical, lumbar [spine] somewhat guarded secondary to pain, [antalgic gait noted] Neurological: Speech clear, no gross sensory deficit [address] [place] [address] Magnetic Resonance Report Signed Patient: Doris Ward MR#: [id number] : 1970 Acct:[id number] Age/Sex: 52 / F ADM Date: 11/04/22 Loc: RAD Attending Dr: Tania Jewell APRN Ordering Physician: Tania Jewell APRN Date of Service: 11/04/22 Procedure(s): MR head/brain wo con Accession Number(s): [id number] cc: Palomo Sandoval MD; Michelle Quiñonez~ FINAL REPORT CLINICAL HISTORY: CONFUSION, CHANGE OF VISION, FALLS, UPPER BACK PAIN. numbness and tingling in upper and lower limbs. headache. memory loss, confusion,. pain at base of skull. COMPARISON: CT dated January 2021 FINDINGS: Multiplanar MR imaging of the brain was performed without
== END ==
PROVIDERS: PCP Physician Assistant; Visit Provider Nurse Practitioner Family
DX: M51.16 Intervertebral disc disorders with radiculopathy, lumbar region (principal); M46.1 Sacroiliitis, not elsewhere classified; R51.9 Headache, unspecified; R53.1 Weakness
CPT/HCPCS: 99212; G0463

== ENCOUNTER → 2022-11-28 12:57 | Outpatient (CLI) | payer OTHER, SELFPAY ==
[2022-11-28 17:24] LABS: Total Protein,Serum 6.6 g/dl (6.3-8.2)
== END ==
PROVIDERS: PCP Physician Assistant; Visit Provider Physician Assistant
DX: R53.1 Weakness (principal)
CPT/HCPCS: 36415; 83916; 84155

== ENCOUNTER → 2022-12-02 13:09 | Outpatient (CLI) | payer OTHER, SELFPAY ==
--- NOTE | 2022-12-02 13:16 | MR_ITS ---
FINAL REPORT CLINICAL HISTORY: Radiculopathy. low back pain. right hip pain. bilateral leg pain, numbness, and tingling. no injury or trauma. COMPARISON: August 16, 2022 FINDINGS: MRI LUMBAR SPINE W/O CONTRAST Multiplanar MR imaging of the lumbar spine was performed without contrast. On the sagittal T2-weighted images, disc degeneration is seen at multiple levels. There are mild endplate changes at several levels. There is mild rightward curvature. The vertebral alignment is normal. There is no evidence of fracture. Several hemangiomas are noted. There is a small cyst in the mid sacral spinal canal. The conus has an unremarkable appearance. T11-12: An annular disc bulge is present. T12-L1: No significant central canal stenosis or neural foraminal narrowing. L1-2: No significant central canal stenosis or neural foraminal narrowing. L2-3: No significant central canal stenosis or neural foraminal narrowing. L3-4: An annular disc bulge is present. No significant central canal stenosis or neural foraminal narrowing. L4-5: An annular disc bulge with facet arthropathy is present. No significant central canal stenosis or neural foraminal narrowing. L5-S1: An annular disc bulge with facet arthropathy is present. No significant central canal stenosis or neural foraminal narrowing. There is a 9 mm cyst posterior to the left L4-5 facet joint consistent with a synovial cyst. This appears new from the prior exam. IMPRESSION: Multilevel disc degeneration and spondylosis. New appearing 9 mm synovial cyst posterior to the left L4-5 facet joint. Reviewed, Interpreted and Dictated by Palomo Sandoval III, MD Transcribed by Pallavi Moody Authenticated and [facility]
== END ==
PROVIDERS: PCP Physician Assistant; Visit Provider Physician Assistant
DX: M54.17 Radiculopathy, lumbosacral region (principal)
CPT/HCPCS: 72148; 76376

== ENCOUNTER 2022-12-13 11:38 | Day surgery (SDC) | payer OTHER, SELFPAY ==
[2022-12-11 12:37] VITALS: BMI 32.1
[2022-12-13] VITALS (14 sets, daily range): BP systolic 113–135; BP diastolic 66–87; PULSE 61–74; RESP 16–18; TEMP 36.2–36.3; O2SAT 96–100
--- NOTE | 2022-12-13 14:26 | P.PCN_ITS ---
Procedure Date: 12/13/22 Time: 14:27 Anesthesiologist:: Lucian Xie MD Complications:: None Pre-procedure Diagnosis:: Increasing low back pain and leg pain with numbness and tingling in upper and lower limbs rule out multiple sclerosis Post-procedure Diagnosis:: Same Indications for Procedure:: This patient is a pleasant 52-year-old white female who we are treating for low back pain and leg pain. She was referred by Michelle RODRIGUEZ for lumbar puncture for diagnostic purposes to rule out multiple sclerosis as the patient is having numbness and tingling in both upper and lower extremities. Procedure Details:: Lumbar puncture Informed consent was obtained risk and benefits of the procedure were explained to the patient. Patient was taken the procedure room placed in a left lateral decubitus position. C-arm fluoroscopy was used in AP view to view the lumbar spine. The skin and subtenons tissues were anesthetized using lidocaine. A 20- gauge spinal needle was inserted and advanced into the L4-L5 interspace until clear CSF was obtained. After this opening pressures were taken they were 20 cm of water. We obtained approximately 20 mL of clear CSF approximately 5 mL in each tube they are placed into a total of 4 tubes. Closing pressures were found to be 11 cm of water. The needle was withdrawn. A Band-Aid was placed. The patient tolerated the procedure well with no complications. Plan and Disposition:: We have counseled the patient on conservative treatments for post dural puncture headache. We will follow-up with this patient on a as needed basis.
[2022-12-13 15:10] LABS: Appearance,CSF Clear (Clear); Volume,CSF 20 mL
[2022-12-13 15:22] LABS: Glucose,CSF 63 mg/dl (40-70)
[2022-12-13 16:38] LABS: Red Blood Cell,CSF 7 cells/uL (0); White Blood Cell,CSF 1 cells/uL (0-5)
[2022-12-13 16:58] LABS: Mononuclear WBCs,CSF 0 %; Polynuclear WBCs,CSF 0 %
[2022-12-17 16:39] LABS: Albumin, CSF 27 mg/dL (8-37)
[2022-12-18 10:15] LABS: CSF Lyme (B. burgdorferi) PCR Negative (Negative)
[2022-12-18 17:26] LABS: Anti-DNA (DS) Ab Qn <1 IU/mL (0-9)
== END 2022-12-13 14:40 | disposition home or self-care (01) ==
PROVIDERS: PCP Physician Assistant; Visit Provider Anesthesiology
DX: M54.50 Low back pain, unspecified (principal); M79.606 Pain in leg, unspecified; M62.81 Muscle weakness (generalized); R20.0 Anesthesia of skin; R20.2 Paresthesia of skin
CPT/HCPCS: 62328; 82042; 82945; 83916; 84155; 86225; 87070; 87205; 87476; 89051; 99152

== ENCOUNTER 2022-12-15 21:11 | Emergency (ER) | payer OTHER, SELFPAY ==
--- NOTE | 2022-12-15 21:08 | ECG_ITS ---
APPROVED REPORT Exam: Resting ECG HR:91 bpm ECG Measurements Heart Rate 91 AXES TN 149 P 82 QRSd 88 QRS 67 QT 337 T 89 QTc 386 Conclusion SINUS RHYTHM NONSPECIFIC T-WAVE ABNORMALITY BORDERLINE ECG UNCONFIRMED REPORT Electronically signed by : Telly Collier MD 12/16/2022 20:13:28
[2022-12-15 21:11] VITALS: BP 170/100; PULSE 91; RESP 14; TEMP 36.7; O2SAT 100; BMI 31.6
--- NOTE | 2022-12-15 21:15 | XR_ITS ---
PROCEDURE INFORMATION: Exam: XR Chest Exam date and time: 12/15/2022 9:37 PM Age: 52 years old Clinical indication: Chest wall pain; Additional info: Cp TECHNIQUE: Imaging protocol: Radiologic exam of the chest. Views: 1 view. COMPARISON: CR XR CHEST PORTABLE 06/23/2022 8:11 PM FINDINGS: Lungs: Atelectasis or scarring at the left lung base. No consolidation. Pleural spaces: No pneumothorax. Heart/Mediastinum: No cardiomegaly. Bones/joints: No acute abnormality. IMPRESSION: No acute findings.
--- NOTE | 2022-12-15 21:16 | PC.NURSE ---
Manual BP: 130/90
--- NOTE | 2022-12-15 21:22 | PC.NURSE ---
Dr. Charlton at
[2022-12-15 21:24] LABS: Basophils # 0.2 K/mm3 (0-0.2); Basophils % 2.1 % (0.1-2.0); Eosinophils # 0.4 K/mm3 (0.0-0.4); Eosinophils % 3.6 % (0.1-12.0); Hemoglobin 15.2 g/dL (12.2-16.2); Lymphocytes % 39.7 % (10-50); Mean Corpuscular Hemoglobin 33.8 pg (27.0-31.2); Mean Corpuscular Volume 102.5 fl (81-99); Mean Platelet Volume 9.7 fl (7.4-10.4); Monocytes # 0.4 K/mm3 (0.1-1.0); Monocytes % 4.1 % (1.7-9.3); Neutrophils % 50.4 % (37.0-80.0); Platelet Count 378 K/mm3 (142-424); Red Blood Count 4.49 M/mm3 (4.20-5.40); Red Cell Distribution Width 13.8 % (11.5-17.5)
[2022-12-15 21:29] LABS: Chloride 106 mmol/L (98-107); Sodium 145 mmol/L (136-145)
[2022-12-15 21:30] LABS: Potassium 3.9 mmoL/L (3.5-5.1)
[2022-12-15 21:33] LABS: Anion Gap 13.9 mEq/L (5-15); Blood Urea Nitrogen 11 mg/dl (7-17); Calcium 9.7 mg/dl (8.4-10.2); Carbon Dioxide 29 mmol/L (22.0-30.0); Creatinine Clearance Estimated 106 mL/min (50-200); Estimated Glomerular Filt Rate 75 ml/min (>60); GFR (African American) 90 ML/MIN (>60); Glucose 85 mg/dl (74-100)
--- NOTE | 2022-12-15 21:45 | HMH.EDCP ---
Discharge Plan Disposition Patient Disposition: Home, Self-Care Chief Complaint: Chest Pain Prescriptions Prescriptions: No Action furosemide 20 mg tablet 20 mg PO DAILY meclizine 12.5 mg tablet 12.5 mg PO TID PRN (Reason: dizziness) Qty: 30 0RF cyanocobalamin (vitamin B-12) 1,000 mcg/mL solution 1,000 mcg SQ QMONTH Rx Instructions: 1ml monthly famotidine 20 mg tablet 20 mg PO HS aspirin 81 mg tablet,delayed release (DR/EC) See Rx Instructions .Route .COMPLEX Rx Instructions: TAKE ONE TABLET BY MOUTH AT BEDTIME FOR HEART HEALTH ranolazine 500 mg tablet extended release 12 hr 500 mg PO BID Qty: 180 3RF omeprazole 40 mg capsule,delayed release(DR/EC) 40 mg PO DAILY Qty: 90 3RF Rx Instructions: TAKE ONE CAPSULE BY MOUTH ONCE A DAY clonazepam 1 mg tablet 1 mg PO BID Qty: 60 0RF tramadol 50 mg tablet 50 mg PO QID PRN (Reason: pain) Qty: 120 0RF atorvastatin 40 MG tablet See Rx Instructions .Route .COMPLEX Rx Instructions: TAKE ONE TABLET BY MOUTH AT BEDTIME FOR CHOLESTEROL metoprolol succinate 100 MG tablet extended release 24 hr 100 mg PO DAILY Rx Instructions: TAKE ONE TABLET BY MOUTH ONCE A DAY FOR BLOOD PRESSURE spironolactone 25 MG tablet See Rx Instructions .Route .COMPLEX Rx Instructions: TAKE ONE TABLET BY MOUTH ONCE A DAY FOR HEART DISEASE lisinopril 5 MG tablet See Rx Instructions .Route .COMPLEX Rx Instructions: TAKE ONE TABLET BY MOUTH ONCE A DAY FOR HIGH BLOOD PRESSURE albuterol sulfate 8.5 GM HFA aerosol inhaler See Rx Instructions .Route .COMPLEX Rx Instructions: INHALE 2 PUFFS BY MOUTH EVERY 6 HOURS levothyroxine 25 MCG capsule 25 mcg PO DAILY ropinirole 0.25 mg tablet 0.25 mg PO HS Rx Instructions: administer 1-3 hours before bedtime methocarbamol 500 mg tablet 500 mg PO TID gabapentin 800 mg tablet 800 mg PO TID duloxetine [Cymbalta] 60 mg capsule,delayed release(DR/EC) 60 mg PO BID oxybutynin chloride 10 mg tablet extended release 24hr 10 mg PO DAILY Vraylar 1.5 mg capsule See Rx Instructions .ROUTE .COMPLEX Rx Instructions: TAKE ONE CAPSULE BY MOUTH ONCE A DAY ketoconazole 200 mg tablet 200 mg PO DAILY butenafine [Mentax] 1 % cream 1 applic topical BID cholecalciferol (vitamin D3) 1,250 mcg (50,000 unit) capsule 1,250 mcg PO WEEKLY tizanidine [Zanaflex] 4 mg tablet 4 mg PO TID Referrals Follow up/Referrals: Provider,Referral, MD [Referring] - See instructions Clinical Impressions Clinical Impression: Atypical chest pain, Postoperative spinal headache Instructions Patient Instructions: DI for Atypical Chest Pain, DI for Post-Spinal Puncture Headache Discharge ED Provider: Forrest Charlton Chest Pain HPI General Chief Complaint: Chest Pain Stated Complaint: chest pain Time Seen by Provider: 12/15/22 21:45 Mode of Arrival: Wheelchair Source of Information: Patient and Medical Record Limitations: No Limitations Description of Symptoms (Recalled from ER Triage Doc. by RN): pt c/o midsternal chest pain that started this morning. pt also c/o Gregory and neck pain since her lumbar punture on friday History of Present Illness HPI narrative: pt with recent lumbar puncture and now has gregory and neck - pt also has chest and abd pain - pt with no fever and has hx of gb dis complaint: chest pain Onset (ago): hour(s) Duration: constant Activity at onset: during rest Pain location: epigastric Severity: moderate Risk Factors for CAD: Hypertension, Family Hx of CAD and Smoking Treatments prior to or on arrival for Cardiac Chest Pain: none LISA Score for Non-Stemi Age of Patient: 50-59 years old Heart Rate: 70-89 bpm Systolic Blood Pressure: 120-139 mmhg Serum Creatinine: 0.80-1.19 mg/dl CHF [place] Class: I-No CHF Other Risk Factors: None Non-Stemi Risk Score: 91 Ris
[2022-12-15 21:46] LABS: Troponin I < 0.01 ng/ml (0.00-0.034)
--- NOTE | 2022-12-15 21:56 | PC.NURSE ---
Dr. Charlton speaking with ROLF Whaley guard immigration
--- NOTE | 2022-12-15 21:56 | PC.NURSE ---
Missael Dorsey at BS to have pt lay flat for [address] Charlton after speaking with Judd, [employer]
[2022-12-15 22:00] VITALS: BP 121/75; PULSE 68; RESP 16; O2SAT 96
[2022-12-15 22:31] VITALS: BP 123/73; PULSE 61; RESP 14; O2SAT 98
[2022-12-15 23:00] VITALS: BP 122/75; PULSE 66; RESP 12; O2SAT 97
--- NOTE | 2022-12-15 23:00 | CT_ITS ---
PROCEDURE INFORMATION: Exam: CT Abdomen And Pelvis Without Contrast Exam date and time: 12/15/2022 11:12 PM Age: 52 years old Clinical indication: Abdominal pain; Additional info: Abd pain TECHNIQUE: Imaging protocol: Computed tomography of the abdomen and pelvis without contrast. Radiation optimization: All CT scans at this facility use at least one of these dose optimization techniques: automated exposure control; mA and/or kV adjustment per patient size (includes targeted exams where dose is matched to clinical indication); or iterative reconstruction. COMPARISON: CT ABDOMEN PELVIS WO CON 05/02/2020 6:18 PM FINDINGS: Lungs: No acute finding. Liver: There are right hepatic lobe hypodensities on images 12, 18 and 32 series 3 measuring up to 1.6 cm. These are similar to the prior exam and most consistent with cysts. Gallbladder and bile ducts: The gallbladder is contracted. There is no biliary ductal dilation. Pancreas: Normal. No ductal dilation. Spleen: Normal. No splenomegaly. Adrenal glands: Normal. No mass. Kidneys and ureters: Normal. No hydronephrosis. There is a tiny calcification in the lower pole collecting system right kidney. Stomach and bowel: Unremarkable. No obstruction. No mucosal thickening. Appendix: No evidence of appendicitis. Intraperitoneal space: Unremarkable. No free air. No significant fluid collection. Vasculature: There is mild calcific atherosclerotic disease. There is no aneurysmal dilation of the aorta. Lymph nodes: Unremarkable. No enlarged lymph nodes. Urinary bladder: Unremarkable as visualized. Reproductive: The uterus is absent. Bones/joints: Unremarkable. No acute fracture. Soft tissues: Unremarkable. IMPRESSION: 1. There is no acute process within the abdomen or pelvis. 2. Tiny nonobstructing right intrarenal calculus. 3. Contracted gallbladder without stones. 4. Other findings detailed.
--- NOTE | 2022-12-15 23:00 | PC.NURSE ---
pt assessed for relief in a flat position. the pt stated that her headache was very improved from laying in this position and would like to know the options. pt informed of the possibility of a blood patch and stated that she would be interested in that procedure tonight. Dr Charlton Notified of improvement. no new orders at this time
[2022-12-15 23:30] VITALS: BP 131/82; PULSE 64; RESP 14; O2SAT 99
[2022-12-16 00:01] VITALS: BP 135/84; PULSE 72; RESP 16; O2SAT 98
--- NOTE | 2022-12-16 00:02 | PC.NURSE ---
Judd Called for Procedure on pt for blood patch.
[2022-12-16 00:32] VITALS: BP 135/89; PULSE 66; RESP 16; O2SAT 98
--- NOTE | 2022-12-16 00:59 | PC.NURSE ---
pt blood patch complete. pt advised to stay for observation for 30 mins to an hour
--- NOTE | 2022-12-16 01:04 | PC.NURSE ---
blood patch procedure initiated at 0032 RESIDENT CARE PROVIDER at bedside
[2022-12-16 01:07] LABS: Amylase 58 U/L (30-110)
[2022-12-16 01:08] LABS: Lipase 61 U/L (23-300)
--- NOTE | 2022-12-16 01:09 | EXP.ANES.CKL ---
[facility] Disclaimer: The information contained in this section may have been updated after the patient was seen, as this information can be updated by other users. Medical History Anxiety Celiac disease Coronary artery disease Depression Diastolic dysfunction Dyspnea Fibromyalgia Gastroesophageal reflux disease Comfort's thyroiditis Hypothyroidism Lumbar radiculopathy Lupus KORI (obstructive sleep apnea) Osteoarthritis Vertigo Vitamin D deficiency Surgical History H/O left knee surgery H/O tubal ligation History of cardiac cath History of partial hysterectomy Family History Other Cancer Coronary artery disease Diabetes Heart attack Hypertension Social History Smoking Status: Current every day smoker tobacco type: cigarettes packs per day: 1 second hand exposure: No alcohol intake: never substance use type: denies use current occupational status: other Travel in the last 8 weeks: None household members: spouse housing: house current occupational exposures/hazards: No caffeine: Yes [facility] Anesthesia Checklist Patient Identification Patient Identification: Arm Band Structural Data Admitted From: Emergency Dept Planned Operative Procedure/s: Epidural Blood Patch Consent for Planned Operative Procedure(s) Verified: Yes Verified Documents: Surgical Consent and History and Physical NPO Status Verified Time NPO: 00:00 Additional verifications Anesthesia Reactions: No Airway Assessment C-Spine Mobility Assessed: Yes TMJ Mobility Assessed: Yes Neurological Assessment Level of Consciousness: Awake and Alert Anesthesia Plan Anesthesia Risk discussed: Yes Anesthesia Plan: Verified ASA Class: III Anesthesia Type: None (Epidural Blood Patch)
[2022-12-16 01:16] LABS: Alanine Aminotransferase 24 U/L (12-78); Aspartate Amino Transferase 36 U/L (14-36)
[2022-12-16 01:17] LABS: Albumin Level 4.8 g/dl (3.5-5.0); Alkaline Phosphatase 108 U/L (38-126); Bilirubin,Direct 0.5 mg/dl (0.0-0.4); Bilirubin,Indirect 0.1 mg/dL (0.0-0.9); Bilirubin,Total 0.6 mg/dl (0.2-1.3); Total Protein,Serum 8.8 g/dl (6.3-8.2)
[2022-12-16 02:27] VITALS: BP 135/89; PULSE 66; RESP 18; TEMP 36.7; O2SAT 98
== END 2022-12-16 02:34 | disposition home or self-care (01) ==
PROVIDERS: Emergency Provider Emergency Medicine; PCP Physician Assistant
DX: R07.89 Other chest pain (principal); G97.1 Other reaction to spinal and lumbar puncture; F41.9 Anxiety disorder, unspecified; K90.0 Celiac disease; M79.7 Fibromyalgia; K21.9 Gastro-esophageal reflux disease without esophagitis; E03.9 Hypothyroidism, unspecified; M54.16 Radiculopathy, lumbar region; M32.9 Systemic lupus erythematosus, unspecified; E55.9 Vitamin D deficiency, unspecified; Z98.51 Tubal ligation status; Z90.711 Acquired absence of uterus with remaining cervical stump; Z80.9 Family history of malignant neoplasm, unspecified; Z82.49 Family history of ischemic heart disease and other diseases of the circulatory system; Z83.3 Family history of diabetes mellitus; F17.210 Nicotine dependence, cigarettes, uncomplicated
CPT/HCPCS: 71045; 74176; 80048; 80076; 82150; 83690; 84484; 85025; 93005; 96361; 96374; 96375; 99285; J2405

== ENCOUNTER 2023-01-14 14:34 | Emergency (ER) | payer OTHER, SELFPAY ==
[2023-01-14] VITALS (9 sets, daily range): BP systolic 93–136; BP diastolic 65–88; PULSE 58–88; RESP 16–18; TEMP 36.6–36.7; O2SAT 95–98; BMI 32.1
--- NOTE | 2023-01-14 14:49 | ECG_ITS ---
APPROVED REPORT Exam: Resting ECG HR:72 bpm ECG Measurements Heart Rate 72 AXES NM 155 P 48 QRSd 88 QRS -1 QT 377 T 45 QTc 401 Conclusion SINUS RHYTHM LOW QRS VOLTAGE IN PRECORDIAL LEADS [QRS DEFLECTION < 1.0 mV IN CHEST LEADS] MODERATE VOLTAGE CRITERIA FOR LVH, CONSIDER NORMAL VARIANT [MEETS CRITERIA IN ONE OF: R(aVL), S(V1), R(V5), R(V5/V6)+S(V1)] NONSPECIFIC T-WAVE ABNORMALITY BORDERLINE ECG UNCONFIRMED REPORT Electronically signed by : Telly Collier MD 01/14/2023 20:01:22
[2023-01-14 14:59] LABS: Basophils # 0.2 K/mm3 (0-0.2); Basophils % 2.2 % (0.1-2.0); Eosinophils # 0.4 K/mm3 (0.0-0.4); Eosinophils % 4.3 % (0.1-12.0); Hematocrit 46.5 % (37.0-47.0); Lymphocytes # 2.8 K/mm3 (0.7-4.5); Lymphocytes % 34.4 % (10-50); Mean Corpuscular HGB Conc 32.2 g/dL (31.8-35.4); Mean Corpuscular Hemoglobin 32.5 pg (27.0-31.2); Mean Corpuscular Volume 100.9 fl (81-99); Monocytes # 0.3 K/mm3 (0.1-1.0); Neutrophils # 4.5 K/mm3 (1.8-7.8); Neutrophils % 55.1 % (37.0-80.0); Platelet Count 314 K/mm3 (142-424); Red Blood Count 4.61 M/mm3 (4.20-5.40); Red Cell Distribution Width 13.7 % (11.5-17.5); White Blood Count 8.2 K/mm3 (4.8-10.8)
--- NOTE | 2023-01-14 15:01 | PC.NURSE ---
DR BRIAN AT BEDSIDE
[2023-01-14 15:05] LABS: Chloride 110 mmol/L (98-107); Potassium 4.9 mmoL/L (3.5-5.1); Sodium 141 mmol/L (136-145)
[2023-01-14 15:07] LABS: Alanine Aminotransferase 32 U/L (12-78); Aspartate Amino Transferase 36 U/L (14-36); Blood Urea Nitrogen 15 mg/dl (7-17); Creatinine Clearance Estimated 96 mL/min (50-200); Estimated Glomerular Filt Rate 65 ml/min (>60); GFR (African American) 79 ML/MIN (>60)
[2023-01-14 15:08] LABS: Albumin Level 4.5 g/dl (3.5-5.0); Albumin/Globulin Ratio 1.4 (1.1-1.8); Alkaline Phosphatase 101 U/L (38-126); Anion Gap 8.9 mEq/L (5-15); Bilirubin,Total 0.4 mg/dl (0.2-1.3); Calcium 9.5 mg/dl (8.4-10.2); Carbon Dioxide 27 mmol/L (22.0-30.0); Globulin 3.3 g/dL (1.3-3.2); Glucose 88 mg/dl (74-100); Total Protein,Serum 7.8 g/dl (6.3-8.2)
--- NOTE | 2023-01-14 15:15 | PC.NURSE ---
pt requested a pillow. repositioned pt with pillow for comfort
[2023-01-14 15:21] LABS: Troponin I < 0.01 ng/ml (0.00-0.034)
--- NOTE | 2023-01-14 15:25 | HMH.EDGENADL ---
Discharge Plan Disposition Patient Disposition: Home, Self-Care Condition: Good Chief Complaint: Weakness Prescriptions Prescriptions: No Action furosemide 20 mg tablet 20 mg PO DAILY meclizine 12.5 mg tablet 12.5 mg PO TID PRN (Reason: dizziness) Qty: 30 0RF cyanocobalamin (vitamin B-12) 1,000 mcg/mL solution 1,000 mcg SQ QMONTH Rx Instructions: 1ml monthly famotidine 20 mg tablet 20 mg PO HS aspirin 81 mg tablet,delayed release (DR/EC) See Rx Instructions .Route .COMPLEX Rx Instructions: TAKE ONE TABLET BY MOUTH AT BEDTIME FOR HEART HEALTH ranolazine 500 mg tablet extended release 12 hr 500 mg PO BID Qty: 180 3RF omeprazole 40 mg capsule,delayed release(DR/EC) 40 mg PO DAILY Qty: 90 3RF Rx Instructions: TAKE ONE CAPSULE BY MOUTH ONCE A DAY clonazepam 1 mg tablet 1 mg PO BID Qty: 60 0RF levothyroxine 25 mcg tablet See Rx Instructions .ROUTE .COMPLEX Qty: 30 2RF Dose Instruction: TAKE ONE TABLET BY MOUTH ONCE A DAY Rx Instructions: TAKE ONE TABLET BY MOUTH ONCE A DAY tramadol 50 mg tablet 50 mg PO QID PRN (Reason: pain) Qty: 120 0RF atorvastatin 40 MG tablet See Rx Instructions .Route .COMPLEX Rx Instructions: TAKE ONE TABLET BY MOUTH AT BEDTIME FOR CHOLESTEROL metoprolol succinate 100 MG tablet extended release 24 hr 100 mg PO DAILY Rx Instructions: TAKE ONE TABLET BY MOUTH ONCE A DAY FOR BLOOD PRESSURE spironolactone 25 MG tablet See Rx Instructions .Route .COMPLEX Rx Instructions: TAKE ONE TABLET BY MOUTH ONCE A DAY FOR HEART DISEASE lisinopril 5 MG tablet See Rx Instructions .Route .COMPLEX Rx Instructions: TAKE ONE TABLET BY MOUTH ONCE A DAY FOR HIGH BLOOD PRESSURE albuterol sulfate 8.5 GM HFA aerosol inhaler See Rx Instructions .Route .COMPLEX Rx Instructions: INHALE 2 PUFFS BY MOUTH EVERY 6 HOURS ropinirole 0.25 mg tablet 0.25 mg PO HS Rx Instructions: administer 1-3 hours before bedtime methocarbamol 500 mg tablet 500 mg PO TID gabapentin 800 mg tablet 800 mg PO TID duloxetine [Cymbalta] 60 mg capsule,delayed release(DR/EC) 60 mg PO BID oxybutynin chloride 10 mg tablet extended release 24hr 10 mg PO DAILY Vraylar 1.5 mg capsule See Rx Instructions .ROUTE .COMPLEX Rx Instructions: TAKE ONE CAPSULE BY MOUTH ONCE A DAY ketoconazole 200 mg tablet 200 mg PO DAILY butenafine [Mentax] 1 % cream 1 applic topical BID cholecalciferol (vitamin D3) 1,250 mcg (50,000 unit) capsule 1,250 mcg PO WEEKLY tizanidine [Zanaflex] 4 mg tablet 4 mg PO TID Referrals Follow up/Referrals: Michelle Quiñonez PA [Primary Care Provider] - See instructions Activity Restrictions/Add. Instructions Additional Instructions/Restrictions: Follow-up with your primary care provider regarding this visit to the emergency department and mildly elevated parathyroid hormone lab. If you have any other concerns, return to your primary care provider or the emergency department for further evaluation. Continue following the pain control for control of your chronic pain. Clinical Impressions Clinical Impression: Hyperparathyroidism Discharge ED Provider: Pierce Phillips General Adult HPI General Chief complaint: Weakness Stated complaint: Weakness nausea bodyaches Time Seen by Provider: 01/14/23 14:35 Mode of Arrival: Wheelchair Limitations: No Limitations Description of Symptoms (Recalled from ER Triage Doc. by RN): PT REPORTS BEING SICK FOR SEVERAL WEEKS. REPORTS DECREASED APPETITE, NAUSEA, NEAR SYNCOPE, LIGHT SENSITIVITY, PAIN TO NECK, SPINE AND RIBS. History of Present Illness HPI narrative: This is a 52-year-old female with history of chronic neck and back pain currently followed by pain management, fibromyalgia, hypothyroidism, anxiety and depression presenting with decreased appetite.
--- NOTE | 2023-01-14 15:43 | PC.NURSE ---
PT MEDICATED PER EMAR, LIGHTS OFF AND WARM BLANKET PROVIDED. AT BEDSIDE. PT POSITIONED FOR COMFORT
[2023-01-14 15:58] LABS: Intact Parathyroid Hormone 66.7 pg/mL (7.5-53.5)
[2023-01-14 16:16] LABS: Thyroid Stimulating Hormone 4.04 uIU/mL (0.465-4.68)
--- NOTE | 2023-01-14 17:53 | PC.NURSE ---
DR BRIAN AT BEDSIDE TO UPDATE PT ON POC
== END 2023-01-14 18:13 | disposition home or self-care (01) ==
PROVIDERS: Emergency Provider Emergency Medicine; PCP Physician Assistant
DX: E21.3 Hyperparathyroidism, unspecified (principal); M54.2 Cervicalgia; M54.9 Dorsalgia, unspecified; G89.29 Other chronic pain; E03.9 Hypothyroidism, unspecified; M79.7 Fibromyalgia; F41.8 Other specified anxiety disorders; I25.10 Atherosclerotic heart disease of native coronary artery without angina pectoris; K21.9 Gastro-esophageal reflux disease without esophagitis; M54.16 Radiculopathy, lumbar region; Z98.51 Tubal ligation status; Z90.711 Acquired absence of uterus with remaining cervical stump; Z80.9 Family history of malignant neoplasm, unspecified; Z82.49 Family history of ischemic heart disease and other diseases of the circulatory system; Z83.3 Family history of diabetes mellitus; F17.210 Nicotine dependence, cigarettes, uncomplicated
CPT/HCPCS: 80053; 83970; 84436; 84443; 84484; 85025; 93005; 96361; 96374; 96375; 99285

== ENCOUNTER 2023-01-16 14:43 | Outpatient (CLI) | payer OTHER, SELFPAY ==
[2023-01-16 14:46] VITALS: BMI 31.7
[2023-01-16 15:50] VITALS: BP 115/77; PULSE 76; RESP 16
[2023-01-16 15:58] LABS: Basophils # 0.1 K/mm3 (0-0.2); Basophils % 1.6 % (0.1-2.0); Eosinophils # 0.4 K/mm3 (0.0-0.4); Eosinophils % 4.5 % (0.1-12.0); Hematocrit 41.9 % (37.0-47.0); Hemoglobin 13.1 g/dL (12.2-16.2); Lymphocytes # 3.2 K/mm3 (0.7-4.5); Lymphocytes % 35.9 % (10-50); Mean Corpuscular HGB Conc 31.4 g/dL (31.8-35.4); Mean Corpuscular Hemoglobin 32.7 pg (27.0-31.2); Mean Corpuscular Volume 104.2 fl (81-99); Mean Platelet Volume 10.8 fl (7.4-10.4); Monocytes # 0.4 K/mm3 (0.1-1.0); Neutrophils # 4.9 K/mm3 (1.8-7.8); Neutrophils % 54.1 % (37.0-80.0); Platelet Count 303 K/mm3 (142-424); Red Blood Count 4.02 M/mm3 (4.20-5.40); Red Cell Distribution Width 13.7 % (11.5-17.5)
[2023-01-16 16:03] LABS: Alanine Aminotransferase 25 U/L (12-78); Albumin/Globulin Ratio 1.4 (1.1-1.8); Alkaline Phosphatase 88 U/L (38-126); Anion Gap 3.8 mEq/L (5-15); Aspartate Amino Transferase 22 U/L (14-36); Bilirubin,Total 0.3 mg/dl (0.2-1.3); Blood Urea Nitrogen 12 mg/dl (7-17); Calcium 9.5 mg/dl (8.4-10.2); Carbon Dioxide 28 mmol/L (22.0-30.0); Chloride 111 mmol/L (98-107); Creatinine Clearance Estimated 122 mL/min (50-200); Estimated Glomerular Filt Rate 87 ml/min (>60); GFR (African American) 106 ML/MIN (>60); Globulin 2.9 g/dL (1.3-3.2); Glucose 111 mg/dl (74-100); Potassium 3.8 mmoL/L (3.5-5.1); Sodium 139 mmol/L (136-145); Total Protein,Serum 6.9 g/dl (6.3-8.2)
[2023-01-16 16:04] LABS: INR 1.02 (0.9-1.1)
[2023-01-16 16:17] LABS: Microscopic, Urine URINE MICROSCOPIC (MICROSCOPIC)
[2023-01-16 16:22] LABS: Appearance,Urine CLEAR (Clear); Bilirubin,Urine Negative (Negative); Blood, Urine Negative (Negative); Color,Urine YELLOW (Yellow); Glucose,Urine (UA) Negative (Negative); Ketones,Urine Negative (Negative); Leukocyte Esterase,Urine Negative (Negative); Nitrate,Urine Negative (Negative); PH,Urine 5.5 (5.0-8.5); Protein,Urine Negative (Negative); Urobilinogen,Urine 0.2 EU/dl (0.2)
[2023-01-16 16:34] LABS: WBC,Urine Occasional #/hpf (0-3)
[2023-01-16 16:34] LABS: Magnesium 2.3 mg/dl (1.6-2.3)
[2023-01-16 17:00] VITALS: BP 128/87; PULSE 55; RESP 16
== END 2023-01-16 17:03 | disposition home or self-care (01) ==
PROVIDERS: PCP Physician Assistant; Visit Provider Physician Assistant
DX: R53.1 Weakness (principal); R42 Dizziness and giddiness; R11.0 Nausea; R53.83 Other fatigue; R41.89 Other symptoms and signs involving cognitive functions and awareness; R06.02 Shortness of breath
CPT/HCPCS: 36415; 80053; 81001; 83735; 85025; 85610; 87040; 96360; 96375

== ENCOUNTER → 2023-03-07 08:58 | Outpatient (CLI) | payer OTHER, SELFPAY ==
--- NOTE | 2023-03-07 08:58 | NM_ITS ---
FINAL REPORT CLINICAL HISTORY: elevated PTH 9:15 am 19.9 mci tc sestamibi injected into rt ant FINDINGS: 19.9 mCi Technetium Sestamibi was administered. Planar imaging was performed early and two-hour delayed of the neck and upper thorax. Early imaging shows physiologic uptake within the upper neck involving the salivary glands and lower neck involving the thyroid gland. On delayed imaging there is no abnormal retained activity in the lower neck or mediastinum to localize parathyroid adenoma. IMPRESSION: No scintigraphic evidence of parathyroid adenoma. Reviewed, Interpreted and Dictated by Palomo Sandoval III, MD Transcribed by Kiya Hoffman Authenticated and [facility]
== END ==
PROVIDERS: PCP Physician Assistant; Visit Provider Physician Assistant
DX: E34.9 Endocrine disorder, unspecified (principal)
CPT/HCPCS: 78070; A9500

== ENCOUNTER → 2023-05-06 15:21 | Outpatient (CLI) | payer OTHER, SELFPAY ==
[2023-05-06 16:15] LABS: Basophils # 0.1 K/mm3 (0-0.2); Basophils % 1.2 % (0.1-2.0); Eosinophils # 0.2 K/mm3 (0.0-0.4); Eosinophils % 2.9 % (0.1-12.0); Hematocrit 41.9 % (37.0-47.0); Lymphocytes # 3.3 K/mm3 (0.7-4.5); Mean Corpuscular HGB Conc 30.9 g/dL (31.8-35.4); Mean Corpuscular Hemoglobin 31.2 pg (27.0-31.2); Mean Corpuscular Volume 100.9 fl (81-99); Mean Platelet Volume 9.5 fl (7.4-10.4); Monocytes # 0.4 K/mm3 (0.1-1.0); Monocytes % 4.9 % (1.7-9.3); Platelet Count 333 K/mm3 (142-424); Red Blood Count 4.15 M/mm3 (4.20-5.40); Red Cell Distribution Width 13.7 % (11.5-17.5); White Blood Count 7.9 K/mm3 (4.8-10.8)
[2023-05-06 16:58] LABS: Alanine Aminotransferase 31 U/L (12-78); Albumin Level 4.1 g/dl (3.5-5.0); Albumin/Globulin Ratio 1.4 (1.1-1.8); Alkaline Phosphatase 105 U/L (38-126); Aspartate Amino Transferase 33 U/L (14-36); Bilirubin,Total 0.2 mg/dl (0.2-1.3); Blood Urea Nitrogen 11 mg/dl (7-17); Calcium 9.7 mg/dl (8.4-10.2); Carbon Dioxide 28 mmol/L (22.0-30.0); Chloride 104 mmol/L (98-107); Estimated Glomerular Filt Rate 75 ml/min (>60); GFR (African American) 90 ML/MIN (>60); Globulin 2.9 g/dL (1.3-3.2); Glucose 87 mg/dl (74-100); Sodium 143 mmol/L (136-145)
[2023-05-06 17:01] LABS: Erythrocyte Sedimentation Rate 40 mm/hr (0-30)
[2023-05-06 17:03] LABS: C-Reactive Protein 1.4 mg/L (0-4)
[2023-05-06 17:09] LABS: Intact Parathyroid Hormone 76.9 pg/mL (7.5-53.5)
[2023-05-08 12:10] LABS: RA Latex Turbid. <10.0 IU/mL (<14.0)
[2023-05-08 15:20] LABS: Anti-Centromere B Antibodies <0.2 AI (0.0-0.9); Anti-Cyclic Citrullinated Pept 3 units (0-19); Anti-DNA (DS) Ab Qn <1 IU/mL (0-9); Anti-Jo-1 <0.2 AI (0.0-0.9); Anti-Smith Antibody <0.2 AI (0.0-0.9); Antichromatin Antibodies <0.2 AI (0.0-0.9); Antiscleroderma-70 Antibodies <0.2 AI (0.0-0.9); RNP Antibodies <0.2 AI (0.0-0.9); Sjogren's Anti-SS-A <0.2 AI (0.0-0.9); Sjogren's Anti-SS-B <0.2 AI (0.0-0.9)
[2023-05-09 04:03] LABS: Lupus Reflex Interpretation Comment: (.); PTT-LA 34.3 sec (0.0-43.5); dRVVT 46.5 sec (0.0-47.0)
== END ==
PROVIDERS: PCP Physician Assistant; Visit Provider Physician Assistant
DX: R79.89 Other specified abnormal findings of blood chemistry (principal)
CPT/HCPCS: 36415; 80053; 83970; 85025; 85613; 85651; 86140; 86200; 86225; 86235; 86431

== ENCOUNTER → 2023-05-14 09:10 | Outpatient (CLI) | payer OTHER, SELFPAY ==
--- NOTE | 2023-05-14 09:10 | NM_ITS ---
FINAL REPORT CLINICAL HISTORY: bone pain.. no trauma 9:25 am 24.8 mci tc mdp injected into lt wrist FINDINGS: BONE SCAN WHOLE BODY NM TECHNIQUE: The patient was injected with 24.8 mCi of technetium 99-MDP. Delayed images were obtained. No other abnormal tracer activity is identified to suggest occult fracture or metastatic disease. There is mild thoracolumbar scoliosis convex to the right. IMPRESSION: No definite osseous abnormality identified. Reviewed, Interpreted and Dictated by Kurt Swartz MD Transcribed by Kiya Hoffman Authenticated and [facility]
== END ==
PROVIDERS: PCP Physician Assistant; Visit Provider Physician Assistant
DX: M89.8X9 Other specified disorders of bone, unspecified site (principal)
CPT/HCPCS: 78306; A9503

== ENCOUNTER 2023-05-18 15:23 | Emergency (ER) | payer OTHER, SELFPAY ==
[2023-05-18 15:36] VITALS: BP 109/69; PULSE 74; O2SAT 98
[2023-05-18 16:00] VITALS: BP 109/69; PULSE 74; RESP 20; TEMP 36.8; O2SAT 98; BMI 33.6
[2023-05-18 16:01] VITALS: BP 113/72; PULSE 68; O2SAT 96
--- NOTE | 2023-05-18 16:02 | XR_ITS ---
PROCEDURE INFORMATION: Exam: XR Abdomen Exam date and time: 05/18/2023 4:12 PM Age: 52 years old Clinical indication: Abdominal pain; Generalized; Additional info: Constipation TECHNIQUE: Imaging protocol: Radiologic exam of the abdomen. Views: Frontal supine view of the abdomen. 1 View. COMPARISON: CT ABDOMEN PELVIS WO CON 12/15/2022 11:12 PM FINDINGS: Gastrointestinal tract: Moderate amount of well formed stool throughout the colon compatible with constipation. Bones/joints: No evidence of acute osseous abnormality. IMPRESSION: 1. No acute findings. 2. Moderate amount of well formed stool throughout the colon compatible with constipation.
[2023-05-18 16:17] LABS: Alanine Aminotransferase 25 U/L (12-78); Albumin Level 4.3 g/dl (3.5-5.0); Albumin/Globulin Ratio 1.4 (1.1-1.8); Alkaline Phosphatase 98 U/L (38-126); Anion Gap 16.1 mEq/L (5-15); Aspartate Amino Transferase 30 U/L (14-36); Bilirubin,Total 0.2 mg/dl (0.2-1.3); Blood Urea Nitrogen 12 mg/dl (7-17); Calcium 9.1 mg/dl (8.4-10.2); Carbon Dioxide 28 mmol/L (22.0-30.0); Chloride 99 mmol/L (98-107); Creatinine Clearance Estimated 109 mL/min (50-200); Estimated Glomerular Filt Rate 75 ml/min (>60); GFR (African American) 90 ML/MIN (>60); Globulin 3.1 g/dL (1.3-3.2); Glucose 108 mg/dl (74-100); Lipase 26 U/L (23-300); Potassium 4.1 mmoL/L (3.5-5.1); Sodium 139 mmol/L (136-145); Total Protein,Serum 7.4 g/dl (6.3-8.2)
[2023-05-18 16:28] LABS: Basophils # 0.1 K/mm3 (0-0.2); Basophils % 0.7 % (0.1-2.0); Eosinophils # 0.3 K/mm3 (0.0-0.4); Hematocrit 40.7 % (37.0-47.0); Hemoglobin 12.9 g/dL (12.2-16.2); Lymphocytes # 3.3 K/mm3 (0.7-4.5); Lymphocytes % 41.4 % (10-50); Mean Corpuscular HGB Conc 31.7 g/dL (31.8-35.4); Mean Corpuscular Hemoglobin 31.4 pg (27.0-31.2); Mean Platelet Volume 9.6 fl (7.4-10.4); Monocytes # 0.4 K/mm3 (0.1-1.0); Monocytes % 4.8 % (1.7-9.3); Neutrophils # 3.9 K/mm3 (1.8-7.8); Platelet Count 305 K/mm3 (142-424); Red Blood Count 4.11 M/mm3 (4.20-5.40); Red Cell Distribution Width 13.3 % (11.5-17.5); White Blood Count 7.9 K/mm3 (4.8-10.8)
[2023-05-18 16:30] VITALS: BP 128/82; PULSE 72; O2SAT 99
--- NOTE | 2023-05-18 16:57 | HMH.EDGENADL ---
Discharge Plan Disposition Patient Disposition: Home, Self-Care Condition: Good Chief Complaint: Urogenital-Female Prescriptions Prescriptions: No Action furosemide 20 mg tablet 20 mg PO DAILY meclizine 12.5 mg tablet 12.5 mg PO TID PRN (Reason: dizziness) Qty: 30 0RF cyanocobalamin (vitamin B-12) 1,000 mcg/mL solution 1,000 mcg SQ QMONTH Rx Instructions: 1ml monthly famotidine 20 mg tablet 20 mg PO HS ondansetron 8 mg tablet,disintegrating 8 mg PO Q8H PRN (Reason: nausea and vomiting) Qty: 30 0RF promethazine 25 mg tablet 25 mg PO TID PRN (Reason: nausea and vomiting) Qty: 30 0RF ranolazine 500 mg tablet extended release 12 hr 500 mg PO BID Qty: 180 3RF omeprazole 40 mg capsule,delayed release(DR/EC) 40 mg PO DAILY Qty: 90 3RF Rx Instructions: TAKE ONE CAPSULE BY MOUTH ONCE A DAY aspirin 81 mg tablet,delayed release (DR/EC) See Rx Instructions .ROUTE .COMPLEX Qty: 30 2RF Dose Instruction: TAKE ONE TABLET BY MOUTH AT BEDTIME FOR HEART HEALTH Rx Instructions: TAKE ONE TABLET BY MOUTH AT BEDTIME FOR HEART HEALTH oxybutynin chloride 10 mg tablet extended release 24hr See Rx Instructions .ROUTE .COMPLEX Qty: 30 2RF Dose Instruction: TAKE ONE TABLET BY MOUTH ONCE A DAY Rx Instructions: TAKE ONE TABLET BY MOUTH ONCE A DAY Vraylar 1.5 mg capsule See Rx Instructions .ROUTE .COMPLEX Qty: 30 2RF Dose Instruction: TAKE ONE CAPSULE BY MOUTH ONCE A DAY Rx Instructions: TAKE ONE CAPSULE BY MOUTH ONCE A DAY levothyroxine 25 mcg tablet See Rx Instructions .ROUTE .COMPLEX Qty: 30 2RF Dose Instruction: TAKE ONE TABLET BY MOUTH ONCE A DAY Rx Instructions: TAKE ONE TABLET BY MOUTH ONCE A DAY duloxetine 60 mg capsule,delayed release(DR/EC) See Rx Instructions .ROUTE .COMPLEX Qty: 60 2RF Dose Instruction: TAKE 1 CAPSULE BY MOUTH 2 TIMES A DAY Rx Instructions: TAKE 1 CAPSULE BY MOUTH 2 TIMES A DAY tramadol 50 mg tablet 50 mg PO QID PRN (Reason: pain) Qty: 120 0RF spironolactone 25 mg tablet See Rx Instructions .ROUTE .COMPLEX Qty: 30 2RF Dose Instruction: TAKE ONE TABLET BY MOUTH ONCE A DAY FOR HEART DISEASE Rx Instructions: TAKE ONE TABLET BY MOUTH ONCE A DAY FOR HEART DISEASE atorvastatin 40 mg tablet See Rx Instructions .ROUTE .COMPLEX Qty: 30 2RF Dose Instruction: TAKE ONE TABLET BY MOUTH AT BEDTIME FOR CHOLESTEROL Rx Instructions: TAKE ONE TABLET BY MOUTH AT BEDTIME FOR CHOLESTEROL lisinopril 5 mg tablet See Rx Instructions .ROUTE .COMPLEX Qty: 30 2RF Dose Instruction: TAKE ONE TABLET BY MOUTH ONCE A DAY FOR HIGH BLOOD PRESSURE Rx Instructions: TAKE ONE TABLET BY MOUTH ONCE A DAY FOR HIGH BLOOD PRESSURE metoprolol succinate 100 mg tablet extended release 24 hr See Rx Instructions .ROUTE .COMPLEX Qty: 30 2RF Dose Instruction: TAKE ONE TABLET BY MOUTH ONCE A DAY FOR BLOOD PRESSURE Rx Instructions: TAKE ONE TABLET BY MOUTH ONCE A DAY FOR BLOOD PRESSURE clonazepam 1 mg tablet 1 mg PO BID Qty: 60 0RF gabapentin 800 mg tablet 800 mg PO TID Qty: 90 0RF hydrocodone-acetaminophen 5-325 mg tablet 1 tab PO TID Qty: 90 0RF albuterol sulfate 8.5 GM HFA aerosol inhaler See Rx Instructions .Route .COMPLEX Rx Instructions: INHALE 2 PUFFS BY MOUTH EVERY 6 HOURS ropinirole 0.25 mg tablet 0.25 mg PO HS Rx Instructions: administer 1-3 hours before bedtime methocarbamol 500 mg tablet 500 mg PO TID butenafine [Mentax] 1 % cream 1 applic topical BID cholecalciferol (vitamin D3) 1,250 mcg (50,000 unit) capsule 1,250 mcg PO WEEKLY tizanidine [Zanaflex] 4 mg tablet 4 mg PO TID Referrals Follow up/Referrals: Michelle Quiñonez PA [Primary Care Provider] - See instructions Activity Restrictions/Add. Instructions Additional Instructions/Restri
[2023-05-18 17:00] VITALS: BP 119/75; PULSE 67; O2SAT 99
[2023-05-18 17:43] VITALS: BP 131/76; PULSE 61; RESP 18; TEMP 36.8; O2SAT 100
== END 2023-05-18 17:45 | disposition home or self-care (01) ==
PROVIDERS: Emergency Provider Emergency Medicine; PCP Physician Assistant
DX: R10.31 Right lower quadrant pain (principal); K92.1 Melena; K90.0 Celiac disease; E21.3 Hyperparathyroidism, unspecified; I10 Essential (primary) hypertension; E78.5 Hyperlipidemia, unspecified; F41.9 Anxiety disorder, unspecified; F32.A Depression, unspecified; I25.10 Atherosclerotic heart disease of native coronary artery without angina pectoris; K21.9 Gastro-esophageal reflux disease without esophagitis; E06.3 Autoimmune thyroiditis; G47.33 Obstructive sleep apnea (adult) (pediatric); Z87.891 Personal history of nicotine dependence
CPT/HCPCS: 36415; 74018; 80053; 83690; 85025; 96361; 96374; 96375; 99284; 99285; J2405

== ENCOUNTER → 2023-05-22 08:23 | Outpatient (CLI) | payer OTHER, SELFPAY ==
--- NOTE | 2023-05-22 08:23 | XR_ITS ---
FINAL REPORT CLINICAL HISTORY: POSTMENOPAUSAL, CERVICAL LYMPHADENOPATHY, NODULE AND BONE LOSS FINDINGS: Using L1-4, the bone mineral density of the spine is 0.982 g/cm2, corresponding to T-score of -0.6. Using the left hip, the bone mineral density of the femoral neck is 0.749 g/cm2, corresponding to a T-score of -0.9. Using the right hip: The bone mineral density of the femoral neck is 0.747 g/cm2, corresponding to a T-score of -0.9. IMPRESSION: Normal bone mineral density of the lumbar spine and hips. NOTE: T-score: Standard deviation compared with peak bone mass of young adult mean. *Following the recommendations of the International Society of Bone densitometry, classification of hip BMD is based on the lower of two T-scores; total hip or femoral neck. Reviewed, Interpreted and Dictated by Palomo Sandoval III, MD Transcribed by Laura Coelho Authenticated and . [facility]
--- NOTE | 2023-05-22 08:23 | CT_ITS ---
FINAL REPORT TECHNIQUE: Thin section axial CT images with coronal and sagittal reformats were performed through the neck. This study was performed with techniques to keep radiation doses as low as reasonably achievable (ALARA). Individualized dose reduction techniques using automated exposure control or adjustment of mA and/or kV according to the patient''s size were employed. CLINICAL HISTORY: cervical lymphadenopathy COMPARISON: 08/19/2022 FINDINGS: There is mild mucosal thickening in the maxillary sinuses. There are multiple small and borderline sized bilateral neck nodes which are stable and likely reactive. Calcifications of the tonsillar pillars is noted bilaterally. There is mild mediastinal adenopathy which is stable and favored to be reactive. Salivary glands are normal. Larynx is unremarkable. Thyroid gland is unremarkable. IMPRESSION: Stable, small and borderline sized bilateral neck nodes which are likely reactive. Stable mediastinal adenopathy which is favored to be reactive. Reviewed, Interpreted and Dictated by Palomo Sandoval III, MD Transcribed by Laura Coelho Authenticated and . [facility]
--- NOTE | 2023-05-22 08:23 | US_ITS ---
FINAL REPORT TECHNIQUE: Sonographic images of the thyroid were obtained. CLINICAL HISTORY: thyroid nodules FINDINGS: THYROID ULTRASOUND The right thyroid gland measures 3.2 x 1.1 x 0.8 cm. The parenchyma shows normal echogenicity. There is a 3 x 3 x 3 mm solid, hypoechoic lesion consistent with a TI-RADS 4 nodule. There is a 4 x 7 x 3 mm solid, hypoechoic lesion consistent with a TI-RADS 4 nodule. The left thyroid gland measures 3.6 x 1.5 x 1.1 cm. The parenchyma shows normal echogenicity. There is a 4 x 3 x 2 mm solid, hypoechoic lesion consistent with a TI-RADS 4 nodule. IMPRESSION: Bilateral small thyroid nodules. No follow-up required per TI-RADS criteria. Reviewed, Interpreted and Dictated by Palomo Sandoval III, MD Transcribed by Laura Coelho Authenticated and [facility]
== END ==
PROVIDERS: PCP Physician Assistant; Visit Provider Physician Assistant
DX: E04.1 Nontoxic single thyroid nodule (principal); R59.0 Localized enlarged lymph nodes; M85.80 Other specified disorders of bone density and structure, unspecified site; Z78.0 Asymptomatic menopausal state
CPT/HCPCS: 70490; 76536; 77080

== ENCOUNTER 2023-06-01 22:19 | Emergency (ER) | payer OTHER, SELFPAY ==
[2023-06-01 22:19] VITALS: BP 151/97; PULSE 103; RESP 21; TEMP 36.6; O2SAT 96; BMI 34.0
[2023-06-01 22:23] VITALS: BMI 34.0
--- NOTE | 2023-06-01 22:24 | XR_ITS ---
PROCEDURE INFORMATION: Exam: XR Chest Exam date and time: 06/01/2023 10:29 PM Age: 52 years old Clinical indication: Pain; Chest pressure; Additional info: Cp TECHNIQUE: Imaging protocol: Radiologic exam of the chest. Views: 2 views. COMPARISON: CR XR CHEST PORTABLE 12/15/2022 9:37 PM FINDINGS: Lungs: Stable left basilar band of atelectasis versus scarring. No focal airspace consolidation. Pleural spaces: Unremarkable. No pleural effusion. No pneumothorax. Heart/Mediastinum: Unremarkable. No cardiomegaly. Bones/joints: No acute osseous findings. IMPRESSION: No acute pulmonary findings.
--- NOTE | 2023-06-01 22:24 | ECG_ITS ---
APPROVED REPORT Exam: Resting ECG HR:99 bpm ECG Measurements Heart Rate 99 AXES [place] 155 P 76 QRSd 88 QRS 54 QT 337 T 57 QTc 393 Conclusion SINUS RHYTHM MINIMAL ST DEPRESSION [0.025+ mV ST DEPRESSION] BORDERLINE ECG UNCONFIRMED REPORT Electronically signed by : Telly Collier MD 06/02/2023 14:00:16
[2023-06-01 22:28] VITALS: PULSE 103
[2023-06-01 22:30] VITALS: BP 135/93; PULSE 86; RESP 13; O2SAT 98
[2023-06-01 22:48] LABS: Basophils # 0.1 K/mm3 (0-0.2); Eosinophils # 0.3 K/mm3 (0.0-0.4); Eosinophils % 4.4 % (0.1-12.0); Hematocrit 41.8 % (37.0-47.0); Hemoglobin 13.2 g/dL (12.2-16.2); Lymphocytes # 3.7 K/mm3 (0.7-4.5); Lymphocytes % 46.6 % (10-50); Mean Corpuscular HGB Conc 31.5 g/dL (31.8-35.4); Mean Corpuscular Hemoglobin 31.3 pg (27.0-31.2); Mean Corpuscular Volume 99.4 fl (81-99); Mean Platelet Volume 8.6 fl (7.4-10.4); Monocytes # 0.4 K/mm3 (0.1-1.0); Monocytes % 5.3 % (1.7-9.3); Neutrophils # 3.4 K/mm3 (1.8-7.8); Neutrophils % 42.8 % (37.0-80.0); Platelet Count 391 K/mm3 (142-424); Red Blood Count 4.21 M/mm3 (4.20-5.40); Red Cell Distribution Width 13.5 % (11.5-17.5); White Blood Count 7.9 K/mm3 (4.8-10.8)
[2023-06-01 22:54] LABS: Blood Urea Nitrogen 13 mg/dl (7-17); Calcium 9.7 mg/dl (8.4-10.2); Carbon Dioxide 29 mmol/L (22.0-30.0); Chloride 103 mmol/L (98-107); Creatinine Clearance Estimated 91 mL/min (50-200); Estimated Glomerular Filt Rate 58 ml/min (>60); GFR (African American) 70 ML/MIN (>60); Glucose 95 mg/dl (74-100); Sodium 142 mmol/L (136-145)
[2023-06-01 22:59] LABS: C-Reactive Protein 4.4 mg/L (0-4)
[2023-06-01 23:13] LABS: Procalcitonin 0.044 ng/mL (0.0-2.0)
[2023-06-01 23:22] LABS: Troponin I < 0.01 ng/ml (0.00-0.034)
[2023-06-01 23:35] LABS: Erythrocyte Sedimentation Rate 54 mm/hr (0-30)
--- NOTE | 2023-06-01 23:39 | HMH.EDCP ---
Discharge Plan Disposition Patient Disposition: Home, Self-Care Prescriptions Prescriptions: No Action furosemide 20 mg tablet 20 mg PO DAILY meclizine 12.5 mg tablet 12.5 mg PO TID PRN (Reason: dizziness) Qty: 30 0RF cyanocobalamin (vitamin B-12) 1,000 mcg/mL solution 1,000 mcg SQ QMONTH Rx Instructions: 1ml monthly famotidine 20 mg tablet 20 mg PO HS ondansetron 8 mg tablet,disintegrating 8 mg PO Q8H PRN (Reason: nausea and vomiting) Qty: 30 0RF promethazine 25 mg tablet 25 mg PO TID PRN (Reason: nausea and vomiting) Qty: 30 0RF ranolazine 500 mg tablet extended release 12 hr 500 mg PO BID Qty: 180 3RF omeprazole 40 mg capsule,delayed release(DR/EC) 40 mg PO DAILY Qty: 90 3RF Rx Instructions: TAKE ONE CAPSULE BY MOUTH ONCE A DAY levothyroxine 25 mcg tablet See Rx Instructions .ROUTE .COMPLEX Qty: 30 2RF Dose Instruction: TAKE ONE TABLET BY MOUTH ONCE A DAY Rx Instructions: TAKE ONE TABLET BY MOUTH ONCE A DAY duloxetine 60 mg capsule,delayed release(DR/EC) See Rx Instructions .ROUTE .COMPLEX Qty: 60 2RF Dose Instruction: TAKE 1 CAPSULE BY MOUTH 2 TIMES A DAY Rx Instructions: TAKE 1 CAPSULE BY MOUTH 2 TIMES A DAY spironolactone 25 mg tablet See Rx Instructions .ROUTE .COMPLEX Qty: 30 2RF Dose Instruction: TAKE ONE TABLET BY MOUTH ONCE A DAY FOR HEART DISEASE Rx Instructions: TAKE ONE TABLET BY MOUTH ONCE A DAY FOR HEART DISEASE atorvastatin 40 mg tablet See Rx Instructions .ROUTE .COMPLEX Qty: 30 2RF Dose Instruction: TAKE ONE TABLET BY MOUTH AT BEDTIME FOR CHOLESTEROL Rx Instructions: TAKE ONE TABLET BY MOUTH AT BEDTIME FOR CHOLESTEROL lisinopril 5 mg tablet See Rx Instructions .ROUTE .COMPLEX Qty: 30 2RF Dose Instruction: TAKE ONE TABLET BY MOUTH ONCE A DAY FOR HIGH BLOOD PRESSURE Rx Instructions: TAKE ONE TABLET BY MOUTH ONCE A DAY FOR HIGH BLOOD PRESSURE metoprolol succinate 100 mg tablet extended release 24 hr See Rx Instructions .ROUTE .COMPLEX Qty: 30 2RF Dose Instruction: TAKE ONE TABLET BY MOUTH ONCE A DAY FOR BLOOD PRESSURE Rx Instructions: TAKE ONE TABLET BY MOUTH ONCE A DAY FOR BLOOD PRESSURE clonazepam 1 mg tablet 1 mg PO BID Qty: 60 0RF gabapentin 800 mg tablet 800 mg PO TID Qty: 90 0RF hydrocodone-acetaminophen 5-325 mg tablet 1 tab PO TID Qty: 90 0RF aspirin 81 mg tablet,delayed release (DR/EC) See Rx Instructions .ROUTE .COMPLEX Qty: 30 2RF Dose Instruction: TAKE ONE TABLET BY MOUTH AT BEDTIME FOR HEART HEALTH Rx Instructions: TAKE ONE TABLET BY MOUTH AT BEDTIME FOR HEART HEALTH oxybutynin chloride 10 mg tablet extended release 24hr See Rx Instructions .ROUTE .COMPLEX Qty: 30 2RF Dose Instruction: TAKE ONE TABLET BY MOUTH ONCE A DAY Rx Instructions: TAKE ONE TABLET BY MOUTH ONCE A DAY Vraylar 1.5 mg capsule See Rx Instructions .ROUTE .COMPLEX Qty: 30 2RF Dose Instruction: TAKE ONE CAPSULE BY MOUTH ONCE A DAY Rx Instructions: TAKE ONE CAPSULE BY MOUTH ONCE A DAY cholecalciferol (vitamin D3) 1,250 mcg (50,000 unit) capsule See Rx Instructions .ROUTE .COMPLEX Qty: 4 2RF Dose Instruction: TAKE ONE CAPSULE BY MOUTH EVERY WEEK Rx Instructions: TAKE ONE CAPSULE BY MOUTH EVERY WEEK albuterol sulfate 8.5 GM HFA aerosol inhaler See Rx Instructions .Route .COMPLEX Rx Instructions: INHALE 2 PUFFS BY MOUTH EVERY 6 HOURS ropinirole 0.25 mg tablet 0.25 mg PO HS Rx Instructions: administer 1-3 hours before bedtime methocarbamol 500 mg tablet 500 mg PO TID cefdinir 300 mg capsule 300 mg PO BID Qty: 20 0RF butenafine [Mentax] 1 % cream 1 applic topical BID tizanidine [Zanaflex] 4 mg tablet 4 mg PO TID Referrals Follow up/Referrals: Michelle Quiñonez PA [Primary Care Provider] - See instructi
[2023-06-02] VITALS: PULSE 75; RESP 14; O2SAT 99
--- NOTE | 2023-06-02 00:26 | PC.NURSE ---
pt given pillow and warm blanket for comfort.
[2023-06-02 01:00] VITALS: PULSE 66; RESP 16; O2SAT 99
[2023-06-02 01:40] LABS: Troponin I < 0.01 ng/ml (0.00-0.034)
[2023-06-02 02:00] VITALS: PULSE 79; RESP 14; O2SAT 99
[2023-06-02 03:00] VITALS: PULSE 73; RESP 17; O2SAT 95
[2023-06-02 03:29] VITALS: BP 130/80; PULSE 74; RESP 17; TEMP 36.7; O2SAT 99
== END 2023-06-02 04:13 | disposition home or self-care (01) ==
PROVIDERS: Emergency Provider Emergency Medicine; PCP Physician Assistant
DX: R07.9 Chest pain, unspecified (principal); M54.9 Dorsalgia, unspecified; F41.9 Anxiety disorder, unspecified; I25.10 Atherosclerotic heart disease of native coronary artery without angina pectoris; F32.A Depression, unspecified; K21.9 Gastro-esophageal reflux disease without esophagitis; E03.9 Hypothyroidism, unspecified; E06.3 Autoimmune thyroiditis; G47.33 Obstructive sleep apnea (adult) (pediatric); F17.210 Nicotine dependence, cigarettes, uncomplicated
CPT/HCPCS: 71046; 80048; 84145; 84484; 85025; 85651; 86140; 93005; 96374; 96375; 96376; 99285; J2405

== ENCOUNTER → 2023-06-16 13:25 | Outpatient (CLI) | payer OTHER, SELFPAY ==
[2023-06-16 17:22] LABS: Free T4 (Free Thyroxine) 0.97 ng/dl (0.78-2.19)
[2023-06-16 17:35] LABS: Thyroid Stimulating Hormone 2.73 uIU/mL (0.465-4.68)
[2023-06-18 12:09] LABS: CA 19-9 3 U/mL (0-35)
== END ==
PROVIDERS: Nurse Practitioner; PCP Physician Assistant; Visit Provider Nurse Practitioner
DX: R10.30 Lower abdominal pain, unspecified (principal); R11.14 Bilious vomiting; J31.2 Chronic pharyngitis; K59.00 Constipation, unspecified; E04.1 Nontoxic single thyroid nodule
CPT/HCPCS: 84439; 84443; 86316

== ENCOUNTER 2023-06-18 08:00 | Day surgery (SDC) | payer OTHER, SELFPAY ==
[2023-06-18 08:18] VITALS: BP 102/60; PULSE 81; RESP 18; TEMP 36.4; O2SAT 98; BMI 32.2
--- NOTE | 2023-06-18 08:36 | EXP.ANES.CKL ---
[facility] Disclaimer: The information contained in this section may have been updated after the patient was seen, as this information can be updated by other users. Medical History Altered thought processes Anxiety Celiac disease Coronary artery disease Depression Diastolic dysfunction Dizziness Dyspnea Fibromyalgia Gastroesophageal reflux disease Comfort's thyroiditis Hypothyroidism Lumbar radiculopathy Lupus KORI (obstructive sleep apnea) Osteoarthritis Thyroid Nodule Vertigo Vitamin D deficiency Surgical History H/O left knee surgery H/O tubal ligation History of cardiac cath History of partial hysterectomy Family History Other Cancer Coronary artery disease Diabetes Heart attack Hypertension Social History Smoking Status: Former smoker quit date: 05/02/23 pack-years: 25 second hand exposure: No alcohol intake: never substance use type: denies use current occupational status: unemployed Travel in the last 8 weeks: None household members: spouse housing: house lives independently: No marital status: education level: high school service: No skilled nursing: No current occupational exposures/hazards: No caffeine: Yes special giuliana needs: No agree to transfusion: No do you feel safe at home: Yes victim of physical abuse: No victim of emotional abuse: No victim of sexual abuse: No would you like helpful sources: No [facility] Anesthesia Checklist Patient Identification Patient Identification: Arm Band and Verbal (Name & ) Structural Data Admitted From: Home Planned Operative Procedure/s: egd Consent for Planned Operative Procedure(s) Verified: Yes Verified Documents: Surgical Consent NPO Status Verified Time NPO: 00:00 Additional verifications Patient : No Anesthesia Reactions: No Airway Assessment C-Spine Mobility Assessed: Yes TMJ Mobility Assessed: Yes Dentition: Dentures-good fit Neurological Assessment Level of Consciousness: Awake and Alert Hx Seizures: No Anesthesia Plan Anesthesia Risk discussed: Yes ASA Class: III Anesthesia Type: IV sedation
[2023-06-18 08:51] VITALS: O2SAT 98
--- NOTE | 2023-06-18 09:15 | HMH.SCOPE ---
Procedure: Date: 06/18/23 Patient Date of :: 1970 Procedure Performed:: EGD Indications:: Patient is a 52 year old who presents for EGD evaluation for a history of dysphagia to solids and liquids. Patient has chronic intermittent abdominal pain. Performing Provider:: Ramin Sanford MD Referring Provider:: Michelle Quiñonez APRN Sedation:: See RN records Procedure:: The gastroscope was gently passed through the incisoral orifice into the oral cavity and under direct visualization the esophagus was intubated. The endoscope was passed down the esophagus, through the stomach, and into the duodenum. Color, texture, mucosa, and anatomy of the esophagus, stomach, and duodenum were carefully examined with the scope. Findings:: Oropharynx: normal Esophagus: normal. Biopsies obtained. Empiric dilatation performed sequentially with 18-20 mm tts balloon EG Junction: intact at 40 cm Cardia: small hiatal hernia Fundus: normal Body: minimal gastritis. biopsies obtained Antrum: minimal gastritis. biopsies obtainedl Duodenal bulb: normal Duodenum (second and third portion): normal Impression: Minimal gastritis Recommendations:: Await pathology results Follow up with referring GI provider. Patient to have a barium esophagram completed Complications:: none Estimated blood obtained (mL): 0 Colonoscopy Component Colonoscopy Component Was a colonoscopy performed during today's procedure?: No
[2023-06-18 09:22] VITALS: BP 89/53; PULSE 81; RESP 16; TEMP 37.6; O2SAT 96
[2023-06-18 09:32] VITALS: BP 102/62; PULSE 75; RESP 26; TEMP 37.6; O2SAT 100
[2023-06-18 09:42] VITALS: BP 94/65; PULSE 81; RESP 18; TEMP 37.6; O2SAT 100
[2023-06-18 10:04] VITALS: BP 98/60; PULSE 75; RESP 18; TEMP 37.6; O2SAT 98
== END 2023-06-18 10:04 | disposition home or self-care (01) ==
PROVIDERS: PCP Physician Assistant; Visit Provider Internal Medicine
PROC: 0DJ08ZZ Inspection of Upper Intestinal Tract, Via Natural or Artificial Opening Endoscopic (ICD-10-PCS; CPT 43235; principal; 2023-06-18 09:00)
DX: K29.70 Gastritis, unspecified, without bleeding (principal); R13.10 Dysphagia, unspecified; R10.9 Unspecified abdominal pain; K44.9 Diaphragmatic hernia without obstruction or gangrene
CPT/HCPCS: 43239; 43249; C1726

== ENCOUNTER 2023-06-27 14:05 | Emergency (ER) | payer OTHER, SELFPAY ==
--- NOTE | 2023-06-27 14:14 | XR_ITS ---
FINAL REPORT CLINICAL HISTORY: PAIN AND SWELLING FINDINGS: Right knee Two views were obtained. There is no acute fracture or dislocation. There are mild degenerative changes. No soft tissue abnormality is identified. IMPRESSION: Mild degenerative changes. Reviewed, Interpreted and Dictated by Palomo Sandoval III, MD Transcribed by Kiya Hoffman Authenticated and [facility]
[2023-06-27 14:15] VITALS: BP 125/80; PULSE 76; RESP 17; TEMP 36.9; O2SAT 98; BMI 26.9
--- NOTE | 2023-06-27 14:20 | XR_ITS ---
FINAL REPORT CLINICAL HISTORY: PAIN FINDINGS: Right tibia fibula Two views were obtained. There is no acute fracture or dislocation. The joint spaces appear normal. No soft tissue abnormality is identified. IMPRESSION: No acute process. Reviewed, Interpreted and Dictated by Palomo Sandoval III, MD Transcribed by Kiya Hoffman Authenticated and [facility]
--- NOTE | 2023-06-27 14:23 | EXP.UTC ---
Discharge Plan Disposition Patient Disposition: Home, Self-Care Condition: Good Prescriptions Prescriptions: No Action furosemide 20 mg tablet 20 mg PO DAILY meclizine 12.5 mg tablet 12.5 mg PO TID PRN (Reason: dizziness) Qty: 30 0RF cyanocobalamin (vitamin B-12) 1,000 mcg/mL solution 1,000 mcg SQ QMONTH Rx Instructions: 1ml monthly famotidine 20 mg tablet 20 mg PO HS omeprazole 40 mg capsule,delayed release(DR/EC) 40 mg PO DAILY Qty: 90 3RF Rx Instructions: TAKE ONE CAPSULE BY MOUTH ONCE A DAY gabapentin 800 mg tablet 800 mg PO TID Qty: 90 0RF albuterol sulfate 8.5 GM HFA aerosol inhaler See Rx Instructions .Route .COMPLEX Rx Instructions: INHALE 2 PUFFS BY MOUTH EVERY 6 HOURS ropinirole 0.25 mg tablet 0.25 mg PO HS Rx Instructions: administer 1-3 hours before bedtime methocarbamol 500 mg tablet 500 mg PO TID butenafine [Mentax] 1 % cream 1 applic topical BID tizanidine [Zanaflex] 4 mg tablet 4 mg PO TID atorvastatin 40 mg tablet See Rx Instructions .ROUTE .COMPLEX Rx Instructions: TAKE ONE TABLET BY MOUTH AT BEDTIME FOR CHOLESTEROL oxybutynin chloride 10 mg tablet extended release 24hr See Rx Instructions .ROUTE .COMPLEX Rx Instructions: TAKE ONE TABLET BY MOUTH ONCE A DAY hydrocodone-acetaminophen 5-325 mg tablet 1 tab PO TID metoprolol succinate 100 mg tablet extended release 24 hr See Rx Instructions .ROUTE .COMPLEX Rx Instructions: TAKE ONE TABLET BY MOUTH ONCE A DAY FOR BLOOD PRESSURE clonazepam 1 mg tablet 1 mg PO BID aspirin 81 mg tablet,delayed release (DR/EC) See Rx Instructions .ROUTE .COMPLEX Rx Instructions: TAKE ONE TABLET BY MOUTH AT BEDTIME FOR HEART HEALTH spironolactone 25 mg tablet See Rx Instructions .ROUTE .COMPLEX Rx Instructions: TAKE ONE TABLET BY MOUTH ONCE A DAY FOR HEART DISEASE ondansetron 8 mg tablet,disintegrating See Rx Instructions .ROUTE .COMPLEX Rx Instructions: DISSOLVE 1 TABLET ON THE TONGUE EVERY 8 HOURS NEEDED FOR NAUSEA/VOMITING levothyroxine 25 mcg tablet See Rx Instructions .ROUTE .COMPLEX Rx Instructions: TAKE ONE TABLET BY MOUTH ONCE A DAY promethazine 25 mg tablet See Rx Instructions .ROUTE .COMPLEX Rx Instructions: TAKE ONE TABLET BY MOUTH 3 TIMES A DAY NEEDED FOR NAUSEA/VOMITING lisinopril 5 mg tablet See Rx Instructions .ROUTE .COMPLEX Rx Instructions: TAKE ONE TABLET BY MOUTH ONCE A DAY FOR HIGH BLOOD PRESSURE duloxetine 60 mg capsule,delayed release(DR/EC) See Rx Instructions .ROUTE .COMPLEX Rx Instructions: TAKE 1 CAPSULE BY MOUTH 2 TIMES A DAY ranolazine 500 mg tablet extended release 12 hr 500 mg PO BID cholecalciferol (vitamin D3) 1,250 mcg (50,000 unit) capsule See Rx Instructions .ROUTE .COMPLEX Rx Instructions: TAKE ONE CAPSULE BY MOUTH EVERY WEEK Vraylar 1.5 mg capsule See Rx Instructions .ROUTE .COMPLEX Rx Instructions: TAKE ONE CAPSULE BY MOUTH ONCE A DAY Referrals Follow up/Referrals: Michelle Quiñonez PA [Primary Care Provider] - See instructions Jac Kang JR, MD [Physician] - See instructions Kelvin Jewell DO [Staff Physician] - See instructions Activity Restrictions/Add. Instructions Additional Instructions/Restrictions: *weight bearing as tolerated Use cane to help get around *RICE, Rest the extremity, Ice 15-20 minutes 3-4 times daily, Compress- wear the agustin wrap as discussed as much as possible to help reduce swelling and pain, Elevate the extremity when at rest *Agustin wrap is for support and help control swelling, use it except in the shower. Be sure that is not to tight but not to loose either *Elevate when resting? *Ibuprofen 600-800mg every 6-8 hours as needed for pain an inflammation if you can take it if not or If need something mo
[2023-06-27 15:47] VITALS: BP 125/80; PULSE 76; RESP 17; TEMP 36.9; O2SAT 98
== END 2023-06-27 15:53 | disposition home or self-care (01) ==
PROVIDERS: Emergency Provider Nurse Practitioner; PCP Physician Assistant
DX: M25.561 Pain in right knee (principal); R22.41 Localized swelling, mass and lump, right lower limb; M32.9 Systemic lupus erythematosus, unspecified; I25.10 Atherosclerotic heart disease of native coronary artery without angina pectoris; E03.9 Hypothyroidism, unspecified; K21.9 Gastro-esophageal reflux disease without esophagitis; E55.9 Vitamin D deficiency, unspecified; F41.9 Anxiety disorder, unspecified; F32.A Depression, unspecified; I11.9 Hypertensive heart disease without heart failure
CPT/HCPCS: 73562; 73590; 99212; 99214; G0463

== ENCOUNTER → 2023-07-29 11:08 | Outpatient (CLI) | payer OTHER, SELFPAY ==
--- NOTE | 2023-07-29 11:12 | XR_ITS ---
FINAL REPORT CLINICAL HISTORY: lt sided knee pain COMPARISON: 07/09/2022 FINDINGS: LEFT KNEE: Three views of the left knee were obtained. There is no acute fracture or dislocation. Visualized joint spaces are normally aligned. There are mild and moderate degenerative changes noted, with marked narrowing of the patellofemoral joint. There are chronic calcifications noted at the medial border of the patella. There is no joint effusion. Soft tissues are unremarkable. IMPRESSION: No acute bony abnormality. Mild and moderate degenerative changes, most prominent in the patellofemoral compartment. Reviewed, Interpreted and Dictated by Palomo Sandoval III, MD Transcribed by Beverley Aden Authenticated and . [facility]
== END ==
PROVIDERS: PCP Physician Assistant; Visit Provider Orthopaedic Surgery
DX: M25.562 Pain in left knee (principal)
CPT/HCPCS: 73562

== ENCOUNTER → 2023-08-04 11:03 | Outpatient (CLI) | payer OTHER, SELFPAY ==
[2023-08-04 12:59] LABS: Occult Blood,Stool Negative (Negative)
[2023-08-06 16:29] LABS: Calprotectin, Fecal 215 ug/g (0-120)
== END ==
PROVIDERS: PCP Physician Assistant; Visit Provider Nurse Practitioner
DX: K59.00 Constipation, unspecified (principal); Z87.19 Personal history of other diseases of the digestive system
CPT/HCPCS: 82272; 83993; G0328

== ENCOUNTER 2023-08-25 21:01 | Emergency (ER) | payer OTHER, SELFPAY ==
--- NOTE | 2023-08-25 21:01 | ECG_ITS ---
APPROVED REPORT Exam: Resting ECG HR:70 bpm ECG Measurements Heart Rate 70 AXES [place] 159 P 63 QRSd 89 QRS 24 QT 406 T 61 QTc 427 Conclusion SINUS RHYTHM NORMAL ECG UNCONFIRMED REPORT Electronically signed by : Telly Collier MD 08/27/2023 08:50:59
[2023-08-25 21:02] VITALS: BP 159/85; PULSE 74; RESP 19; TEMP 36.6; O2SAT 100; BMI 32.1
[2023-08-25 21:08] VITALS: PULSE 74
--- NOTE | 2023-08-25 21:14 | XR_ITS ---
PROCEDURE INFORMATION: Exam: XR Chest Exam date and time: 08/25/2023 9:12 PM Age: 52 years old Clinical indication: Shortness of breath; Sternal or substernal pain; Prior surgery; Surgery date: 6+ months; Surgery type: 3 cardiac stents; Additional info: Chest pain TECHNIQUE: Imaging protocol: Radiologic exam of the chest. Views: 2 views. COMPARISON: CR XR CHEST 2V 06/01/2023 10:29 PM FINDINGS: Lungs: Unremarkable. No consolidation. Pleural spaces: Unremarkable. No pleural effusion. No pneumothorax. Heart/Mediastinum: Unremarkable. No cardiomegaly. Vasculature: Stents overlie the cardiac silhouette. Bones/joints: Unremarkable. IMPRESSION: No acute findings.
[2023-08-25 21:23] LABS: Chloride 104 mmol/L (98-107)
[2023-08-25 21:24] LABS: Potassium 3.8 mmoL/L (3.5-5.1); Sodium 142 mmol/L (136-145)
[2023-08-25 21:26] LABS: Alanine Aminotransferase 22 U/L (12-78); Albumin Level 3.9 g/dl (3.5-5.0); Albumin/Globulin Ratio 1.1 (1.1-1.8); Alkaline Phosphatase 90 U/L (38-126); Aspartate Amino Transferase 24 U/L (14-36); Bilirubin,Total 0.2 mg/dl (0.2-1.3); Blood Urea Nitrogen 18 mg/dl (7-17); Creatinine Clearance Estimated 78 mL/min (50-200); Estimated Glomerular Filt Rate 52 ml/min (>60); GFR (African American) 63 ML/MIN (>60); Globulin 3.5 g/dL (1.3-3.2); Total Protein,Serum 7.4 g/dl (6.3-8.2)
[2023-08-25 21:27] LABS: Anion Gap 8.8 mEq/L (5-15); Calcium 9.3 mg/dl (8.4-10.2); Carbon Dioxide 33 mmol/L (22.0-30.0); Glucose 73 mg/dl (74-100)
--- NOTE | 2023-08-25 21:27 | HMH.EDGENADL ---
Discharge Plan Disposition Patient Disposition: Home, Self-Care Condition: Good Prescriptions Prescriptions: No Action atorvastatin 40 mg tablet 40 mg PO HS oxybutynin chloride 10 mg tablet extended release 24hr 10 mg PO HS hydrocodone-acetaminophen 5-325 mg tablet 1 tab PO TID metoprolol succinate 100 mg tablet extended release 24 hr 100 mg PO DAILY clonazepam 1 mg tablet 1 mg PO BID omeprazole 40 mg capsule,delayed release(DR/EC) 40 mg PO DAILY aspirin 81 mg tablet,delayed release (DR/EC) 81 mg PO DAILY spironolactone 25 mg tablet 25 mg PO DAILY ondansetron 8 mg tablet,disintegrating 8 mg PO Q8HP PRN (Reason: Nausea And Vomiting) levothyroxine 25 mcg tablet 25 mcg PO AM promethazine 25 mg tablet 25 mg PO Q12HP PRN (Reason: Nausea And Vomiting) nitroglycerin 0.4 mg tablet, sublingual 0.4 mg buccal DIRECTED lisinopril 5 mg tablet 5 mg PO DAILY duloxetine 60 mg capsule,delayed release(DR/EC) 60 mg PO DAILY ranolazine 500 mg tablet extended release 12 hr 500 mg PO BID cholecalciferol (vitamin D3) 1,250 mcg (50,000 unit) capsule 1,250 mcg PO WEEKLY Vraylar 1.5 mg capsule 1.5 mg PO DAILY Referrals Follow up/Referrals: Michelle Quiñonez PA [Primary Care Provider] - See instructions Activity Restrictions/Add. Instructions Additional Instructions/Restrictions: Please follow-up with your primary care provider. Please return to the emergency department if you develop any new or worsening symptoms or become concerned for your health. Clinical Impressions Clinical Impression: Chest pain Instructions Patient Instructions: DI for Atypical Chest Pain Discharge ED Provider: Armani Juarez General Adult HPI <Tania Hills DO - Last Filed: 08/26/23 00:22> General Chief complaint: Chest Pain Stated complaint: Chest pain Time Seen by Provider: 08/25/23 21:03 Mode of Arrival: Wheelchair Source of Information: Patient Limitations: No Limitations Description of Symptoms (Recalled from ER Triage Doc. by RN): 52 F presents from home for c/o mid-sternal chest pain that radiates to her upper back, neck, and left shoulder. Patient states he has been here previously for chst pain; however, she doesn't typically have shortness of breath or dizziness. 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 She took 4 ASA at 1930 and 1 SL nitro at 2030 without relief. Patient reports history of [address] Caraballo not related to a heart attack. History of Present Illness HPI narrative: This patient is a 52-year-old female with a history of CAD status post stenting, GERD, chronic chest pain, hypertension, hyperlipidemia, hypertensive heart disease, KORI, obesity, anxiety, fibromyalgia, and migraines presenting to the emergency department for evaluation with concern for multiple complaints. She states that for the last 4 days, she has had mild headache that is just nagging. She states that yesterday, she woke up with chest pain. It went away, but she states that she still felt weak and tired all day yesterday. Tonight approximately 1 hour prior to arrival, she started to have chest pain again after lying down and trying to go to sleep. She describes it as being substernal and radiating to her back and shoulders. She states that she is supposed to have an echocardiogram and a coronary CTA with her compensation specialist, however she has not yet scheduled the appointment. On medical record review, she was last seen by Maksim Ross in cardiology clinic on 08/05/2023. She has had multiple previous evaluations for chest pain in the past, however she states that this is different she states that she feels like she is having a hard time taking a deep breath in and it feels like her throat is closing off. She denies any significant history of allergies 7 penicillins, which she has not been exposed to recently. Related Data Home Medicat
[2023-08-25 21:28] LABS: Basophils # 0.1 K/mm3 (0-0.2); Basophils % 1.2 % (0.1-2.0); Eosinophils # 0.2 K/mm3 (0.0-0.4); Hematocrit 41.8 % (37.0-47.0); Hemoglobin 13.2 g/dL (12.2-16.2); Lymphocytes % 37.1 % (10-50); Mean Corpuscular HGB Conc 31.7 g/dL (31.8-35.4); Mean Corpuscular Hemoglobin 30.8 pg (27.0-31.2); Mean Platelet Volume 9.1 fl (7.4-10.4); Monocytes # 0.4 K/mm3 (0.1-1.0); Monocytes % 4.6 % (1.7-9.3); Neutrophils # 4.3 K/mm3 (1.8-7.8); Neutrophils % 54.1 % (37.0-80.0); Platelet Count 357 K/mm3 (142-424); Red Cell Distribution Width 13.4 % (11.5-17.5)
[2023-08-25 21:44] LABS: T4 (Thyroxine) 8.6 ug/dl (5.53-11.0)
[2023-08-25 21:58] LABS: Thyroid Stimulating Hormone 5.26 uIU/mL (0.465-4.68)
[2023-08-25 22:06] LABS: Troponin I < 0.01 ng/ml (0.00-0.034)
[2023-08-26 00:23] LABS: Troponin I < 0.01 ng/ml (0.00-0.034)
[2023-08-26 00:54] VITALS: BP 105/72; PULSE 69; RESP 19; TEMP 36.6; O2SAT 98
== END 2023-08-26 00:54 | disposition home or self-care (01) ==
PROVIDERS: Emergency Medicine; Emergency Provider Emergency Medicine; PCP Physician Assistant
DX: R07.9 Chest pain, unspecified (principal); M54.2 Cervicalgia; M54.6 Pain in thoracic spine; M25.512 Pain in left shoulder; I11.9 Hypertensive heart disease without heart failure; E78.5 Hyperlipidemia, unspecified; K21.9 Gastro-esophageal reflux disease without esophagitis; G47.33 Obstructive sleep apnea (adult) (pediatric); F41.9 Anxiety disorder, unspecified; I25.10 Atherosclerotic heart disease of native coronary artery without angina pectoris; E06.3 Autoimmune thyroiditis; K90.0 Celiac disease; F32.A Depression, unspecified; M54.16 Radiculopathy, lumbar region; F17.210 Nicotine dependence, cigarettes, uncomplicated
CPT/HCPCS: 71046; 80053; 84436; 84443; 84484; 85025; 93005; 96361; 96374; 99285; J0131

== ENCOUNTER → 2023-09-10 11:19 | Outpatient (CLI) | payer OTHER, SELFPAY ==
--- NOTE | 2023-09-10 11:20 | FL_ITS ---
FINAL REPORT CLINICAL HISTORY: ft 1:03 dap 1140.82 FINDINGS: ESOPHAGRAM HISTORY: Dysphagia. feels like food getting stuck in throat. TECHNIQUE: The patient ingested thick and thin barium contrast. Spot and overhead films were performed. A total of 45 images were saved. FINDINGS: There is a prominent cricopharyngeus muscle. The esophagus demonstrates a small sliding type hiatal hernia. There is no gastroesophageal reflux demonstrated. Motility appears normal. No changes of esophagitis are evident. 13 mm barium tablet passes easily through the esophagus and into the stomach. Radiation exposure in Total DAP: 1140.82 uGym2 Fluoroscopy time: 1 minute 3 seconds Total images: 45 IMPRESSION: Prominent cricopharyngeus muscle. Small sliding-type hiatal hernia. Otherwise, unremarkable. Reviewed, Interpreted and Dictated by Palomo Sandoval III, MD Transcribed by Suri Olivo PA-C Authenticated and [facility]
== END ==
PROVIDERS: PCP Physician Assistant; Visit Provider Nurse Practitioner
DX: J31.2 Chronic pharyngitis (principal); R11.0 Nausea; R13.10 Dysphagia, unspecified; Z87.891 Personal history of nicotine dependence
CPT/HCPCS: 74220

== ENCOUNTER 2023-09-15 09:02 | Outpatient (CLI) | payer OTHER, SELFPAY ==
[2023-09-15] VITALS (9 sets, daily range): BP systolic 87–121; BP diastolic 50–72; PULSE 55–69; RESP 18; TEMP 36.4–36.6; O2SAT 93–100; BMI 31.4
--- NOTE | 2023-09-15 09:02 | CT_ITS ---
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 A noncontrast coronary calcium scan was performed. A CT attenuation threshold of 130 Hounsfield units (HU) was used for the detection of calcium in contiguous voxels of 1 sq mm in area to be counted as individual lesions. Bolus tracking in the ascending aorta with a threshold of 180 HU was performed. Immediately afterwards, ECG synchronized cardiac CT was then performed from the cardiac base to apex using retrospective gating with ECG tube current modulation. A total of 85 mL of Isovue 370 mg/mL contrast medium was administered at 5 mL/sec followed by a saline flush using a biphasic injection protocol. A tube voltage of 120 KVp was used. The patient received the following medications prior to the cardiac CT. 50 mg of oral metoprolol 5 mg of intravenous metoprolol. 0.8 mg of sublingual nitroglycerin. The average heart rate at the time of acquisition was 53 bpm and regular. Image Reconstruction Transaxial images were reconstructed at 0.67 mm slide thickness. Data was reviewed interactively on an advanced workstation capable of 2 and 3-dimensional displays in all conventional reconstruction formats, including multiplanar reformations, maximum intensity projections, curved multiplanar reformations, and volume rendered reconstructions. When applicable, selected routine images describing the relevant coronary anatomy and pathology were saved and sent to PACS. Complications None Technical Quality Overall image quality was good. Coronary artery opacification was adequate. Total DLP (Dose-Length Product) is 1214.2 mGy-cm. The reported value represents the total of one or more individual components during the CT acquisition of this date and at this time, and as such, the same value may appear in more than one CT report depending on the interpreting/reporting physicians. COMPARISON None Calcium Scoring Calcium scoring was not performed due to history of coronary stents. Coronary CT Angiography Coronaries have normal origin and proximal course. The coronary arterial system is right dominant. Note: Stenosis is reported as maximum percentage diameter stenosis. Stenosis grading is reported using the following scheme: Quantitative Stenosis Grading: Left Main (LM): The left main originates normally from the left sinus of Valsalva. The LM trifurcates into the left anterior descending artery, ramus intermedius, and left circumflex artery. The LM has a non-calcified ostial plaque of approximately 50% luminal narrowing. Left Anterior Descending (LAD) and Diagonal Branches: The LAD gives off 2 diagonal branches. The LAD and its branches are patent with no evidence of atherosclerosis. There is no evidence of LAD bridge. Ramus-intermedius (RI): There is mild, non-calcified, 30-50% RI luminal narrowing in the proximal RI Left Circumflex (LCX) and Obtuse Marginals (OM): The LCX gives off 1 Obtuse Marginal (OM) branch. The LCX and its branches are patent with no evidence of atherosclerosis. Right Coronary Artery (RCA): The RCA originates normally from the right sinus of Valsalva. The RCA gives off a posterior descending artery (PDA) and posterolateral (PL) branches. The ostial, proximal, and mid RCA has coronary stents. The stents appear to be patent with no clear evidence of in-stent restenosis or occlusion, but luminal narrowing within the stented region cannot be entirely excluded.The distal RCA has mild non-calcified 30-50% luminal stenosis. Non-Coronary Cardiac Findings: Analysis of the left ventricular (LV) structure and function was performed after 3-D reconstruction of the LV f
[2023-09-15 10:07] LABS: Chloride 104 mmol/L (98-107); Sodium 140 mmol/L (136-145)
[2023-09-15 10:08] LABS: Potassium 3.9 mmoL/L (3.5-5.1)
[2023-09-15 10:10] LABS: Blood Urea Nitrogen 12 mg/dl (7-17); Creatinine Clearance Estimated 94 mL/min (50-200); Estimated Glomerular Filt Rate 65 ml/min (>60); GFR (African American) 79 ML/MIN (>60)
[2023-09-15 10:11] LABS: Anion Gap 9.9 mEq/L (5-15); Calcium 9.1 mg/dl (8.4-10.2); Carbon Dioxide 30 mmol/L (22.0-30.0); Glucose 98 mg/dl (74-100)
--- NOTE | 2023-09-15 10:50 | PC.NURSE ---
PT SITTING UP IN CHAIR. FAMILY MEMBERS AT BEDSIDE. NO NEEDS OR CONCERNS VOICED.
--- NOTE | 2023-09-15 11:05 | PC.NURSE ---
No needs or concerns voiced. Family members at bedside.
--- NOTE | 2023-09-15 11:20 | PC.NURSE ---
Pt sitting up in chair. No needs or concerns voiced. Family at bedside.
--- NOTE | 2023-09-15 11:58 | PC.NURSE ---
Reported to MICHAEL Matias BP's and is okay to discharge if not symptomatic. Pt denies dizziness, or lightheadedness at this time.
== END 2023-09-15 12:02 | disposition home or self-care (01) ==
LOC: RAD 09:02
PROVIDERS: PCP Physician Assistant; Visit Provider Physician Assistant
DX: R06.02 Shortness of breath (principal); R07.9 Chest pain, unspecified; R53.83 Other fatigue; I10 Essential (primary) hypertension; E78.5 Hyperlipidemia, unspecified; G47.33 Obstructive sleep apnea (adult) (pediatric); K21.9 Gastro-esophageal reflux disease without esophagitis; Z95.5 Presence of coronary angioplasty implant and graft
CPT/HCPCS: 75574; 80048; Q9967

== ENCOUNTER → 2023-09-16 09:10 | Outpatient (CLI) | payer OTHER, SELFPAY ==
--- NOTE | 2023-09-16 09:10 | NM_ITS ---
FINAL REPORT TECHNIQUE: 0.57 Millicuries of technetium 99m sulfur colloid was ingested with eggs, toast and water. CLINICAL HISTORY: Patient feels full all the time with bloating, dysphagia, nausea FINDINGS: GASTRIC EMPTYING SCAN Static images show normal emptying of the stomach into the small bowel. Based on the time activity curve, the estimated half-emptying time is 141 minutes. IMPRESSION: Abnormally long gastric emptying time. Reviewed, Interpreted and Dictated by Palomo Sandoval III, MD Transcribed by Rufus Oquendo Authenticated and [facility]
== END ==
PROVIDERS: PCP Physician Assistant; Visit Provider Nurse Practitioner
DX: J31.2 Chronic pharyngitis (principal); R13.10 Dysphagia, unspecified; R63.0 Anorexia; Z87.891 Personal history of nicotine dependence; Z68.31 Body mass index [BMI] 31.0-31.9, adult
CPT/HCPCS: 78264; A9541

== ENCOUNTER 2023-09-22 19:02 | Inpatient (IN) | payer OTHER, SELFPAY ==
[2023-09-22] VITALS (12 sets, daily range): BP systolic 104–142; BP diastolic 65–100; PULSE 60–83; RESP 12–14; TEMP 36.7–36.8; O2SAT 96–100; BMI 31.7
--- NOTE | 2023-09-22 19:03 | ECG_ITS ---
APPROVED REPORT Exam: Resting ECG HR:81 bpm ECG Measurements Heart Rate 81 AXES [place] 172 P 75 QRSd 89 QRS 50 QT 368 T 65 QTc 405 Conclusion SINUS RHYTHM NONSPECIFIC T-WAVE ABNORMALITY BORDERLINE ECG UNCONFIRMED REPORT Electronically signed by : Telly Collier MD 09/25/2023 21:42:58
--- NOTE | 2023-09-22 19:29 | XR_ITS ---
PROCEDURE INFORMATION: Exam: XR Chest Exam date and time: 09/22/2023 7:48 PM Age: 52 years old Clinical indication: Sternal or substernal pain; Additional info: Chest pain TECHNIQUE: Imaging protocol: Radiologic exam of the chest. Views: 1 view. COMPARISON: CR XR CHEST 2V 08/25/2023 9:12 PM FINDINGS: Lungs: Mild hyperexpansion and hyperlucency with mild diaphragmatic flattening suggesting possible COPD. Pulmonary vasculature grossly normal. No gross pulmonary infiltrates or edema pattern. Chronic bandlike density in the left base is unchanged, favor chronic scarring or atelectasis. Pleural spaces: No pleural effusion. No pneumothorax. Heart/Mediastinum: Heart size normal. RCA stent noted. No tracheal/mediastinal shift. Bones/joints: No acute osseous abnormalities are identified. IMPRESSION: No acute thoracic process. No significant change.
[2023-09-22 19:31] LABS: Chloride 103 mmol/L (98-107); Potassium 3.7 mmoL/L (3.5-5.1); Sodium 140 mmol/L (136-145)
--- NOTE | 2023-09-22 19:31 | PC.NURSE ---
pt states that her pain improved after the nitro
[2023-09-22 19:34] LABS: Anion Gap 8.7 mEq/L (5-15); Blood Urea Nitrogen 10 mg/dl (7-17); Calcium 9.3 mg/dl (8.4-10.2); Carbon Dioxide 32 mmol/L (22.0-30.0); Creatinine Clearance Estimated 95 mL/min (50-200); Estimated Glomerular Filt Rate 65 ml/min (>60); GFR (African American) 79 ML/MIN (>60); Glucose 115 mg/dl (74-100)
[2023-09-22 19:36] LABS: Basophils # 0.1 K/mm3 (0-0.2); Basophils % 0.9 % (0.1-2.0); Eosinophils # 0.2 K/mm3 (0.0-0.4); Eosinophils % 3.4 % (0.1-12.0); Hemoglobin 13.1 g/dL (12.2-16.2); Lymphocytes # 3.1 K/mm3 (0.7-4.5); Lymphocytes % 46.6 % (10-50); Mean Corpuscular HGB Conc 33.5 g/dL (31.8-35.4); Mean Corpuscular Hemoglobin 33.3 pg (27.0-31.2); Mean Corpuscular Volume 99.2 fl (81-99); Mean Platelet Volume 8.8 fl (7.4-10.4); Monocytes # 0.2 K/mm3 (0.1-1.0); Monocytes % 2.8 % (1.7-9.3); Neutrophils % 46.2 % (37.0-80.0); Platelet Count 291 K/mm3 (142-424); Red Blood Count 3.93 M/mm3 (4.20-5.40); Red Cell Distribution Width 13.1 % (11.5-17.5); White Blood Count 6.6 K/mm3 (4.8-10.8)
[2023-09-22 19:48] LABS: Troponin I < 0.01 ng/ml (0.00-0.034)
--- NOTE | 2023-09-22 19:52 | HMH.EDGENADL ---
Discharge Plan Disposition Patient Disposition: Admitted Clinical Impressions Clinical Impression: Unstable angina Discharge ED Provider: Patience Abel General Adult HPI General Chief complaint: Chest Pain Stated complaint: Chest Pain Time Seen by Provider: 09/22/23 19:45 Mode of Arrival: Wheelchair Source of Information: Patient and Spouse Limitations: No Limitations Description of Symptoms (Recalled from ER Triage Doc. by RN): c/o lung,rib,chest, shoulder, breast bone sharp pain that goes into her left shoulder around her shoulder blade into her upper abdomen and down to her belly button with soa, pt states that this pain started Friday and today it got worse. She has recently had a CTA which showed at 50 percent blockage in her left main artery. She took nitro around 3-4 oclock today with some relief for about 30 minutes until the pain returned. History of Present Illness HPI narrative: Patient is a 52-year-old female with a history of coronary disease with multiple stents in the past presented today with chest pain over the last several days which has been intermittent. Not been exertional in nature but she does have some pleuritic chest pain associated with it radiates into her shoulders. States she recently had a coronary CT angio with Dr. Caraballo findings which will be demonstrated in the medical decision making but she was concerned about the findings and has extreme anxiety associated with this and presents today with worsening pain. She had nitroglycerin just prior to arrival with some improvement in her symptoms. She states that Dr. Caraballo and his team wanted to do a heart cath this week with her ongoing symptoms but they are having issues with her insurance so she came to the emergency department. Related Data Home Medications Medication Instructions Recorded Confirmed atorvastatin 40 mg tablet 40 mg PO HS High Cholesterol 08/25/23 09/18/23 cholecalciferol (vitamin D3) 1,250 1,250 mcg PO WEEKLY Supplement 08/25/23 09/18/23 mcg (50,000 unit) capsule lisinopril 5 mg tablet 5 mg PO DAILY High Blood Pressure 08/25/23 09/18/23 nitroglycerin 0.4 mg sublingual 0.4 mg buccal DIRECTED Chest 08/25/23 09/18/23 tablet Pain omeprazole 40 mg capsule,delayed 40 mg PO DAILY Acid Reflux 08/25/23 09/18/23 release ranolazine 500 mg tablet,extended 500 mg PO BID Chronic angina 08/25/23 09/18/23 release,12 hr Previous Rx's Medication Instructions Recorded duloxetine 60 mg capsule,delayed See Rx Instructions .Route 08/27/23 release .COMPLEX #60 caps levothyroxine 25 mcg tablet See Rx Instructions .Route 08/27/23 .COMPLEX #30 tabs metoprolol succinate 100 mg See Rx Instructions .Route 08/27/23 tablet,extended release 24 hr .COMPLEX #30 tabs ondansetron 8 mg disintegrating See Rx Instructions .Route 08/27/23 tablet .COMPLEX #30 tabs promethazine 25 mg tablet See Rx Instructions .Route 08/27/23 .COMPLEX #30 tabs spironolactone 25 mg tablet See Rx Instructions .Route 08/27/23 .COMPLEX #30 tabs aspirin 81 mg tablet,delayed See Rx Instructions .Route 08/28/23 release .COMPLEX #30 tabs cariprazine 1.5 mg capsule See Rx Instructions .Route 08/28/23 (Vraylar) .COMPLEX #30 caps oxybutynin chloride 10 mg See Rx Instructions .Route 08/28/23 tablet,extended release 24 hr .COMPLEX #30 tabs gabapentin 800 mg tablet 800 mg PO TID #90 tabs 09/03/23 hydrocodone 5 mg-acetaminophen 325 1 tab PO TID Chronic pain #90 tabs 09/03/23 mg tablet clonazepam 1 mg tablet 1 mg PO BID Anxiety #60 tabs 09/10/23 Allergies Allergy/AdvReac Type Severity Reaction Status Date / Time ketorolac [From TORADOL] Allergy Mild I-RASH Verified 09/18/23 13:48 Penicillins [PENICILLINS] Allergy Mild I-RASH Verified 09/18/23 13:48 isosorbide AdvReac Intermediate Headache Verified 09/18/23 13:48 [facility] Disclaimer: The information contained in this section may have been updated after the patient was seen, as this information can be updated
--- NOTE | 2023-09-22 20:53 | PC.NURSE ---
on phone with hospitalist
--- NOTE | 2023-09-22 20:57 | PC.NURSE ---
on phone with jeramie
--- NOTE | 2023-09-22 21:02 | PC.NURSE ---
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
--- NOTE | 2023-09-22 22:24 | EXP.HP ---
History of Present Illness *Admission Date: 09/22/23 *Reason for visit:: unstable angina *History of present illness: 52 year old female presented to the ED for c/o CP. Pt states CP started over the weekend. PMHX of CAD, HTN, HLD, GERD, Anxiety, hypothroidism, and fibromyalgia. The pt states pain radiates into her neck, shoulder, and under left breast. She also reports epigastric pain. The patient took nitro prior to arrival to [facility]. Her ED work is reviewed by me and reveals negative troponins, sinus rhythm EKG without st depression or elevation, and unremarkable chest xray. She has no electrolytes abnormalities. The ED physician consulted cardiology and the hospitalist team for further medical management. I accepted the pt and admitted them to the medical surgical floor for overnight cardiac monitoring. I will continue to trend her troponins and will order a cardiac consult for the morning. [facility] Disclaimer: The information contained in this section may have been updated after the patient was seen, as this information can be updated by other users. Medical History Altered thought processes Anxiety Celiac disease Coronary artery calcification seen on CT scan Coronary artery disease Depression Diastolic dysfunction Dizziness Dyspnea Fibromyalgia Gastroesophageal reflux disease Comfort's thyroiditis Hypothyroidism Lumbar radiculopathy Lupus KORI (obstructive sleep apnea) Osteoarthritis Thyroid Nodule Vertigo Vitamin D deficiency Surgical History H/O left knee surgery H/O tubal ligation History of cardiac cath History of partial hysterectomy Family History Other Cancer Coronary artery disease Diabetes Heart attack Hypertension Social History (Updated 09/22/23 @ 23:28 by Alea Kirkland RN) Smoking Status: Former smoker tobacco type: cigarettes packs per day: 1 second hand exposure: No alcohol intake: never substance use type: denies use current occupational status: unemployed Travel in the last 8 weeks: None household members: spouse housing: house lives independently: No marital status: education level: high school service: No long term: No current occupational exposures/hazards: No caffeine: Yes special giuliana needs: No agree to transfusion: No do you feel safe at home: Yes victim of physical abuse: No victim of emotional abuse: No victim of sexual abuse: No would you like helpful sources: No Review of Systems *Cardiovascular Cardiovascular: Reports chest pain *Respiratory Respiratory: Reports system reviewed and no additional complaints, except as documented *Gastrointestinal Gastrointestinal: Reports system reviewed and no additional complaints, except as documented *Genitourinary Genitourinary: Reports system reviewed and no additional complaints, except as documented *Musculoskeletal Musculoskeletal: Reports system reviewed and no additional complaints, except as documented *Neurologic Neurologic: Reports system reviewed and no additional complaints, except as documented Meds Home Medications and Allergies Home Medications Medication Instructions Recorded Confirmed Type atorvastatin 40 mg tablet 40 mg PO HS High Cholesterol 08/25/23 09/22/23 History cholecalciferol (vitamin D3) 1,250 1,250 mcg PO WEEKLY Supplement 08/25/23 09/22/23 History mcg (50,000 unit) capsule lisinopril 5 mg tablet 5 mg PO DAILY High Blood Pressure 08/25/23 09/22/23 History nitroglycerin 0.4 mg sublingual 0.4 mg buccal DIRECTED Chest 08/25/23 09/22/23 History tablet Pain omeprazole 40 mg capsule,delayed 40 mg PO DAILY Acid Reflux 08/25/23 09/22/23 History release ranolazine 500 mg tablet,extended 500 mg PO BID Chronic angina 08/25/23 09/22/23 History release,12 hr karrie
--- NOTE | 2023-09-22 22:57 | PC.NURSE ---
Patient arrived to floor via wheelchair at 22:56.
[2023-09-22 23:26] LABS: Troponin I < 0.01 ng/ml (0.00-0.034)
[2023-09-22 23:28] LABS: Thyroid Stimulating Hormone 6.55 uIU/mL (0.465-4.68)
[2023-09-23] VITALS (21 sets, daily range): BP systolic 90–136; BP diastolic 50–83; PULSE 56–77; RESP 14–18; TEMP 36.4–37; O2SAT 90–100; BMI 32.8
--- NOTE | 2023-09-23 | IR_ITS ---
APPROVED REPORT Patient Location: Inpatient Handle And Vent Machine Operator: LAURA Jacobson RT (R) PROCEDURES Left heart catheterization Left ventriculogram Selective coronary angiogram Intravascular ultrasound to the ostial left main artery INDICATION Coronary artery disease, Accelerated angina pectoris, Informed consent was obtained prior to the procedure. COMPLICATIONS None Estimated Blood Loss: Less than 10 ml TECHNIQUE One percent lidocaine used to anesthetize the right anterior aspect of the wrist. The right radial artery was accessed via the Seldinger technique. A 6 Romansh sheath was placed in the right radial artery. 2.5 mg of Verapamil, 800 mcg of nitroglycerin, 1mg Lidocaine and 5000 U Heparin were given through the arterial sheath. The papa catheter was also used to perform left heart catheterization, left ventriculogram and selective coronary angiogram. At the end the diagnostic angiogram therapeutic Was administered giving a therapeutic ACT and the guide catheter was placed in the left coronary cusp with a Choice PT extra-support wire being placed into the LAD. Intravascular ultrasound probe was advanced in the ostial left main artery was interrogated. The MLA in the ostial left main was 6.1 mm???. This represented a plaque burden in excess of 50% as well as a significant ostial MLA. At this point the primary cardiology providers, Kelly Mejia M.D. and Lc Matias, were summoned to the Enterprise Systems Architect for urgent consultation. The patient had anatomy which placed her in the lower tertile syntax score however patient has a significant history of apparent medical noncompliance therefore I was uncomfortable proceeding with unprotected left main revascularization prior to discussing with the team and the patient. It was decided collectively to discuss revascularization options with the patient tomorrow morning and then proceed accordingly. The apparatus was removed the sheath was removed and hemostasis was achieved using TR banding patient was transferred to the postop holding in stable condition ANGIOGRAPHIC RESULTS The left main artery Has an ostial 60 to 70% stenosis The left anterior descending artery Proximally normal and widely patent throughout The circumflex artery Is nondominant yet still large caliber supplying a large amount of myocardium and widely patent free of disease The right coronary artery Technically dominant vessel has a stent in the ostial segment which extends into the distal portion. The ostium has 20% concentric in-stent restenosis while the midportion has an eccentric 80% stenosis. Distally there were 30 to 40% stenosis The HICKS ventriculogram reveals Preserved at 60% The left ventricular end-diastolic pressure 10 mmHg IMPRESSION Severe ostial left main disease Severe in-stent restenosis within the mid dominant right coronary Preserved ejection fraction Normal left ventricular end-diastolic pressure Low tertile Syntax score PLAN 1. Medical management for the time being. Discussion should be made with the patient about revascularization options. While patient is an excellent angiographic candidate for percutaneous revascularization is imperative she understand the importance of medicinal compliance 2. LDL less than 55 to be achieved with high intensity statin 3. A team approach will be undertaken and revascularization options will be determined tomorrow Electronically signed by : Louis Caraballo MD 09/23/2023 15:32:30
[2023-09-23 02:42] LABS: Troponin I < 0.01 ng/ml (0.00-0.034)
--- NOTE | 2023-09-23 05:27 | PC.NURSE ---
Patient has slept well this shift. Since arriving to the floor patient has not c/o of pain or SOA. Discussed plan of care with patient and cardiology consult today. Patient has been NPO at midnight. Spouse remains at bedside. Patient ambulates to bathroom with standby assist. Call light within reach.
[2023-09-23 06:43] LABS: Basophils # 0.1 K/mm3 (0-0.2); Basophils % 0.7 % (0.1-2.0); Eosinophils # 0.3 K/mm3 (0.0-0.4); Eosinophils % 4.6 % (0.1-12.0); Hematocrit 36.4 % (37.0-47.0); Hemoglobin 12.4 g/dL (12.2-16.2); Lymphocytes # 3.1 K/mm3 (0.7-4.5); Lymphocytes % 41.4 % (10-50); Mean Corpuscular Hemoglobin 33.4 pg (27.0-31.2); Mean Corpuscular Volume 98.2 fl (81-99); Mean Platelet Volume 8.9 fl (7.4-10.4); Monocytes # 0.3 K/mm3 (0.1-1.0); Monocytes % 3.9 % (1.7-9.3); Neutrophils # 3.7 K/mm3 (1.8-7.8); Neutrophils % 49.5 % (37.0-80.0); Platelet Count 278 K/mm3 (142-424); Red Cell Distribution Width 13.4 % (11.5-17.5); White Blood Count 7.4 K/mm3 (4.8-10.8)
[2023-09-23 06:51] LABS: Chloride 103 mmol/L (98-107); Sodium 141 mmol/L (136-145)
[2023-09-23 06:55] LABS: Blood Urea Nitrogen 9 mg/dl (7-17); Calcium 8.9 mg/dl (8.4-10.2); Carbon Dioxide 33 mmol/L (22.0-30.0); Creatinine Clearance Estimated 89 mL/min (50-200); Estimated Glomerular Filt Rate 58 ml/min (>60); GFR (African American) 70 ML/MIN (>60); Glucose 104 mg/dl (74-100)
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
--- NOTE | 2023-09-23 08:05 | HMH.PHAINT1 ---
Pharmacy Intervention Comments: home medication list verified using list from outpatient pharmacy
--- NOTE | 2023-09-23 08:25 | CA_ITS ---
APPROVED REPORT EXAM: Comprehensive 2D, Doppler, and color-flow Echocardiogram Inner Tube Cutter: CHETAN [place], RVS Ht: 5 ft 3 in Wt: 192lbs BSA: 1.90 BP: 125/88 mmHg Indications: CAD-3 STENTSM CP, GERD, HTN, HLD, Ex-smoker Echo Enhancing Agent Comments: Patient scanned bedside limited acoustic windows. 2D Dimensions IVSd 0.98 cm F: 0.6-1.0 LVEF (Visual) 42.00 % PWd 0.93 cm F: 0.6 - 1.0 LA Volume 39.20 mL LVDd 4.45 cm F: 3.9 - 5.3 LA Volume Index 20.060970 mL/m2 (M/F) 16-34 LVDs 3.54 cm F: 2.2 - 3.5 Aortic Root 2.92 cm F: 2.7 - 3.3 Left Atrium 2.80 cm F: 2.7 - 3.8 LVOT 1.83 cm (M/F) 1.5-2.5 M-Mode Dimensions LA Diam 3.40 cm (1.9-4.0) LVDd 4.86 cm (3.5-5.7) Ao Diam 3.06 cm (2.0-3.7) LVDs 3.36 cm (3.5-5.7) EF (Teich) 58.40% EPSs 0.36 cm FS 30.90% EDV (Teich) 110.70 mL TAPSE 2.00 (<1.7) ESV (Teich) 46.10 mL LV Diastology E Decel Time 203.00 (160-240 msec) E/A Ratio 1.78 MED E' 9.30 (< 7 cm/sec) MED A' 7.40 cm/s E'/MED E' Ratio 10.16 (>14) LAT E' 10.20 (<10 cm/sec) LAT A' 8.40 cm/s E/LAT E' Ratio 9.26 (>14) Aortic Valve LVOT Max 90.00 (70-110 cm/s) LVOT VTI 19.73 cm AoV Peak Antoine. 118.00 (50-130 cm/s) AO Peak GR. 5.50 mmHg AO Mean GR. 2.80 (<5 mmHg) AO VTI 25.15 (18-25 cm) GABBY (VTI) 2.06 (2.5-4.5 cm2) Mitral Valve MV A Velocity 53.00 (40-130 cm/s) E/A Ratio 1.78 MV Decel. Time 203.00 (160-240 ms) MV Mean Gr. 1.30 (<2mmHg) Tricuspid Valve TR P. Velocity 136.00 cm/s Left Ventricle The left ventricle is normal size. The left ventricular systolic function is normal. The left ventricular ejection fraction is within the normal range. There is normal left ventricular wall thickness. There is normal LV segmental wall motion. The left ventricular diastolic function is normal. LVEF is 55%. Right Ventricle The right ventricle is mildly dilated. The right ventricular systolic function is normal. Atria The left atrium size is normal. The right atrium size is normal. The interatrial septum is not well visualized. Aortic Valve The aortic valve opens well. There is no aortic valvular stenosis. No aortic regurgitation is present. Mitral Valve The mitral valve is normal in structure. No evidence of mitral valve stenosis. Mild mitral regurgitation. Tricuspid Valve The tricuspid valve leaflets are thin and pliable. Trace tricuspid regurgitation. There is insufficient TR jet to estimate RVSP. Pulmonic Valve The pulmonary valve is normal in structure. Trace pulmonic regurgitation. Great Vessels The aortic root is normal in size. The ascending aorta is normal in size. The IVC is not well visualized. Pericardium There is no pericardial effusion. Other Information Study Quality: Technically Difficult Conclusion Technically difficult study due to patient positioning. Normal biventricular systolic function (LVEF 55%). Mild RV dilation. Mild MR. Electronically signed by : Kelly Mejia MD 09/23/2023 21:15:54
[2023-09-23 15:40] LABS: CATHL Activated Clotting Time > 400 SEC (74-125)
--- NOTE | 2023-09-23 18:49 | EXP.PN ---
Subjective *Date: 09/23/23 *Time: 18:49 Interval history: Patient was seen and evaluated at the bedside. denies chest pain, shortness of breath, nausea, vomiting, abdominal pain. Patient does not have any complaints at this time. feels better overall Exam Data for Last 24 hours Vital signs and Labs for Last 24 Hours: Temp Pulse Resp BP Pulse Ox O2 Del Method O2 Flow Rate 98.6 F 59 L 17 94/59 L 95 Room Air 2 09/23/23 18:45 09/23/23 18:45 09/23/23 18:45 09/23/23 18:45 09/23/23 18:45 09/23/23 18:45 09/23/23 11:41 Laboratory Results - last 24 hr 09/22/23 17:07: WBC 6.6, RBC 3.93 L, Hgb 13.1, Hct 39.0, MCV 99.2 H, MCH 33.3 H, MCHC 33.5, RDW 13.1, Plt Count 291, MPV 8.8, Neut % (Auto) 46.2, Lymph % (Auto) 46.6, [place] % (Auto) 2.8, Eos % (Auto) 3.4, Baso % (Auto) 0.9, Neut # (Auto) 3.0, Lymph # (Auto) 3.1, [place] # (Auto) 0.2, Eos # (Auto) 0.2, Baso # (Auto) 0.1, D-Dimer 0.90 H, Sodium 140, Potassium 3.7, Chloride 103, Carbon Dioxide 32 H, Anion Gap 8.7, BUN 10, Creatinine 0.90, Estimated Creat Clear 95, Estimated GFR 65, Est GFR ( Amer) 79, Glucose 115 H, Calcium 9.3, Troponin I < 0.01, TSH 6.55 H 09/22/23 22:33: Troponin I < 0.01 09/23/23 01:40: Troponin I < 0.01 09/23/23 06:14: WBC 7.4, RBC 3.70 L, Hgb 12.4, Hct 36.4 L, MCV 98.2, MCH 33.4 H, MCHC 34.0, RDW 13.4, Plt Count 278, MPV 8.9, Neut % (Auto) 49.5, Lymph % (Auto) 41.4, [place] % (Auto) 3.9, Eos % (Auto) 4.6, Baso % (Auto) 0.7, Neut # (Auto) 3.7, Lymph # (Auto) 3.1, [place] # (Auto) 0.3, Eos # (Auto) 0.3, Baso # (Auto) 0.1, Sodium 141, Potassium 4.0, Chloride 103, Carbon Dioxide 33 H, Anion Gap 9.0, BUN 9, Creatinine 1.00, Estimated Creat Clear 89, Estimated GFR 58 L, Est GFR ( Amer) 70, Glucose 104 H, Calcium 8.9, Magnesium 2.0 09/23/23 14:57: Activated Clotting Time > 400 H* I & O for Last 24 hours: Intake & Output 09/20/23 09/21/23 09/22/23 09/23/23 23:59 23:59 23:59 23:59 Output Total 0 / 0 Balance 0 / 0 Weight 83.915 kg 87.407 kg Constitutional Constitutional: no acute distress *Routine HEENT Exam Head: Present normocephalic Eye: Present EOMI and PERRL ENT: Present mucous membranes moist *Routine Neck Exam Neck: Present supple; Absent lymphadenopathy *Routine Respiratory Exam Respiratory: Present CTA bilaterally *Routine Cardiovascular Exam Cardiovascular: Present RRR *Routine Abdominal Exam Abdominal: Present soft and normoactive bowel sounds; Absent tenderness *Routine Extremities Exam Extremities: Absent cyanosis, clubbing or edema *Routine Skin Exam Skin: Present warm; Absent rash *Routine Neurological Exam Neurological: Present alert and oriented X3 Assessment and Plan *Assessment and plan (1) Unstable angina: Status: Acute Category: Medical Code(s): I20.0 - Unstable angina (2) Coronary artery disease: Status: Chronic Qualifiers: Coronary Disease-Associated Artery/Lesion type: [place] artery [place] vs. transplanted heart: [place] heart Associated angina: with other forms of angina Qualified Code(s): I25.118 - Atherosclerotic heart disease of [place] coronary artery with other forms of angina pectoris Category: Medical Code(s): I25.10 - Atherosclerotic heart disease of [place] coronary artery without angina pectoris (3) Hypertension: Status: Chronic Qualifiers: Hypertension type: unspecified Qualified Code(s): I10 - Essential (primary) hypertension Category: Medical Code(s): I10 - Essential (primary) hypertension (4) Hyperlipidemia: Status: Chronic Qualifiers: Hyperlipidemia type: mixed hyperlipidemia Qualified Code(s): E78.2 - Mixed hyperlipidemia Category: Medical Code(s): E78.5 - Hyperlipidemia, unspecified (5) Gastroesophageal reflux disease: Status: Chronic Qualifiers: Esophagitis presence: esophagitis presence not specified Qualified Code(s): K21.9 - Gastro-esophagea
--- NOTE | 2023-09-23 18:53 | PC.NURSE ---
Pt. pulled out iv and charge is aware.
[2023-09-24] VITALS (26 sets, daily range): BP systolic 71–116; BP diastolic 38–72; PULSE 57–78; RESP 11–18; TEMP 36.8–37.2; O2SAT 92–99; BMI 32.8
--- NOTE | 2023-09-24 05:35 | PC.NURSE ---
no events through the night, radial site c/d/i. no bleeding or hematoma. npo after mn
--- NOTE | 2023-09-24 07:15 | ECG_ITS ---
APPROVED REPORT Exam: Resting ECG HR:68 bpm ECG Measurements Heart Rate 68 AXES LA 176 P 53 QRSd 92 QRS 3 QT 387 T 18 QTc 404 Conclusion SINUS RHYTHM NONSPECIFIC T-WAVE ABNORMALITY BORDERLINE ECG UNCONFIRMED REPORT Electronically signed by : Telly Collier MD 09/25/2023 21:41:01
--- NOTE | 2023-09-24 09:54 | PC.NURSE ---
Patient and spouse have several questions concerning need for stents vs. need for bypass surgery. Dr. Sahu at bedside did educate and touch on pros and cons to either decision. The patients largest concern is if stents will correct the problem why were they not placed yesterday, going into the surgery she expected stent placement, and this was discussed prior to surgery and signing the consents. Have paged Maksim with cards, will pass along questions and concerns to allow cards to be prepared when visiting the patient. Patient also asking if she could have liquids while waiting.
--- NOTE | 2023-09-24 10:05 | PC.NURSE ---
Maksim Ross with cards aware of patient concerns, along with Dr. Mendoza, the providers are to round.
[2023-09-24 10:07] LABS: Alanine Aminotransferase 20 U/L (12-78); Albumin Level 3.7 g/dl (3.5-5.0); Alkaline Phosphatase 89 U/L (38-126); Aspartate Amino Transferase 27 U/L (14-36); Bilirubin,Direct 0.1 mg/dl (0.0-0.4); Bilirubin,Indirect 0.4 mg/dL (0.0-0.9); Bilirubin,Total 0.5 mg/dl (0.2-1.3); Bilirubin,Unconjugated 0.4 mg/dL (0.0-1.1); Chol/HDL Ratio 3.4 (1-3.5); Cholesterol 145 mg/dl (140-200); HDL Cholesterol 43 mg/dl (40-60); Total Protein,Serum 6.7 g/dl (6.3-8.2); Triglycerides 110 mg/dl (30-150); VLDL Cholesterol 22 mg/dL (0-40)
[2023-09-24 10:18] LABS: Direct LDL Cholesterol 77.77 mg/dL (100-129)
--- NOTE | 2023-09-24 10:31 | PC.NURSE ---
MICHAEL Schaeffer and Dr. Mendoza in with patient discussing options for revascularization.
--- NOTE | 2023-09-24 10:46 | EXP.CARD.PN ---
Subjective Subjective Date: 09/24/23 Time: 10:46 Principal diagnosis: CAD, angina Interval history: 52-year-old white female in bed in no acute distress. No complaints overnight. Discussion was had regarding options of stenting versus referral for CABG. After answering multiple questions patient has decided to proceed with stenting today. Exam Data for Last 24 hours Vital signs and Labs for Last 24 Hours: Temp Pulse Resp BP Pulse Ox O2 Del Method O2 Flow Rate 98.3 F 60 18 116/64 99 Nasal Cannula, Venturi Mask 2 09/24/23 07:42 09/24/23 08:00 09/24/23 07:42 09/24/23 07:42 09/24/23 07:42 09/24/23 09:58 09/24/23 09:58 Laboratory Results - last 24 hr 09/23/23 14:57: Activated Clotting Time > 400 H* 09/24/23 09:19: Total Bilirubin 0.5, Direct Bilirubin 0.1, Conjugated Bilirubin 0.0, Indirect Bilirubin 0.4, Unconjugated Bilirubin 0.4, AST 27, ALT 20, Alkaline Phosphatase 89, Total Protein 6.7, Albumin 3.7, Triglycerides 110, Cholesterol 145, LDL Cholesterol Direct 77.77 L, VLDL Cholesterol 22, HDL Cholesterol 43, Cholesterol/HDL Ratio 3.4 I & O for Last 24 hours: Intake & Output 09/21/23 09/22/23 09/23/23 09/24/23 11:59 11:59 11:59 11:59 Output Total 0 / 0 0 / 0 Balance 0 / 0 0 / 0 Weight 192 lb 11.2 oz 192 lb 5 oz Constitutional Constitutional: no acute distress *Routine Respiratory Exam Respiratory: Present CTA bilaterally *Routine Cardiovascular Exam Cardiovascular: Present RRR *Routine Extremities Exam Extremities: Absent edema Progress Note: A&P Assessment and plan (1) Unstable angina: Status: Acute (2) Coronary artery disease: Status: Chronic (3) Hypertension: Status: Chronic (4) Hyperlipidemia: Status: Chronic (5) Gastroesophageal reflux disease: Status: Chronic (6) Anxiety: Status: Chronic (7) Hypothyroidism: Status: Chronic (8) Fibromyalgia: Status: Chronic (9) Obesity (BMI 30.0-34.9): Status: Chronic Assessment and Plan Assessment and Plan for All Diagnoses:: 1. Unstable angina with abnormal CCTA Normal troponin Proceed with stenting of Left main and RCA today Continue aspirin, metoprolol, Ranexa 2. History of tobacco use, discontinued April 2023 Nicotine patch if needed 3. Anxiety Defer to Dr. Sahu 4. Hyperlipidemia LDL 77 with HDL 43 this admission Continue atorvastatin therapy 5. Hypertension Echo shows normal LVEF 55% and no significant valve disease Continue lisinopril and metoprolol 6. Hypothyroidism Continue replacement therapy Would recommend keeping overnight and if stable then discharge home in AM.
--- NOTE | 2023-09-24 10:59 | IR_ITS ---
APPROVED REPORT Patient Location: [facility] Worker: LAURA Jacobosn RT (R) PROCEDURES Drug-eluting stent deployment to the ostial proximal left main artery Drug-eluting stent deployment to the mid dominant right coronary INDICATION Coronary artery disease, Preference of stenting of her bypass surgery, Informed consent was obtained prior to the procedure. COMPLICATIONS None Estimated Blood Loss: Less than 10 mls TECHNIQUE One percent lidocaine used to anesthetize the right anterior aspect of the wrist. The right radial artery was accessed via the Seldinger technique. A 6 [place] sheath was placed in the right radial artery. 2.5 mg of Verapamil, 800 mcg of nitroglycerin, 1mg Lidocaine and 5000 U Heparin were given through the arterial sheath. Therapeutic heparin was administered giving a therapeutic ACT and the [place] catheter was placed in the left main artery followed by BMW wire placed distally into the LAD. A 4.5 x 12 mm Thee frontier stent was placed in the ostial proximal left main artery and deployed at 20 [place] reducing the stenosis to 0%. Excellent angiograph results were obtained. Following this the catheter was placed in the right coronary followed by the same wire placed distally. A 3.5 x 22 mm [place] frontier stent was deployed at 22 [place] reducing the severe stenosis to 0%. JAYCEE-3 flow was present before and after the procedure. During the procedure the apparatus was removed the sheath was removed good hemostasis was achieved and TR banding patient was transferred to the postop holding in stable condition IMPRESSION Successful stenting of the ostial left main artery severe disease reduced to 0% with 1 drug-eluting stent Successful stenting of the mid dominant right coronary severe disease reduced to 0% with 1 drug-eluting stent PLAN 1. Dual antiplatelet therapy 2. LDL less than 55 to achieve that high intensity statin 3. Avoidance of tobacco products 4. Risk factor modification 5. Cardiac rehabilitation Electronically signed by : Louis Caraballo MD 09/24/2023 15:23:00
[2023-09-24 12:13] LABS: Basophils % 0.6 % (0.1-2.0); Eosinophils # 0.1 K/mm3 (0.0-0.4); Eosinophils % 1.7 % (0.1-12.0); Hematocrit 33.8 % (37.0-47.0); Hemoglobin 11.7 g/dL (12.2-16.2); Lymphocytes # 1.2 K/mm3 (0.7-4.5); Lymphocytes % 19.9 % (10-50); Mean Corpuscular HGB Conc 34.6 g/dL (31.8-35.4); Mean Corpuscular Hemoglobin 33.3 pg (27.0-31.2); Mean Corpuscular Volume 96.1 fl (81-99); Monocytes # 0.2 K/mm3 (0.1-1.0); Monocytes % 3.4 % (1.7-9.3); Neutrophils # 4.5 K/mm3 (1.8-7.8); Neutrophils % 74.4 % (37.0-80.0); Platelet Count 265 K/mm3 (142-424); Red Blood Count 3.51 M/mm3 (4.20-5.40); Red Cell Distribution Width 13.2 % (11.5-17.5); White Blood Count 6.1 K/mm3 (4.8-10.8)
[2023-09-24 12:19] LABS: Anion Gap 10.9 mEq/L (5-15); Blood Urea Nitrogen 12 mg/dl (7-17); Calcium 9.3 mg/dl (8.4-10.2); Carbon Dioxide 28 mmol/L (22.0-30.0); Chloride 102 mmol/L (98-107); Creatinine Clearance Estimated 98 mL/min (50-200); Estimated Glomerular Filt Rate 65 ml/min (>60); GFR (African American) 79 ML/MIN (>60); Glucose 118 mg/dl (74-100); Potassium 3.9 mmoL/L (3.5-5.1); Sodium 137 mmol/L (136-145)
--- NOTE | 2023-09-24 14:28 | PC.NURSE ---
Patient gone to labor relations manager for procedure.
--- NOTE | 2023-09-24 15:07 | EXP.PN ---
Subjective *Date: 09/24/23 *Time: 15:07 Interval history: Patient was seen and evaluated at the bedside. denies chest pain, shortness of breath, nausea, vomiting, abdominal pain. Patient does not have any complaints at this time. feels better overall Exam Data for Last 24 hours Vital signs and Labs for Last 24 Hours: Temp Pulse Resp BP Pulse Ox O2 Del Method O2 Flow Rate 98.3 F 70 16 108/64 L 97 Room Air 2 09/24/23 11:00 09/24/23 12:00 09/24/23 11:00 09/24/23 11:00 09/24/23 11:00 09/24/23 14:16 09/24/23 11:38 Laboratory Results - last 24 hr 09/23/23 14:57: Activated Clotting Time > 400 H* 09/24/23 09:19: Total Bilirubin 0.5, Direct Bilirubin 0.1, Conjugated Bilirubin 0.0, Indirect Bilirubin 0.4, Unconjugated Bilirubin 0.4, AST 27, ALT 20, Alkaline Phosphatase 89, Total Protein 6.7, Albumin 3.7, Triglycerides 110, Cholesterol 145, LDL Cholesterol Direct 77.77 L, VLDL Cholesterol 22, HDL Cholesterol 43, Cholesterol/HDL Ratio 3.4 09/24/23 12:01: WBC 6.1, RBC 3.51 L, Hgb 11.7 L, Hct 33.8 L, MCV 96.1, MCH 33.3 H, MCHC 34.6, RDW 13.2, Plt Count 265, MPV 9.0, Neut % (Auto) 74.4, Lymph % (Auto) 19.9, [place] % (Auto) 3.4, Eos % (Auto) 1.7, Baso % (Auto) 0.6, Neut # (Auto) 4.5, Lymph # (Auto) 1.2, [place] # (Auto) 0.2, Eos # (Auto) 0.1, Baso # (Auto) 0.0, Sodium 137, Potassium 3.9, Chloride 102, Carbon Dioxide 28, Anion Gap 10.9, BUN 12 D, Creatinine 0.90, Estimated Creat Clear 98, Estimated GFR 65, Est GFR ( Amer) 79, Glucose 118 H, Calcium 9.3 Temp Pulse Resp BP Pulse Ox O2 Del Method O2 Flow Rate 98.3 F 60 18 116/64 99 Nasal Cannula, Venturi Mask 2 09/24/23 07:42 09/24/23 08:00 09/24/23 07:42 09/24/23 07:42 09/24/23 07:42 09/24/23 09:58 09/24/23 09:58 Laboratory Results - last 24 hr 09/23/23 14:57: Activated Clotting Time > 400 H* 09/24/23 09:19: Total Bilirubin 0.5, Direct Bilirubin 0.1, Conjugated Bilirubin 0.0, Indirect Bilirubin 0.4, Unconjugated Bilirubin 0.4, AST 27, ALT 20, Alkaline Phosphatase 89, Total Protein 6.7, Albumin 3.7, Triglycerides 110, Cholesterol 145, LDL Cholesterol Direct 77.77 L, VLDL Cholesterol 22, HDL Cholesterol 43, Cholesterol/HDL Ratio 3.4 I & O for Last 24 hours: Intake & Output 09/21/23 09/22/23 09/23/23 09/24/23 23:59 23:59 23:59 23:59 Output Total 0 / 0 0 / 0 Balance 0 / 0 0 / 0 Weight 83.915 kg 87.407 kg 87.231 kg Intake & Output 09/21/23 09/22/23 09/23/23 09/24/23 11:59 11:59 11:59 11:59 Output Total 0 / 0 0 / 0 Balance 0 / 0 0 / 0 Weight 192 lb 11.2 oz 192 lb 5 oz Constitutional Constitutional: no acute distress *Routine Respiratory Exam Respiratory: Present CTA bilaterally *Routine Cardiovascular Exam Cardiovascular: Present RRR *Routine Extremities Exam Extremities: Absent edema Assessment and Plan *Assessment and plan (1) Unstable angina: Status: Acute Category: Medical Code(s): I20.0 - Unstable angina (2) Coronary artery disease: Status: Chronic Qualifiers: Coronary Disease-Associated Artery/Lesion type: [place] artery [place] vs. transplanted heart: [place] heart Associated angina: with other forms of angina Qualified Code(s): I25.118 - Atherosclerotic heart disease of [place] coronary artery with other forms of angina pectoris Category: Medical Code(s): I25.10 - Atherosclerotic heart disease of [place] coronary artery without angina pectoris (3) Hypertension: Status: Chronic Qualifiers: Hypertension type: unspecified Qualified Code(s): I10 - Essential (primary) hypertension Category: Medical Code(s): I10 - Essential (primary) hypertension (4) Hyperlipidemia: Status: Chronic Qualifiers: Hyperlipidemia type: mixed hyperlipidemia Qualified Code(s): E78.2 - Mixed hyperlipidemia Category: Medical Code(s): E78.5 - Hyperlipidemia, unspecified (5) Gastroesophageal reflux disease: Status:
[2023-09-24 15:38] LABS: CATHL Activated Clotting Time 353 SEC (74-125)
--- NOTE | 2023-09-24 18:38 | PC.NURSE ---
8ml of air removed from right radialband.
[2023-09-25] VITALS (11 sets, daily range): BP systolic 82–123; BP diastolic 46–70; PULSE 65–78; RESP 16–19; TEMP 36.8–37.2; O2SAT 96–98; BMI 32.3; BMI 32.2
--- NOTE | 2023-09-25 08:19 | EXP.CARD.PN ---
Subjective Subjective Date: 09/25/23 Time: 08:19 Principal diagnosis: CAD, angina Interval history: 52 yo WF in bed in NAD. Concerned about low BP during her stay. Denies any dizziness or syncope. Relates just not feeling well. Does not want to go home yet. Exam Data for Last 24 hours Vital signs and Labs for Last 24 Hours: Temp Pulse Resp BP Pulse Ox O2 Del Method O2 Flow Rate 99.0 F 72 18 91/46 L 97 Room Air 1.5 09/25/23 07:47 09/25/23 07:47 09/25/23 07:47 09/25/23 07:47 09/25/23 07:47 09/25/23 07:47 09/25/23 04:00 Laboratory Results - last 24 hr 09/24/23 09:19: Total Bilirubin 0.5, Direct Bilirubin 0.1, Conjugated Bilirubin 0.0, Indirect Bilirubin 0.4, Unconjugated Bilirubin 0.4, AST 27, ALT 20, Alkaline Phosphatase 89, Total Protein 6.7, Albumin 3.7, Triglycerides 110, Cholesterol 145, LDL Cholesterol Direct 77.77 L, VLDL Cholesterol 22, HDL Cholesterol 43, Cholesterol/HDL Ratio 3.4 09/24/23 12:01: WBC 6.1, RBC 3.51 L, Hgb 11.7 L, Hct 33.8 L, MCV 96.1, MCH 33.3 H, MCHC 34.6, RDW 13.2, Plt Count 265, MPV 9.0, Neut % (Auto) 74.4, Lymph % (Auto) 19.9, [place] % (Auto) 3.4, Eos % (Auto) 1.7, Baso % (Auto) 0.6, Neut # (Auto) 4.5, Lymph # (Auto) 1.2, [place] # (Auto) 0.2, Eos # (Auto) 0.1, Baso # (Auto) 0.0, Sodium 137, Potassium 3.9, Chloride 102, Carbon Dioxide 28, Anion Gap 10.9, BUN 12 D, Creatinine 0.90, Estimated Creat Clear 98, Estimated GFR 65, Est GFR ( Amer) 79, Glucose 118 H, Calcium 9.3 09/24/23 15:00: Activated Clotting Time 353 H* I & O for Last 24 hours: Intake & Output 10/09/23/23 09/24/23 09/25/23 11:59 11:59 11:59 11:59 Intake Total 1000 / 1000 Output Total 0 / 0 0 / 0 0 / 0 Balance 0 / 0 0 / 0 1000 / 1000 Weight 192 lb 11.2 oz 192 lb 5 oz 189 lb 1.6 oz Constitutional Constitutional: no acute distress *Routine Respiratory Exam Respiratory: Present CTA bilaterally *Routine Cardiovascular Exam Cardiovascular: Present RRR Progress Note: A&P Assessment and plan (1) Unstable angina: Status: Acute (2) Coronary artery disease: Status: Chronic (3) Hypertension: Status: Chronic (4) Hyperlipidemia: Status: Chronic (5) Gastroesophageal reflux disease: Status: Chronic (6) Anxiety: Status: Chronic (7) Hypothyroidism: Status: Chronic (8) Fibromyalgia: Status: Chronic (9) Obesity (BMI 30.0-34.9): Status: Chronic Assessment and Plan Assessment and Plan for All Diagnoses:: 1. Unstable angina with abnormal CCTA Normal troponin RENETTA to Left main and RCA 09/24/2023 Continue aspirin and effient 2. History of tobacco use, discontinued April 2023 Nicotine patch if needed 3. Anxiety Defer to Dr. Sahu 4. Hyperlipidemia LDL 77 with HDL 43 this admission Continue atorvastatin therapy 5. Hypertension Echo shows normal LVEF 55% and no significant valve disease Hold/reduce lisinopril and metoprolol due to low BP 6. Hypothyroidism Continue replacement therapy Check BMP/CBC this AM to monitor renal functions and Hgb. Ambulate and monitor BP. Will reduce BP meds at this time and hold for now. Check EKG for any new changes since stenting. No new changes noted compared to yesterday. Check limited echo to look for effusion. Hold on discharge for now.
--- NOTE | 2023-09-25 08:27 | PC.NURSE ---
0815 Per Patience Ross, hold pt am bp meds r/t hypotension/bradycardia
[2023-09-25 09:10] LABS: Anion Gap 9.1 mEq/L (5-15); Blood Urea Nitrogen 15 mg/dl (7-17); Calcium 8.9 mg/dl (8.4-10.2); Carbon Dioxide 30 mmol/L (22.0-30.0); Chloride 102 mmol/L (98-107); Creatinine Clearance Estimated 87 mL/min (50-200); Estimated Glomerular Filt Rate 58 ml/min (>60); GFR (African American) 70 ML/MIN (>60); Glucose 106 mg/dl (74-100); Potassium 4.1 mmoL/L (3.5-5.1); Sodium 137 mmol/L (136-145)
--- NOTE | 2023-09-25 10:39 | CA_ITS ---
APPROVED REPORT EXAM: Limited 2D Echocardiogram Process Checker: Eulalia Daugherty RVT Ht: 5 ft 4 in Wt: 189lbs BSA: 1.91 BP: 91/46 mmHg Indications: EF CHECK,CHECK FOR EFFUSION,S/P CATH ON 09/24/23,CAD,HTN,HLD,CP 2D Dimensions LVOT 2.52 cm (M/F) 1.5-2.5 M-Mode Dimensions LA Diam 3.35 cm (1.9-4.0) LVDd 4.59 cm (3.5-5.7) Ao Diam 2.86 cm (2.0-3.7) LVDs 3.30 cm (3.5-5.7) IVSd 1.37 cm (0.6-1.1) PWd 0.91 cm (0.6-1.1) EF (Teich) 54.40% FS 28.10% EDV (Teich) 96.80 mL ESV (Teich) 44.10 mL Other Information Study Quality: Fair Conclusion This is a limited TTE to evaluate for MR LVEF and pericardial effusion post procedurally The left ventricle appears normal in size and systolic function. LVEF is 55%. There is a small, anterior pericardial effusion noted. The largest pocket measures approximately 0.5 cm in diastole. There are is no chamber collapse or any clear echo indications of tamponade, but full evaluation for tamponade is limited. Electronically signed by : Kelly Mejia MD 09/25/2023 12:10:44
--- NOTE | 2023-09-25 10:45 | ECG_ITS ---
APPROVED REPORT Exam: Resting ECG HR:66 bpm ECG Measurements Heart Rate 66 AXES LA 177 P 49 QRSd 89 QRS 1 QT 409 T 14 QTc 423 Conclusion SINUS RHYTHM NORMAL ECG UNCONFIRMED REPORT Electronically signed by : Telly Collier MD 09/25/2023 21:36:42
[2023-09-25 10:46] LABS: Basophils % 0.6 % (0.1-2.0); Eosinophils # 0.2 K/mm3 (0.0-0.4); Eosinophils % 3.5 % (0.1-12.0); Hemoglobin 11.8 g/dL (12.2-16.2); Lymphocytes # 1.7 K/mm3 (0.7-4.5); Lymphocytes % 28.9 % (10-50); Mean Corpuscular HGB Conc 35.8 g/dL (31.8-35.4); Mean Corpuscular Hemoglobin 34.7 pg (27.0-31.2); Mean Corpuscular Volume 96.7 fl (81-99); Mean Platelet Volume 9.1 fl (7.4-10.4); Monocytes # 0.3 K/mm3 (0.1-1.0); Monocytes % 4.8 % (1.7-9.3); Neutrophils # 3.6 K/mm3 (1.8-7.8); Platelet Count 289 K/mm3 (142-424); Red Blood Count 3.41 M/mm3 (4.20-5.40); Red Cell Distribution Width 13.4 % (11.5-17.5); White Blood Count 5.9 K/mm3 (4.8-10.8)
--- NOTE | 2023-09-25 12:56 | EXP.PN ---
Subjective *Date: 09/25/23 *Time: 12:56 Interval history: Patient was seen and evaluated at the bedside. complains of feeling lightheaded, otherwise denies chest pain, shortness of breath, nausea, vomiting, abdominal pain. Patient does not have any other complaints at this time Exam Data for Last 24 hours Vital signs and Labs for Last 24 Hours: Temp Pulse Resp BP Pulse Ox O2 Del Method O2 Flow Rate 98.3 F 65 18 123/69 98 Room Air 1.5 09/25/23 11:38 09/25/23 11:38 09/25/23 11:38 09/25/23 11:38 09/25/23 11:38 09/25/23 11:38 09/25/23 04:00 Laboratory Results - last 24 hr 09/24/23 15:00: Activated Clotting Time 353 H* 09/25/23 08:48: WBC 5.9, RBC 3.41 L, Hgb 11.8 L, Hct 33.0 L, MCV 96.7, MCH 34.7 H, MCHC 35.8 H, RDW 13.4, Plt Count 289, MPV 9.1, Neut % (Auto) 62.0, Lymph % (Auto) 28.9, Summers % (Auto) 4.8, Eos % (Auto) 3.5, Baso % (Auto) 0.6, Neut # (Auto) 3.6, Lymph # (Auto) 1.7, Summers # (Auto) 0.3, Eos # (Auto) 0.2, Baso # (Auto) 0.0, Sodium 137, Potassium 4.1, Chloride 102, Carbon Dioxide 30, Anion Gap 9.1, BUN 15, Creatinine 1.00, Estimated Creat Clear 87, Estimated GFR 58 L, Est GFR ( Amer) 70, Glucose 106 H, Calcium 8.9 I & O for Last 24 hours: Intake & Output 09/22/23 09/23/23 09/24/23 09/25/23 23:59 23:59 23:59 23:59 Intake Total 640 / 1000 360 / 360 Output Total 0 / 0 0 / 0 0 / 0 Balance 0 / 0 640 / 1000 360 / 360 Weight 83.915 kg 87.407 kg 87.231 kg 85.774 kg Constitutional Constitutional: no acute distress *Routine HEENT Exam Head: Present normocephalic Eye: Present EOMI and PERRL ENT: Present mucous membranes moist *Routine Neck Exam Neck: Present supple; Absent lymphadenopathy *Routine Respiratory Exam Respiratory: Present CTA bilaterally *Routine Cardiovascular Exam Cardiovascular: Present RRR *Routine Abdominal Exam Abdominal: Present soft and normoactive bowel sounds; Absent tenderness *Routine Extremities Exam Extremities: Absent cyanosis, clubbing or edema *Routine Skin Exam Skin: Present warm; Absent rash *Routine Neurological Exam Neurological: Present alert and oriented X3 Assessment and Plan *Assessment and plan (1) Unstable angina: Status: Acute Category: Medical Code(s): I20.0 - Unstable angina (2) Coronary artery disease: Status: Chronic Qualifiers: Coronary Disease-Associated Artery/Lesion type: sycuan artery [place] vs. transplanted heart: sycuan heart Associated angina: with other forms of angina Qualified Code(s): I25.118 - Atherosclerotic heart disease of sycuan coronary artery with other forms of angina pectoris Category: Medical Code(s): I25.10 - Atherosclerotic heart disease of sycuan coronary artery without angina pectoris (3) Hypertension: Status: Chronic Qualifiers: Hypertension type: unspecified Qualified Code(s): I10 - Essential (primary) hypertension Category: Medical Code(s): I10 - Essential (primary) hypertension (4) Hyperlipidemia: Status: Chronic Qualifiers: Hyperlipidemia type: mixed hyperlipidemia Qualified Code(s): E78.2 - Mixed hyperlipidemia Category: Medical Code(s): E78.5 - Hyperlipidemia, unspecified (5) Gastroesophageal reflux disease: Status: Chronic Qualifiers: Esophagitis presence: esophagitis presence not specified Qualified Code(s): K21.9 - Gastro-esophageal reflux disease without esophagitis Category: Medical Code(s): K21.9 - Gastro-esophageal reflux disease without esophagitis (6) Anxiety: Status: Chronic Category: Medical Code(s): F41.9 - Anxiety disorder, unspecified (7) Hypothyroidism: Status: Chronic Qualifiers: Hypothyroidism type: unspecified Qualified Code(s): E03.9 - Hypothyroidism, unspecified Category: Medical Code(s): E03.9 - Hypothyroidism, unspecified (8) Fibromyalgia: Status: Chronic
--- NOTE | 2023-09-25 13:20 | PC.NURSE ---
patient states i feel alot worse. my chest hurts and so does my left arm.
[2023-09-26] VITALS: BP 111/64; PULSE 59; PULSE 64; RESP 18; TEMP 36.9; O2SAT 96
[2023-09-26 04:00] VITALS: BP 103/58; PULSE 60; PULSE 66; RESP 16; TEMP 36.9; O2SAT 95; BMI 31.9
[2023-09-26 06:30] LABS: Anion Gap 10.1 mEq/L (5-15); Blood Urea Nitrogen 14 mg/dl (7-17); Calcium 8.9 mg/dl (8.4-10.2); Carbon Dioxide 30 mmol/L (22.0-30.0); Chloride 103 mmol/L (98-107); Creatinine Clearance Estimated 96 mL/min (50-200); Estimated Glomerular Filt Rate 65 ml/min (>60); GFR (African American) 79 ML/MIN (>60); Glucose 102 mg/dl (74-100); Potassium 4.1 mmoL/L (3.5-5.1); Sodium 139 mmol/L (136-145)
--- NOTE | 2023-09-26 06:45 | ECG_ITS ---
APPROVED REPORT Exam: Resting ECG HR:64 bpm ECG Measurements Heart Rate 64 AXES SC 178 P 51 QRSd 85 QRS 23 QT 392 T 36 QTc 402 Conclusion SINUS RHYTHM NONSPECIFIC T-WAVE ABNORMALITY BORDERLINE ECG UNCONFIRMED REPORT Electronically signed by : Telly Collier MD 09/26/2023 21:25:18
[2023-09-26 06:46] LABS: Basophils % 0.8 % (0.1-2.0); Eosinophils # 0.3 K/mm3 (0.0-0.4); Eosinophils % 4.6 % (0.1-12.0); Hematocrit 33.5 % (37.0-47.0); Hemoglobin 11.2 g/dL (12.2-16.2); Lymphocytes # 2.7 K/mm3 (0.7-4.5); Lymphocytes % 46.9 % (10-50); Mean Corpuscular HGB Conc 33.6 g/dL (31.8-35.4); Mean Corpuscular Hemoglobin 32.8 pg (27.0-31.2); Mean Corpuscular Volume 97.7 fl (81-99); Mean Platelet Volume 8.8 fl (7.4-10.4); Monocytes # 0.3 K/mm3 (0.1-1.0); Monocytes % 4.3 % (1.7-9.3); Neutrophils # 2.5 K/mm3 (1.8-7.8); Neutrophils % 43.3 % (37.0-80.0); Platelet Count 271 K/mm3 (142-424); Red Blood Count 3.43 M/mm3 (4.20-5.40); Red Cell Distribution Width 13.3 % (11.5-17.5); White Blood Count 5.7 K/mm3 (4.8-10.8)
--- NOTE | 2023-09-26 07:00 | CA_ITS ---
APPROVED REPORT EXAM: Limited 2D Echocardiogram Sr. Manager Marketing: Thelma Cordon, RCS, RVS Ht: 5 ft 4 in Wt: 189lbs BSA: 1.91 BP: 110/70 mmHg Indications: follow-up pericardial effusion, S/p cardiac cath Other Information Study Quality: Fair Conclusion This is a limited study to evaluate for pericardial effusion. Limited windows were obtained. The left ventricle appears normal in size and systolic function. There is a small pericardial effusion noted anteriorly. The largest pocket measures approximately 0.5 cm in diastole. Compared to prior study from 1 day prior, the size of the effusion is overall unchanged. Electronically signed by : Kelly Mejia MD 09/26/2023 13:49:35
[2023-09-26 08:00] VITALS: BP 98/58; PULSE 64; PULSE 71; RESP 20; TEMP 36.9; O2SAT 96; O2SAT 98
--- NOTE | 2023-09-26 08:43 | PC.NURSE ---
COURTESY TECH NOTE; ROUNDED ON PT 0750, PT DENIED NEED FOR DRINK, NEED FOR ASSISTANCE WITH RESTROOM, AND NEED TO REPOSITION IN BED. CALL LIGHT WITHIN REACH, NO FURTHER REQUESTS AT THIS TIME ASHANTI CARABALLO
--- NOTE | 2023-09-26 08:56 | EXP.CARD.PN ---
Subjective Subjective Date: 09/26/23 Time: 08:56 Principal diagnosis: CAD, angina Interval history: 52-year-old white female in bed in no acute distress. Patient still feels like she is on a roller coaster with her energy level. Sometimes it is up and she feels good other times down and she feels tired and mentally foggy. Despite reduced doses of lisinopril and metoprolol yesterday blood pressure continues to run borderline low. Addendum: Pt is feeling better this afternoon and is ready to go home. Exam Data for Last 24 hours Vital signs and Labs for Last 24 Hours: Temp Pulse Resp BP Pulse Ox O2 Del Method O2 Flow Rate 98.5 F 71 20 98/58 L 98 Nasal Cannula 2 09/26/23 08:00 09/26/23 08:00 09/26/23 08:00 09/26/23 08:00 09/26/23 08:00 09/26/23 08:17 09/26/23 08:17 Laboratory Results - last 24 hr 09/25/23 08:48: WBC 5.9, RBC 3.41 L, Hgb 11.8 L, Hct 33.0 L, MCV 96.7, MCH 34.7 H, MCHC 35.8 H, RDW 13.4, Plt Count 289, MPV 9.1, Neut % (Auto) 62.0, Lymph % (Auto) 28.9, Glenn % (Auto) 4.8, Eos % (Auto) 3.5, Baso % (Auto) 0.6, Neut # (Auto) 3.6, Lymph # (Auto) 1.7, Glenn # (Auto) 0.3, Eos # (Auto) 0.2, Baso # (Auto) 0.0, Sodium 137, Potassium 4.1, Chloride 102, Carbon Dioxide 30, Anion Gap 9.1, BUN 15, Creatinine 1.00, Estimated Creat Clear 87, Estimated GFR 58 L, Est GFR ( Amer) 70, Glucose 106 H, Calcium 8.9 09/26/23 06:07: WBC 5.7, RBC 3.43 L, Hgb 11.2 L, Hct 33.5 L, MCV 97.7, MCH 32.8 H, MCHC 33.6, RDW 13.3, Plt Count 271, MPV 8.8, Neut % (Auto) 43.3, Lymph % (Auto) 46.9, Glenn % (Auto) 4.3, Eos % (Auto) 4.6, Baso % (Auto) 0.8, Neut # (Auto) 2.5, Lymph # (Auto) 2.7, Glenn # (Auto) 0.3, Eos # (Auto) 0.3, Baso # (Auto) 0.0, Sodium 139, Potassium 4.1, Chloride 103, Carbon Dioxide 30, Anion Gap 10.1, BUN 14, Creatinine 0.90, Estimated Creat Clear 96, Estimated GFR 65, Est GFR ( Amer) 79, Glucose 102 H, Calcium 8.9 I & O for Last 24 hours: Intake & Output 09/23/23 09/24/23 09/25/23 09/26/23 11:59 11:59 11:59 11:59 Intake Total 1000 / 1000 1267 / 1267 Output Total 0 / 0 0 / 0 0 / 0 150 / 150 Balance 0 / 0 0 / 0 1000 / 1000 1117 / 1117 Weight 192 lb 11.2 oz 192 lb 5 oz 189 lb 1.6 oz 187 lb Constitutional Constitutional: no acute distress *Routine Respiratory Exam Respiratory: Present CTA bilaterally *Routine Cardiovascular Exam Cardiovascular: Present RRR *Routine Neurological Exam Neurological: Present alert, oriented X3 and CN II-XII intact Progress Note: A&P Assessment and plan (1) Unstable angina: Status: Acute (2) Coronary artery disease: Status: Chronic (3) Hypertension: Status: Chronic (4) Hyperlipidemia: Status: Chronic (5) Gastroesophageal reflux disease: Status: Chronic (6) Anxiety: Status: Chronic (7) Hypothyroidism: Status: Chronic (8) Fibromyalgia: Status: Chronic (9) Obesity (BMI 30.0-34.9): Status: Chronic Assessment and Plan Assessment and Plan for All Diagnoses:: 1. Unstable angina with abnormal CCTA Normal troponin RENETTA to Left main and RCA 09/24/2023 Continue aspirin and effient Hemoglobin stable at 11.2 Repeat limited echo this morning shows stable very mild pericardial effusion with no evidence of tamponade 2. History of tobacco use, discontinued April 2023 Nicotine patch if needed 3. Anxiety Defer to Dr. Sahu 4. Hyperlipidemia LDL 77 with HDL 43 this admission Continue atorvastatin therapy 5. Hypertension Echo shows normal LVEF 55% and no significant valve disease stop lisinopril and metoprolol due to low BP 6. Hypothyroidism Continue replacement therapy BP is stable without significant orthostatic changes. She is ready to go home. Home medication recommendations: Aspirin 81 mg daily Atorvastatin 40 mg daily Effient 10 mg daily Ranolazine 1000 mg twice daily Stop lisinopril and metoprolol Monitor blood pressure at home Follow-up in our office next week
[2023-09-26 09:30] VITALS: BP 102/65; BP 103/62; BP 92/57
--- NOTE | 2023-09-26 09:44 | PC.NURSE ---
ORTHOSTATIC BLOOD PRESSURE LEFT ARM: SUPINE: 92/57 SITTIN/65 STANDIN/62
--- NOTE | 2023-09-26 11:05 | HMH.PTEV ---
Physical Therapy Evaluation Rehab PT IP Evaluation Start: 09/26/23 09:30 Freq: ONCE Status: Active Protocol: Document 09/26/23 10:52 DASIA (Rec: 09/26/23 11:05 DASIA [id number]) Subjective/History History History Patient is a 52 year old female admitted to [facility] secondary to unstable angina. She cardiac cathetization x 2 with placement of 2 stents. Patient reports that she had 3 stents placed in 2019. Patient lives at home with her , requiring SPC/ caregiver assistance for ambulation. During evaluation patient experienced orthostatic hypotension. BP significantly dropped upon standing/ambulation when compared to sitting. Subjective Subjective I just feel like my energy levels go up and down, even when I'm not doing anything. Patient reports dizziness/ light headedness with sit/ stand transfer and ambulation. New diagnosis of cancer in past 12 No months? Rehab PT IP Eval Objective Appearance Patient Behavior Appropriate,Confused Patient Orientation Person,Place,Birthday Difficulty following instructions none Speech Pattern Baseline Function Ambulation Patient Able to Ambulate Yes Ambulation Observation IP General Gait Pattern Observation Wide Based Gait Ambulation Distance (feet) 15 Ambulation Ability Contact Guard/Hand Hold Balance Ability to Arise Able, uses arms to help Sitting Balance Steady, safe Standing Balance Steady, wide stance Dynamic Sitting Balance Ability Normal Dynamic Standing Balance Ability Normal Transfers Bed Transfer Ability Independent Sit to Stand Bed Transfer Ability Independent ROM All Extremities PT ROM Status WFL MMT All Extremities PT MMT WFL Rehab PT IP prob,goals,plan Problems Date of Evaluation: 09/26/23 PT IP Problems Balance Rehab Potential Rehab Potential Good Equipment Needs Assistive Devices Rolling / Wheeled Walker Discharge Plan PT Discharge Plan At this time, patient appears
--- NOTE | 2023-09-26 11:30 | HMH.OTEV ---
OT Inpatient Evaluation Rehab OT IP Evaluation Start: 09/26/23 09:30 Freq: ONCE Status: Active Protocol: Document [facility]26/23 10:37 [facility] (Rec: 09/26/23 11:07 [facility] [id number]) Rehab OT IP Assessment Subjective History Pt oriented x 3 on arrival. Pt agreeable to engage in therapy evaluation. Pt admitted on 09/22/23 due to chest pain resulting in stenting of left main and RCA on 09/24/23. Pt reports prior to being in the hospital, she lived at home with her . Pt reports she is normally independent with ADLS and IADLs. She does use a cane during functional mobility tasks. She has been experiencing fatigue during functional mobility tasks so she does require rest breaks. Pt has a past medical history of: of CAD, HTN, HLD, GERD, Anxiety, hypothroidism, and fibromyalgia. Subjective I still get a little dizzy when I stand up. Pt's blood pressure was monitored during therapy evaluation due to notes of low BP. Upon sitting pt's BP was 129/64. Once she was standing up ambulating her BP was checked again and it was 90/59. Nursing notified of the blood pressure decrease when standing. Objective Patient Orientation Person,Place,Birthday Upper Extremity Gross ROM WFL Bed Mobility bed mobility-scooting,bed mobility - supine/sit Assist Level Contact Guard/Hand Hold Transfer Training Sit/Stand Transfer Assist Level Contact Guard/Hand Hold Lower Body Dressing Ability Standby Assistance Rehab OT IP prob,goals,plan Problems Date of Evaluation: 09/26/23 Rehab Potential Rehab Potential Innapropriate for Skilled Therapy Discharge Plan OT Discharge Plan At this time, pt appears to be at her baseline with functi
[2023-09-26 12:00] VITALS: PULSE 70
--- NOTE | 2023-09-26 12:35 | DIET.NUTRFU ---
Provided handouts patient requested on healthy eating plan, good protein sources and healthy snacks. She also has a follow-up with GI on 10/02 to review celiac recommendations.
[2023-09-26 14:19] VITALS: BP 116/76
--- NOTE | 2023-09-26 14:37 | EXP.DC.SUM ---
General Admission date:: 09/22/23 Discharge date: 09/26/23 HPI HPI HPI: 52 year old female presented to the ED for c/o CP. Pt states CP started over the weekend. PMHX of CAD, HTN, HLD, GERD, Anxiety, hypothroidism, and fibromyalgia. The pt states pain radiates into her neck, shoulder, and under left breast. She also reports epigastric pain. The patient took nitro prior to arrival to [facility]. Her ED work is reviewed by me and reveals negative troponins, sinus rhythm EKG without st depression or elevation, and unremarkable chest xray. She has no electrolytes abnormalities. The ED physician consulted cardiology and the hospitalist team for further medical management. I accepted the pt and admitted them to the medical surgical floor for overnight cardiac monitoring. I will continue to trend her troponins and will order a cardiac consult for the morning. Hospital Course Hospital Course Hospital Course: Patient is a 52-year-old female who presented to hospital due to chest pain. Patient has past medical history of CAD, hypothyroidism, anxiety Assessment Unstable angina CAD Hypertension Hyperlipidemia GERD Hypothyroidism Obesity Plan s/p cardiac cath, patient was recommneded to go for CABG vs extensive stenting, patient decided for stenting, patient is cleared for dc per cardiology as OP, prescriptions sent to the pharmacy Exam Data for Last 24 hours Vital signs and Labs for Last 24 Hours: Temp Pulse Resp BP Pulse Ox O2 Del Method O2 Flow Rate 98.5 F 71 20 116/76 98 Room Air 97 09/26/23 08:00 09/26/23 08:00 09/26/23 08:00 09/26/23 14:19 09/26/23 08:00 09/26/23 14:26 09/26/23 10:40 Laboratory Results - last 24 hr 09/26/23 06:07: WBC 5.7, RBC 3.43 L, Hgb 11.2 L, Hct 33.5 L, MCV 97.7, MCH 32.8 H, MCHC 33.6, RDW 13.3, Plt Count 271, MPV 8.8, Neut % (Auto) 43.3, Lymph % (Auto) 46.9, Sumner % (Auto) 4.3, Eos % (Auto) 4.6, Baso % (Auto) 0.8, Neut # (Auto) 2.5, Lymph # (Auto) 2.7, Sumner # (Auto) 0.3, Eos # (Auto) 0.3, Baso # (Auto) 0.0, Sodium 139, Potassium 4.1, Chloride 103, Carbon Dioxide 30, Anion Gap 10.1, BUN 14, Creatinine 0.90, Estimated Creat Clear 96, Estimated GFR 65, Est GFR ( Amer) 79, Glucose 102 H, Calcium 8.9 I & O for Last 24 hours: Intake & Output 09/23/23 09/24/23 09/25/23 09/26/23 23:59 23:59 23:59 23:59 Intake Total 640 / 1000 847 / 1147 780 / 780 Output Total 0 / 0 0 / 0 150 / 150 Balance 0 / 0 640 / 1000 697 / 997 780 / 780 Weight 87.407 kg 87.231 kg 85.7 kg 84.822 kg Constitutional Constitutional: no acute distress *Routine HEENT Exam Head: Present normocephalic Eye: Present EOMI and PERRL ENT: Present mucous membranes moist *Routine Neck Exam Neck: Present supple; Absent lymphadenopathy *Routine Respiratory Exam Respiratory: Present CTA bilaterally *Routine Cardiovascular Exam Cardiovascular: Present RRR *Routine Abdominal Exam Abdominal: Present soft and normoactive bowel sounds; Absent tenderness *Routine Extremities Exam Extremities: Absent cyanosis, clubbing or edema *Routine Skin Exam Skin: Present warm; Absent rash *Routine Neurological Exam Neurological: Present alert and oriented X3 Results Data Completed and Pending Labs on day of discharge: Labs from last 24 hours 09/26/23 06:07 WBC 5.7 RBC 3.43 L Hgb 11.2 L Hct 33.5 L MCV 97.7 MCH 32.8 H MCHC 33.6 RDW 13.3 Plt Count 271 MPV 8.8 Neut % (Auto) 43.3 Lymph % (Auto) 46.9 Sumner % (Auto) 4.3 Eos % (Auto) 4.6 Baso % (Auto) 0.8 Neut # (Auto) 2.5 Lymph # (Auto) 2.7 Sumner # (Auto) 0.3 Eos # (Auto) 0.3 Baso # (Auto) 0.0 Sodium 139 Potassium 4.1 Chloride 103 Carbon Dioxide 30 Anion Gap 10.1 BUN 14 Creatinine 0.90 Estimated Creat Clear 96 Estimated GFR 65 Est GFR ( Amer) 79 Glucose 102 H Calcium 8.9 DS: Diagnosis Discharge Diagnosis (1) Unstable angina: Status: Acute Code(s): I20.0 - Unstable angina (2) Coronary artery disease:
--- NOTE | 2023-09-26 15:08 | HMH.PHAINT1 ---
Pharmacy Intervention Comments: DISCHARGE MEDICATION COUNSELING PROVIDED. DISCUSSED STARTING PRASUGREL (BLOOD THINNER, DAILY, BLEED/BRUISE RISK/LOCATION/APPEARANCE, IF BLEEDING OCCURS GO TO ER, DIZZINESS, LIGHTHEADEDNESS, HEADACHE, N/V POSSIBLE). STOP LISINOPRIL AND METOPROLOL. PATIENT STATES SHE HAD BLOOD IN STOOL YESTERDAY AND TOLD NURSE. I ADVISED HER THAT IF IT WORSENS TO GO TO THE ER AND FOLLOW UP WITH CARDIOLOGY. PATIENT ASKED IF THIS WAS SIMILAR TO PLAVIX AND BRILINTA AND I ADVISED HER IT WAS SIMILAR. SHE EXPRESSED ANXIETY WITH MEDICATION CHANGES, MAINLY WITH REGARD TO BLEEDING RISK. I ADVISED HER THAT GIVEN HISTORY OF HEMORRHOIDS AND THAT SHE WAS ON EFFIENT, HEPARIN, AND ASPIRIN WHILE INPATIENT THAT THE BLEEDING COULD BE FROM THAT BUT ADVISED HER THAT IF IT CONTINUES AFTER A DAY OR TWO OR WORSENS TO GO TO THE ER. PATIENT VERBALIZED UNDERSTANDING AND ASKED NO FURTHER QUESTIONS.
== END 2023-09-26 16:00 | disposition home or self-care (01) | DRG 322 ==
LOC: ER 19:31 → 2ND 21:05
PROVIDERS: Internal Medicine; Nurse Practitioner Critical Care Medicine; Physician Assistant; Admitting Provider Internal Medicine Adolescent Medicine; Emergency Provider Student in an Organized Health Care Education/Training Program; PCP Physician Assistant; Visit Provider Internal Medicine Adolescent Medicine
PROC: 4A023N7 Measurement of Cardiac Sampling and Pressure, Left Heart, Percutaneous Approach (ICD-10-PCS; principal; 2023-09-23 11:45)
PROC: 02H13DZ Insertion of Intraluminal Device into Coronary Artery, Two Arteries, Percutaneous Approach (ICD-10-PCS; principal; 2023-09-24 14:00)
DX: I25.110 Atherosclerotic heart disease of native coronary artery with unstable angina pectoris (principal); K21.9 Gastro-esophageal reflux disease without esophagitis; M79.7 Fibromyalgia; G47.33 Obstructive sleep apnea (adult) (pediatric); M32.9 Systemic lupus erythematosus, unspecified; M54.16 Radiculopathy, lumbar region; E66.9 Obesity, unspecified; Z68.31 Body mass index [BMI] 31.0-31.9, adult; F41.9 Anxiety disorder, unspecified; I10 Essential (primary) hypertension; E03.9 Hypothyroidism, unspecified; Z87.891 Personal history of nicotine dependence; E78.2 Mixed hyperlipidemia
CPT/HCPCS: 36415; 71045; 80048; 80061; 80076; 83735; 84443; 84484; 85025; 85347; 85378; 92928; 92978; 93005; 93306; 93308; 93454; 93458; 97163; 97165; 99152; 99153; 99291; C1725; C1769; C1876; C9600; J1644; J2405; Q9967

== ENCOUNTER 2023-09-27 11:09 | Observation (INO) | payer OTHER, SELFPAY ==
[2023-09-27] VITALS (7 sets, daily range): BP systolic 135–156; BP diastolic 85–100; PULSE 70–100; RESP 12–20; TEMP 36.1–37.1; O2SAT 95–97; BMI 31.7; BMI 32.4
--- NOTE | 2023-09-27 11:06 | ECG_ITS ---
APPROVED REPORT Exam: Resting ECG HR:108 bpm ECG Measurements Heart Rate 108 AXES NE 149 P 68 QRSd 88 QRS 10 QT 340 T 14 QTc 403 Conclusion SINUS TACHYCARDIA NONSPECIFIC ST & T-WAVE ABNORMALITY ABNORMAL RHYTHM ECG UNCONFIRMED REPORT Electronically signed by : Telly Collier MD 09/27/2023 16:52:37
--- NOTE | 2023-09-27 11:13 | XR_ITS ---
PROCEDURE INFORMATION: Exam: XR Chest Exam date and time: 09/27/2023 11:35 AM Age: 52 years old Clinical indication: Dyspnea TECHNIQUE: Imaging protocol: Radiologic exam of the chest. Views: 1 view. COMPARISON: CR XR CHEST PORTABLE 09/22/2023 7:48 PM FINDINGS: Lungs: No focal airspace disease. Pleural spaces: Unremarkable. No pleural effusion. No pneumothorax. Heart/Mediastinum: Cardiomediastinal silhouette is within normal limits. Bones/joints: Unremarkable. IMPRESSION: No acute cardiopulmonary abnormality.
--- NOTE | 2023-09-27 11:14 | HMH.EDGENADL ---
Discharge Plan Disposition Patient Disposition: Admitted Prescriptions Prescriptions: No Action hydrocodone-acetaminophen 5-325 mg tablet 1 tab PO TID Qty: 90 0RF gabapentin 800 mg tablet 800 mg PO TID Qty: 90 0RF clonazepam 1 mg tablet 1 mg PO BID Qty: 60 0RF ondansetron 8 mg tablet,disintegrating See Rx Instructions .ROUTE .COMPLEX Qty: 30 0RF Dose Instruction: DISSOLVE 1 TABLET ON THE TONGUE EVERY 8 HOURS NEEDED FOR NAUSEA/VOMITING Rx Instructions: DISSOLVE 1 TABLET ON THE TONGUE EVERY 8 HOURS NEEDED FOR NAUSEA/VOMITING spironolactone 25 mg tablet See Rx Instructions .ROUTE .COMPLEX Qty: 30 2RF Dose Instruction: TAKE ONE TABLET BY MOUTH ONCE A DAY FOR HEART DISEASE Rx Instructions: TAKE ONE TABLET BY MOUTH ONCE A DAY FOR HEART DISEASE ranolazine 1,000 mg tablet extended release 12 hr 1,000 mg PO BID Qty: 120 4RF promethazine 25 mg tablet 25 mg PO NEEDED PRN (Reason: Nausea) Rx Instructions: TAKE ONE TABLET BY MOUTH 3 TIMES A DAY NEEDED FOR NAUSEA/VOMITING aspirin 81 mg tablet,delayed release (DR/EC) 81 mg PO DAILY Rx Instructions: TAKE ONE TABLET BY MOUTH AT BEDTIME FOR HEART HEALTH duloxetine 60 mg capsule,delayed release(DR/EC) 60 mg PO BID Rx Instructions: TAKE 1 CAPSULE BY MOUTH 2 TIMES A DAY Vraylar 1.5 mg capsule 1.5 mg PO DAILY Rx Instructions: TAKE ONE CAPSULE BY MOUTH ONCE A DAY levothyroxine 25 mcg tablet 25 mcg PO DAILY Rx Instructions: TAKE ONE TABLET BY MOUTH ONCE A DAY oxybutynin chloride 10 mg tablet extended release 24hr 10 mg PO DAILY prasugrel 10 mg Tablet 10 mg PO DAILY Qty: 30 0RF atorvastatin 40 mg tablet 40 mg PO HS omeprazole 40 mg capsule,delayed release(DR/EC) 40 mg PO DAILY nitroglycerin 0.4 mg tablet, sublingual 0.4 mg buccal DIRECTED cholecalciferol (vitamin D3) 1,250 mcg (50,000 unit) capsule 1,250 mcg PO WEEKLY Clinical Impressions Clinical Impression: Chest pain, Myocardial injury, Arterial spasm Discharge ED Provider: Patience Abel General Adult HPI General Chief complaint: Chest Pain Stated complaint: Chest Pain Time Seen by Provider: 09/27/23 11:09 History of Present Illness HPI narrative: Patient is a 52-year-old female with a history of coronary disease with a recent heart cath just a few days ago with multiple drug-eluting stents placed who presents today with chest pain. States has been happening intermittently since her heart cath. Denies any exertional component shortness of breath diaphoresis nausea. Denies any other symptoms. Related Data Home Medications Medication Instructions Recorded Confirmed atorvastatin 40 mg tablet 40 mg PO HS High Cholesterol 08/25/23 09/22/23 cholecalciferol (vitamin D3) 1,250 1,250 mcg PO WEEKLY Supplement 08/25/23 09/22/23 mcg (50,000 unit) capsule nitroglycerin 0.4 mg sublingual 0.4 mg buccal DIRECTED Chest 08/25/23 09/22/23 tablet Pain omeprazole 40 mg capsule,delayed 40 mg PO DAILY Acid Reflux 08/25/23 09/22/23 release aspirin 81 mg tablet,delayed 81 mg PO DAILY 09/22/23 09/22/23 release cariprazine 1.5 mg capsule 1.5 mg PO DAILY 09/22/23 09/22/23 (Vraylar) duloxetine 60 mg capsule,delayed 60 mg PO BID 09/22/23 09/23/23 release levothyroxine 25 mcg tablet 25 mcg PO DAILY 09/22/23 09/22/23 promethazine 25 mg tablet 25 mg PO NEEDED PRN Nausea 09/22/23 09/22/23 oxybutynin chloride 10 mg 10 mg PO DAILY overactive bladder 09/23/23 09/23/23 tablet,extended release 24 hr Previous Rx's Medication Instructions Recorded gabapentin 800 mg tablet 800 mg PO TID #90 tabs 09/03/23 hydrocodone 5 mg-acetaminophen 325 1 tab PO TID Chronic pain #90 tabs 09/03/23 mg tablet clonazepam 1 mg tablet 1 mg PO BID Anxiety #60 tabs 09/10/23 ondansetron 8 mg disintegrating See Rx Instructions .Route 09/25/23 tablet .COMPLEX #30 tabs spironol
--- NOTE | 2023-09-27 11:17 | PC.NURSE ---
RAD at BS
--- NOTE | 2023-09-27 11:18 | PC.NURSE ---
XR AT BEDSIDE
[2023-09-27 11:21] LABS: Basophils % 0.5 % (0.1-2.0); Eosinophils # 0.3 K/mm3 (0.0-0.4); Hematocrit 38.1 % (37.0-47.0); Hemoglobin 13.1 g/dL (12.2-16.2); Lymphocytes # 1.4 K/mm3 (0.7-4.5); Lymphocytes % 21.6 % (10-50); Mean Corpuscular HGB Conc 34.4 g/dL (31.8-35.4); Mean Platelet Volume 8.9 fl (7.4-10.4); Monocytes # 0.3 K/mm3 (0.1-1.0); Monocytes % 4.7 % (1.7-9.3); Neutrophils # 4.6 K/mm3 (1.8-7.8); Neutrophils % 69.2 % (37.0-80.0); Platelet Count 301 K/mm3 (142-424); Red Blood Count 3.96 M/mm3 (4.20-5.40); Red Cell Distribution Width 13.2 % (11.5-17.5); White Blood Count 6.6 K/mm3 (4.8-10.8)
[2023-09-27 11:28] LABS: Alanine Aminotransferase 23 U/L (12-78); Albumin Level 4.4 g/dl (3.5-5.0); Albumin/Globulin Ratio 1.3 (1.1-1.8); Alkaline Phosphatase 110 U/L (38-126); Anion Gap 14.3 mEq/L (5-15); Aspartate Amino Transferase 28 U/L (14-36); Bilirubin,Total 0.4 mg/dl (0.2-1.3); Blood Urea Nitrogen 15 mg/dl (7-17); Calcium 10.1 mg/dl (8.4-10.2); Carbon Dioxide 30 mmol/L (22.0-30.0); Chloride 100 mmol/L (98-107); Creatinine Clearance Estimated 85 mL/min (50-200); Estimated Glomerular Filt Rate 58 ml/min (>60); GFR (African American) 70 ML/MIN (>60); Globulin 3.5 g/dL (1.3-3.2); Glucose 107 mg/dl (74-100); Potassium 4.3 mmoL/L (3.5-5.1); Sodium 140 mmol/L (136-145); Total Protein,Serum 7.9 g/dl (6.3-8.2)
[2023-09-27 11:33] LABS: D-Dimer 0.75 ug/mL (0.0-0.5)
--- NOTE | 2023-09-27 13:01 | PC.NURSE ---
updated pt and family member who is at bs on POC and that dr. barros reports he will be in soon to reassess pt and discuss results
--- NOTE | 2023-09-27 14:00 | PC.NURSE ---
DR MIRAMONTES SPEAKING WITH DR MILLIGAN
--- NOTE | 2023-09-27 14:02 | PC.NURSE ---
Dr. Abel updating pt on results and POC
--- NOTE | 2023-09-27 14:02 | PC.NURSE ---
DR MIRAMONTES AT BEDSIDE TO UPDATE PT
--- NOTE | 2023-09-27 14:03 | PC.NURSE ---
KAHLIL CAMARA speaking with hospitalist
--- NOTE | 2023-09-27 14:04 | PC.NURSE ---
DR MIRAMONTES SPEAKING WITH HOSPITALIST FOR ADMISSION
--- NOTE | 2023-09-27 14:07 | PC.NURSE ---
notified transfer and pumphouse operator chief of admission
--- NOTE | 2023-09-27 14:29 | HMH.PHAINT1 ---
Pharmacy Intervention Comments: MEDICATION RECONCILIATION COMPLETE USING LIST FROM HOSPITAL DISCHARGE YESTERDAY (09/26/23).
--- NOTE | 2023-09-27 14:31 | PC.NURSE ---
REPORT GIVEN TO Ed DENNY RN
[2023-09-27 15:25] LABS: Troponin I 0.07 ng/ml (0.00-0.034)
--- NOTE | 2023-09-27 16:46 | PC.NURSE ---
Addendum entered by Yajaira Ramesh RN 09/27/23 16:47: PT UNABLE TO GET HOME MEDS BROUGHT IN AT THIS TIME. HAS SIGNED UP FOR MEDS TO BEDS. Original Note: PT A&OX4. TOLERATING RA WELL. FAMILY AT BEDSIDE. HAS C/O CHEST PAIN SINCE ARRIVAL TO FLOOR. UNRELIEVED BY NITRO. DILAUDID GIVEN PER MAR, IMMEDIATE RELIEF NOTED. NO OTHER NEEDS NOTED AT THIS TIME. VSS.
--- NOTE | 2023-09-27 17:55 | CT_ITS ---
PROCEDURE INFORMATION: Exam: CT Abdomen And Pelvis Without Contrast Exam date and time: 09/27/2023 6:16 PM Age: 52 years old Clinical indication: Abdominal pain; Generalized; Additional info: Abd pain TECHNIQUE: Imaging protocol: Computed tomography of the abdomen and pelvis without contrast. Radiation optimization: All CT scans at this facility use at least one of these dose optimization techniques: automated exposure control; mA and/or kV adjustment per patient size (includes targeted exams where dose is matched to clinical indication); or iterative reconstruction. REPORTING DATA: Count of CT and Cardiac NM exams in prior 12 months: This patient has received 3 known CTs and 0 known cardiac nuclear medicine studies in the 12 months prior to the current study. COMPARISON: CT ABDOMEN PELVIS WO CON 12/15/2022 11:12 PM FINDINGS: Lungs: Granulomas noted at each lung base. Lung parenchyma is otherwise clear. Heart: Normal heart size. Coronary arteries: Coronary artery stent is noted. Liver: Stable low-attenuation foci posterior segment right hepatic lobe. Gallbladder and bile ducts: Postprandial gallbladder is not contracted. No biliary tree dilation. No gallbladder inflammatory change. Pancreas: Normal. No ductal dilation. Spleen: Normal. No splenomegaly. Adrenal glands: Normal configuration. Kidneys and ureters: Punctate intrarenal stone right kidney. No ureteral stones on either side. Stomach and bowel: Postprandial stomach. Normal caliber small bowel. Distal colonic diverticulosis without evidence of acute diverticulitis. Desiccated appearing fecal debris noted in the rectosigmoid. Moderate overall fecal retention. Appendix: Normal appendix is confirmed. Intraperitoneal space: No free air. No significant fluid collection. Vasculature: Mild aortoiliac calcific atherosclerosis without aneurysm. Lymph nodes: No enlarged lymph nodes. Urinary bladder: Unremarkable as visualized. Reproductive: Prior hysterectomy. No evidence of vaginal cuff or adnexal mass. Bones/joints: No fracture or destructive lesion. Soft tissues: Unremarkable. IMPRESSION: Exam demonstrates prominent fecal retention esspecially in the rectosigmoid suggesting constipation which could be symptomatic. No other acute abnormality to explain patient's pain. There is diverticulosis without evidence of acute diverticulitis. A normal appendix is confirmed. No ureteral calculus.
--- NOTE | 2023-09-27 17:55 | CT_ITS ---
PROCEDURE INFORMATION: Exam: CT Head Without Contrast Exam date and time: 09/27/2023 6:14 PM Age: 52 years old Clinical indication: Dizziness TECHNIQUE: Imaging protocol: Computed tomography of the head without contrast. Radiation optimization: All CT scans at this facility use at least one of these dose optimization techniques: automated exposure control; mA and/or kV adjustment per patient size (includes targeted exams where dose is matched to clinical indication); or iterative reconstruction. REPORTING DATA: Count of CT and Cardiac NM exams in prior 12 months: This patient has received 3 known CTs and 0 known cardiac nuclear medicine studies in the 12 months prior to the current study. COMPARISON: MR HEAD/BRAIN WO CON 11/04/2022 1:39 PM FINDINGS: Brain: No hemorrhage. Unremarkable white matter. No mass effect. Preserved qureshi-white interfaces. Cerebral ventricles: No ventriculomegaly. Paranasal sinuses: Visualized sinuses are unremarkable. No fluid levels. Mastoid air cells: Visualized mastoid air cells are well aerated. Bones/joints: Unremarkable. No acute fracture. Soft tissues: Unremarkable. IMPRESSION: No evidence of acute intracranial hemorrhage, mass effect, or edema.
--- NOTE | 2023-09-27 18:10 | EXP.HP ---
History of Present Illness *Admission Date: 09/27/23 *Reason for visit:: Chest pain *History of present illness: Patient is a 52-year-old female with past medical history of CAD, hypertension hyperlipidemia who presents to the hospital due to chest pain. According to patient she also has nausea, radiation of chest pain, left arm as well as numbness. Patient denies shortness of breath according to the patient Dilaudid helped with chest pain. Patient also mentions he has upper abdominal pain denies heartburn. Patient mentions he has been feeling dizzy especially while walking. Denied diarrhea constipation dysuria fevers chills. Patient was discharged 2 days ago after stenting. [facility] Disclaimer: The information contained in this section may have been updated after the patient was seen, as this information can be updated by other users. Medical History Altered thought processes Anxiety Celiac disease Coronary artery calcification seen on CT scan Coronary artery disease Depression Diastolic dysfunction Dizziness Dyspnea Fibromyalgia Gastroesophageal reflux disease Comfort's thyroiditis Hypothyroidism Lumbar radiculopathy Lupus KORI (obstructive sleep apnea) Osteoarthritis Thyroid Nodule Vertigo Vitamin D deficiency Surgical History H/O left knee surgery H/O tubal ligation History of cardiac cath History of partial hysterectomy Family History Other Cancer Coronary artery disease Diabetes Heart attack Hypertension Social History (Updated 09/27/23 @ 14:38 by Heather Keita RN) Smoking Status: Former smoker tobacco type: cigarettes packs per day: 1 second hand exposure: No alcohol intake: never substance use type: denies use current occupational status: unemployed Travel in the last 8 weeks: None household members: spouse housing: house lives independently: No marital status: education level: high school service: No usp: No current occupational exposures/hazards: No caffeine: Yes special giuliana needs: No agree to transfusion: No do you feel safe at home: Yes victim of physical abuse: No victim of emotional abuse: No victim of sexual abuse: No would you like helpful sources: No Review of Systems Review of Systems Review of systems:: pertinent systems reviewed and negative unless documented below Meds Home Medications and Allergies Home Medications Medication Instructions Recorded Confirmed Type atorvastatin 40 mg tablet 40 mg PO HS High Cholesterol 08/25/23 09/27/23 History cholecalciferol (vitamin D3) 1,250 1,250 mcg PO WEEKLY Supplement 08/25/23 09/27/23 History mcg (50,000 unit) capsule nitroglycerin 0.4 mg sublingual 0.4 mg sublingual Q5MINP PRN Chest 08/25/23 09/27/23 History tablet Pain omeprazole 40 mg capsule,delayed 40 mg PO DAILY Acid Reflux 08/25/23 09/27/23 History release hydrocodone 5 mg-acetaminophen 325 1 tab PO TID Chronic pain #90 tabs 09/03/23 09/27/23 Rx mg tablet clonazepam 1 mg tablet 1 mg PO BID Anxiety #60 tabs 09/10/23 09/27/23 Rx aspirin 81 mg tablet,delayed 81 mg PO DAILY Heart Disease 09/22/23 09/27/23 History release levothyroxine 25 mcg tablet 25 mcg PO DAILYDM THYROID 09/22/23 09/27/23 History promethazine 25 mg tablet 25 mg PO TIDP PRN Nausea 09/22/23 09/27/23 History oxybutynin chloride 10 mg 10 mg PO DAILY overactive bladder 09/23/23 09/27/23 History tablet,extended release 24 hr gabapentin 800 mg tablet 800 mg PO TID NERVE PAIN 09/27/23 09/27/23 History ondansetron 8 mg disintegrating 8 mg PO Q8HP PRN Nausea And 09/27/23 09/27/23 History tablet Vomiting prasugrel 10 mg tablet 10 mg PO DAILY Blood Thinner 09/27/23 09/27/23 History ranolazine 1,000 mg 1,000 mg PO BID Chest Pain 09/27/23 09/27/23
[2023-09-27 18:13] LABS: Troponin I 0.08 ng/ml (0.00-0.034)
[2023-09-28] VITALS: BP 111/77; PULSE 70; PULSE 73; RESP 18; TEMP 36.9; O2SAT 98
[2023-09-28 04:00] VITALS: BMI 32.3
--- NOTE | 2023-09-28 04:26 | PC.NURSE ---
Pt is alert and oriented x4, Pt has complained of severe pain multiple times this shift, Pt wears a CPAP at night and seems to tolerate it well. Pt has complained of nausea as well and has received anti-nausea meds this shift. Pt denies needs at this time.
[2023-09-28 07:37] LABS: Basophils # 0.1 K/mm3 (0-0.2); Eosinophils # 0.3 K/mm3 (0.0-0.4); Eosinophils % 4.5 % (0.1-12.0); Hematocrit 34.7 % (37.0-47.0); Hemoglobin 12.2 g/dL (12.2-16.2); Lymphocytes # 2.8 K/mm3 (0.7-4.5); Lymphocytes % 38.4 % (10-50); Mean Corpuscular Hemoglobin 33.7 pg (27.0-31.2); Mean Corpuscular Volume 96.2 fl (81-99); Mean Platelet Volume 9.1 fl (7.4-10.4); Monocytes # 0.3 K/mm3 (0.1-1.0); Monocytes % 4.2 % (1.7-9.3); Neutrophils # 3.7 K/mm3 (1.8-7.8); Neutrophils % 51.9 % (37.0-80.0); Platelet Count 296 K/mm3 (142-424); Red Blood Count 3.61 M/mm3 (4.20-5.40); Red Cell Distribution Width 13.3 % (11.5-17.5); White Blood Count 7.2 K/mm3 (4.8-10.8)
[2023-09-28 07:46] LABS: Anion Gap 12.7 mEq/L (5-15); Blood Urea Nitrogen 13 mg/dl (7-17); Calcium 9.2 mg/dl (8.4-10.2); Carbon Dioxide 28 mmol/L (22.0-30.0); Chloride 100 mmol/L (98-107); Creatinine Clearance Estimated 97 mL/min (50-200); Estimated Glomerular Filt Rate 65 ml/min (>60); GFR (African American) 79 ML/MIN (>60); Glucose 113 mg/dl (74-100); Potassium 3.7 mmoL/L (3.5-5.1); Sodium 137 mmol/L (136-145)
[2023-09-28 08:00] VITALS: BP 107/67; PULSE 70; PULSE 78; RESP 17; TEMP 36.9; O2SAT 95
--- NOTE | 2023-09-28 10:53 | EXP.PN ---
Subjective *Date: 09/28/23 *Time: 10:53 Interval history: Patient was seen and evaluated at the bedside. complains of Chest tightness, and epigastric discomfort. denies shortness of breath, nausea, vomiting, abdominal pain. Exam Data for Last 24 hours Vital signs and Labs for Last 24 Hours: Temp Pulse Resp BP Pulse Ox O2 Del Method 98.5 F 78 17 107/67 L 95 Room Air 09/28/23 08:00 09/28/23 08:00 09/28/23 08:00 09/28/23 08:00 09/28/23 08:00 09/28/23 06:38 Laboratory Results - last 24 hr 09/27/23 14:30: Troponin I 0.07 H 09/27/23 17:22: Troponin I 0.08 H 09/28/23 07:15: WBC 7.2, RBC 3.61 L, Hgb 12.2, Hct 34.7 L, MCV 96.2, MCH 33.7 H, MCHC 35.0, RDW 13.3, Plt Count 296, MPV 9.1, Neut % (Auto) 51.9, Lymph % (Auto) 38.4, Kern % (Auto) 4.2, Eos % (Auto) 4.5, Baso % (Auto) 1.0, Neut # (Auto) 3.7, Lymph # (Auto) 2.8, Kern # (Auto) 0.3, Eos # (Auto) 0.3, Baso # (Auto) 0.1, Sodium 137, Potassium 3.7, Chloride 100, Carbon Dioxide 28, Anion Gap 12.7, BUN 13, Creatinine 0.90, Estimated Creat Clear 97, Estimated GFR 65, Est GFR ( Amer) 79, Glucose 113 H, Calcium 9.2 I & O for Last 24 hours: Intake & Output 09/25/23 09/26/23 09/27/23 09/28/23 23:59 23:59 23:59 22:59 Intake Total 360 / 600 630 / 630 Output Total 0 / 0 0 / 0 Balance 360 / 600 630 / 630 Weight 85.814 kg 85.814 kg Constitutional Constitutional: no acute distress *Routine HEENT Exam Head: Present normocephalic Eye: Present EOMI and PERRL ENT: Present mucous membranes moist *Routine Neck Exam Neck: Present supple; Absent lymphadenopathy *Routine Respiratory Exam Respiratory: Present CTA bilaterally *Routine Cardiovascular Exam Cardiovascular: Present RRR *Routine Abdominal Exam Abdominal: Present soft and normoactive bowel sounds; Absent tenderness *Routine Extremities Exam Extremities: Absent cyanosis, clubbing or edema *Routine Skin Exam Skin: Present warm; Absent rash *Routine Neurological Exam Neurological: Present alert and oriented X3 Assessment and Plan *Assessment and plan (1) Chest pain: Status: Acute Category: Medical Code(s): R07.9 - Chest pain, unspecified (2) Arterial spasm: Status: Acute Category: Medical Code(s): I73.9 - Peripheral vascular disease, unspecified (3) Myocardial injury: Status: Acute Category: Medical Code(s): I5A - Non-ischemic myocardial injury (non-traumatic) (4) Chest pain: Status: Acute Category: Medical Code(s): R07.9 - Chest pain, unspecified (5) Chest pain: Status: Chronic Qualifiers: Chest pain type: precordial pain Qualified Code(s): R07.2 - Precordial pain Category: Medical Code(s): R07.9 - Chest pain, unspecified (6) Tobacco use: Status: Chronic Category: Social Hx Code(s): Z72.0 - Tobacco use (7) Hyperlipidemia: Status: Chronic Qualifiers: Hyperlipidemia type: mixed hyperlipidemia Qualified Code(s): E78.2 - Mixed hyperlipidemia Category: Medical Code(s): E78.5 - Hyperlipidemia, unspecified (8) Obesity: Status: Chronic Qualifiers: Obesity type: due to excess calories Obesity classification: adult class 1 (BMI 30 - 34.9) Serious obesity comorbidity presence: with serious comorbidity Body mass index: BMI 32.0-32.9 Qualified Code(s): E66.09 - Other obesity due to excess calories; Z68.32 - Body mass index (BMI) 32.0-32.9, adult Category: Medical Code(s): E66.9 - Obesity, unspecified (9) SOB (shortness of breath): Status: Chronic Category: Medical Code(s): R06.02 - Shortness of breath Plan Patient is a 52-year-old female with past medical history of CAD, hypertension hyperlipidemia who presents to the hospital due to chest pain. According to patient she also has nausea, radiation of chest pain, left arm as well as numbness. Patient denies shortness
--- NOTE | 2023-09-28 11:45 | PC.NURSE ---
pt is drowsy. she has been sleeping most of the morning. arouses when i talk to her but then falls directly back asleep.
[2023-09-28 12:00] VITALS: BP 100/56; BP 97/58; BP 97/62; PULSE 70; PULSE 75; RESP 16; TEMP 36.9; O2SAT 97
[2023-09-28 16:00] VITALS: BP 115/80; PULSE 80; PULSE 96; RESP 17; TEMP 37.3; O2SAT 95
--- NOTE | 2023-09-28 16:44 | PC.NURSE ---
pt has rested well today. When she is awake she reports pain that she says she has had for several days. is @ bedside. pts appetite has been good.
[2023-09-28 20:00] VITALS: BP 119/68; PULSE 87; PULSE 90; RESP 16; TEMP 37.1; O2SAT 94
[2023-09-29] VITALS (24 sets, daily range): BP systolic 95–145; BP diastolic 49–94; PULSE 51–110; RESP 16–18; TEMP 36.7–37.2; O2SAT 93–99; BMI 32.3
--- NOTE | 2023-09-29 04:55 | PC.NURSE ---
Pt is alert and oriented x4, Pt has C/O pain once stated that her chest was sore and bruised, otherwise Pt has rested well this shift, Pt was wore her CPAP while sleeping and has tolerated it well. Pt denies pain and other needs at this time.
[2023-09-29 07:03] LABS: Basophils # 0.1 K/mm3 (0-0.2); Basophils % 0.8 % (0.1-2.0); Eosinophils # 0.3 K/mm3 (0.0-0.4); Eosinophils % 5.1 % (0.1-12.0); Hematocrit 34.9 % (37.0-47.0); Hemoglobin 12.1 g/dL (12.2-16.2); Lymphocytes % 49.3 % (10-50); Mean Corpuscular HGB Conc 34.5 g/dL (31.8-35.4); Mean Corpuscular Hemoglobin 33.5 pg (27.0-31.2); Mean Corpuscular Volume 97.3 fl (81-99); Mean Platelet Volume 9.3 fl (7.4-10.4); Monocytes # 0.3 K/mm3 (0.1-1.0); Monocytes % 4.1 % (1.7-9.3); Neutrophils # 2.5 K/mm3 (1.8-7.8); Neutrophils % 40.7 % (37.0-80.0); Platelet Count 273 K/mm3 (142-424); Red Blood Count 3.59 M/mm3 (4.20-5.40); Red Cell Distribution Width 13.5 % (11.5-17.5); White Blood Count 6.1 K/mm3 (4.8-10.8)
[2023-09-29 07:09] LABS: Anion Gap 13.4 mEq/L (5-15); Blood Urea Nitrogen 16 mg/dl (7-17); Calcium 9.3 mg/dl (8.4-10.2); Carbon Dioxide 27 mmol/L (22.0-30.0); Chloride 101 mmol/L (98-107); Creatinine Clearance Estimated 97 mL/min (50-200); Estimated Glomerular Filt Rate 65 ml/min (>60); GFR (African American) 79 ML/MIN (>60); Glucose 110 mg/dl (74-100); Potassium 4.4 mmoL/L (3.5-5.1); Sodium 137 mmol/L (136-145)
--- NOTE | 2023-09-29 10:22 | CA_ITS ---
APPROVED REPORT EXAM: Limited 2D Echocardiogram Driver/Sales Workers: Eulalia Daugherty RVT Ht: 5 ft 4 in Wt: 189lbs BSA: 1.91 BP: 115/74 mmHg Indications: F/U PERICARDIAL EFFUSION,CAD,S/P STENTING,CP 2D Dimensions IVSd 1.11 cm F: 0.6-1.0 LVEF (Visual) 55.50 % PWd 0.89 cm F: 0.6 - 1.0 LVDd 3.25 cm F: 3.9 - 5.3 LVDs 2.34 cm F: 2.2 - 3.5 Other Information Study Quality: Fair Conclusion This is a limited TTE to evaluate for pericardial effusion. Limited windows were obtained. The left ventricle appears normal in size and systolic function. There is a small sized, anterior pericardial effusion present. The largest pocket measures 0.5 cm in diastole. Compared to prior study from 09/26/2023, there are no significant changes to the size or location of the pericardial effusion. Electronically signed by : Kelly Mejia MD 09/29/2023 12:52:47
[2023-09-29 10:57] LABS: Vitamin B12 253 pg/mL (239-931)
[2023-09-29 11:05] LABS: Iron 107 ug/dL (37-170)
[2023-09-29 11:14] LABS: Total Iron Binding Capacity 318 ug/dL (265-497)
--- NOTE | 2023-09-29 11:16 | EXP.CARD.CON ---
History of Present Illness History of Present Illness Consult date: 09/29/23 Requesting physician: Manuel Sahu Consult reason: chest pain Chief complaint: chest pain, dizziness History of present illness: This is a 52-year-old white female who presented back to the emergency department with complaints of chest pain. The patient has a known history of coronary artery disease with recent stenting to the left main artery and right coronary artery on September 24 of this year. The patient was discharged home on September 26 and then returned back to the emergency department the next day with complaints of chest pain. The patient states that she woke up and did not feel well. She states that she was extremely dizzy and had blurry vision. She then had substernal chest pain and epigastric pain that was radiating down her left arm and causing numbness. She was also nauseated. She states that she did not feel well and called EMS. The patient was brought back to the emergency department and readmitted to the hospital. The patient states that she has not felt right since having her coronary stenting. She states that something is wrong with her and she just does not feel good. She states that she is extremely fatigued. She states that she is still having the left arm pain intermittently. The chest pain has improved but she still feels very nauseated and is having epigastric pain. She states that her vision is still blurry and she feels dizzy all the time. She denies any fever, chills, vomiting, diarrhea. She states that she is short of breath as well at times with exertion. [facility] Disclaimer: The information contained in this section may have been updated after the patient was seen, as this information can be updated by other users. Medical History (Updated 09/29/23 @ 11:25 by Laura Medrano APRN) Altered thought processes Anxiety CAD in [place] artery Celiac disease Coronary artery calcification seen on CT scan Coronary artery disease Depression Diastolic dysfunction Dizziness Dizziness Dyspnea Elevated troponin Fibromyalgia Gastroesophageal reflux disease Comfort's thyroiditis Hypothyroidism Left arm pain Lumbar radiculopathy Lupus Non-STEMI (non-ST elevated myocardial infarction) KORI (obstructive sleep apnea) Osteoarthritis Pericardial effusion Thyroid Nodule Vertigo Vitamin D deficiency Surgical History H/O left knee surgery H/O tubal ligation History of cardiac cath History of partial hysterectomy Family History Other Cancer Coronary artery disease Diabetes Heart attack Hypertension Social History (Updated 09/27/23 @ 14:38 by Heather Keita, HANNAH) Smoking Status: Former smoker tobacco type: cigarettes packs per day: 1 second hand exposure: No alcohol intake: never substance use type: denies use current occupational status: unemployed Travel in the last 8 weeks: None household members: spouse housing: house lives independently: No marital status: education level: high school service: No custodial: No current occupational exposures/hazards: No caffeine: Yes special giuliana needs: No agree to transfusion: No do you feel safe at home: Yes victim of physical abuse: No victim of emotional abuse: No victim of sexual abuse: No would you like helpful sources: No Review of Systems Review of Systems Review of systems:: pertinent systems reviewed and negative unless documented below Constitutional Constitutional: Reports system reviewed and no additional complaints, except as documented, Reports fatigue, Reports lethargy and Reports weakness Eyes Eyes: Reports system reviewed and no additional complaints, except as documented ENT Ears, Nose, Mouth, and Throat: Reports system reviewed and no additional complaints, except as documented, Repo
[2023-09-29 11:40] LABS: Ferritin 65.8 ng/ml (11.1-264)
--- NOTE | 2023-09-29 12:50 | IR_ITS ---
APPROVED REPORT Patient Location: Inpatient [employer] Estimator: LAURA Storey RT (R) PROCEDURES Right heart catheterization Left heart catheterization Left ventriculogram Selective coronary angiogram INDICATION Recent left main artery stenting, Unstable angina/non-ST elevation myocardial infarction/elevated troponin, Known coronary disease, Suspect pulmonary hypertension Informed consent was obtained prior to the procedure. COMPLICATIONS None Estimated Blood Loss: Less than 10 mls TECHNIQUE One percent lidocaine was used to anesthetize the right anterior aspect of the right wrist. The right radial artery was accessed via the Seldinger technique and a 6 [place] hydrophilic sheath was placed in the right radial artery. Following this one percent lidocaine was used to anesthetize the right groin in the right femoral vein was accessed via the Seldinger technique. Respectfully. A 7 [place] sheath was introduced and a [place] catheter was floated using hemodynamic waveforms in the pulmonary artery, right ventricle , and right atrium. Saturations were obtained in the pulmonary artery and the right atrium. An arterial cocktail using verapamil nitroglycerin and heparin was administered intra-arterially. A trap catheter was used to perform left heart catheterization left ventriculogram and selective coronary angiogram. ANGIOGRAPHIC RESULTS The left main artery Has a stent in the ostial proximal and mid segment which is widely patent free of in-stent restenosis or thrombosis with excellent distal transitioning and sizing The left anterior descending artery Widely patent The circumflex artery Widely patent The right coronary artery Has a stent in the ostial proximal mid segment which is widely patent with mild proximal in-stent restenosis. Distally there were 30 to 40% nonflow limiting stenoses The HICKS ventriculogram reveals Normal 65% The left ventricular end-diastolic pressure Less than 10 mmHg Right atrial pressure 3 mmHg Pulmonary artery pressure 12/5 mmHg Pulmonary artery occlusion pressure 3 mmHg Right atrial saturation 78% Pulmonary artery saturation 77% Aortic saturation 98% Hemoglobin 13.1 Cardiac output 6.6 L/min Cardiac index 3.5 IMPRESSION Widely patent ostial proximal left main stenting with excellent distal transitioning Widely patent right coronary artery with mild nonflow limiting disease as described above in the distal segment Normal ejection fraction Low intracardial pulmonary filling pressures Nonischemic symptoms of chest pain. Consider possible pericarditis with myocarditis. PLAN 1. Given recent stents and dual antiplatelet therapy I would not recommend steroids or nonsteroidal anti-inflammatories . If patient's chest pain remains severe and recalcitrant I would consider a course of opiate therapy as this will not interfere with dual antiplatelet therapy 2. Continue standard therapy for ischemic heart disease 3. Recommend continuing Ranexa although I no longer feel patient's chest pain stems from stent arteritis or stretching of the left main artery given the excellent sizing and perfect distal transitioning into the [place] vessel Electronically signed by : Louis Caraballo MD 09/29/2023 14:35:44
--- NOTE | 2023-09-29 15:09 | PC.NURSE ---
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
--- NOTE | 2023-09-29 16:43 | EXP.ACUTE.PN ---
Subjective *Date: 09/29/23 *Time: 16:43 Interval history: Patient having reproducible chest pain on exam, palpable within chest muscles. Complains of dizziness and fatigue. States that the symptoms worsened after her last hospitalization and heart cath on the first when her Ranexa was increased. Denies any francisca syncope. Just has a sense of impending doom. No nausea or vomiting today. Stable on room air. Afebrile. Medical Exam Vital signs and Labs for Last 24 Hours: Vital Signs Temp Pulse Pulse Resp BP Pulse Ox O2 Del Method 09/29/23 15:05 69 18 124/70 95 09/29/23 14:50 51 L 17 117/79 93 L Room Air 09/29/23 12:00 70 09/29/23 14:45 79 17 127/83 95 09/29/23 14:40 85 17 127/89 98 09/29/23 14:35 86 18 122/94 H 96 09/29/23 11:15 98.2 F 67 16 99/52 L 95 Room Air 09/29/23 08:00 65 09/29/23 07:43 98.2 F 83 18 113/73 97 Room Air 09/29/23 06:46 Room Air 09/29/23 04:00 60 09/29/23 04:00 98.0 F 65 16 100/75 L 96 CPAP 09/29/23 04:42 Room Air 09/29/23 03:00 Room Air 09/29/23 00:00 98.9 F 69 18 95/49 L 95 CPAP 09/29/23 01:00 Room Air 09/28/23 23:00 CPAP 09/29/23 00:00 80 09/28/23 21:00 Room Air 09/28/23 20:00 94 L Room Air 09/28/23 20:00 98.7 F 87 16 119/68 94 L Room Air 09/28/23 20:00 90 09/28/23 19:00 Room Air 09/28/23 17:00 Room Air Intake and Output 09/29/23 09/29/23 09/29/23 07:59 15:59 23:59 Intake Total 750 / 750 Output Total 0 / 0 0 / 0 Balance 750 / 750 0 / 750 Intake: Intake, Oral Amount 750 / 750 Output: Output, Urine Amount 0 / 0 0 / 0 Other: Number of Unmeasured Voids 1 2 Weight 85.9 kg Patient Weight 09/29/23 23:59 Weight 85.9 kg Laboratory Results - last 24 hr 09/29/23 06:30: WBC 6.1, RBC 3.59 L, Hgb 12.1 L, Hct 34.9 L, MCV 97.3, MCH 33.5 H, MCHC 34.5, RDW 13.5, Plt Count 273, MPV 9.3, Neut % (Auto) 40.7, Lymph % (Auto) 49.3, [place] % (Auto) 4.1, Eos % (Auto) 5.1, Baso % (Auto) 0.8, Neut # (Auto) 2.5, Lymph # (Auto) 3.0, [place] # (Auto) 0.3, Eos # (Auto) 0.3, Baso # (Auto) 0.1, Sodium 137, Potassium 4.4, Chloride 101, Carbon Dioxide 27, Anion Gap 13.4, BUN 16, Creatinine 0.90, Estimated Creat Clear 97, Estimated GFR 65, Est GFR ( Amer) 79, Glucose 110 H, Calcium 9.3, Iron 107, TIBC 318, Iron Saturation 33.35806, Ferritin 65.8, Vitamin B12 253 I & O for Labs for Last 24 Hours: Intake & Output 09/27/23 09/28/23 09/28/23 09/29/23 00:59 00:59 23:59 23:59 Intake Total 750 / 750 Output Total 0 / 0 Balance 750 / 750 Weight 85.9 kg Constitutional: Present no acute distress, obese and chronically ill appearing Head: Present atraumatic and normocephalic ENT: Present normal exam Neck: Present normal inspection Respiratory: Present normal respiratory effort; Absent rhonchi, wheezes or crackles Cardiac: Present Reg Rate and Rhythm Comment:: Chest tender to palpation in bilateral pectoralis GI: Present soft and normal bowel sounds; Absent distention or tenderness Extremities: Present normal inspection and full ROM Skin: Present intact; Absent erythema Neuro: Present Grossly Intact, alert, awake, oriented x 3 and moves all extremities Comment:: Anxious Assessment and Plan *Assessment and plan (1) Chest pain: Status: Acute Category: Medical Code(s): R07.9 - Chest pain, unspecified (2) Arterial spasm: Status: Acute Category: Medical Code(s): I73.9 - Peripheral vascular disease, unspecified (3) Myocardial injury: Status: Acute Category: Medical Code(s): I5A - Non-ischemic myocardial injury (non-traumatic) (4) Chest pain: Status: Acute Category: Medical Code(s): R07.9 - Chest pain, unspecified (5) Chest pain: Status: Chronic Qualifiers: Chest pain type: precordial pain Qualified Code
--- NOTE | 2023-09-29 17:04 | PC.NURSE ---
cardiac diet put in for dinner per Dr. West
--- NOTE | 2023-09-29 18:03 | PC.NURSE ---
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 Femoral cath site clean, dry and intact. Vital signs stable.
[2023-09-30] VITALS: BP 119/74; PULSE 90; PULSE 99; RESP 18; TEMP 37; O2SAT 97
[2023-09-30 04:00] VITALS: BP 98/59; PULSE 101; PULSE 110; RESP 16; TEMP 36.9; O2SAT 97; BMI 32.5
--- NOTE | 2023-09-30 05:05 | PC.NURSE ---
Right groin site clean dry, intact. No hematoma noted and site is soft to touch. Patient complains of pain at site and asks for IV pain medication. IV pain medication given and patient able to rest. VS stable and patient remained NSR on monitor.
[2023-09-30 06:09] LABS: Basophils % 0.3 % (0.1-2.0); Eosinophils # 0.1 K/mm3 (0.0-0.4); Eosinophils % 0.8 % (0.1-12.0); Hematocrit 34.7 % (37.0-47.0); Hemoglobin 11.4 g/dL (12.2-16.2); Lymphocytes % 10.5 % (10-50); Mean Corpuscular HGB Conc 32.8 g/dL (31.8-35.4); Mean Corpuscular Hemoglobin 32.8 pg (27.0-31.2); Mean Platelet Volume 9.1 fl (7.4-10.4); Monocytes # 0.2 K/mm3 (0.1-1.0); Monocytes % 2.3 % (1.7-9.3); Neutrophils # 7.9 K/mm3 (1.8-7.8); Neutrophils % 86.2 % (37.0-80.0); Platelet Count 281 K/mm3 (142-424); Red Blood Count 3.47 M/mm3 (4.20-5.40); Red Cell Distribution Width 13.6 % (11.5-17.5); White Blood Count 9.2 K/mm3 (4.8-10.8)
[2023-09-30 06:13] LABS: MANUAL DIFFERENTIAL MANUAL DIFFERENTIAL (MANUAL DIFF)
[2023-09-30 06:26] LABS: Anion Gap 14.3 mEq/L (5-15); Blood Urea Nitrogen 10 mg/dl (7-17); Calcium 9.5 mg/dl (8.4-10.2); Carbon Dioxide 27 mmol/L (22.0-30.0); Chloride 101 mmol/L (98-107); Creatinine Clearance Estimated 97 mL/min (50-200); Estimated Glomerular Filt Rate 65 ml/min (>60); GFR (African American) 79 ML/MIN (>60); Glucose 168 mg/dl (74-100); Potassium 4.3 mmoL/L (3.5-5.1); Sodium 138 mmol/L (136-145)
[2023-09-30 06:40] LABS: Lymphocytes % 8 % (10-50); Macrocytosis 1+; Monocytes % 3 % (2-9); Neutrophils % 89 % (42-76); Platelet Estimate Normal; Total Cells Counted 100
[2023-09-30 08:00] VITALS: BP 119/71; PULSE 90; PULSE 97; RESP 18; TEMP 36.9; O2SAT 96; O2SAT 98
--- NOTE | 2023-09-30 08:02 | EXP.DC.SUM ---
General Admission date:: 09/27/23 Discharge date: 09/30/23 HPI HPI HPI: Patient is a 52-year-old female with past medical history of CAD, hypertension hyperlipidemia who presents to the hospital due to chest pain. According to patient she also has nausea, radiation of chest pain, left arm as well as numbness. Patient denies shortness of breath according to the patient Dilaudid helped with chest pain. Patient also mentions he has upper abdominal pain denies heartburn. Patient mentions he has been feeling dizzy especially while walking. Denied diarrhea constipation dysuria fevers chills. Patient was discharged 2 days ago after stenting. Hospital Course Hospital Course Hospital Course: Patient is a 52-year-old female with past medical history of CAD, hypertension hyperlipidemia who presents to the hospital due to chest pain. According to patient she also has nausea, radiation of chest pain, left arm as well as numbness. Patient denies shortness of breath according to the patient Dilaudid helped with chest pain. Patient also mentions he has upper abdominal pain denies heartburn. Patient mentions she has been feeling dizzy especially while walking. Denied diarrhea constipation dysuria fevers chills. Symptoms improved with reduction and ranolazine. Was taken for repeat heart cath out of concern for occlusion of recently placed stents, stents patent. Stable for discharge home with treatment for her pericarditis. Close follow-up with cardiology in the coming weeks. Problems addressed as follows: Unstable angina CAD Hyperlipidemia Pericarditis - cardiology consulted, patient taken for left heart cath 09/29, stents are patent. Concern for some pericarditis given small pericardial effusion. Initiated on colchicine 0.6 g twice daily for 3 months. prednisone 20 mg daily for 5 days. No NSAIDs recommended due to recent left main stenting. Given dizziness, will decrease her Ranexa to 500 mg twice daily as her dizziness worsened after increasing this dosage. Repeat limited echo with preserved EF. Continue dual antiplatelet therapy with aspirin and Effient. Continue statin for cholesterol, LDL goal less than 55. Anemia: Mild. B12, and iron studies in normal range. Her Hgb was normal on admission and decreased during admission. Concern for iatrogenic cause due to blood draws and recent hospitalizations. Also recommended daily vitamin with iron for additional supplementation. recommend repeat CBC in 1 month. Unless worsening anemia, no indication for hematology referral at this time. GERD: Protonix 40 mg daily Hypothyroidism: continue home levothyroxine 25 mcg daily. Spent 40 minutes in discharge counseling, documentation, discussion with subspecialist, and direct care with patient. Exam Data for Last 24 hours Vital signs and Labs for Last 24 Hours: Temp Pulse Resp BP Pulse Ox O2 Del Method 98.4 F 101 H 16 98/59 L 97 Room Air 09/30/23 04:00 09/30/23 04:00 09/30/23 04:00 09/30/23 04:00 09/30/23 04:00 09/30/23 07:00 Laboratory Results - last 24 hr 09/29/23 06:30: Iron 107, TIBC 318, Iron Saturation 33.65780, Ferritin 65.8, Vitamin B12 253 09/30/23 05:50: WBC 9.2 D, RBC 3.47 L, Hgb 11.4 L, Hct 34.7 L, MCV 100.0 H, MCH 32.8 H, MCHC 32.8, RDW 13.6, Plt Count 281, MPV 9.1, Neut % (Auto) 86.2 H, Lymph % (Auto) 10.5, [place] % (Auto) 2.3, Eos % (Auto) 0.8, Baso % (Auto) 0.3, Neut # (Auto) 7.9 H, Lymph # (Auto) 1.0, [place] # (Auto) 0.2, Eos # (Auto) 0.1, Baso # (Auto) 0.0, Total Counted 100, Neutrophils % (Manual) 89 H, Lymphocytes % (Manual) 8 L, Monocytes % (Manual) 3, Platelet Estimate Normal, Macrocytosis 1+, Sodium 138, Potassium 4.3, Chloride 101, Carbon Dioxide 27, Anion Gap 14.3, BUN 10 D, Creatinine 0.90, Estimated Creat Clear 97, Estimated GFR 65, Est GFR ( Amer) 79, Glucose 168 H D, Calcium 9.5 I & O for Last 24 hours: Intake & Output 09/28/23 09/28/23 09/29/23 09/30/23 00:59 23:59 23:59 23:59 Intake To
--- NOTE | 2023-09-30 10:50 | EXP.CARD.PN ---
Subjective Subjective Date: 09/30/23 Time: 09:30 Principal diagnosis: angina, dehydration, pericarditis Interval history: This is a 52-year-old female who presented to the emergency department complaints of chest pain. She had had recent coronary stenting to the left main artery and right coronary artery. Then returned back to the emergency department a few days later with worsening symptoms. The patient underwent right and left cardiac catheterization yesterday. She was found to have patent coronary artery disease. She was dehydrated and given a liter of fluid yesterday. She was also treated for pericarditis with prednisone and colchicine. This morning the patient states that she feels great. She denies any chest pain or pressure. She denies any shortness of breath or edema. She denies any fever, chills, nausea, vomiting, diarrhea, PND or orthopnea. Exam Data for Last 24 hours Vital signs and Labs for Last 24 Hours: Temp Pulse Resp BP Pulse Ox O2 Del Method 98.4 F 97 H 18 119/71 96 Room Air 09/30/23 08:00 09/30/23 08:00 09/30/23 08:00 09/30/23 08:00 09/30/23 08:00 09/30/23 10:11 Laboratory Results - last 24 hr 09/29/23 06:30: Iron 107, TIBC 318, Iron Saturation 33.85737, Ferritin 65.8, Vitamin B12 253 09/30/23 05:50: WBC 9.2 D, RBC 3.47 L, Hgb 11.4 L, Hct 34.7 L, MCV 100.0 H, MCH 32.8 H, MCHC 32.8, RDW 13.6, Plt Count 281, MPV 9.1, Neut % (Auto) 86.2 H, Lymph % (Auto) 10.5, [place] % (Auto) 2.3, Eos % (Auto) 0.8, Baso % (Auto) 0.3, Neut # (Auto) 7.9 H, Lymph # (Auto) 1.0, [place] # (Auto) 0.2, Eos # (Auto) 0.1, Baso # (Auto) 0.0, Total Counted 100, Neutrophils % (Manual) 89 H, Lymphocytes % (Manual) 8 L, Monocytes % (Manual) 3, Platelet Estimate Normal, Macrocytosis 1+, Sodium 138, Potassium 4.3, Chloride 101, Carbon Dioxide 27, Anion Gap 14.3, BUN 10 D, Creatinine 0.90, Estimated Creat Clear 97, Estimated GFR 65, Est GFR ( Amer) 79, Glucose 168 H D, Calcium 9.5 I & O for Last 24 hours: Intake & Output 09/28/23 09/28/23 09/29/23 09/30/23 00:59 23:59 23:59 23:59 Intake Total 750 / 750 1360 / 1360 Output Total 0 / 0 600 / 600 Balance 750 / 750 760 / 760 Weight 189 lb 6.033 oz 190 lb 8 oz Constitutional Constitutional: no acute distress and average body habitus *Routine HEENT Exam Head: Present normocephalic and atraumatic ENT: Present mucous membranes moist *Routine Neck Exam Neck: Present supple, full ROM and normal carotid upstroke; Absent JVD, carotid bruit or lymphadenopathy *Routine Respiratory Exam Respiratory: Present CTA bilaterally, normal respiratory effort, able to speak in complete sentences and symmetric chest movement *Routine Cardiovascular Exam Cardiovascular: Present RRR, Normal S1 and Normal S2; Absent murmur or gallop *Routine Abdominal Exam Abdominal: Present soft and normoactive bowel sounds; Absent tenderness, distended or organomegaly *Routine Extremities Exam Extremities: Present full ROM, pulses intact and normal capillary refill; Absent cyanosis, clubbing or edema *Routine Skin Exam Skin: Present intact and warm; Absent erythema *Routine Neurological Exam Neurological: Present alert, oriented X3 and CN II-XII intact; Absent sensory deficit or motor deficit Routine Psychiatric Exam Psychiatric: Present normal affect Progress Note: A&P Assessment and plan (1) Coronary artery disease: Status: Inactive (2) Tobacco use: Status: Inactive (3) Hyperlipidemia: Status: Inactive (4) Obesity: Status: Inactive (5) Fibromyalgia: Status: Inactive (6) Pericardial effusion: Status: Acute (7) Pericarditis: Status: Acute (8) Dehydration: Status: Acute (9) Anemia: Status: Resolved Assessment and Plan Assessment and Plan for All Diagnoses:: Plan: 1. The patient was admitted to the hospital with unstable angina. Due to her recent left main stenting and right coronary stenting she underwent repeat left cardiac catheteri
--- NOTE | 2023-10-03 14:11 | CARE MANAGER ---
Patient was in ER the first post discharge day and today patient was in hospital. Discharge call not completed. HANNAH Temple
== END 2023-09-30 12:04 | disposition home or self-care (01) ==
LOC: ER 14:06 → 2ND 14:48
PROVIDERS: Internal Medicine; Internal Medicine Adolescent Medicine; Admitting Provider Internal Medicine; Emergency Provider Student in an Organized Health Care Education/Training Program; PCP Physician Assistant; Visit Provider Internal Medicine
DX: R07.2 Precordial pain (principal); I5A Non-ischemic myocardial injury (non-traumatic); F17.210 Nicotine dependence, cigarettes, uncomplicated; E78.2 Mixed hyperlipidemia; E66.09 Other obesity due to excess calories; Z68.32 Body mass index [BMI] 32.0-32.9, adult; I25.110 Atherosclerotic heart disease of native coronary artery with unstable angina pectoris; I31.39 Other pericardial effusion (noninflammatory); E86.0 Dehydration; I11.9 Hypertensive heart disease without heart failure; E55.9 Vitamin D deficiency, unspecified; I21.4 Non-ST elevation (NSTEMI) myocardial infarction; Z79.02 Long term (current) use of antithrombotics/antiplatelets; Z79.899 Other long term (current) drug therapy; Z95.5 Presence of coronary angioplasty implant and graft
CPT/HCPCS: 36415; 70450; 71045; 74176; 80048; 80053; 82607; 82728; 83540; 83550; 84484; 85007; 85025; 85378; 93005; 93308; 93460; 99152; 99153; 99291; C1725; C1769; C1894; G0378; J1644; Q9967

== ENCOUNTER 2023-10-02 11:05 | Observation (INO) | payer OTHER, SELFPAY ==
[2023-10-02] VITALS (11 sets, daily range): BP systolic 126–142; BP diastolic 74–100; PULSE 72–108; RESP 9–23; TEMP 36.5–36.8; O2SAT 97–100; BMI 33.1; BMI 32.3
--- NOTE | 2023-10-02 11:24 | ECG_ITS ---
APPROVED REPORT Exam: Resting ECG HR:101 bpm ECG Measurements Heart Rate 101 AXES RI 147 P 58 QRSd 88 QRS 9 QT 325 T 41 QTc 383 Conclusion SINUS TACHYCARDIA MINIMAL VOLTAGE CRITERIA FOR LVH, CONSIDER NORMAL VARIANT [MEETS CRITERIA IN ONE OF: R(aVL), S(V1), R(V5), R(V5/V6)+S(V1)] ABNORMAL RHYTHM ECG UNCONFIRMED REPORT Electronically signed by : Telly Collier MD 10/02/2023 17:29:32
--- NOTE | 2023-10-02 11:43 | XR_ITS ---
FINAL REPORT CLINICAL HISTORY: sob COMPARISON: 09/27/2023 FINDINGS: PA and lateral views of the chest were obtained. The cardiac and mediastinal silhouettes are within normal limits. The lungs are clear. There is no pleural effusion or pneumothorax. No acute osseous abnormality is identified. IMPRESSION: No radiographic evidence of acute cardiac or pulmonary disease. Reviewed, Interpreted and Dictated by Ingrid Vazquez MD Transcribed by Laura Coelho Authenticated and [facility]
--- NOTE | 2023-10-02 11:45 | PC.NURSE ---
Dr. Humphrey at bedside
--- NOTE | 2023-10-02 11:46 | HMH.EDGENADL ---
Discharge Plan Disposition Patient Disposition: Admitted Chief Complaint: Shortness of Breath/Dyspnea Clinical Impressions Clinical Impression: Pericarditis, Diarrhea, Abdominal pain, Chest pain Discharge ED Provider: Rolando Humphrey General Adult HPI General Chief complaint: Shortness of Breath/Dyspnea Stated complaint: ABD pain & SOA Time Seen by Provider: 10/02/23 11:31 Mode of Arrival: EMS Source of Information: Patient, EMS and Medical Record Limitations: No Limitations Description of Symptoms (Recalled from ER Triage Doc. by RN): Pt c/o lower abd pain, SOA, recent left & right heart cath with stent placement last . Pt had 3 heart caths 09/23-09/29. She was d/c from [facility] on 09/30. Pt reports yesertday she had chest pain with SOA and took 2 nitro tabs. Her CP went away but SOA did not. She is also experiencing low abd pain that radiates to her umbilicus. She has had severe diarrhea for 2 days causing incontence. EMS placed pt on 2LPM NC d/t room air sats of 90%. History of Present Illness HPI narrative: Patient is a 52-year-old female with multiple comorbidities who presents to the emergency department for evaluation of multiple complaints. Patient was recently admitted for heart cath and stent placement. She was discharged on . Since then patient has had a change in voice, chest pain, shortness of breath, abdominal pain. Abdominal pain is low and radiates to her umbilicus, there is been associated nonbloody bowel movements. Per chart review patient was taken for left heart cath on , stents were patent. Initiated on colchicine 0.6 g twice daily for 3 months and prednisone 20 mg daily for 5 days. Related Data Home Medications Medication Instructions Recorded Confirmed atorvastatin 40 mg tablet 40 mg PO HS High Cholesterol 08/25/23 09/27/23 cholecalciferol (vitamin D3) 1,250 1,250 mcg PO WEEKLY Supplement 08/25/23 09/27/23 mcg (50,000 unit) capsule nitroglycerin 0.4 mg sublingual 0.4 mg sublingual Q5MINP PRN Chest 08/25/23 09/27/23 tablet Pain omeprazole 40 mg capsule,delayed 40 mg PO DAILY Acid Reflux 08/25/23 09/27/23 release aspirin 81 mg tablet,delayed 81 mg PO DAILY Heart Disease 09/22/23 09/27/23 release levothyroxine 25 mcg tablet 25 mcg PO DAILYDM THYROID 09/22/23 09/27/23 promethazine 25 mg tablet 25 mg PO TIDP PRN Nausea 09/22/23 09/27/23 oxybutynin chloride 10 mg 10 mg PO DAILY overactive bladder 09/23/23 09/27/23 tablet,extended release 24 hr gabapentin 800 mg tablet 800 mg PO TID NERVE PAIN 09/27/23 09/27/23 ondansetron 8 mg disintegrating 8 mg PO Q8HP PRN Nausea And 09/27/23 09/27/23 tablet Vomiting prasugrel 10 mg tablet 10 mg PO DAILY Blood Thinner 09/27/23 09/27/23 spironolactone 25 mg tablet 25 mg PO DAILY Fluid 09/27/23 09/27/23 Previous Rx's Medication Instructions Recorded hydrocodone 5 mg-acetaminophen 325 1 tab PO TID Chronic pain #90 tabs 09/03/23 mg tablet clonazepam 1 mg tablet 1 mg PO BID Anxiety #60 tabs 09/10/23 colchicine 0.6 mg tablet (Colcrys) 0.6 mg PO BID 30 days #60 tabs 09/30/23 prednisone 20 mg tablet 20 mg PO DAILY 3 days #3 tabs 09/30/23 vits no.130-ferrous fum 1 tab PO 1700 30 days #30 tabs 09/30/23 27 mg iron-folic acid 800 mcg tablet ( Vitamin) ranolazine 500 mg tablet,extended 500 mg PO BID 30 days #60 tabs 09/30/23 release,12 hr Allergies Allergy/AdvReac Type Severity Reaction Status Date / Time ketorolac [From TORADOL] Allergy Mild I-RASH Verified 09/18/23 13:48 Penicillins [PENICILLINS] Allergy Mild I-RASH Verified 09/18/23 13:48 isosorbide AdvReac Intermediate Headache Verified 09/18/23 13:48 PFS PFS Disclaimer: The information contained in this section may have been updated after the patient was seen, as this information can be updated by other users. Medical History (Updated 10/02/23 @ 15:30 by Rolando Humphrey MD) Abdominal pain Abnormal EKG Altered thought processes Anorexia Anxiety Atypical ches
[2023-10-02 12:00] LABS: Basophils # 0.1 K/mm3 (0-0.2); Basophils % 0.6 % (0.1-2.0); Eosinophils # 0.2 K/mm3 (0.0-0.4); Eosinophils % 1.4 % (0.1-12.0); Hemoglobin 14.4 g/dL (12.2-16.2); Lymphocytes # 3.5 K/mm3 (0.7-4.5); Lymphocytes % 27.9 % (10-50); Mean Corpuscular HGB Conc 33.4 g/dL (31.8-35.4); Mean Corpuscular Hemoglobin 33.3 pg (27.0-31.2); Mean Corpuscular Volume 99.8 fl (81-99); Monocytes # 0.6 K/mm3 (0.1-1.0); Monocytes % 4.9 % (1.7-9.3); Neutrophils # 8.2 K/mm3 (1.8-7.8); Neutrophils % 65.1 % (37.0-80.0); Platelet Count 375 K/mm3 (142-424); White Blood Count 12.6 K/mm3 (4.8-10.8)
--- NOTE | 2023-10-02 12:03 | PC.NURSE ---
Swab sent to lab
[2023-10-02 12:12] LABS: Alanine Aminotransferase 63 U/L (12-78); Albumin Level 4.9 g/dl (3.5-5.0); Albumin/Globulin Ratio 1.2 (1.1-1.8); Alkaline Phosphatase 126 U/L (38-126); Anion Gap 19.8 mEq/L (5-15); Aspartate Amino Transferase 49 U/L (14-36); Bilirubin,Total 0.5 mg/dl (0.2-1.3); Blood Urea Nitrogen 14 mg/dl (7-17); Calcium 10.4 mg/dl (8.4-10.2); Carbon Dioxide 19 mmol/L (22.0-30.0); Chloride 105 mmol/L (98-107); Creatinine Clearance Estimated 81 mL/min (50-200); Estimated Glomerular Filt Rate 52 ml/min (>60); GFR (African American) 63 ML/MIN (>60); Globulin 4.1 g/dL (1.3-3.2); Glucose 112 mg/dl (74-100); HCG Qualitative, Serum Negative (Negative); Potassium 3.8 mmoL/L (3.5-5.1); Sodium 140 mmol/L (136-145)
[2023-10-02 12:16] LABS: Coronavirus 19, PCR Not Detected (NotDetected); Influenza A, PCR Not Detected (NotDetected); Influenza B, PCR Not Detected (NotDetected)
[2023-10-02 12:19] LABS: D-Dimer 1.19 ug/mL (0.0-0.5)
--- NOTE | 2023-10-02 12:26 | CT_ITS ---
FINAL REPORT TECHNIQUE: Axial imaging of the chest is obtained after the administration of contrast. 3-D MIP reformatted images were also obtained and reviewed per PE protocol. CLINICAL HISTORY: elevated dimer/SOB COMPARISON: None FINDINGS: The pulmonary arteries are well filled. There is no evidence of pulmonary embolus. There is no aortic dissection or intimal flap. There is a mildly enlarged right axillary node, measuring 3.1 cm on coronal images. There is no mediastinal or hilar lymphadenopathy. There are linear opacities in the right middle lobe and lingula, likely atelectasis or scar.. There is no pleural or pericardial effusion. There are several small hypodense liver lesions, favor cysts.. No acute osseous abnormality. IMPRESSION: No evidence of pulmonary embolism or aortic dissection. Mildly enlarged right axillary node, measuring 3.1 cm on coronal images. Linear opacities in the right middle lobe and lingula, likely atelectasis or scar. Reviewed, Interpreted and Dictated by Ingrid Vazquez MD Transcribed by Beverley Aden Authenticated and [facility]
[2023-10-02 12:33] LABS: Troponin I < 0.01 ng/ml (0.00-0.034)
--- NOTE | 2023-10-02 13:52 | PC.NURSE ---
Dr. Thomas and Aristeo Medrano APRN at bedside for cardiac consult
--- NOTE | 2023-10-02 14:07 | EXP.CARD.CON ---
History of Present Illness History of Present Illness Consult date: 10/02/23 Requesting physician: Rolando Humphrey Chief complaint: SOB, abd pain, diarrhea History of present illness: This is a 52-year-old white female who presented to the emergency department complaints of shortness of breath and lower abdominal pain. The patient was just discharged from the hospital on 09/30/2023. The patient states that since being home she has had chest pain yesterday with shortness of breath. She states that she took 2 nitroglycerin tablets and her chest pain resolved but she has been short of breath since that time. She is also experiencing lower abdominal pain that radiates to her umbilicus area. The patient states that she also started having diarrhea approximately 2 days ago. She states that she is incontinent with the diarrhea and has no control over it. The patient states that her symptoms just continue to worsen so she came to the emergency department. She denies any bloody diarrhea. She denies any chest pain or pressure at this time. She states that she is short of breath and she is having difficulty speaking. She states that her speech feels really slow and she just does not feel like herself. She is very tearful during our examination and does not talk much which is unusual for her. The patient states that she just does not feel right. She has been having chills but denies any fevers. She denies any lower extremity edema. She denies any vomiting, PND or orthopnea. The patient was recently started on colchicine and prednisone for pericarditis. [facility] Disclaimer: The information contained in this section may have been updated after the patient was seen, as this information can be updated by other users. Medical History (Updated 10/02/23 @ 14:14 by Laura Medrano APRN) Abdominal pain Abnormal EKG Altered thought processes Anorexia Anxiety Atypical chest pain Bilateral knee pain Breast enlargement Breast swelling CAD in [place] artery Candidal intertrigo Celiac disease Cervical disc disease Cervical radicular pain Chest pain Chest pain Chest pain Chronic pain Constipation Coronary artery calcification seen on CT scan Coronary artery disease Coronary artery dissection Coronary vasospasm Dehydration Depression Diarrhea Diastolic dysfunction Difficulty passing stool Dizziness Dizziness Dysphagia Dyspnea Elevated troponin Fatigue Fibromyalgia Gastroesophageal reflux disease Comfort's thyroiditis HHD (hypertensive heart disease) History of hemorrhoids Hyperlipidemia Hyperlipidemia Hyperparathyroidism Hypertension Hypothyroidism Knee pain Left arm pain Low back pain Lumbar radiculopathy Lupus Migraine Neck pain Non-STEMI (non-ST elevated myocardial infarction) Noncompliance with medication regimen Obesity Obesity (BMI 30.0-34.9) KORI (obstructive sleep apnea) KORI (obstructive sleep apnea) KORI on CPAP Osteoarthritis Osteoarthritis Palpitations Pericardial effusion Pericardial effusion Pericarditis Polyarthralgia Postoperative spinal headache Rash Right shoulder pain Slurred speech SOB (shortness of breath) SOB (shortness of breath) on exertion Sore throat, chronic Thoracic back pain Thyroid Nodule Tobacco use Tobacco use disorder Typical angina Unstable angina Vertigo Vitamin D deficiency Surgical History (Updated 09/30/23 @ 00:00 by Toney Whitaker) H/O left knee surgery H/O tubal ligation History of cardiac cath History of partial hysterectomy S/P coronary artery stent placement Family History Other Cancer Coronary artery disease Diabetes Heart attack Hypertension Social History (Updated 09/27/23 @ 14:38 by Heather Keita RN) Smoking Status: Former smoker tobacco type: cigarettes packs per day: 1 second hand exposure: No alcohol intake: never substance use type: denies use current occupational status: formerly [employer], later [employer]
--- NOTE | 2023-10-02 14:19 | PC.NURSE ---
radiology sent down preliminary result of pt CTA chest, given to dr. hogan
--- NOTE | 2023-10-02 14:42 | PC.NURSE ---
pt on room air at this time per ER MD Humphrey request
[2023-10-02 14:46] LABS: Lactic Acid 1.6 mmol/L (0.7-2.1)
--- NOTE | 2023-10-02 15:08 | PC.NURSE ---
call made to care management for bed placement
--- NOTE | 2023-10-02 15:08 | CT_ITS ---
FINAL REPORT TECHNIQUE: Thin section axial images were obtained through the abdomen after intravenous contrast. Reconstruction images were obtained from the axial data. Exam was performed using dose reduction techniques. CLINICAL HISTORY: recent cath, low abd pain COMPARISON: 09/27/2023 FINDINGS: The lung bases are clear. There are several hepatic cysts. The liver is otherwise homogeneous. The gallbladder is present. The spleen, adrenal glands, and pancreas are unremarkable. There is no hydronephrosis or solid renal mass. Abdominal GI tract is without acute abnormality. There is no abdominal lymphadenopathy or ascites. The patient is status post hysterectomy. The urinary bladder is unremarkable. The appendix is normal. The pelvic GI tract is without acute abnormality. There is new, abnormal attenuation in the right groin with abnormal attenuation surrounding the right common femoral and external iliac vessels. Etiology is unclear. If there has been recent attempt of vascular access in the right groin, this could be the etiology. There is no hematoma. No acute osseous changes are seen. IMPRESSION: No CT evidence of acute intra-abdominal or intrapelvic abnormality. Abnormal attenuation in the right groin and surrounding common femoral vessels may be related to vascular access. Correlate with clinical history. Reviewed, Interpreted and Dictated by Ingrid Vazqeuz MD Transcribed by Laura Coelho Authenticated and [facility]
--- NOTE | 2023-10-02 15:24 | PC.NURSE ---
Gave report to Heather Hampton RN on Med/Surg. dental technician apprentice taking pt to ct scan and then will take to room 209
--- NOTE | 2023-10-02 16:00 | PC.NURSE ---
pt up to 2nd floor
[2023-10-02 16:02] LABS: Troponin I < 0.01 ng/ml (0.00-0.034)
--- NOTE | 2023-10-02 16:55 | EXP.HP ---
History of Present Illness *Admission Date: 10/02/23 *Reason for visit:: Diarrhea, abdominal pain *History of present illness: Ms. Ward is a 52-year-old female with multiple admissions over the past 10 days for chest pain. Left heart cath performed 09/24 with 2 drug-eluting stents deployed. Was also diagnosed with pericarditis and previous admissions. Was just discharged on 09/30 with colchicine and prednisone for her pericarditis. Presented to the ER today due to complaint of lower abdominal pain, dyspnea, copious diarrhea upwards of 10 watery bowel movements a day. Having some nausea but no emesis. Has been afebrile but quite weak with weak voice on exam. Patient is on room air on arrival. Heart rate and respiratory rate within normal range. Afebrile at this time. Review of chart shows no antibiotic exposure in the past 2 weeks. Unable to keep up with her fluid needs due to diarrhea. Does not recall if she has urinated in the past 24 hours. In the ER, work-up for abdominal pain performed. Labs obtained showing mild dehydration. White cell count of 12.6, anion gap of 19.8, creatinine 1.1 (up from baseline of 0.8). Cardiology was consulted. Concern for possible infectious diarrhea versus medication side effect. Stools watery but nonbloody. Cardiology recommended admission for further management of her diarrhea and adjustment to medications for pericarditis. Medicine consulted for admission. On evaluation in the ER, patient appears far more ill than at time of discharge 2 days ago. Very weak with significant abdominal pain. Voice weak. Ill but nontoxic-appearing. On room air. Alert and oriented x3. [facility] Disclaimer: The information contained in this section may have been updated after the patient was seen, as this information can be updated by other users. Medical History Abdominal pain Abnormal EKG Altered thought processes Anorexia Anxiety Atypical chest pain Bilateral knee pain Breast enlargement Breast swelling CAD in lower [place] artery Candidal intertrigo Celiac disease Cervical disc disease Cervical radicular pain Chest pain Chest pain Chest pain Chronic pain Constipation Coronary artery calcification seen on CT scan Coronary artery disease Coronary artery dissection Coronary vasospasm Dehydration Depression Diarrhea Diastolic dysfunction Difficulty passing stool Dizziness Dizziness Dysphagia Dyspnea Elevated troponin Fatigue Fibromyalgia Gastroesophageal reflux disease Comfort's thyroiditis HHD (hypertensive heart disease) History of hemorrhoids Hyperlipidemia Hyperlipidemia Hyperparathyroidism Hypertension Hypothyroidism Knee pain Left arm pain Low back pain Lumbar radiculopathy Lupus Migraine Neck pain Non-STEMI (non-ST elevated myocardial infarction) Noncompliance with medication regimen Obesity Obesity (BMI 30.0-34.9) KORI (obstructive sleep apnea) KORI (obstructive sleep apnea) KORI on CPAP Osteoarthritis Osteoarthritis Palpitations Pericardial effusion Pericardial effusion Pericarditis Polyarthralgia Postoperative spinal headache Rash Right shoulder pain Slurred speech SOB (shortness of breath) SOB (shortness of breath) on exertion Sore throat, chronic Thoracic back pain Thyroid Nodule Tobacco use Tobacco use disorder Typical angina Unstable angina Vertigo Vitamin D deficiency Surgical History H/O left knee surgery H/O tubal ligation History of cardiac cath History of partial hysterectomy S/P coronary artery stent placement Family History Diabetes Coronary artery disease Heart attack Cancer Hypertension Social History Smoking Status: Former smoker tobacco type: cigarettes packs per day: 1 second hand exposure: No alcohol intake: never substance use type: liam
[2023-10-02 19:02] LABS: Microscopic, Urine URINE MICROSCOPIC (MICROSCOPIC)
[2023-10-02 19:03] LABS: Appearance,Urine CLEAR (Clear); Bilirubin,Urine Negative (Negative); Blood, Urine Negative (Negative); Color,Urine YELLOW (Yellow); Glucose,Urine (UA) Negative (Negative); Ketones,Urine Negative (Negative); Leukocyte Esterase,Urine Negative (Negative); Nitrate,Urine Negative (Negative); Protein,Urine Negative (Negative); Urobilinogen,Urine 0.2 EU/dl (0.2)
[2023-10-02 19:32] LABS: Squamous Epithelial Cell,Urine Occasional #/hpf (0-5)
[2023-10-02 20:56] LABS: Troponin I 0.02 ng/ml (0.00-0.034)
[2023-10-03] VITALS: BP 94/70; PULSE 73; PULSE 80; RESP 18; TEMP 36.9; O2SAT 97
[2023-10-03 04:00] VITALS: BP 102/59; PULSE 60; PULSE 75; RESP 18; TEMP 37; O2SAT 95; BMI 32.1
[2023-10-03 07:08] LABS: Basophils # 0.1 K/mm3 (0-0.2); Basophils % 0.8 % (0.1-2.0); Eosinophils # 0.3 K/mm3 (0.0-0.4); Eosinophils % 3.6 % (0.1-12.0); Hematocrit 32.9 % (37.0-47.0); Lymphocytes # 3.3 K/mm3 (0.7-4.5); Lymphocytes % 35.7 % (10-50); Mean Corpuscular HGB Conc 34.3 g/dL (31.8-35.4); Mean Platelet Volume 8.7 fl (7.4-10.4); Monocytes # 0.5 K/mm3 (0.1-1.0); Neutrophils # 5.1 K/mm3 (1.8-7.8); Neutrophils % 54.9 % (37.0-80.0); Platelet Count 316 K/mm3 (142-424); Red Blood Count 3.32 M/mm3 (4.20-5.40); Red Cell Distribution Width 14.2 % (11.5-17.5); White Blood Count 9.3 K/mm3 (4.8-10.8)
[2023-10-03 07:09] LABS: Hemoglobin 11.3 g/dL (12.2-16.2)
[2023-10-03 07:18] LABS: Alanine Aminotransferase 38 U/L (12-78); Albumin Level 3.5 g/dl (3.5-5.0); Albumin/Globulin Ratio 1.3 (1.1-1.8); Alkaline Phosphatase 88 U/L (38-126); Anion Gap 11.8 mEq/L (5-15); Aspartate Amino Transferase 29 U/L (14-36); Bilirubin,Total 0.3 mg/dl (0.2-1.3); Blood Urea Nitrogen 11 mg/dl (7-17); Carbon Dioxide 25 mmol/L (22.0-30.0); Chloride 105 mmol/L (98-107); Creatinine Clearance Estimated 87 mL/min (50-200); Estimated Glomerular Filt Rate 58 ml/min (>60); GFR (African American) 70 ML/MIN (>60); Globulin 2.8 g/dL (1.3-3.2); Glucose 85 mg/dl (74-100); Magnesium 1.8 mg/dl (1.6-2.3); Potassium 3.8 mmoL/L (3.5-5.1); Sodium 138 mmol/L (136-145); Total Protein,Serum 6.3 g/dl (6.3-8.2)
[2023-10-03 07:47] VITALS: BP 99/59; PULSE 92; RESP 16; TEMP 36.7; O2SAT 98
[2023-10-03 08:00] VITALS: PULSE 80; O2SAT 97
--- NOTE | 2023-10-03 08:47 | PC.NURSE ---
COURTESY NOTE: morning round completed on pt. pt denies any assistance needs. no new pt requests at this time. Quynh SRNA
--- NOTE | 2023-10-03 09:51 | HMH.PHAINT1 ---
Pharmacy Intervention Comments: HOME MEDICATION LIST VERIFIED USING LIST FROM MOST RECENT DISCHARGE
--- NOTE | 2023-10-03 10:06 | EXP.CARD.PN ---
Subjective Subjective Date: 10/03/23 Time: 09:30 Principal diagnosis: diarrhea, pericarditis Interval history: This is a 52-year-old female who has had multiple admissions to the hospital within the last week. She presented to the emergency department yesterday with complaints of diarrhea and abdominal pain. She had also been having some chest pain and shortness of breath as well. Her chest pain and shortness of breath have resolved at this time. She has not had any more diarrhea since being in the hospital and her abdominal pain has resolved as well. This morning her only complaint is dizziness. She states that she just feels really dizzy anytime she moves. Remedy edema. Exam Data for Last 24 hours Vital signs and Labs for Last 24 Hours: Temp Pulse Resp BP Pulse Ox O2 Del Method O2 Flow Rate 98.1 F 80 16 99/59 L 97 Room Air 2 10/03/23 07:47 10/03/23 08:00 10/03/23 07:47 10/03/23 07:47 10/03/23 08:00 10/03/23 08:16 10/03/23 04:00 Laboratory Results - last 24 hr 10/02/23 11:37: WBC 12.6 H D, RBC 4.30, Hgb 14.4, Hct 43.0, MCV 99.8 H, MCH 33.3 H, MCHC 33.4, RDW 14.0, Plt Count 375 D, MPV 9.0, Neut % (Auto) 65.1, Lymph % (Auto) 27.9, Trinity % (Auto) 4.9, Eos % (Auto) 1.4, Baso % (Auto) 0.6, Neut # (Auto) 8.2 H, Lymph # (Auto) 3.5, Trinity # (Auto) 0.6, Eos # (Auto) 0.2, Baso # (Auto) 0.1, D-Dimer 1.19 H, Sodium 140, Potassium 3.8, Chloride 105, Carbon Dioxide 19 L, Anion Gap 19.8 H, BUN 14 D, Creatinine 1.10 H D, Estimated Creat Clear 81, Estimated GFR 52 L, Est GFR ( Amer) 63 D, Glucose 112 H, Calcium 10.4 H, Total Bilirubin 0.5, AST 49 H, ALT 63, Alkaline Phosphatase 126, Troponin I < 0.01, Total Protein 9.0 H, Albumin 4.9, Globulin 4.1 H, Albumin/Globulin Ratio 1.2, Serum HCG, Qual Negative 10/02/23 12:01: SARS-CoV-2 (PCR) Not detected, Influenza A Untype (PCR) Not detected, Influenza Type B (PCR) Not detected 10/02/23 14:33: Lactate 1.6 10/02/23 14:50: Troponin I < 0.01 10/02/23 18:45: Troponin I 0.02 10/02/23 18:52: Urine Color Yellow, Urine Appearance Clear, Urine pH 6.0, Ur Specific [place] 1.010, Urine Protein Negative, Urine Glucose (UA) Negative, Urine Ketones Negative, Urine Blood Negative, Urine Nitrate Negative, Urine Bilirubin Negative, Urine Urobilinogen 0.2, Ur Leukocyte Esterase Negative, Urine RBC None, Urine WBC None, Ur Squamous Epith Cells Occasional, Urine Bacteria None 10/03/23 06:57: WBC 9.3 D, RBC 3.32 L, Hgb 11.3 L D, Hct 32.9 L, MCV 99.0, MCH 34.0 H, MCHC 34.3, RDW 14.2, Plt Count 316, MPV 8.7, Neut % (Auto) 54.9, Lymph % (Auto) 35.7, Trinity % (Auto) 5.0, Eos % (Auto) 3.6, Baso % (Auto) 0.8, Neut # (Auto) 5.1, Lymph # (Auto) 3.3, Trinity # (Auto) 0.5, Eos # (Auto) 0.3, Baso # (Auto) 0.1, Sodium 138, Potassium 3.8, Chloride 105, Carbon Dioxide 25, Anion Gap 11.8, BUN 11, Creatinine 1.00, Estimated Creat Clear 87, Estimated GFR 58 L, Est GFR ( Amer) 70, Glucose 85 D, Calcium 9.0, Magnesium 1.8, Total Bilirubin 0.3, AST 29 D, ALT 38 D, Alkaline Phosphatase 88, Total Protein 6.3 D, Albumin 3.5 D, Globulin 2.8, Albumin/Globulin Ratio 1.3 I & O for Last 24 hours: Intake & Output 11/07/23 11/08/23 11/09/23 11/10/23 23:59 23:59 23:59 23:59 Intake Total 270 / 670 400 / 400 Output Total 450 / 450 250 / 250 Balance -180 / 220 150 / 150 Weight 188 lb 1 oz 188 lb 1.01 oz Constitutional Constitutional: no acute distress, obese and disheveled Comments: lethargic *Routine HEENT Exam Head: Present normocephalic and atraumatic ENT: Present mucous membranes moist *Routine Neck Exam Neck: Present supple, full ROM and normal carotid upstroke; Absent JVD, carotid bruit or lymphadenopathy *Routine Respiratory Exam Respiratory: Present CTA bilaterally, normal respiratory effort, able to speak in complete sentences and symmetric chest movement *Routine Cardiovascular Exam Cardiovascular: Present RRR, Normal S1 and Normal S2; Absent murmur or gallop *Routine Abdominal Exam Abdominal: Present soft and
--- NOTE | 2023-10-03 10:26 | EXP.DC.SUM ---
General Admission date:: 10/02/23 Discharge date: 10/03/23 HPI HPI HPI: Ms. Ward is a 52-year-old female with multiple admissions over the past 10 days for chest pain. Left heart cath performed 09/24 with 2 drug-eluting stents deployed. Was also diagnosed with pericarditis and previous admissions. Was just discharged on 09/30 with colchicine and prednisone for her pericarditis. Presented to the ER today due to complaint of lower abdominal pain, dyspnea, copious diarrhea upwards of 10 watery bowel movements a day. Having some nausea but no emesis. Has been afebrile but quite weak with weak voice on exam. Patient is on room air on arrival. Heart rate and respiratory rate within normal range. Afebrile at this time. Review of chart shows no antibiotic exposure in the past 2 weeks. Unable to keep up with her fluid needs due to diarrhea. Does not recall if she has urinated in the past 24 hours. In the ER, work-up for abdominal pain performed. Labs obtained showing mild dehydration. White cell count of 12.6, anion gap of 19.8, creatinine 1.1 (up from baseline of 0.8). Cardiology was consulted. Concern for possible infectious diarrhea versus medication side effect. Stools watery but nonbloody. Cardiology recommended admission for further management of her diarrhea and adjustment to medications for pericarditis. Medicine consulted for admission. On evaluation in the ER, patient appears far more ill than at time of discharge 2 days ago. Very weak with significant abdominal pain. Voice weak. Ill but nontoxic-appearing. On room air. Alert and oriented x3. Hospital Course Hospital Course Hospital Course: 52-year-old female with multiple recent hospitalizations for CAD and pericarditis. Presents with nausea, diarrhea, dehydration. Discussion with the ER, request admission for fluid hydration, further work-up of abdominal pain and diarrhea. Concern the patient is unable to go home safely and meet her fluid needs. Medicine agreed to admit for further management. CT of abdomen pelvis with no acute abnormalities. Diarrhea resolved with cessation of prednisone and colchicine. Patient improved with IV fluid resuscitation. Stable for discharge home with close follow-up as an outpatient. Problems addressed as follows: Diarrhea Abdominal pain HELADIO -Creatinine 1.1, anion gap noted on labs. Copious diarrhea. Differential includes infectious, medication side effect. Diarrhea resolved with holding of prednisone and colchicine. Was started on p.o. vancomycin empirically out of possible concern for C. difficile. She had no further diarrhea and white cell count normal at 9.3. In light of the rapid improvement in her symptoms, lack of antibiotic exposure in the past 2 weeks, and onset of symptoms after initiating colchicine and prednisone, will hold on treatment for C. difficile. No clinical indication to continue p.o. vancomycin at this time. HELADIO resolved with normalization of creatinine by following morning. Tolerated IV fluids and tolerating p.o. fluids. Stable for discharge home. Plan for close follow-up with PCP and cardiology for repeat evaluation in the coming week. CAD Pericarditis Pericardial effusion -Troponins negative. Continue prasugrel and aspirin. Continue Lipitor. No further plans for invasive intervention. Cardiology was consulted and recommends continuing the following medications: Aspirin 81 mg daily, Lipitor 40 mg p.o. nightly, Effient 10 mg daily, Ranexa 500 mg p.o. twice daily. Discontinue spironolactone, prednisone and colchicine. Follow-up next week in cardiology clinic. Continue home gabapentin 800 mg 3 times daily for nerve pain Continue levothyroxine 25 mcg daily Continue multivitamin with iron Spent 40 minutes in discharge counseling, documentation, discussion with subspecialist, and direct care with patient. Exam Data for Last 24 hours Vital signs and Labs for Last 24 Hours: Temp Pulse Resp BP Pulse Ox O2
[2023-10-03 11:31] VITALS: BP 115/68; PULSE 92; RESP 16; TEMP 37; O2SAT 97
[2023-10-03 12:00] VITALS: PULSE 95
--- NOTE | 2023-10-03 13:37 | PC.NURSE ---
Pt. c/o of cp and orders for troponin and ekg plus gi cocktail received.
--- NOTE | 2023-10-03 13:47 | PC.NURSE ---
RT called to get EKG.
--- NOTE | 2023-10-03 13:56 | ECG_ITS ---
APPROVED REPORT Exam: Resting ECG HR:93 bpm ECG Measurements Heart Rate 93 AXES AL 150 P 52 QRSd 84 QRS -4 QT 348 T 31 QTc 399 Conclusion SINUS RHYTHM MINIMAL VOLTAGE CRITERIA FOR LVH, CONSIDER NORMAL VARIANT [MEETS CRITERIA IN ONE OF: R(aVL), S(V1), R(V5), R(V5/V6)+S(V1)] BORDERLINE ECG UNCONFIRMED REPORT Electronically signed by : Telly Collier MD 10/05/2023 08:41:32
[2023-10-03 15:15] LABS: Troponin I < 0.01 ng/ml (0.00-0.034)
--- NOTE | 2023-10-03 16:04 | HMH.PHAINT1 ---
Pharmacy Intervention Comments: DISCHARGE MEDICATION COUNSELING PROVIDED. DISCUSSED STOPPING SPIRONOLACTONE, PREDNISONE, AND COLCRYS. PATIENT VERBALIZED NO QUESTIONS AT THIS TIME.
--- NOTE | 2023-10-06 14:21 | SW/DCPLANNER ---
Follow up phone call w/ this patient: patient stated that she is feeling better. 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 Patient did not have any further questions/needs at this time.
== END 2023-10-03 16:18 | disposition home or self-care (01) ==
LOC: ER 12:36 → 2ND 15:25
PROVIDERS: Nurse Practitioner Family; Admitting Provider Internal Medicine Adolescent Medicine; Emergency Provider Emergency Medicine; PCP Physician Assistant; Visit Provider Internal Medicine Adolescent Medicine
DX: R19.7 Diarrhea, unspecified (principal); Z79.899 Other long term (current) drug therapy; Z79.01 Long term (current) use of anticoagulants; E86.0 Dehydration; I25.10 Atherosclerotic heart disease of native coronary artery without angina pectoris; I31.39 Other pericardial effusion (noninflammatory); E78.5 Hyperlipidemia, unspecified; I10 Essential (primary) hypertension; E55.9 Vitamin D deficiency, unspecified; Z87.891 Personal history of nicotine dependence
CPT/HCPCS: 36415; 71046; 71275; 74177; 80053; 81001; 83605; 83735; 84484; 84703; 85025; 85378; 87040; 87636; 93005; 99285; G0378; J0131; J2405; Q9967

== ENCOUNTER → 2023-10-13 15:32 | Outpatient (CLI) | payer OTHER, SELFPAY ==
[2023-10-13 16:08] LABS: Basophils # 0.1 K/mm3 (0-0.2); Basophils % 0.7 % (0.1-2.0); Eosinophils # 0.2 K/mm3 (0.0-0.4); Eosinophils % 1.2 % (0.1-12.0); Hematocrit 37.1 % (37.0-47.0); Hemoglobin 12.4 g/dL (12.2-16.2); Lymphocytes # 5.5 K/mm3 (0.7-4.5); Lymphocytes % 41.3 % (10-50); Mean Corpuscular HGB Conc 33.3 g/dL (31.8-35.4); Mean Corpuscular Hemoglobin 32.5 pg (27.0-31.2); Mean Corpuscular Volume 97.8 fl (81-99); Mean Platelet Volume 8.3 fl (7.4-10.4); Monocytes # 0.6 K/mm3 (0.1-1.0); Monocytes % 4.7 % (1.7-9.3); Neutrophils % 52.2 % (37.0-80.0); Platelet Count 442 K/mm3 (142-424); Red Cell Distribution Width 14.2 % (11.5-17.5); White Blood Count 13.5 K/mm3 (4.8-10.8)
[2023-10-13 16:18] LABS: Troponin I < 0.01 ng/ml (0.00-0.034)
[2023-10-13 16:35] LABS: Anion Gap 12.7 mEq/L (5-15); Blood Urea Nitrogen 15 mg/dl (7-17); Calcium 9.6 mg/dl (8.4-10.2); Carbon Dioxide 29 mmol/L (22.0-30.0); Chloride 99 mmol/L (98-107); Estimated Glomerular Filt Rate 65 ml/min (>60); GFR (African American) 79 ML/MIN (>60); Glucose 97 mg/dl (74-100); Potassium 3.7 mmoL/L (3.5-5.1); Sodium 137 mmol/L (136-145)
[2023-10-13 16:45] LABS: NT Pro Brain Natriuretic Pep. 125 pg/mL (0-125)
[2023-10-13 16:52] LABS: Free T4 (Free Thyroxine) 1.01 ng/dl (0.78-2.19)
[2023-10-13 17:02] LABS: C-Reactive Protein 0.9 mg/L (0-4)
[2023-10-13 17:17] LABS: Erythrocyte Sedimentation Rate 48 mm/hr (0-30)
== END ==
PROVIDERS: PCP Physician Assistant; Visit Provider Internal Medicine
DX: I25.110 Atherosclerotic heart disease of native coronary artery with unstable angina pectoris (principal); E78.5 Hyperlipidemia, unspecified; I31.9 Disease of pericardium, unspecified; R42 Dizziness and giddiness; I42.9 Cardiomyopathy, unspecified; R06.00 Dyspnea, unspecified; I50.9 Heart failure, unspecified; Z86.73 Personal history of transient ischemic attack (TIA), and cerebral infarction without residual deficits
CPT/HCPCS: 36415; 80048; 83880; 84439; 84443; 84484; 85025; 85651; 86140

== ENCOUNTER 2023-10-21 13:55 | Outpatient (RCR) | payer OTHER, SELFPAY | END 2023-11-23 11:00 | disposition home or self-care (01) | LOC: PT 13:55 | PROVIDERS: Visit Provider Internal Medicine | DX: I25.10 Atherosclerotic heart disease of native coronary artery without angina pectoris (principal); Z95.5 Presence of coronary angioplasty implant and graft ==

== ENCOUNTER 2023-11-05 15:18 | Emergency (ER) | payer OTHER, SELFPAY ==
[2023-11-05] VITALS (11 sets, daily range): BP systolic 96–151; BP diastolic 53–93; PULSE 70–115; RESP 10–20; TEMP 36.6; O2SAT 97–100; BMI 32.5
--- NOTE | 2023-11-05 15:11 | ECG_ITS ---
APPROVED REPORT Exam: Resting ECG HR:91 bpm ECG Measurements Heart Rate 91 AXES [place] 156 P 65 QRSd 80 QRS 36 QT 353 T 50 QTc 402 Conclusion SINUS RHYTHM NORMAL ECG UNCONFIRMED REPORT Electronically signed by : Telly Collier MD 11/06/2023 14:49:03
--- NOTE | 2023-11-05 15:34 | XR_ITS ---
FINAL REPORT TECHNIQUE: Chest PA & Lateral CLINICAL HISTORY: chest pain COMPARISON: 10/02/2023 FINDINGS: 2 views of the chest were performed. The heart size is normal. The mediastinum is within normal limits. There is no acute cardiopulmonary process. There is scarring at the left base. There are no pleural effusions. There is no pneumothorax. The bony thorax appears intact. IMPRESSION: No acute cardiopulmonary process. Reviewed, Interpreted and Dictated by Kurt Swartz MD Transcribed by Mckenzie Yanes Authenticated and [facility]
[2023-11-05 16:00] LABS: Chloride 103 mmol/L (98-107); Sodium 140 mmol/L (136-145)
[2023-11-05 16:01] LABS: Potassium 3.8 mmoL/L (3.5-5.1)
[2023-11-05 16:03] LABS: Alanine Aminotransferase 40 U/L (12-78); Albumin Level 4.5 g/dl (3.5-5.0); Albumin/Globulin Ratio 1.4 (1.1-1.8); Alkaline Phosphatase 116 U/L (38-126); Anion Gap 9.8 mEq/L (5-15); Aspartate Amino Transferase 46 U/L (14-36); Bilirubin,Total 0.6 mg/dl (0.2-1.3); Blood Urea Nitrogen 11 mg/dl (7-17); Carbon Dioxide 31 mmol/L (22.0-30.0); Creatinine Clearance Estimated 96 mL/min (50-200); Estimated Glomerular Filt Rate 65 ml/min (>60); GFR (African American) 79 ML/MIN (>60); Globulin 3.2 g/dL (1.3-3.2); Total Protein,Serum 7.7 g/dl (6.3-8.2)
[2023-11-05 16:04] LABS: Basophils # 0.1 K/mm3 (0-0.2); Basophils % 0.9 % (0.1-2.0); Calcium 9.4 mg/dl (8.4-10.2); Eosinophils # 0.2 K/mm3 (0.0-0.4); Eosinophils % 2.3 % (0.1-12.0); Glucose 110 mg/dl (74-100); Hematocrit 40.6 % (37.0-47.0); Hemoglobin 13.1 g/dL (12.2-16.2); Lymphocytes # 2.4 K/mm3 (0.7-4.5); Lymphocytes % 34.7 % (10-50); Mean Corpuscular HGB Conc 32.2 g/dL (31.8-35.4); Mean Corpuscular Hemoglobin 31.8 pg (27.0-31.2); Mean Corpuscular Volume 98.8 fl (81-99); Mean Platelet Volume 8.6 fl (7.4-10.4); Monocytes # 0.4 K/mm3 (0.1-1.0); Neutrophils # 3.9 K/mm3 (1.8-7.8); Neutrophils % 57.1 % (37.0-80.0); Platelet Count 396 K/mm3 (142-424); Red Blood Count 4.11 M/mm3 (4.20-5.40); Red Cell Distribution Width 13.9 % (11.5-17.5); White Blood Count 6.9 K/mm3 (4.8-10.8)
--- NOTE | 2023-11-05 16:12 | CT_ITS ---
PROCEDURE INFORMATION: Exam: CT Head Without Contrast Exam date and time: 11/05/2023 4:22 PM Age: 53 years old Clinical indication: Dizziness TECHNIQUE: Imaging protocol: Computed tomography of the head without contrast. Radiation optimization: All CT scans at this facility use at least one of these dose optimization techniques: automated exposure control; mA and/or kV adjustment per patient size (includes targeted exams where dose is matched to clinical indication); or iterative reconstruction. REPORTING DATA: Count of CT and Cardiac NM exams in prior 12 months: This patient has received 7 known CTs and 0 known cardiac nuclear medicine studies in the 12 months prior to the current study. COMPARISON: 1. CT HEAD/BRAIN WO CON 09/27/2023 6:14 PM 2. MR HEAD/BRAIN WO CON 11/04/2022 1:[address] HEAD/BRAIN WO CON 01/31/2021 8:56 AM FINDINGS: Brain: No evidence for acute intracranial hemorrhage, midline shift, or mass effect. No convincing evidence for acute transcortical infarct. Cerebral ventricles: No ventriculomegaly. Paranasal sinuses: Visualized sinuses are unremarkable. No fluid levels. Mastoid air cells: Visualized mastoid air cells are well aerated. Nasal cavity: There is leftward deviation of the bony nasal septum. Bones/joints: Unremarkable. No acute fracture. Soft tissues: Unremarkable. IMPRESSION: No evidence for acute intracranial hemorrhage, midline shift, or mass effect. No convincing evidence for acute transcortical infarct.
--- NOTE | 2023-11-05 16:13 | HMH.EDGENADL ---
Discharge Plan Disposition Patient Disposition: Home, Self-Care Chief Complaint: Chest Pain Prescriptions Prescriptions: No Action metoprolol succinate 50 mg tablet extended release 24 hr 50 mg PO DAILY Qty: 90 3RF omeprazole 40 mg capsule,delayed release(DR/EC) 40 mg PO BID Qty: 60 5RF clonazepam 1 mg tablet 1 mg PO BID Qty: 60 1RF gabapentin 800 mg tablet 800 mg PO TID Qty: 90 1RF hydrocodone-acetaminophen 5-325 mg tablet 1 tab PO TID Qty: 90 0RF levothyroxine 50 mcg tablet 50 mcg PO DAILYDM Qty: 90 1RF ondansetron 8 mg tablet,disintegrating See Rx Instructions .ROUTE .COMPLEX Qty: 30 1RF Dose Instruction: DISSOLVE 1 TABLET ON THE TONGUE EVERY 8 HOURS NEEDED FOR NAUSEA/VOMITING Rx Instructions: DISSOLVE 1 TABLET ON THE TONGUE EVERY 8 HOURS NEEDED FOR NAUSEA/VOMITING atorvastatin 40 mg tablet See Rx Instructions .ROUTE .COMPLEX Qty: 30 1RF Dose Instruction: TAKE ONE TABLET BY MOUTH AT BEDTIME FOR CHOLESTEROL Rx Instructions: TAKE ONE TABLET BY MOUTH AT BEDTIME FOR CHOLESTEROL prasugrel 10 mg tablet 10 mg PO DAILY Qty: 30 0RF promethazine 25 mg tablet 25 mg PO TIDP PRN (Reason: Nausea) aspirin 81 mg tablet,delayed release (DR/EC) 81 mg PO DAILY nitroglycerin 0.4 mg tablet, sublingual 0.4 mg sublingual Q5MINP PRN (Reason: Chest Pain) cholecalciferol (vitamin D3) 1,250 mcg (50,000 unit) capsule 1,250 mcg PO WEEKLY Referrals Follow up/Referrals: Michelle Quiñonez PA [Primary Care Provider] - See instructions Clinical Impressions Clinical Impression: Chest pain Discharge ED Provider: Rolando Humphrey General Adult HPI General Chief complaint: Chest Pain Stated complaint: Chest Pain Time Seen by Provider: 11/05/23 15:25 Mode of Arrival: Ambulatory Source of Information: Patient Limitations: No Limitations Description of Symptoms (Recalled from ER Triage Doc. by RN): pt to ed c/o substernal chest pain that radiates through to her back. pt states she had cardiac stents placed x1 month ago and she has been dizzy since. pt denies SOA. History of Present Illness HPI narrative: Patient is a 53-year-old female with multiple comorbidities who presents emergency department for evaluation of multiple complaints. Her primary complaint is chest pain. It is substernal, unrelenting since her heart cath last month. She has associated dizziness which is hard for her to qualify, the room does not spin. There is head pressure, back pain which is chronic, abdominal pain and constipation. She states that she was seen for abdominal pain in her right lower quadrant with a weekend where CT scan was negative and she was discharged home. She is being managed by cardiology and has been evaluated for her chest pain and dizziness approximately 1 week ago. Due to persistent symptoms she presents here for continued evaluation. Related Data Home Medications Medication Instructions Recorded Confirmed cholecalciferol (vitamin D3) 1,250 1,250 mcg PO WEEKLY Supplement 08/25/23 10/29/23 mcg (50,000 unit) capsule nitroglycerin 0.4 mg sublingual 0.4 mg sublingual Q5MINP PRN Chest 08/25/23 10/29/23 tablet Pain aspirin 81 mg tablet,delayed 81 mg PO DAILY Heart Disease 09/22/23 10/29/23 release promethazine 25 mg tablet 25 mg PO TIDP PRN Nausea 09/22/23 10/29/23 Previous Rx's Medication Instructions Recorded clonazepam 1 mg tablet 1 mg PO BID Anxiety #60 tabs 10/07/23 gabapentin 800 mg tablet 800 mg PO TID NERVE PAIN #90 tabs 10/07/23 hydrocodone 5 mg-acetaminophen 325 1 tab PO TID Chronic pain #90 tabs 10/07/23 mg tablet omeprazole 40 mg capsule,delayed 40 mg PO BID Acid Reflux #60 caps 10/13/23 release levothyroxine 50 mcg tablet 50 mcg PO DAILYDM THYROID #90 tabs 10/14/23 atorvastatin 40 mg tablet See Rx Instructions .Route 10/24/23 .COMPLEX #30 tabs ondansetron 8 mg disintegrating See Rx Instructions .Route
[2023-11-05 16:16] LABS: Troponin I < 0.01 ng/ml (0.00-0.034)
[2023-11-05 16:24] LABS: Lipase 27 U/L (23-300)
--- NOTE | 2023-11-05 16:24 | PC.NURSE ---
pt at ct
[2023-11-05 16:41] LABS: Microscopic, Urine URINE MICROSCOPIC (MICROSCOPIC)
[2023-11-05 16:48] LABS: Appearance,Urine CLEAR (Clear); Bilirubin,Urine Negative (Negative); Blood, Urine Negative (Negative); Color,Urine YELLOW (Yellow); Glucose,Urine (UA) Negative (Negative); Ketones,Urine Negative (Negative); Leukocyte Esterase,Urine Negative (Negative); Nitrate,Urine Negative (Negative); Protein,Urine Negative (Negative); Specific Gravity, Urine <= 1.005 (1.005-1.030); Urobilinogen,Urine 0.2 EU/dl (0.2)
[2023-11-05 17:17] LABS: Squamous Epithelial Cell,Urine Occasional #/hpf (0-5)
--- NOTE | 2023-11-05 17:35 | PC.NURSE ---
updated patient on trop needing to be done and that is all we are waiting for.
--- NOTE | 2023-11-05 19:30 | ECG_ITS ---
APPROVED REPORT Exam: Resting ECG HR:133 bpm ECG Measurements Heart Rate 133 AXES HI 145 P 70 QRSd 81 QRS 51 QT 303 T 62 QTc 381 Conclusion SINUS TACHYCARDIA ABNORMAL RHYTHM ECG UNCONFIRMED REPORT Electronically signed by : Telly Collier MD 11/06/2023 14:48:51
--- NOTE | 2023-11-05 19:31 | CT_ITS ---
PROCEDURE INFORMATION: Exam: CTA Chest With Contrast Exam date and time: 11/05/2023 7:42 PM Age: 53 years old Clinical indication: Other: Chest pain; Additional info: Chest pain, hr 140 TECHNIQUE: Imaging protocol: Computed tomographic angiography of the chest with contrast. Exam focused on the arteries. 3D rendering (Not supervised by radiologist): MIP and/or 3D reconstructed images were created by the technologist. Radiation optimization: All CT scans at this facility use at least one of these dose optimization techniques: automated exposure control; mA and/or kV adjustment per patient size (includes targeted exams where dose is matched to clinical indication); or iterative reconstruction. Contrast material: ISOVUE; Contrast volume: 100 ml; Contrast route: INTRAVENOUS (IV); REPORTING DATA: Count of CT and Cardiac NM exams in prior 12 months: This patient has received 7 known CTs and 0 known cardiac nuclear medicine studies in the 12 months prior to the current study. COMPARISON: 1. CT ANGIO CHEST PE PROTOCOL 10/02/2023 2:[address] chest with contrast, 03/24/2019. FINDINGS: Pulmonary arteries: Normal. No pulmonary emboli. Aorta: Mild thoracic aortic atherosclerotic disease. No aneurysm or dissection. Lungs: Punctate medial left lower lobe calcified granuloma. The lungs are otherwise clear. Pleural spaces: Unremarkable. No pneumothorax. No pleural effusion. Heart: Unremarkable. No cardiomegaly. No pericardial effusion. Coronary arteries: Coronary artery stents in place. Lymph nodes: Punctate calcified left inferior hilar and left paraesophageal lymph nodes. No adenopathy. Mildly prominent bilateral axillary lymph nodes are unchanged. Liver: 1.6 cm cyst in the right hepatic lobe. Subcentimeter low-density lesions in the right hepatic lobe are too small to characterize but are likely cysts. Spleen: Calcified granuloma in the spleen. No splenomegaly. Bones/joints: Unremarkable. No acute fracture. Soft tissues: Unremarkable. IMPRESSION: 1. No aortic aneurysm or dissection. 2. No evidence of a pulmonary embolism. 3. Prior granulomatous disease.
[2023-11-05 19:44] LABS: Troponin I < 0.01 ng/ml (0.00-0.034)
--- NOTE | 2023-11-05 20:33 | PC.NURSE ---
paged at this time.
== END 2023-11-05 20:56 | disposition home or self-care (01) ==
PROVIDERS: Emergency Provider Emergency Medicine; PCP Physician Assistant
DX: R07.9 Chest pain, unspecified (principal); R42 Dizziness and giddiness; R10.31 Right lower quadrant pain; I11.9 Hypertensive heart disease without heart failure; E06.3 Autoimmune thyroiditis; E21.3 Hyperparathyroidism, unspecified; E78.5 Hyperlipidemia, unspecified; I25.110 Atherosclerotic heart disease of native coronary artery with unstable angina pectoris; Z87.891 Personal history of nicotine dependence
CPT/HCPCS: 36415; 70450; 71046; 71275; 80053; 81001; 83690; 84484; 85025; 93005; 96374; 96376; 99285; Q9967

== ENCOUNTER → 2023-11-06 11:35 | Outpatient (CLI) | payer OTHER, SELFPAY | PROVIDERS: PCP Physician Assistant; Visit Provider Internal Medicine | DX: R42 Dizziness and giddiness (principal) | CPT/HCPCS: 93270 ==

== ENCOUNTER 2023-11-27 07:24 | Outpatient (CLI) | payer OTHER, SELFPAY ==
[2023-11-27 22:31] LABS: Barbiturates Screen,Urine Negative ng/ml (<200); Benzodiazepines Screen,Urine Negative ng/ml (<200); Cannabinoid Screen,Urine Negative ng/ml (<50); Cocaine Screen,Urine Negative ng/ml (<300); Methadone Screen,Urine Negative ng/ml (<300); Phencyclidine Screen,Urine Negative ng/ml (<25)
[2023-11-27 22:38] LABS: Opiate Screen,Urine Positive ng/ml (<300)
[2023-11-27 23:25] LABS: Amphetamine/Metha Screen,Urine Negative ng/ml (<1000)
[2023-12-04 08:24] LABS: Alprazolam Negative (Cutoff=100); Benzodiazepines Positive ng/mL (Cutoff=100); Clonazepam Positive (.); Clonazepam Confirm 280 ng/mL (Cutoff=100); Codeine Negative (Cutoff=100); Flurazepam Negative (Cutoff=100); Hydrocodone Positive (.); Hydromorphone Positive (.); Lorazepam Negative (Cutoff=100); Midazolam Negative (Cutoff=100); Morphine Negative (Cutoff=100); Opiates Positive (.); Temazepam Negative (Cutoff=100); Triazolam Negative (Cutoff=100)
== END 2023-11-27 23:59 ==
LOC: LAB.DROPOF 11-28 07:37
PROVIDERS: PCP Family Medicine; Visit Provider Family Medicine
DX: Z79.899 Other long term (current) drug therapy (principal)
CPT/HCPCS: 80307; 80346; 80361; 80365; G0480

== ENCOUNTER 2024-01-02 12:26 | Outpatient (CLI) | payer OTHER, SELFPAY ==
--- NOTE | 2024-01-02 12:54 | MR_ITS ---
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 Software platform sequences were performed using the Siemens Chalkfly MR B19 platform. A set of three-plane, low-resolution, large [id number] localizers were initially acquired. Then axial, coronal, sagittal TrueFISP, as well as axial HASTE images, were obtained. These were followed by gated TrueFISP breathold cinematic sequences obtained in the short axis with 8 mm slices and 2 mm gaps, 2-chamber (vertical long axis), 3-chamber, 4-chamber (horizontal long axis). A bolus of contrast was injected intravenously with first-pass sequences obtained in the short axis and four-chamber planes. After approximately 10 minutes, a TI sales merchandising specialist sequence was performed to determine the optimal TI time. Using the optimized TI time, delayed contrast enhancement segmented inversion???recovery TurboFLASH sequences were obtained in the short axis, 2-chamber, 3-chamber, and 4-chamber projections. 2D-velocity phase mapping was performed. Functional parameters were calculated by offline analysis on an independent workstation ([employer], [employer]). Contrast: ProHance??? (Gadoteridol) FINDINGS MORPHOLOGY AND FUNCTION Left ventricle: The left ventricle is normal in size. The indexed left ventricular end-diastolic volume (LVEDVi) is 56 ml/m2 (reference range 57-105 ml/m2 in males, 56-96 ml/m2 in females). Normal left ventricular systolic function is present. There is normal left ventricular wall thickness. There are no regional wall motion abnormalities noted. LVEF is calculated at 60.6% (reference range 57-77%). Right ventricle: The right ventricle is normal in size. The indexed right ventricular end-diastolic volume (RVEDVi) is 44 ml/m2 (reference range 61-121 ml/m2 in males, 48-112 ml/m2 in females). Normal right ventricular systolic function is present. RVEF is calculated at 52.0% (reference range 52-72% in males, 51-71% in females). Atria: The left atrium is normal in size. The maximum indexed left atrial volume is 28 ml/m2 (reference range 26-52 ml/m2 in males, 27-53 ml/m2 in females). The right atrium is normal in size. The maximum indexed right atrial volume is 18 ml/m2 (reference range 18-90 ml/m2). Aorta: The diameter of the aortic annulus is normal, measuring 23 mm (coronal view reference range 21-30 mm in males, 19-27 mm in females). The diameter of the aortic sinus is normal, measuring 33 mm (coronal view reference range 25-42 mm in males, 24-36 mm in females). The diameter of the sinotubular junction is normal, measuring 27 mm (coronal view reference range 18-32 mm in males, 18-28 mm in females). The diameters of the ascending and descending thoracic aorta are normal. Main pulmonary artery: The main pulmonary artery diameter is normal. Pericardium: The pericardial thickness is normal. The pericardial thickness measures 2.7 cm (normal < 4.0 cm). There is no pericardial effusion. Tagging sequences demonstrate presence of normal grid deformity during the cardiac cycle. VALVES The valvular morphologies in the visualized sequences appear normal. There is no significant valvular stenosis or regurgitation of the mitral, aortic, tricuspid, or pulmonic valve noted visually. Systolic anterior motion of the mitral valve is not visualized. Ratio of pulmonary to systemic flow, Qp:Qs ratio = 1.0 (normal < or = 1.2), demonstrating no evidence of hemodynamically significant shunt. TISSUE CHARACTERIZATION Resting Perfusion: There is resting hypoperfusion noted in the LV apical wall. Myocardial Fibrosis and/or edema: Normal gadolinium kinetics are present. No evidence of late gadolinium enhancement is noted, consistent with absence of myocardial scarring, infarction, or necrosis. T2-weighted imaging demonstrates no evidence of myocardial edema or inflammation. OTHER A 5 x 5 mm hyperintese hepatic mass is incidentally noted. This is most consistent with hepatic cyst vs. hemangioma. IMPRESSION Normal LV size with normal LV systolic function. LVEDVi= 56 ml/m2 and LVEF= 60.6%. Normal RV size with normal RV systolic function. RVEDVi= 44 ml/m2 and RVEF= 52.0%. No atrial enlargement. No CMR evidence of myocardial scarring, infarction, or necrosis. No evidence of myocardial edema or inflammation. Resting hypoperfusion noted in the LV apical wall. Ratio of pulmonary to systemic flow, Qp:Qs ratio = 1.0 (normal < or = 1.2), demonstrating no evidence of hemodynamically significant shunt. A 5 x 5 mm hyperintese hepatic mass is incidentally noted. This is most consistent with hepatic cyst vs. hemangioma. This finding is stable and unchanged when compared to prior CT abdomen/pelvis from 10/02/2023. Overall, this CMR demonstrates normal biventricular size and function with no evidence of prior scarring, fibrosis, or necrosis. No evidence of pericardial effusions or active pericarditis or constriction. Resting hypoperfusion in the LV apical wall is noted. This finding should be correlated with the clinical context and the patient's work-up for ischemia. COMPARISON None CRITICAL RESULT None COMMUNICATION Per this written report The findings of this cardiac MR were reviewed, reported, and signed by Baldomero Mejia MD (Adoption Manager). Conclusion Electronically signed by : Kelly Mejia MD 01/11/2024 19:41:00
[2024-01-02 13:00] LABS: Blood Urea Nitrogen 12 mg/dl (7-17); Estimated Glomerular Filt Rate 74 ml/min (>60); GFR (African American) 90 ML/MIN (>60)
[2024-01-02] MEDS: SODIUM CHLORIDE 0.9% 10ML SYR (RAD ONLY) 10 ML IV (14:21)
[2024-01-02] MEDS: SODIUM CHLORIDE 0.9% 50ML BAG 25 ML IV (14:22)
[2024-01-02] MEDS: GADOTERIDOL INJ 17ML SYRINGE 19 ML IV (14:22)
== END 2024-01-02 23:59 ==
LOC: RAD 12:26
PROVIDERS: PCP Physician Assistant; Visit Provider Internal Medicine
DX: I31.9 Disease of pericardium, unspecified; R42 Dizziness and giddiness; E78.5 Hyperlipidemia, unspecified; Z87.891 Personal history of nicotine dependence; I25.110 Atherosclerotic heart disease of native coronary artery with unstable angina pectoris
CPT/HCPCS: 36415; 75561; 82565; 84520; A9576

== ENCOUNTER 2024-01-19 14:24 | Emergency (ER) | payer OTHER, SELFPAY ==
[2024-01-19] VITALS (10 sets, daily range): BP systolic 119–139; BP diastolic 68–93; PULSE 53–79; RESP 15–16; TEMP 36.7–36.9; O2SAT 96–100; BMI 32.5
--- NOTE | 2024-01-19 | CT_ITS ---
PROCEDURE INFORMATION: Exam: CT Abdomen And Pelvis With Contrast Exam date and time: 01/19/2024 4:58 PM Age: 53 years old Clinical indication: Abdominal pain; Generalized TECHNIQUE: Imaging protocol: Computed tomography of the abdomen and pelvis with contrast. Radiation optimization: All CT scans at this facility use at least one of these dose optimization techniques: automated exposure control; mA and/or kV adjustment per patient size (includes targeted exams where dose is matched to clinical indication); or iterative reconstruction. Contrast material: ISOVUE; Contrast volume: 75 ml; Contrast route: IV; COMPARISON: CT ABDOMEN PELVIS W CON 10/02/2023 4:41 PM FINDINGS: Lungs: Lung bases are clear. Liver: Scattered hepatic cysts redemonstrated. Mild fatty liver changes. Gallbladder and bile ducts: Normal. No calcified stones. No ductal dilation. Pancreas: Normal. No ductal dilation. Spleen: Normal. No splenomegaly. Adrenal glands: Normal. No mass. Kidneys and ureters: Normal. No hydronephrosis. Stomach and bowel: Unremarkable. No obstruction. No mucosal thickening. Appendix: Appendix is normal. No evidence of appendicitis. Intraperitoneal space: Unremarkable. No free air. No significant fluid collection. Vasculature: Unremarkable. No abdominal aortic aneurysm. Lymph nodes: Unremarkable. No enlarged lymph nodes. Urinary bladder: Unremarkable as visualized. Reproductive: Hysterectomy. Bones/joints: Unremarkable. No acute fracture. Soft tissues: Unremarkable. IMPRESSION: No acute abnormalities of the abdomen and pelvis. Nonemergent findings as above.
--- NOTE | 2024-01-19 15:17 | XR_ITS ---
PROCEDURE INFORMATION: Exam: XR Chest Exam date and time: 01/19/2024 5:21 PM Age: 53 years old Clinical indication: Dyspnea TECHNIQUE: Imaging protocol: Radiologic exam of the chest. Views: 1 view. COMPARISON: CT ANGIO CHEST 11/05/2023 7:42 PM FINDINGS: Lungs: Unremarkable. No consolidation. Pleural spaces: Unremarkable. No pleural effusion. No pneumothorax. Heart/Mediastinum: Unremarkable. No cardiomegaly. Bones/joints: Unremarkable. IMPRESSION: No acute findings.
--- NOTE | 2024-01-19 15:18 | HMH.EDGENADL ---
Discharge Plan Disposition Patient Disposition: Home, Self-Care Prescriptions Prescriptions: New ondansetron 4 mg tablet,disintegrating 4 mg PO Q6H PRN (Reason: nausea and vomiting) 5 Days Qty: 20 0RF No Action metoprolol succinate 100 mg tablet extended release 24 hr 100 mg PO DAILY Qty: 30 2RF omeprazole 40 mg capsule,delayed release(DR/EC) 40 mg PO BID Qty: 60 5RF ranolazine 1,000 mg tablet extended release 12 hr PO Gimoti 15 mg/spray spray with pump 1 spray intranasal QID Qty: 9.8 5RF Rx Instructions: administer into ONE nostril 30 minutes before each meal and at bedtime clonazepam 1 mg tablet 1 mg PO BID Qty: 60 0RF gabapentin 800 mg tablet 800 mg PO TID Qty: 90 1RF hydrocodone-acetaminophen 5-325 mg tablet 1 tab PO TID Qty: 90 0RF levothyroxine 50 mcg tablet 50 mcg PO DAILYDM Qty: 90 1RF ondansetron 8 mg tablet,disintegrating See Rx Instructions .ROUTE .COMPLEX Qty: 30 1RF Dose Instruction: DISSOLVE 1 TABLET ON THE TONGUE EVERY 8 HOURS NEEDED FOR NAUSEA/VOMITING Rx Instructions: DISSOLVE 1 TABLET ON THE TONGUE EVERY 8 HOURS NEEDED FOR NAUSEA/VOMITING prasugrel 10 mg tablet See Rx Instructions .ROUTE .COMPLEX Qty: 90 4RF Dose Instruction: TAKE ONE TABLET BY MOUTH ONCE A DAY FOR BLOOD THINNER Rx Instructions: TAKE ONE TABLET BY MOUTH ONCE A DAY FOR BLOOD THINNER atorvastatin 40 mg tablet See Rx Instructions .ROUTE .COMPLEX Qty: 30 0RF Dose Instruction: TAKE ONE TABLET BY MOUTH AT BEDTIME FOR CHOLESTEROL Rx Instructions: TAKE ONE TABLET BY MOUTH AT BEDTIME FOR CHOLESTEROL aspirin 81 mg tablet,delayed release (DR/EC) See Rx Instructions .ROUTE .COMPLEX Qty: 30 0RF Dose Instruction: TAKE ONE TABLET BY MOUTH AT BEDTIME FOR HEART HEALTH Rx Instructions: TAKE ONE TABLET BY MOUTH AT BEDTIME FOR HEART HEALTH promethazine 25 mg tablet 25 mg PO TIDP PRN (Reason: Nausea) nitroglycerin 0.4 mg tablet, sublingual 0.4 mg sublingual Q5MINP PRN (Reason: Chest Pain) cholecalciferol (vitamin D3) 1,250 mcg (50,000 unit) capsule 1,250 mcg PO WEEKLY Referrals Follow up/Referrals: Michelle Quiñonez PA [Primary Care Provider] - See instructions Clinical Impressions Clinical Impression: Abdominal pain, RUQ, Abdominal pain, RLQ, Nausea Instructions Patient Instructions: DI for Acute Abdominal Pain Discharge ED Provider: Arya Clarke General Adult HPI General Chief complaint: Abdominal Pain Stated complaint: nausea, stomach pain, Rt side pain Time Seen by Provider: 01/19/24 15:11 History of Present Illness HPI narrative: 53-year-old female present today with right upper quadrant right lower quadrant abdominal pain and states this has been ongoing for several days. Associated with nausea it has been intermittent over the last few days but now is constant. No changes in urination bowel movements vaginal discharge etc. States she still has her gallbladder and pancreas. Not postprandial nature no fevers associated with this. Related Data Home Medications Medication Instructions Recorded Confirmed cholecalciferol (vitamin D3) 1,250 1,250 mcg PO WEEKLY Supplement 08/25/23 12/25/23 mcg (50,000 unit) capsule nitroglycerin 0.4 mg sublingual 0.4 mg sublingual Q5MINP PRN Chest 08/25/23 12/25/23 tablet Pain promethazine 25 mg tablet 25 mg PO TIDP PRN Nausea 09/22/23 12/25/23 ranolazine 1,000 mg mg PO 12/25/23 12/25/23 tablet,extended release,12 hr Previous Rx's Medication Instructions Recorded omeprazole 40 mg capsule,delayed 40 mg PO BID Acid Reflux #60 caps 10/13/23 release levothyroxine 50 mcg tablet 50 mcg PO DAILYDM THYROID #90 tabs 10/14/23 ondansetron 8 mg disintegrating See Rx Instructions .Route 10/24/23 tablet .COMPLEX #30 tabs metoprolol succinate 100 mg 100 mg PO DAILY #30 tabs 11/06/23 tablet,extended release 24 hr prasugrel 10 mg tablet See Rx Instructions .Route 11/25/23 .COMPLEX #90 tabs clonazepam 1 mg tablet 1 mg PO BID Anxiety #60 tabs 12/25/23 gabapentin 800 mg tablet 800 mg PO TID NERVE PAIN #90 tabs 12/25/23 metoclopramide HCl 15 mg/spray 1 spray intranasal QID #9.8 mL 12/25/23 nasal spray with pump (Gimoti) hydrocodone 5 mg-acetaminophen 325 1 tab PO TID Chronic pain #90 tabs 12/26/23 mg tablet aspirin 81 mg tablet,delayed See Rx Instructions .Route 01/19/24 release .COMPLEX #30 tabs atorvastatin 40 mg tablet See Rx Instructions .Route 01/19/24 .COMPLEX #30 tabs ondansetron 4 mg disintegrating 4 mg PO Q6H PRN nausea and 01/19/24 tablet vomiting 5 days #20 tabs Allergies Allergy/AdvReac Type Severity Reaction Status Date / Time ketorolac [From TORADOL] Allergy Mild I-RASH Verified 12/25/23 14:34 Penicillins [PENICILLINS] Allergy Mild I-RASH Verified 12/25/23 14:34 isosorbide AdvReac Intermediate Headache Verified 12/25/23 14:34 PFSH PFSH Disclaimer: The information contained in this section may have been updated after the patient was seen, as this information can be updated by other users. Medical History (Updated 01/19/24 @ 18:43 by Patience Abel MD) Abdominal pain Abnormal EKG Altered thought processes Anorexia Anxiety Atypical chest pain Bilateral knee pain Breast enlargement Breast swelling CAD in [place] artery Candidal intertrigo Celiac disease Cervical disc disease Cervical radicular pain Chest pain Chest pain Chest pain Chronic pain Constipation Coronary artery calcification seen on CT scan Coronary artery disease Coronary artery dissection Coronary vasospasm Dehydration Depression Diarrhea Diastolic dysfunction Difficulty passing stool Dizziness Dizziness Dysphagia Dyspnea Elevated troponin Fatigue Fibromyalgia Gastroesophageal reflux disease Comfort's thyroiditis HHD (hypertensive heart disease) History of hemorrhoids Hyperlipidemia Hyperlipidemia Hyperparathyroidism Hypertension Hypothyroidism Knee pain Left arm pain Low back pain Lumbar radiculopathy Lupus Migraine Neck pain Non-STEMI (non-ST elevated myocardial infarction) Noncompliance with medication regimen Obesity Obesity (BMI 30.0-34.9) KORI (obstructive sleep apnea) KORI (obstructive sleep apnea) KORI on CPAP Osteoarthritis Osteoarthritis Palpitations Pericardial effusion Pericardial effusion Pericarditis Polyarthralgia Postoperative spinal headache Rash Right shoulder pain Slurred speech SOB (shortness of breath) SOB (shortness of breath) on exertion Sore throat, chronic Thoracic back pain Thyroid Nodule Tobacco use Tobacco use disorder Typical angina Unstable angina Vertigo Vitamin D deficiency Surgical History H/O left knee surgery H/O tubal ligation History of cardiac cath History of partial hysterectomy S/P coronary artery stent placement Family History Other Cancer Coronary artery disease Diabetes Heart attack Hypertension Social History Smoking Status: Never smoker second hand exposure: No alcohol intake: never substance use type: denies use current occupational status: unemployed Travel in the last 8 weeks: None household members: spouse housing: house lives independently: No marital status: education level: high school service: No intermediate: No current occupational exposures/hazards: No caffeine: Yes special giuliana needs: No agree to transfusion: No do you feel safe at home: Yes victim of physical abuse: No victim of emotional abuse: No victim of sexual abuse: No would you like helpful sources: No ROS Obtained: Yes All systems reviewed & no additional complaints except as documented Physical Exam General General appearance: alert Respiratory Respiratory exam: Present normal lung sounds bilaterally; Absent respiratory distress Cardiovascular Cardiovascular exam: Present regular rate Abdominal Exam Abdominal exam: Present soft and tenderness (Right upper quadrant or lower quadrant tenderness palpation without any rebound or guarding) Neurological Exam Neurological exam: Present alert and oriented X3 Medical Decision Making Hugo Inquiry Pt receiving controlled substance: No Vital Signs: 01/19/24 14:25 01/19/24 16:30 01/19/24 16:45 Temperature 98.4 F Temperature Source Oral Pulse Rate 63 63 Pulse Rate [Left Radial] 79 Respiratory Rate 16 Blood Pressure 123/68 124/73 Blood Pressure [Right Arm] 124/78 Blood Pressure Mean [Right Arm] 93 Blood Pressure Source [Right Arm] Automatic Cuff Blood Pressure Position [Right Arm] Sitting 02 Sat by Pulse Oximetry 100 97 96 Oxygen Delivery Method Room Air 01/19/24 17:00 01/19/24 17:30 01/19/24 17:45 Temperature Temperature Source Pulse Rate 70 68 63 Pulse Rate [Left Radial] Respiratory Rate Blood Pressure 139/74 132/72 121/72 Blood Pressure [Right Arm] Blood Pressure Mean [Right Arm] Blood Pressure Source [Right Arm] Blood Pressure Position [Right Arm] 02 Sat by Pulse Oximetry 98 99 100 Oxygen Delivery Method 01/19/24 18:00 01/19/24 18:15 01/19/24 18:30 Temperature Temperature Source Pulse Rate 61 58 L 56 L Pulse Rate [Left Radial] Respiratory Rate Blood Pressure 131/73 119/71 130/70 Blood Pressure [Right Arm] Blood Pressure Mean [Right Arm] Blood Pressure Source [Right Arm] Blood Pressure Position [Right Arm] 02 Sat by Pulse Oximetry 100 100 99 Oxygen Delivery Method Lab Data Lab results reviewed: Yes I reviewed the patient's lab results. Lab Results 01/19/24 15:15: WBC 7.5, RBC 4.18 L, Hgb 13.6, Hct 40.9, MCV 97.8, MCH 32.5 H, MCHC 33.3, RDW 13.3, Plt Count 370, MPV 8.7, Neut % (Auto) 55.8, Lymph % (Auto) 35.5, [place] % (Auto) 5.0, Eos % (Auto) 3.0, Baso % (Auto) 0.7, Neut # (Auto) 4.2, Lymph # (Auto) 2.7, [place] # (Auto) 0.4, Eos # (Auto) 0.2, Baso # (Auto) 0.1, Sodium 139, Potassium 4.6, Chloride 104, Carbon Dioxide 32 H, Anion Gap 7.6, BUN 15, Creatinine 0.90, Estimated GFR 65, Est GFR ( Amer) 79, Glucose 93, Calcium 9.8, Total Bilirubin 0.9, AST 42 H, ALT 32, Alkaline Phosphatase 116, Troponin I < 0.01, Total Protein 7.9, Albumin 4.4, Globulin 3.5 H, Albumin/Globulin Ratio 1.3, Lipase 25 01/19/24 15:29: Urine Color Yellow, Urine Appearance Clear, Urine pH 6.5, Ur Specific [place] 1.010, Urine Protein Negative, Urine Glucose (UA) Negative, Urine Ketones Negative, Urine Blood Negative, Urine Nitrate Negative, Urine Bilirubin Negative, Urine Urobilinogen 0.2, Ur Leukocyte Esterase Negative, Urine RBC None, Urine WBC None, Ur Squamous Epith Cells Occasional, Urine Bacteria None 01/19/24 16:18: Lactate 1.5 01/19/24 15:15 01/19/24 15:15 Orders (Tests/Meds): ED MEDICATIONS Generic Name Dose Route Start Last Admin Trade Name Freq PRN Reason Stop Dose Admin Acetaminophen 1,000 mg 01/19/24 18:00 Acetaminophen 1,000mg/100ml Vial IV 01/19/24 18:01 ONCE ONE Promethazine HCl 12.5 mg 01/19/24 18:26 Promethazine Hcl 25mg/Ml 1ml Vial IV 01/19/24 18:27 ONCE ONE Sodium Chloride 10 ml 01/19/24 17:21 01/19/24 17:22 Sodium Chloride 0.9% 10ml Syr (Rad Only) IV 02/18/24 17:20 10 ml NEEDED PRN Administration Maintain IV Site Sodium Chloride 25 ml 01/19/24 18:26 Sodium Chloride 0.9% 25ml Bag IV 01/19/24 18:27 ONCE ONE Discontinued Medications Generic Name Dose Route Start Last Admin Trade Name Freq PRN Reason Stop Dose Admin Lactated Ringer's 1,000 mls @ 999 mls/hr 01/19/24 15:30 01/19/24 16:20 Lactated Ringer's 1000 Ml Bag IV 01/19/24 16:30 999 mls/hr .Q1H1M [place] Administration Iopamidol 75 ml 01/19/24 17:21 01/19/24 17:22 Iopamidol-370 (76%);100ml Bottle IV 01/19/24 17:22 75 ml ONCE ONE Administration Morphine Sulfate 4 mg 01/19/24 15:17 01/19/24 16:19 Morphine 4mg/Ml Syringe IV 01/19/24 15:18 4 mg ONCE ONE Administration Ondansetron HCl 4 mg 01/19/24 15:17 01/19/24 15:20 Ondansetron 4mg/2ml Vial IV 01/19/24 15:18 4 mg ONCE ONE Administration ORDERS Category Date Time Status CT abdomen pelvis w con Routine Cat Scan 01/19/24 Completed CXR --portable [XR chest portable] Stat Exams 01/19/24 15:17 Completed CBC w/Auto Diff [Complete Blood Count Auto Diff] Stat Lab 01/19/24 15:15 Completed CMP [Comprehensive Metabolic Panel] Stat Lab 01/19/24 15:15 Completed Lactic Acid Stat Lab 01/19/24 16:18 Completed Lipase Stat Lab 01/19/24 15:15 Completed Trop I [Troponin I] Stat Lab 01/19/24 15:15 Completed Troponin I Q3H Lab 01/19/24 18:30 Ordered Troponin I Q3H Lab 01/19/24 21:30 Ordered UA [Urinalysis and Microscopic] Stat Lab 01/19/24 15:29 Completed ECG initial Besson Routine Y 01/19/24 15:24 Completed ECG Data Tracing #1: I reviewed this ECG and interpreted as documented below: Ventricular rate of 71 normal sinus rhythm no acute ischemic changes noted normal axis no conduction abnormalities normal EKG Medical Decision Narrative: 53-year-old female present today with right upper quadrant right lower quadrant abdominal pain and tenderness. Differential includes hepatobiliary disease also could be appendicitis kidney stone bowel obstruction etc. Will get a CT scan with contrast to further evaluate. Additionally she has a history of admission in the past with pericarditis that presented with abdominal pain we will get a troponin and EKG and further evaluate this also with a chest x-ray. Pain medicine nausea medicine IV fluids have been administered will reassess. Reassessment 6:43 PM patient feeling much better after medications including Tylenol and Phenergan. Chest x-ray performed which I first interpreted shows no acute cardiopulmonary emergency. EKG performed which I personally interpreted shows a ventricular rate of 71 normal axis no acute ischemic changes or significant conduction abnormalities noted. CT scan also performed which I personally interpreted shows no acute intra-abdominal pathology also this is consistent with radiology read. Serial abdominal exams benign patient tolerating p.o. prescription of Zofran sent to her pharmacy does not consistent with an emergent medical condition at this point patient was discharged in improved and stable condition. Critical Care Critical Care Time Critical Care Time: No
[2024-01-19] MEDS: ONDANSETRON 4MG/2ML VIAL 4 MG IV (15:20)
--- NOTE | 2024-01-19 15:24 | ECG_ITS ---
APPROVED REPORT Exam: Resting ECG HR:71 bpm ECG Measurements Heart Rate 71 AXES MS 156 P 62 QRSd 88 QRS 28 QT 391 T 48 QTc 413 Conclusion SINUS RHYTHM LOW QRS VOLTAGE IN PRECORDIAL LEADS [QRS DEFLECTION < 1.0 mV IN CHEST LEADS] BORDERLINE ECG UNCONFIRMED REPORT Electronically signed by : Telly Collier MD 01/19/2024 19:55:45
[2024-01-19 15:32] LABS: Basophils # 0.1 K/mm3 (0-0.2); Basophils % 0.7 % (0.1-2.0); Eosinophils # 0.2 K/mm3 (0.0-0.4); Hematocrit 40.9 % (37.0-47.0); Hemoglobin 13.6 g/dL (12.2-16.2); Lymphocytes # 2.7 K/mm3 (0.7-4.5); Lymphocytes % 35.5 % (10-50); Mean Corpuscular HGB Conc 33.3 g/dL (31.8-35.4); Mean Corpuscular Hemoglobin 32.5 pg (27.0-31.2); Mean Corpuscular Volume 97.8 fl (81-99); Mean Platelet Volume 8.7 fl (7.4-10.4); Monocytes # 0.4 K/mm3 (0.1-1.0); Neutrophils # 4.2 K/mm3 (1.8-7.8); Neutrophils % 55.8 % (37.0-80.0); Platelet Count 370 K/mm3 (142-424); Red Blood Count 4.18 M/mm3 (4.20-5.40); Red Cell Distribution Width 13.3 % (11.5-17.5); White Blood Count 7.5 K/mm3 (4.8-10.8)
[2024-01-19 15:34] LABS: Microscopic, Urine URINE MICROSCOPIC (MICROSCOPIC)
[2024-01-19 15:39] LABS: Chloride 104 mmol/L (98-107); Potassium 4.6 mmoL/L (3.5-5.1); Sodium 139 mmol/L (136-145)
[2024-01-19 15:41] LABS: Alanine Aminotransferase 32 U/L (12-78); Alkaline Phosphatase 116 U/L (38-126); Aspartate Amino Transferase 42 U/L (14-36); Bilirubin,Total 0.9 mg/dl (0.2-1.3); Blood Urea Nitrogen 15 mg/dl (7-17); Estimated Glomerular Filt Rate 65 ml/min (>60); GFR (African American) 79 ML/MIN (>60)
[2024-01-19 15:42] LABS: Albumin Level 4.4 g/dl (3.5-5.0); Albumin/Globulin Ratio 1.3 (1.1-1.8); Anion Gap 7.6 mEq/L (5-15); Calcium 9.8 mg/dl (8.4-10.2); Carbon Dioxide 32 mmol/L (22.0-30.0); Globulin 3.5 g/dL (1.3-3.2); Glucose 93 mg/dl (74-100); Lipase 25 U/L (23-300); Total Protein,Serum 7.9 g/dl (6.3-8.2)
[2024-01-19 15:55] LABS: Troponin I < 0.01 ng/ml (0.00-0.034)
[2024-01-19 16:00] LABS: Appearance,Urine CLEAR (Clear); Bilirubin,Urine Negative (Negative); Blood, Urine Negative (Negative); Color,Urine YELLOW (Yellow); Glucose,Urine (UA) Negative (Negative); Ketones,Urine Negative (Negative); Leukocyte Esterase,Urine Negative (Negative); Nitrate,Urine Negative (Negative); PH,Urine 6.5 (5.0-8.5); Protein,Urine Negative (Negative); Urobilinogen,Urine 0.2 EU/dl (0.2)
[2024-01-19] MEDS: MORPHINE 4MG/ML SYRINGE 4 MG IV (16:19)
[2024-01-19] MEDS: LACTATED RINGERS 1000ML 1,000 ML 999 ML IV (16:20)
[2024-01-19 16:22] LABS: Squamous Epithelial Cell,Urine Occasional #/hpf (0-5)
[2024-01-19 16:38] LABS: Lactic Acid 1.5 mmol/L (0.7-2.1)
--- NOTE | 2024-01-19 17:07 | PC.NURSE ---
PT gone to RAD for CT
[2024-01-19] MEDS: SODIUM CHLORIDE 0.9% 10ML SYR (RAD ONLY) 10 ML IV (17:22)
[2024-01-19] MEDS: IOPAMIDOL-370 (76%);100ML BOTTLE 75 ML IV (17:22)
[2024-01-19] MEDS: ACETAMINOPHEN 1,000MG/100ML VIAL 1000 MG IV (18:00)
[2024-01-19] MEDS: PROMETHAZINE HCL 25MG/ML 1ML VIAL 12.5 MG IV (18:26)
[2024-01-19] MEDS: SODIUM CHLORIDE 0.9% 25ML BAG 25 ML IV (18:26)
[2024-01-19 19:55] LABS: Troponin I < 0.01 ng/ml (0.00-0.034)
== END 2024-01-19 18:52 | disposition home or self-care (01) ==
PROVIDERS: Student in an Organized Health Care Education/Training Program; Emergency Provider Emergency Medicine; PCP Physician Assistant
DX: R10.11 Right upper quadrant pain (principal); R10.31 Right lower quadrant pain; R11.0 Nausea; I25.110 Atherosclerotic heart disease of native coronary artery with unstable angina pectoris; K90.0 Celiac disease; K21.9 Gastro-esophageal reflux disease without esophagitis; E06.3 Autoimmune thyroiditis; E78.5 Hyperlipidemia, unspecified; E21.3 Hyperparathyroidism, unspecified; I10 Essential (primary) hypertension; I25.2 Old myocardial infarction; G47.33 Obstructive sleep apnea (adult) (pediatric)
CPT/HCPCS: 71045; 74177; 80053; 81001; 83605; 83690; 84484; 85025; 93005; 96361; 96374; 96375; 99285; J0131; J2405; Q9967

== ENCOUNTER 2024-02-04 16:25 | Outpatient (CLI) | payer OTHER, SELFPAY ==
--- NOTE | 2024-02-04 16:28 | XR_ITS ---
PROCEDURE INFORMATION: Exam: XR Right Hand Exam date and time: 02/04/2024 4:30 PM Age: 53 years old Clinical indication: Pain; Finger(s); Right; Additional info: Right thumb pain TECHNIQUE: Imaging protocol: Radiologic exam of the right hand. Views: 3 or more views. COMPARISON: NM BONE SCAN WHOLE BODY 05/14/2023 12:33 PM FINDINGS: Bones/joints: [id number] osteoarthritis involving the 1st CMC joint. No visible fracture or dislocation. Soft tissues: Normal. IMPRESSION: 1. [id number] osteoarthritis involving the 1st CMC joint. 2. No visible fracture or dislocation.
[2024-02-04 17:25] LABS: Basophils # 0.1 K/mm3 (0-0.2); Basophils % 1.1 % (0.1-2.0); Eosinophils # 0.2 K/mm3 (0.0-0.4); Eosinophils % 2.9 % (0.1-12.0); Hematocrit 40.9 % (37.0-47.0); Lymphocytes # 2.1 K/mm3 (0.7-4.5); Mean Corpuscular HGB Conc 31.8 g/dL (31.8-35.4); Mean Corpuscular Hemoglobin 31.6 pg (27.0-31.2); Mean Corpuscular Volume 99.5 fl (81-99); Mean Platelet Volume 8.7 fl (7.4-10.4); Monocytes # 0.3 K/mm3 (0.1-1.0); Neutrophils % 60.9 % (37.0-80.0); Platelet Count 358 K/mm3 (142-424); Red Blood Count 4.11 M/mm3 (4.20-5.40); Red Cell Distribution Width 13.7 % (11.5-17.5); White Blood Count 6.6 K/mm3 (4.8-10.8)
[2024-02-04 18:27] LABS: Erythrocyte Sedimentation Rate 47 mm/hr (0-30)
[2024-02-04 18:33] LABS: Chloride 106 mmol/L (98-107); Potassium 4.5 mmoL/L (3.5-5.1); Sodium 137 mmol/L (136-145)
[2024-02-04 18:35] LABS: Alanine Aminotransferase 24 U/L (12-78); Blood Urea Nitrogen 14 mg/dl (7-17); Estimated Glomerular Filt Rate 58 ml/min (>60); GFR (African American) 70 ML/MIN (>60)
[2024-02-04 18:36] LABS: Albumin/Globulin Ratio 1.5 (1.1-1.8); Alkaline Phosphatase 129 U/L (38-126); Anion Gap 9.5 mEq/L (5-15); Aspartate Amino Transferase 27 U/L (14-36); Bilirubin,Total 0.3 mg/dl (0.2-1.3); Calcium 9.5 mg/dl (8.4-10.2); Carbon Dioxide 26 mmol/L (22.0-30.0); Globulin 2.6 g/dL (1.3-3.2); Glucose 115 mg/dl (74-100); Total Protein,Serum 6.6 g/dl (6.3-8.2)
[2024-02-04 18:43] LABS: C-Reactive Protein 1.5 mg/L (0-4)
[2024-02-04 19:49] LABS: Uric Acid 6.4 mg/dl (2.5-6.2)
[2024-02-05 13:36] LABS: Hemoglobin A1C 6.1 % (4.0-6.0)
== END 2024-02-04 23:59 ==
LOC: LAB 16:26
PROVIDERS: PCP Physician Assistant; Visit Provider Physician Assistant
DX: M79.644 Pain in right finger(s) (principal); R73.09 Other abnormal glucose
CPT/HCPCS: 36415; 73130; 80053; 83036; 84550; 85025; 85651; 86140

== ENCOUNTER 2024-02-17 15:27 | Outpatient (CLI) | payer OTHER, SELFPAY | END 2024-02-17 23:59 | LOC: RT 15:28 | PROVIDERS: PCP Physician Assistant; Visit Provider Nurse Practitioner Family | DX: R00.2 Palpitations (principal); R07.89 Other chest pain; R42 Dizziness and giddiness; I11.9 Hypertensive heart disease without heart failure; I25.10 Atherosclerotic heart disease of native coronary artery without angina pectoris; I42.8 Other cardiomyopathies; E78.2 Mixed hyperlipidemia; I31.9 Disease of pericardium, unspecified | CPT/HCPCS: 93270 ==

== ENCOUNTER 2024-02-27 18:29 | Emergency (ER) | payer OTHER, SELFPAY ==
[2024-02-27 18:29] VITALS: BP 154/103; PULSE 110; RESP 17; TEMP 36.9; O2SAT 98; BMI 27.4
--- NOTE | 2024-02-27 18:30 | ECG_ITS ---
APPROVED REPORT Exam: Resting ECG HR:116 bpm ECG Measurements Heart Rate 116 AXES VA 154 P 83 QRSd 85 QRS 9 QT 343 T 62 QTc 412 Conclusion SINUS TACHYCARDIA LOW QRS VOLTAGE IN PRECORDIAL LEADS [QRS DEFLECTION < 1.0 mV IN CHEST LEADS] ST DEVIATION AND MODERATE T-WAVE ABNORMALITY, CONSIDER INFERIOR ISCHEMIA [-0.1+ mV T-WAVE IN II/aVF] ABNORMAL ECG Electronically signed by : CLARK KIMBROUGH, 02/28/2024 07:51:39
--- NOTE | 2024-02-27 18:31 | ECG_ITS ---
APPROVED REPORT Exam: Resting ECG HR:119 bpm ECG Measurements Heart Rate 119 AXES SC 150 P 67 QRSd 83 QRS 17 QT 311 T 49 QTc 381 Conclusion SINUS TACHYCARDIA Electronically signed by : BEULAH BRIAN, 02/27/2024 19:28:44
--- NOTE | 2024-02-27 18:35 | XR_ITS ---
PROCEDURE INFORMATION: Exam: XR Chest Exam date and time: 02/27/2024 6:35 PM Age: 53 years old Clinical indication: Other: Dissy; Additional info: Dizzy cp TECHNIQUE: Imaging protocol: Radiologic exam of the chest. Views: 1 view. COMPARISON: CR XR CHEST PORTABLE 01/19/2024 5:21 PM FINDINGS: Lungs: Subsegmental atelectasis left lung base. Pleural spaces: Unremarkable. No pleural effusion. No pneumothorax. Heart/Mediastinum: Unremarkable. No cardiomegaly. Bones/joints: Unremarkable. IMPRESSION: No evidence of acute cardiopulmonary disease.
[2024-02-27] MEDS: ASPIRIN 81MG CHEWABLE TABLET 324 MG PO (18:39)
[2024-02-27] MEDS: 0.9 % SODIUM CHLORIDE 1000ML 1,000 ML 999 ML IV (18:40)
--- NOTE | 2024-02-27 19:06 | CT_ITS ---
PROCEDURE INFORMATION: Exam: CTA Chest With Contrast Exam date and time: 02/27/2024 7:41 PM Age: 53 years old Clinical indication: Pain; Radiating; Prior surgery; Surgery date: 6+ months; Surgery type: Stents; Additional info: Cp to back with palpitations TECHNIQUE: Imaging protocol: Computed tomographic angiography of the chest with contrast. Exam focused on the arteries. 3D rendering (Not supervised by radiologist): MIP and/or 3D reconstructed images were created by the technologist. Radiation optimization: All CT scans at this facility use at least one of these dose optimization techniques: automated exposure control; mA and/or kV adjustment per patient size (includes targeted exams where dose is matched to clinical indication); or iterative reconstruction. Contrast material: ISOVUE; Contrast volume: 75 ml; Contrast route: INTRAVENOUS (IV); COMPARISON: CT ANGIO CHEST 11/05/2023 7:42 PM FINDINGS: Pulmonary arteries: Normal. No pulmonary emboli. Aorta: Unremarkable. No aortic aneurysm. No aortic dissection. Lungs: Lingular atelectasis. Dependent bilateral lung base opacities favor atelectasis. Pleural spaces: Unremarkable. No pneumothorax. No pleural effusion. Heart: Unremarkable. No cardiomegaly. No pericardial effusion. Coronary arteries: Moderate three-vessel calcific atherosclerotic disease of the coronary arteries. There is stenting of the left main and RCA Lymph nodes: Unremarkable. No enlarged lymph nodes. Liver: Multiple hypoattenuating circumscribed structures of the liver compatible with simple hepatic cysts with the largest measuring 1.4 cm in diameter. Bones/joints: Unremarkable. No acute fracture. Soft tissues: Unremarkable. IMPRESSION: No acute findings.
--- NOTE | 2024-02-27 19:06 | [facility].EDCP ---
Discharge Plan Disposition Patient Disposition: Home, Self-Care Prescriptions Prescriptions: New hydroxyzine pamoate [Vistaril] 25 mg capsule 25 mg PO Q6H PRN (Reason: anxiety) Qty: 30 2RF Rx Instructions: Take 1 to 2 capsules every 6 hours as needed for anxiety ondansetron 4 mg tablet,disintegrating 4 mg PO Q6H PRN (Reason: nausea and vomiting) Qty: 10 0RF No Action metoprolol succinate 100 mg tablet extended release 24 hr 100 mg PO BID Qty: 60 5RF omeprazole 40 mg capsule,delayed release(DR/EC) 40 mg PO BID Qty: 60 5RF Gimoti 15 mg/spray spray with pump 1 spray intranasal QID Qty: 9.8 5RF Rx Instructions: administer into ONE nostril 30 minutes before each meal and at bedtime levothyroxine 50 mcg tablet 50 mcg PO DAILYDM Qty: 90 1RF ondansetron 8 mg tablet,disintegrating See Rx Instructions .ROUTE .COMPLEX Qty: 30 1RF Dose Instruction: DISSOLVE 1 TABLET ON THE TONGUE EVERY 8 HOURS NEEDED FOR NAUSEA/VOMITING Rx Instructions: DISSOLVE 1 TABLET ON THE TONGUE EVERY 8 HOURS NEEDED FOR NAUSEA/VOMITING prasugrel 10 mg tablet See Rx Instructions .ROUTE .COMPLEX Qty: 90 4RF Dose Instruction: TAKE ONE TABLET BY MOUTH ONCE A DAY FOR BLOOD THINNER Rx Instructions: TAKE ONE TABLET BY MOUTH ONCE A DAY FOR BLOOD THINNER aspirin 81 mg tablet,delayed release (DR/EC) See Rx Instructions .ROUTE .COMPLEX Qty: 30 0RF Dose Instruction: TAKE ONE TABLET BY MOUTH AT BEDTIME FOR HEART HEALTH Rx Instructions: TAKE ONE TABLET BY MOUTH AT BEDTIME FOR HEART HEALTH atorvastatin 40 mg tablet See Rx Instructions .ROUTE .COMPLEX Qty: 30 0RF Dose Instruction: TAKE ONE TABLET BY MOUTH AT BEDTIME FOR CHOLESTEROL Rx Instructions: TAKE ONE TABLET BY MOUTH AT BEDTIME FOR CHOLESTEROL promethazine 25 mg tablet 25 mg PO TIDP PRN (Reason: Nausea) nitroglycerin 0.4 mg tablet, sublingual 0.4 mg sublingual Q5MINP PRN (Reason: Chest Pain) cholecalciferol (vitamin D3) 1,250 mcg (50,000 unit) capsule 1,250 mcg PO WEEKLY Referrals Follow up/Referrals: Michelle Quiñonez PA [Primary Care Provider] - See instructions Activity Restrictions/Add. Instructions Additional Instructions/Restrictions: Call your family doctor to establish care for this visit to the emergency department and schedule follow-up within 48 hours to ensure improvement. If you have any worsening of your condition or any other concerning signs or symptoms, return to the emergency department or your primary care doctor for further evaluation. Clinical Impressions Clinical Impression: Anxiety, Chest pain Discharge ED Provider: Pierce Phillips HPI General Chief Complaint: Chest Pain Stated Complaint: chest pain Time Seen by Provider: 02/27/24 18:30 History of Present Illness HPI narrative: 53-year-old female history of chronic pain, anxiety, hypertension, hyperlipidemia, previous NSTEMI, CAD status post stenting x 5 presenting with chest pain. Patient states has been going on for about 3 weeks. Was recently taken off of her gabapentin, clonazepam, opiate pain medication in the past 3 weeks as well. Chest pain is substernal, radiates to her back, associated with shortness of breath and palpitations. No other medication changes. No neurologic deficits. Pain is made better with rest, made worse with exertion, nonpositional. Please note that above description of symptoms, in this electronic medical record under categorization of recalled from ER triage doctor by RN are reflective of an initial nursing assessment, however, is not reflective of my full history and physical exam that was personally taken and clarified. Consequentially, this preceding description of symptoms, which may include the patient's categorized chief complaint in the EMR, do not reflect my personal clinical impression, and the ultimate description of history of present illness and patient stated complaints should be deferred to this section of the note. Unless stated otherwise or congruent with this section of the note, additional signs, symptoms, or incongruence should be interpreted as inaccurate with my clinical impression. Related Data Home Medications Medication Instructions Recorded Confirmed cholecalciferol (vitamin D3) 1,250 1,250 mcg PO WEEKLY Supplement 08/25/23 02/17/24 mcg (50,000 unit) capsule nitroglycerin 0.4 mg sublingual 0.4 mg sublingual Q5MINP PRN Chest 08/25/23 02/17/24 tablet Pain promethazine 25 mg tablet 25 mg PO TIDP PRN Nausea 09/22/23 02/17/24 Previous Rx's Medication Instructions Recorded omeprazole 40 mg capsule,delayed 40 mg PO BID Acid Reflux #60 caps 10/13/23 release levothyroxine 50 mcg tablet 50 mcg PO DAILYDM THYROID #90 tabs 10/14/23 ondansetron 8 mg disintegrating See Rx Instructions .Route 10/24/23 tablet .COMPLEX #30 tabs prasugrel 10 mg tablet See Rx Instructions .Route 11/25/23 .COMPLEX #90 tabs metoclopramide HCl 15 mg/spray 1 spray intranasal QID #9.8 mL 12/25/23 nasal spray with pump (Gimoti) aspirin 81 mg tablet,delayed See Rx Instructions .Route 02/16/24 release .COMPLEX #30 tabs atorvastatin 40 mg tablet See Rx Instructions .Route 02/16/24 .COMPLEX #30 tabs metoprolol succinate 100 mg 100 mg PO BID #60 tabs 02/17/24 tablet,extended release 24 hr hydroxyzine pamoate 25 mg capsule 25 mg PO Q6H PRN anxiety #30 caps 02/27/24 (Vistaril) ondansetron 4 mg disintegrating 4 mg PO Q6H PRN nausea and 02/27/24 tablet vomiting #10 tabs Allergies Allergy/AdvReac Type Severity Reaction Status Date / Time ketorolac [From TORADOL] Allergy Mild I-RASH Verified 02/17/24 14:38 Penicillins [PENICILLINS] Allergy Mild I-RASH Verified 02/17/24 14:38 isosorbide AdvReac Intermediate Headache Verified 02/17/24 14:38 [facility] Disclaimer: The information contained in this section may have been updated after the patient was seen, as this information can be updated by other users. Medical History (Updated 02/27/24 @ 20:42 by Pierce Phillips MD) Palpitations Atypical chest pain SOB (shortness of breath) on exertion Slurred speech Diarrhea Dehydration Pericarditis Pericardial effusion Elevated troponin Non-STEMI (non-ST elevated myocardial infarction) Pericardial effusion Left arm pain Dizziness CAD in [place] artery Unstable angina Coronary artery calcification seen on CT scan Chest pain Polyarthralgia Knee pain Anorexia Sore throat, chronic Dysphagia History of hemorrhoids Difficulty passing stool Thyroid Nodule Chest pain Abdominal pain Constipation Altered thought processes Dizziness Hyperparathyroidism KORI on CPAP Postoperative spinal headache Lupus Celiac disease Osteoarthritis Depression KORI (obstructive sleep apnea) Candidal intertrigo Rash Breast swelling Breast enlargement Bilateral knee pain Right shoulder pain Low back pain KORI (obstructive sleep apnea) Cervical radicular pain Osteoarthritis Lumbar radiculopathy Comfort's thyroiditis Gastroesophageal reflux disease Dyspnea Cervical disc disease Obesity (BMI 30.0-34.9) Migraine Neck pain Noncompliance with medication regimen Anxiety Hypertension Chronic pain Thoracic back pain HHD (hypertensive heart disease) Fatigue Coronary vasospasm Tobacco use disorder Diastolic dysfunction Coronary artery dissection Coronary artery disease Abnormal EKG SOB (shortness of breath) Typical angina Hyperlipidemia Obesity Tobacco use Chest pain Vertigo Fibromyalgia Hyperlipidemia Hypothyroidism Vitamin D deficiency Surgical History History of cardiac cath History of partial hysterectomy H/O left knee surgery H/O tubal ligation S/P coronary artery stent placement Family History Other Cancer Coronary artery disease Diabetes Heart attack Hypertension Social History Smoking Status: Unknown if ever smoked second hand exposure: No alcohol intake: never substance use type: denies use current occupational status: unemployed Travel in the last 8 weeks: None household members: spouse housing: house lives independently: No marital status: education level: high school service: No snf: No current occupational exposures/hazards: No caffeine: Yes special giuliana needs: No agree to transfusion: No do you feel safe at home: Yes victim of physical abuse: No victim of emotional abuse: No victim of sexual abuse: No would you like helpful sources: No ROS Obtained: Yes All systems reviewed & no additional complaints except as documented Physical Exam General General appearance: alert Neck Neck exam: Present trachea midline Chest Chest inspection: Present normal inspection and symmetric chest wall rise Respiratory Respiratory exam: Present normal lung sounds bilaterally; Absent respiratory distress, wheezes, stridor, accessory muscle use or prolonged expiratory phase Cardiovascular Cardiovascular exam: Present regular rate and normal rhythm Extremities Exam Extremities exam: Absent edema Neurological Exam Neurological exam: Present alert, oriented X3 and CN II-XII intact Skin Skin exam: Present warm and dry; Absent cyanosis, diaphoresis or pallor HEART Score HEART Score HEART Score assessment performed?: Yes History (anamnesis): Slightly suspicious ECG: Normal Age: 45-65 years Risk factors: 3 or more risk factors Troponin: </= normal limit HEART Score: 3 Critical Care Critical Care Time Critical Care Time: No Medical Decision Making Medical Records Medical records reviewed: Yes I reviewed the patient's medical records. Hugo Inquiry Pt receiving controlled substance: No Hugo was queried for this patient: No Vital Signs Vital Signs: 02/27/24 18:29 02/27/24 20:00 Temperature 98.5 F Temperature Source Oral Pulse Rate 80 Pulse Rate [Right] 110 H Respiratory Rate 17 15 Blood Pressure 146/89 H Blood Pressure [Right Arm] 154/103 H Blood Pressure Mean 115 Blood Pressure Mean [Right Arm] 120 Blood Pressure Source [Right Arm] Automatic Cuff 02 Sat by Pulse Oximetry 98 99 Oxygen Delivery Method Room Air Room Air Lab Data Labs: Lab Results 02/27/24 19:07: WBC 8.3, RBC 4.46, Hgb 14.0, Hct 44.4, MCV 99.5 H, MCH 31.4 H, MCHC 31.5 L, RDW 14.2, Plt Count 368, MPV 8.4, Neut % (Auto) 62.8, Lymph % (Auto) 29.9, [place] % (Auto) 4.3, Eos % (Auto) 1.7, Baso % (Auto) 1.4, Neut # (Auto) 5.2, Lymph # (Auto) 2.5, [place] # (Auto) 0.4, Eos # (Auto) 0.1, Baso # (Auto) 0.1, D-Dimer 0.47, Sodium 144, Potassium 3.5, Chloride 106, Carbon Dioxide 29, Anion Gap 12.5, BUN 15, Creatinine 0.90, Estimated Creat Clear 81, Estimated GFR 65, Est GFR ( Amer) 79, Glucose 136 H, Hemoglobin A1c 6.2 H, Calcium 10.3 H, Magnesium 2.4 H, Total Bilirubin 0.6, AST 29, ALT 29, Alkaline Phosphatase 129 H, Troponin I < 0.01, NT-Pro-B Natriuret Pep 57.5, Total Protein 8.0, Albumin 4.6, Globulin 3.4 H, Albumin/Globulin Ratio 1.4, Lipase 45 02/27/24 19:07 02/27/24 19:07 Response Orders (Tests/Meds): ED MEDICATIONS Generic Name Dose Route Start Last Admin Trade Name Freq PRN Reason Stop Dose Admin Sodium Chloride 10 ml 02/27/24 19:46 02/27/24 19:47 Sodium Chloride 0.9% 10ml Syr (Rad Only) IV 03/28/24 19:45 10 ml NEEDED PRN Administration Maintain IV Site Discontinued Medications Generic Name Dose Route Start Last Admin Trade Name Hunter PRN Reason Stop Dose Admin Aspirin 324 mg 02/27/24 18:35 02/27/24 18:39 Aspirin 81mg Chewable Tablet PO 02/27/24 18:36 324 mg ONCE ONE Administration Hydroxyzine Pamoate 50 mg 02/27/24 20:39 02/27/24 20:44 Hydroxyzine Pamoate 25mg Capsule PO 02/27/24 20:40 50 mg ONCE ONE Administration Sodium Chloride 1,000 mls @ 999 mls/hr 02/27/24 18:35 02/27/24 18:40 Sod Chlor 0.9% 1000ml Bag IV 02/27/24 19:35 999 mls/hr .Q1H1M ONE Administration Iopamidol 75 ml 02/27/24 19:46 02/27/24 19:47 Iopamidol-370 (76%);100ml Bottle IV 02/27/24 19:47 75 ml ONCE ONE Administration Promethazine HCl 25 mg 02/27/24 19:32 02/27/24 20:00 Promethazine Hcl 25mg/Ml 1ml Vial IV 02/27/24 19:33 25 mg ONCE ONE Administration Sodium Chloride 25 ml 02/27/24 19:32 02/27/24 20:00 Sodium Chloride 0.9% 25ml Bag IV 02/27/24 19:33 25 ml ONCE ONE Administration Sodium Chloride 50 ml 02/27/24 19:46 02/27/24 19:47 0.9 % Sodium Chloride 50 Ml Vial IV 02/27/24 19:47 50 ml ONCE ONE Administration ORDERS Category Date Time Status CT angio chest PE protocol Stat Cat Scan 02/27/24 19:06 Completed XR chest portable Stat Exams 02/27/24 18:35 Completed Complete Blood Count Auto Diff Stat Lab 02/27/24 19:07 Completed Comprehensive Metabolic Panel Stat Lab 02/27/24 19:07 Completed D-Dimer Stat Lab 02/27/24 19:07 Completed Hemoglobin A1C Stat Lab 02/27/24 19:07 Completed Lactic Acid Stat Lab 02/27/24 18:35 Ordered Lipase Stat Lab 02/27/24 19:07 Completed Magnesium Stat Lab 02/27/24 19:07 Completed NT Pro Brain Natriuretic Pep. Stat Lab 02/27/24 19:07 Completed Troponin I Q3H Lab 02/27/24 21:45 Ordered Troponin I Q3H Lab 02/28/24 00:45 Ordered Troponin I Stat Lab 02/27/24 19:07 Completed MDM Narrative Medical Decision Narrative: 53-year-old female history of chronic pain, anxiety, hypertension, hyperlipidemia, previous NSTEMI, CAD status post stenting x 5 presenting with chest pain. Patient states has been going on for about 3 weeks. Was recently taken off of her gabapentin, clonazepam, opiate pain medication in the past 3 weeks as well. Chest pain is substernal, radiates to her back, associated with shortness of breath and palpitations. No other medication changes. No neurologic deficits. Pain is made better with rest, made worse with exertion, nonpositional. History was obtained via conversation with patient and . On arrival, patient hemodynamically stable, alert, oriented x4, appropriate, GCS 15, moving all extremities spontaneously, pupils equal and reactive to light. Full physical exam performed and significant for well-appearing woman in no acute distress. She is tachycardic, mildly hypertensive, lungs are clear to auscultation bilaterally. No evidence of murmurs, gallops, rubs. Pulses are equal and symmetric. Abdomen soft, patient neurologically intact. Differential includes microvascular coronary artery disease, CHF, ACS, MD, coronary artery dissection, pneumothorax, PE, dissection, pericarditis, myocarditis, pneumothorax, aortic aneurysm, pneumonia, bronchitis, among others. Patient was given 325 aspirin for symptomatic management and correction of underlying abnormalities. Workup independently interpreted and significant for Nonactionable CBC. Chemistry also nonactionable. D-dimer negative at 0.47. A1c mildly elevated at 6.2, troponin negative, BNP negative. Lipase also negative.. See radiology read for full review of final results. Independent interpretation of EKG shows sinus tachycardia [address] or T wave changes concerning for acute ischemia. OR, QRS, QT intervals within normal limits. Patient placed on continuous cardiac monitoring and continuous pulse ox with initial blood pressure 154/103, heart rate 110, saturation 98% on room air. Heart score 3. Patient becoming nauseated on initial reevaluation, she was given [address] PE without dissection or pulmonary embolus on independent interpretation. Because patient symptoms have been going on for weeks, deemed appropriate for outpatient management. Extensive conversation was had with patient and significant other, to be followed up with primary doctor regarding SSRI and management of chronic anxiety. They voiced her understanding. Patient given 50 mg hydroxyzine here in the emergency department p.o. and hydroxyzine/Zofran sent to pharmacy. Because patient at baseline without signs or symptoms of clinical decompensation, deemed appropriate for discharge. Results were relayed to patient who voiced understanding and were agreeable to outpatient management and follow up. I discussed my clinical impression with patient and answered all questions. At this time, the evidence for any other entities in the differential is insufficient to warrant any further testing or ED observation. This was explained as well. Advisory was given that persistent or worsening symptoms require further evaluation. I confirmed the understanding of this discussion.
[2024-02-27 19:18] LABS: Basophils # 0.1 K/mm3 (0-0.2); Basophils % 1.4 % (0.1-2.0); Eosinophils # 0.1 K/mm3 (0.0-0.4); Eosinophils % 1.7 % (0.1-12.0); Hematocrit 44.4 % (37.0-47.0); Lymphocytes # 2.5 K/mm3 (0.7-4.5); Lymphocytes % 29.9 % (10-50); Mean Corpuscular HGB Conc 31.5 g/dL (31.8-35.4); Mean Corpuscular Hemoglobin 31.4 pg (27.0-31.2); Mean Corpuscular Volume 99.5 fl (81-99); Mean Platelet Volume 8.4 fl (7.4-10.4); Monocytes # 0.4 K/mm3 (0.1-1.0); Monocytes % 4.3 % (1.7-9.3); Neutrophils # 5.2 K/mm3 (1.8-7.8); Neutrophils % 62.8 % (37.0-80.0); Platelet Count 368 K/mm3 (142-424); Red Blood Count 4.46 M/mm3 (4.20-5.40); Red Cell Distribution Width 14.2 % (11.5-17.5); White Blood Count 8.3 K/mm3 (4.8-10.8)
[2024-02-27 19:25] LABS: Anion Gap 12.5 mEq/L (5-15); Aspartate Amino Transferase 29 U/L (14-36); Bilirubin,Total 0.6 mg/dl (0.2-1.3); Blood Urea Nitrogen 15 mg/dl (7-17); Calcium 10.3 mg/dl (8.4-10.2); Carbon Dioxide 29 mmol/L (22.0-30.0); Chloride 106 mmol/L (98-107); Creatinine Clearance Estimated 81 mL/min (50-200); Estimated Glomerular Filt Rate 65 ml/min (>60); GFR (African American) 79 ML/MIN (>60); Glucose 136 mg/dl (74-100); Magnesium 2.4 mg/dl (1.6-2.3); Potassium 3.5 mmoL/L (3.5-5.1); Sodium 144 mmol/L (136-145)
[2024-02-27 19:26] LABS: Alanine Aminotransferase 29 U/L (12-78); Albumin Level 4.6 g/dl (3.5-5.0); Albumin/Globulin Ratio 1.4 (1.1-1.8); Alkaline Phosphatase 129 U/L (38-126); Globulin 3.4 g/dL (1.3-3.2); Lipase 45 U/L (23-300)
[2024-02-27 19:33] LABS: D-Dimer 0.47 ug/mL (0.0-0.5); Hemoglobin A1C 6.2 % (4.0-6.0)
[2024-02-27 19:41] LABS: NT Pro Brain Natriuretic Pep. 57.5 pg/mL (0-125)
[2024-02-27 19:44] LABS: Troponin I < 0.01 ng/ml (0.00-0.034)
[2024-02-27] MEDS: SODIUM CHLORIDE 0.9% 10ML SYR (RAD ONLY) 10 ML IV (19:47)
[2024-02-27] MEDS: 0.9 % SODIUM CHLORIDE 50 ML VIAL IV (19:47)
[2024-02-27] MEDS: IOPAMIDOL-370 (76%);100ML BOTTLE 75 ML IV (19:47)
[2024-02-27 20:00] VITALS: BP 146/89; PULSE 80; RESP 15; O2SAT 99
[2024-02-27] MEDS: PROMETHAZINE HCL 25MG/ML 1ML VIAL 25 MG IV (20:00)
[2024-02-27] MEDS: SODIUM CHLORIDE 0.9% 25ML BAG 25 ML IV (20:00)
[2024-02-27 20:30] VITALS: BP 165/91; PULSE 88; RESP 11; O2SAT 98
[2024-02-27] MEDS: hydrOXYzine pamoate 25MG CAPSULE 50 MG PO (20:44)
[2024-02-27 21:00] VITALS: BP 128/86; PULSE 79; RESP 15; O2SAT 97
[2024-02-27 21:07] VITALS: BP 128/86; PULSE 79; RESP 15; TEMP 36.9; O2SAT 97
== END 2024-02-27 21:09 | disposition home or self-care (01) ==
PROVIDERS: Emergency Provider Emergency Medicine; PCP Physician Assistant
DX: R07.9 Chest pain, unspecified (principal); R06.02 Shortness of breath; R00.0 Tachycardia, unspecified; F41.9 Anxiety disorder, unspecified; I11.9 Hypertensive heart disease without heart failure; I25.119 Atherosclerotic heart disease of native coronary artery with unspecified angina pectoris; E78.5 Hyperlipidemia, unspecified; E03.9 Hypothyroidism, unspecified; Z95.5 Presence of coronary angioplasty implant and graft
CPT/HCPCS: 71045; 71275; 80053; 83036; 83690; 83735; 83880; 84484; 85025; 85378; 93005; 96361; 96374; 99285; Q9967

== ENCOUNTER 2024-03-30 14:51 | Outpatient (CLI) | payer OTHER, SELFPAY ==
[2024-03-30 15:22] LABS: Basophils # 0.1 K/mm3 (0-0.2); Basophils % 1.1 % (0.1-2.0); Eosinophils # 0.2 K/mm3 (0.0-0.4); Eosinophils % 2.6 % (0.1-12.0); Hematocrit 40.8 % (37.0-47.0); Hemoglobin 13.3 g/dL (12.2-16.2); Lymphocytes # 2.4 K/mm3 (0.7-4.5); Lymphocytes % 32.3 % (10-50); Mean Corpuscular HGB Conc 32.5 g/dL (31.8-35.4); Mean Corpuscular Hemoglobin 31.5 pg (27.0-31.2); Mean Corpuscular Volume 96.9 fl (81-99); Mean Platelet Volume 8.7 fl (7.4-10.4); Monocytes # 0.3 K/mm3 (0.1-1.0); Monocytes % 4.3 % (1.7-9.3); Neutrophils # 4.5 K/mm3 (1.8-7.8); Neutrophils % 59.8 % (37.0-80.0); Platelet Count 327 K/mm3 (142-424); Red Blood Count 4.21 M/mm3 (4.20-5.40); Red Cell Distribution Width 14.7 % (11.5-17.5); White Blood Count 7.5 K/mm3 (4.8-10.8)
[2024-03-30 15:54] LABS: Alanine Aminotransferase 24 U/L (12-78); Albumin Level 4.5 g/dl (3.5-5.0); Alkaline Phosphatase 130 U/L (38-126); Anion Gap 16.2 mEq/L (5-15); Aspartate Amino Transferase 26 U/L (14-36); Bilirubin,Direct 0.1 mg/dl (0.0-0.4); Bilirubin,Indirect 0.4 mg/dL (0.0-0.9); Bilirubin,Total 0.5 mg/dl (0.2-1.3); Bilirubin,Unconjugated 0.5 mg/dL (0.0-1.1); Blood Urea Nitrogen 9 mg/dl (7-17); Calcium 10.3 mg/dl (8.4-10.2); Carbon Dioxide 25 mmol/L (22.0-30.0); Chloride 104 mmol/L (98-107); Chol/HDL Ratio 2.7 (1-3.5); Cholesterol 165 mg/dl (140-200); Estimated Glomerular Filt Rate 87 ml/min (>60); GFR (African American) 105 ML/MIN (>60); Glucose 88 mg/dl (74-100); HDL Cholesterol 62 mg/dl (40-60); Magnesium 2.2 mg/dl (1.6-2.3); Potassium 4.2 mmoL/L (3.5-5.1); Sodium 141 mmol/L (136-145); Total Protein,Serum 7.3 g/dl (6.3-8.2); Triglycerides 149 mg/dl (30-150); VLDL Cholesterol 30 mg/dL (0-40)
[2024-03-30 16:05] LABS: Direct LDL Cholesterol 84.38 mg/dL (100-129)
[2024-03-30 16:09] LABS: Free T4 (Free Thyroxine) 0.72 ng/dl (0.78-2.19)
[2024-03-30 16:25] LABS: Thyroid Stimulating Hormone 3.22 uIU/mL (0.465-4.68)
== END 2024-03-30 23:59 | disposition home or self-care (01) ==
LOC: LAB 14:53
PROVIDERS: Visit Provider Nurse Practitioner Family
DX: R00.0 Tachycardia, unspecified (principal); R07.9 Chest pain, unspecified; E78.2 Mixed hyperlipidemia
CPT/HCPCS: 36415; 80048; 80061; 80076; 83735; 84439; 84443; 85025

== ENCOUNTER 2024-12-15 15:09 | Outpatient (CLI) | payer OTHER, SELFPAY ==
[2024-12-15 15:39] LABS: Basophils # 0.1 K/mm3 (0-0.2); Basophils % 0.8 % (0.1-2.0); Eosinophils # 0.2 K/mm3 (0.0-0.4); Eosinophils % 3.5 % (0.1-12.0); Hemoglobin 13.2 g/dL (12.2-16.2); Lymphocytes # 1.6 K/mm3 (0.7-4.5); Lymphocytes % 26.4 % (10-50); Mean Corpuscular Hemoglobin 31.4 pg (27.0-31.2); Mean Corpuscular Volume 95.2 fl (81-99); Mean Platelet Volume 11.4 fl (7.4-10.4); Monocytes # 0.3 K/mm3 (0.1-1.0); Neutrophils # 3.8 K/mm3 (1.8-7.8); Neutrophils % 64.1 % (37.0-80.0); Platelet Count 319 K/mm3 (142-424); Red Cell Distribution Width 14.4 % (11.5-17.5)
[2024-12-15 16:20] LABS: Alanine Aminotransferase 48 U/L (12-78); Albumin Level 4.3 g/dl (3.5-5.0); Alkaline Phosphatase 160 U/L (38-126); Anion Gap 17.4 mEq/L (5-15); Aspartate Amino Transferase 45 U/L (14-36); Bilirubin,Direct 0.2 mg/dl (0.0-0.4); Bilirubin,Indirect 0.1 mg/dL (0.0-0.9); Bilirubin,Total 0.3 mg/dl (0.2-1.3); Bilirubin,Unconjugated 0.1 mg/dL (0.0-1.1); Blood Urea Nitrogen 14 mg/dl (7-17); Carbon Dioxide 23 mmol/L (22.0-30.0); Chloride 102 mmol/L (98-107); Chol/HDL Ratio 4.1 (1-3.5); Cholesterol 136 mg/dl (140-200); Estimated Glomerular Filt Rate 103 ml/min (>60); GFR (African American) 125 ML/MIN (>60); Glucose 282 mg/dl (74-100); HDL Cholesterol 33 mg/dl (40-60); Potassium 4.4 mmoL/L (3.5-5.1); Sodium 138 mmol/L (136-145); Total Protein,Serum 6.9 g/dl (6.3-8.2); Triglycerides 237 mg/dl (30-150); VLDL Cholesterol 47 mg/dL (0-40)
[2024-12-15 16:32] LABS: Direct LDL Cholesterol 77.29 mg/dL (100-129)
[2024-12-15 16:36] LABS: Hemoglobin A1C 9.9 % (4.0-6.0)
[2024-12-15 16:37] LABS: Free T4 (Free Thyroxine) 0.93 ng/dl (0.78-2.19)
[2024-12-15 16:50] LABS: Thyroid Stimulating Hormone 2.92 uIU/mL (0.465-4.68)
== END 2024-12-15 23:59 | disposition home or self-care (01) ==
LOC: LAB 15:11
PROVIDERS: Nurse Practitioner; PCP Pediatrics; Visit Provider Internal Medicine
DX: I25.118 Atherosclerotic heart disease of native coronary artery with other forms of angina pectoris (principal); R06.09 Other forms of dyspnea; E03.9 Hypothyroidism, unspecified; E21.3 Hyperparathyroidism, unspecified; I10 Essential (primary) hypertension; E78.2 Mixed hyperlipidemia
CPT/HCPCS: 36415; 80048; 80061; 80076; 83036; 83735; 84439; 84443; 85025

== ENCOUNTER 2024-12-30 11:42 | Outpatient (CLI) | payer OTHER, SELFPAY ==
--- NOTE | 2024-12-30 11:45 | CA_ITS ---
APPROVED REPORT EXAM: Comprehensive 2D, Doppler, and color-flow Echocardiogram [employer] Associate: Eulalia Daugherty RVT Ht: 5 ft 4 in Wt: 223lbs BSA: 2.05 BP: 143/87 mmHg Indications: CP,DYSPENA,CAD,ABN EKG,DD,HTN,HLD,LUPUS,EX SMOKER TDS-LIMITED WINDOWS 2D Dimensions IVSd 1.55 cm F: 0.6-1.0 LVEF (Visual) 62.70 % PWd 1.08 cm F: 0.6 - 1.0 LA Volume 13.40 mL LVDd 2.83 cm F: 3.9 - 5.3 LA Volume Index 6.54 mL/m2 (M/F) 16-34 LVDs 1.91 cm F: 2.2 - 3.5 EF AP4 49.90 % GL Strain -23.4 % M-Mode Dimensions LA Diam 3.41 cm (1.9-4.0) LV Diastology E Decel Time 150 (160-240 msec) E/A Ratio 1.1 Aortic Valve GABBY Index 1.19 cm2/m2 AoV Peak Antoine. 87.0 (50-130 cm/s) AO Peak GR. 3.00 mmHg AO Mean GR. 2.00 (<5 mmHg) AO VTI 16.9 (18-25 cm) GABBY (VTI) 2.50 (2.5-4.5 cm2) Mitral Valve MV E Max Antoine. 72.0 (40-130 cm/s) MV A Velocity 66.0 (40-130 cm/s) E/A Ratio 1.09 MV PHT 44.0 ms Pulmonary Valve PV Peak Velocity 103.0 (50-150 cm/s) Left Ventricle The left ventricle is normal size. The left ventricular systolic function is normal. The left ventricular ejection fraction is within the normal range. There is increased overall thickness. There is normal LV segmental wall motion. Transmitral Doppler flow pattern suggests impaired LV relaxation. LVEF is 65%. Right Ventricle The right ventricle is borderline dilated. The right ventricular systolic function is normal. Atria The left atrium size is normal. The right atrium size is normal. The interatrial septum is not well-visualized. Aortic Valve Aortic valve is mildly thickened. There is no aortic valvular stenosis. No aortic regurgitation is present. Mitral Valve The mitral valve is normal in structure. No evidence of mitral valve stenosis. Mild mitral regurgitation. Tricuspid Valve The tricuspid valve leaflets are thin and pliable. Trace tricuspid regurgitation. There is insufficient TR jet to estimate RVSP. Pulmonic Valve The pulmonary valve is normal in structure. Trace pulmonic regurgitation. Great Vessels The aortic root is normal in size. The ascending aorta is not well-visualized. IVC is normal in size and collapses >50% with inspiration. Pericardium There is no pericardial effusion. Other Information Study Quality: Technically Difficult Conclusion Technically difficult study due to poor acoustic windows. Normal biventricular systolic function. Borderline RV dilation. Mild MR. Electronically signed by : Kelly Mejia MD 12/31/2024 00:05:58
--- NOTE | 2024-12-30 11:46 | NM_ITS ---
APPROVED REPORT Exam: Nuclear Stress Test Indication: Chest pain, SOB, Fatigue, HTN, High cholesterol, CAD Patient Location: Outpatient Stress Tech: Morenita LEO Tech:LAURA Arellano RT(R)(N) Ht: 5 ft 4 in Wt: 233 lbs Bra Size: 40DD HR: 74 bpm BP: 164/92 mmHg BSA: 2.09 m2 TID: 0.97 BMI: 39.9 History: Chest pain, SOB, Fatigue, HTN, High cholesterol, CAD Procedure: Patient received 0.4 mg of intravenous Lexiscan, resting heart rate 74 bpm, resting blood pressure 164/92 mmHg, with Lexiscan maximum heart rate achieved was 135 bpm which is % of the maximum predicted heart rate and blood pressure was 154/93 mmHg. With Lexiscan, patient denied any complaint of chest pain. Cardiac Stress and Resting SPECT Images: Cardiac Stress and Resting SPECT images were obtained using technetium 99m Myoview 32.0 mCi stress and 10.15 mCi at rest. Technically difficult imaging due to significant soft tissue overlap with the cardiac borders. This may affect the diagnostic interpretation of the study findings. Resting and stress imaging in supine and prone positions demonstrate a large sized, moderate, predominantly fixed perfusion defect in the anterior LV wall. There is minimal reversibility towards the distal anterior LV wall. Gated imaging demonstrates normal global and regional LV systolic function. LVEF is calculated at 66%. Conclusion: Technically difficult study. Large sized, moderate, predominantly fixed perfusion defect in the anterior LV wall. There is minimal reversibility towards the distal anterior LV wall. Findings are suggestive of partial reversible ischemia. Gated imaging demonstrates normal global and regional LV systolic function. LVEF is calculated at 66%. Electronically signed by : Kelly Mejia MD 12/31/2024 00:00:27
[2024-12-30] MEDS: SODIUM CHLORIDE 0.9% 10ML SYR (RAD ONLY) 10 ML IV ×2 (14:52)
[2024-12-30] MEDS: REGADENOSON 0.4MG/5ML SYRINGE 0.4 MG IV (14:52)
[2024-12-30] MEDS: ISOTOPE MYOVIEW (PER STUDY) 1 DOSE IV (14:52)
== END 2024-12-30 23:59 | disposition home or self-care (01) ==
LOC: RAD 11:43
PROVIDERS: PCP Pediatrics; Visit Provider Nurse Practitioner
DX: I20.89 Other forms of angina pectoris (principal); R06.09 Other forms of dyspnea; E03.9 Hypothyroidism, unspecified; E78.2 Mixed hyperlipidemia; I10 Essential (primary) hypertension
CPT/HCPCS: 78452; 93017; 93018; 93306; A9502; J2785

== ENCOUNTER 2025-01-05 07:55 | Day surgery (SDC) | payer OTHER, SELFPAY ==
[2025-01-05] VITALS (15 sets, daily range): BP systolic 103–145; BP diastolic 62–85; PULSE 72–100; RESP 17–18; O2SAT 94–99; BMI 39.6
--- NOTE | 2025-01-05 07:17 | IR_ITS ---
APPROVED REPORT Patient Location: Outpatient Locket Maker: LAURA Jacobson RT (R) PROCEDURES Left heart catheterization Left ventriculogram Selective coronary angiogram Intravascular ultrasound to the right coronary artery INDICATION Coronary artery disease, Abnormal stress test, Known coronary artery disease with history of left main stenting, Angina pectoris, Informed consent was obtained prior to the procedure. COMPLICATIONS NONE Estimated Blood Loss: LESS THAN 10 ML TECHNIQUE One percent lidocaine was used to anesthetize the right groin. The right femoral artery was accessed via the Seldinger technique. A 4-Tongan sheath was placed in the right femoral artery. The JL-4 and JR-4 catheter was also used to perform left heart catheterization left ventriculogram and selective coronary angiogram. At the end the diagnostic angiogram therapeutic Was administered giving a ER giving a therapeutic ACT and the 4 Tongan sheath was exchanged for a 6 Tongan sheath. Intravascular ultrasound probe was advanced over a Choice PT extra-support wire with then a JR4 6 Tongan guide catheter. The stent was widely patent in the right coronary artery with excellent stent apposition and expansion. At the end of the procedure the apparatus was removed the groin is reprepped closure change sheath was removed and hemostasis was achieved using Perclose device patient was transferred to the postop putting in stable condition ANGIOGRAPHIC RESULTS The left main artery Has a stent in the ostial proximal segment which is widely patent free of in-stent restenosis with excellent distal transitioning The left anterior descending artery Widely patent The circumflex artery Dominant widely patent The right coronary artery Has a stent in the proximal through mid to distal segment which is widely patent with minimal in-stent restenosis. Distally there is a 40 to 50% stenosis The HICKS ventriculogram reveals Normal 65% The left ventricular end-diastolic pressure Less than 10 mmHg IMPRESSION Widely patent coronary arteries as described above Widely patent stent as described above in both the left main artery and right coronary Normal ejection fraction Normal LVEDP PLAN 1. Continue risk factor modification 2. Evaluation of noncardiac symptoms Electronically signed by : Louis Caraballo MD 01/05/2025 11:00:13
[2025-01-05 08:31] LABS: Basophils % 0.7 % (0.1-2.0); Eosinophils # 0.2 K/mm3 (0.0-0.4); Eosinophils % 4.5 % (0.1-12.0); Hematocrit 45.2 % (37.0-47.0); Hemoglobin 14.7 g/dL (12.2-16.2); Lymphocytes # 1.2 K/mm3 (0.7-4.5); Lymphocytes % 22.9 % (10-50); Mean Corpuscular HGB Conc 32.5 g/dL (31.8-35.4); Mean Corpuscular Hemoglobin 31.1 pg (27.0-31.2); Mean Corpuscular Volume 95.6 fl (81-99); Mean Platelet Volume 12.1 fl (7.4-10.4); Monocytes # 0.4 K/mm3 (0.1-1.0); Monocytes % 6.7 % (1.7-9.3); Neutrophils # 3.5 K/mm3 (1.8-7.8); Neutrophils % 64.8 % (37.0-80.0); Platelet Count 306 K/mm3 (142-424); Red Blood Count 4.73 M/mm3 (4.20-5.40); White Blood Count 5.4 K/mm3 (4.8-10.8)
[2025-01-05 08:37] LABS: Chloride 100 mmol/L (98-107); Potassium 4.1 mmoL/L (3.5-5.1); Sodium 138 mmol/L (136-145)
[2025-01-05 08:40] LABS: Anion Gap 17.1 mEq/L (5-15); Blood Urea Nitrogen 16 mg/dl (7-17); Calcium 9.6 mg/dl (8.4-10.2); Carbon Dioxide 25 mmol/L (22.0-30.0); Creatinine Clearance Estimated 130 mL/min (50-200); Estimated Glomerular Filt Rate 74 ml/min (>60); GFR (African American) 90 ML/MIN (>60); Glucose 319 mg/dl (74-100)
[2025-01-05] MEDS: VERAPAMIL 2.5MG/ML 2ML VIAL 2.5 MG IV (09:49)
[2025-01-05] MEDS: LIDOCAINE 1% 10ML MDV 20 ML IJ (09:49)
[2025-01-05] MEDS: HEPARIN 1,000 UNITS/ML 10ML VIAL (CATH LAB) 10000 UNIT IV (09:49)
[2025-01-05] MEDS: NITROGLYCERIN 800MCG/8ML SYR (CATH LAB) 800 MCG IA (09:50)
[2025-01-05] MEDS: diphenhydrAMINE 50MG/ML VIAL 50 MG IV (09:50)
[2025-01-05] MEDS: HEPARIN 1,000 UNITS/500ML NS (CATH LAB) 3000 UNIT IV (09:50)
[2025-01-05] MEDS: 0.9 % SODIUM CHLORIDE 500 ML 25 ML IV (09:50)
[2025-01-05] MEDS: FENTANYL 100MCG/2ML VIAL 50 MCG IV (10:35)
[2025-01-05] MEDS: MIDAZOLAM HCL 1MG/ML 5ML VIAL 1 MG IV (10:36)
[2025-01-05] MEDS: PROTAMINE SULFATE 50MG/5ML VIAL (CATH LAB) 50 MG IV (11:01)
[2025-01-05] MEDS: ONDANSETRON 4MG/2ML VIAL 4 MG IV (11:03)
[2025-01-05] MEDS: PROPOFOL 10MG/ML 20ML VIAL 150 MG IV (11:06)
[2025-01-05] MEDS: IOPAMIDOL-370 (76%);100ML BOTTLE 60 ML IV (13:23)
[2025-01-05] MEDS: ACETAMINOPHEN 325MG TAB 650 MG PO (14:22)
== END 2025-01-05 14:45 | disposition home or self-care (01) ==
PROVIDERS: PCP Pediatrics; Visit Provider Internal Medicine
DX: I25.118 Atherosclerotic heart disease of native coronary artery with other forms of angina pectoris (principal); R94.39 Abnormal result of other cardiovascular function study; I47.10 Supraventricular tachycardia, unspecified; R00.2 Palpitations; I10 Essential (primary) hypertension; I42.9 Cardiomyopathy, unspecified; E78.2 Mixed hyperlipidemia; I31.9 Disease of pericardium, unspecified; Z95.5 Presence of coronary angioplasty implant and graft
CPT/HCPCS: 80048; 85025; 92978; 93458; 99152; 99153; C1725; C1760; C1769; J1200; J1644; J2250; J2405; J2720; J3010; Q9967

== ENCOUNTER 2025-01-26 07:42 | Day surgery (SDC) | payer OTHER, SELFPAY ==
[2025-01-24 12:17] VITALS: BMI 38.4
[2025-01-26 08:06] VITALS: BP 145/87; PULSE 87; RESP 18; TEMP 36.3; O2SAT 98
--- NOTE | 2025-01-26 08:23 | P.HP_ITS ---
History of Present Illness *Admission Date: 01/26/25 *Reason for visit:: Rectal bleeding/abdominal discomfort and bloating *History of present illness: Mrs. Ward is a 54-year-old female who is here for diagnostic colonoscopy secondary to rectal bleeding, abdominal discomfort, bloating and irregular bowel habits. The examination is deemed medically necessary for diagnostic colonoscopy. The patient has been seen, interviewed and examined prior to the procedure by both myself and the anesthesia provider. [facility] Disclaimer: The information contained in this section may have been updated after the patient was seen, as this information can be updated by other users. Medical History (Updated 01/26/25 @ 08:25 by Homar Guzmán II, MD) Other forms of dyspnea SVT (supraventricular tachycardia) SOB (shortness of breath) on exertion Slurred speech Diarrhea Dehydration Pericarditis Pericardial effusion Elevated troponin Non-STEMI (non-ST elevated myocardial infarction) Pericardial effusion Left arm pain Dizziness CAD in the [place] artery Unstable angina Coronary artery calcification seen on CT scan Chest pain Polyarthralgia Knee pain Anorexia Sore throat, chronic Dysphagia History of hemorrhoids Difficulty passing stool Thyroid Nodule Chest pain Abdominal pain Constipation Altered thought processes Dizziness Hyperparathyroidism KORI on CPAP Postoperative spinal headache Atypical chest pain Lupus Celiac disease Osteoarthritis Depression KORI (obstructive sleep apnea) Candidal intertrigo Rash Breast swelling Breast enlargement Bilateral knee pain Right shoulder pain Low back pain KORI (obstructive sleep apnea) Cervical radicular pain Osteoarthritis Lumbar radiculopathy Comfort's thyroiditis Gastroesophageal reflux disease Dyspnea Cervical disc disease Sinus tachycardia Obesity (BMI 30.0-34.9) Migraine Neck pain Noncompliance with medication regimen Anxiety Palpitations Hypertension Chronic pain Thoracic back pain HHD (hypertensive heart disease) Fatigue Coronary vasospasm Tobacco use disorder Diastolic dysfunction Coronary artery dissection Coronary artery disease Abnormal EKG SOB (shortness of breath) Typical angina Hyperlipidemia Obesity Tobacco use Chest pain Vertigo Fibromyalgia Hyperlipidemia Hypothyroidism Vitamin D deficiency Surgical History (Updated 01/26/25 @ 08:13 by Eva Charlton RN) Hx of cardiac cath History of cardiac cath History of partial hysterectomy H/O left knee surgery H/O tubal ligation S/P coronary artery stent placement Family History Other Cancer Coronary artery disease Diabetes Heart attack Hypertension Social History (Updated 01/24/25 @ 12:15 by Eva Charlton RN) Smoking Status: Unknown if ever smoked second hand exposure: No alcohol intake: never substance use type: denies use current occupational status: disabled Travel in the last 8 weeks: None household members: spouse housing: house lives independently: No marital status: education level: high school service: No longterm: No current occupational exposures/hazards: No caffeine: Yes special giuliana needs: No agree to transfusion: No do you feel safe at home: Yes victim of physical abuse: No victim of emotional abuse: No victim of sexual abuse: No would you like helpful sources: No Have you lived/traveled outside US in past 30 days?: No Contact w/someone who lives/traveled outside US past 30 days?: No Exposure to someone with infectious disease in past 14 days?: No Do you have a fever (greater than 100.4 F or 38 C)?: No Have you tested positive for COVID-19: No Exposed to someone with COVID-19 in past 14 days?: No Do you have a sore throat?: No Do you have a cough?: No Do you have any weakness?: No Are you experiencing any nausea/vomitting?: No Do you have any diarrhea?: No Are you experiencing any unusual bleeding?: No Do you have any muscle aches/pain?: No Do you have any abdominal pain?: No Are you experiencing loss of taste or smell?: No Other Medical History Have you received the Flu Vaccine for this season: No Have you received the Pneumonia Vaccine: No Review of Systems Review of Systems Review of systems (narrative): Negative *Cardiovascular Comments: Negative *Gastrointestinal Comments: Negative *Genitourinary Comments: Negative *Musculoskeletal Comments: Negative *Neurologic Comments: Negative Meds Home Medications and Allergies Home Medications ?Medication ?Instructions ?Recorded ?Confirmed ?Type nitroglycerin 0.4 mg sublingual 0.4 mg sublingual Q5MINP PRN Chest 08/25/23 01/26/25 History tablet Pain quetiapine 200 mg tablet (Seroquel) 200 mg PO DAILY 10/12/24 01/26/25 History sertraline 100 mg tablet (Zoloft) 100 mg PO DAILY 10/12/24 01/26/25 History peg 3350-electrolytes 236 240 ml PO Q10M colonscopy #4,000 mL 12/16/24 01/26/25 Rx gram-22.74 gram-6.74 gram-5.86 gram solution (Golytely) aspirin 81 mg tablet,delayed 81 mg PO DAILY 01/24/25 01/26/25 History release atorvastatin 80 mg tablet 40 mg PO DAILY 01/24/25 01/26/25 History metoprolol succinate 100 mg 100 mg PO DAILY 01/24/25 01/26/25 History tablet,extended release 24 hr prasugrel HCl 10 mg tablet 10 mg PO DAILY 01/24/25 01/26/25 History (Effient) New Prescriptions to Start Prescriptions: Allergies Allergy/AdvReac Type Severity Reaction Status Date / Time ibuprofen Allergy Mild Other Verified 01/26/25 08:03 ketorolac (From TORADOL) Allergy Mild I-RASH Verified 01/26/25 08:03 Penicillins (PENICILLINS) Allergy Mild I-RASH Verified 01/26/25 08:03 isosorbide AdvReac Intermediate Headache Verified 01/26/25 08:03 Exam Data for Last 24 hours Vital signs and Labs for Last 24 Hours: Temp Pulse Resp BP Pulse Ox O2 Del Method 97.3 F L 87 18 145/87 H 98 Room Air 01/26/25 08:06 01/26/25 08:06 01/26/25 08:06 01/26/25 08:06 01/26/25 08:06 01/26/25 08:06 I & O for Last 24 hours: Intake & Output 01/23/25 01/24/25 01/25/25 01/26/25 23:59 23:59 23:59 23:59 Weight 224 lb *Routine HEENT Exam Head: Present normocephalic Eye: Present EOMI and PERRL ENT: Present mucous membranes moist *Routine Neck Exam Neck: Present supple *Routine Respiratory Exam Respiratory: Present CTA bilaterally *Routine Cardiovascular Exam Cardiovascular: Present RRR *Routine Abdominal Exam Abdominal: Present soft and normoactive bowel sounds; Absent tenderness *Routine Rectal Exam Rectal:: deferred *Routine Genitalia Exam Genitalia:: deferred *Routine Extremities Exam Extremities: Absent cyanosis, clubbing or edema *Routine Skin Exam Skin: Present warm; Absent rash *Routine Neurological Exam Neurological: Present alert and oriented X3 Assessment and Plan *Assessment and plan (1) Rectal bleeding: Status: Acute Category: Medical Code(s): K62.5 - Hemorrhage of anus and rectum (2) Bloating: Status: Acute Category: Medical Code(s): R14.0 - Abdominal distension (gaseous) (3) LLQ abdominal pain: Status: Acute Category: Medical Code(s): R10.32 - Left lower quadrant pain (4) Irregular bowel habits: Status: Acute Category: Medical Code(s): R19.8 - Other specified symptoms and signs involving the digestive system and abdomen Plan A/P: 1. Rectal bleeding with left lower quadrant abdominal pain, bloating and irregular bowel habits is the preprocedural diagnosis. The patient will be anesthetized/sedated using MAC sedation. The patient has been seen and examined. Cardiac and lung assessment prior to the examination is stable. Proceed with planned diagnostic colonoscopy
--- NOTE | 2025-01-26 08:27 | HMH.PROCNOTE ---
[facility] Procedure Note Date: 01/26/25 Time: 08:57 Procedure Note:: Colonoscopy Procedure Report: Colonoscopy with cold snare polypectomy and hemorrhoid band ligation Endoscopist: Homar Guzmán II, MD Referring physician: Kelvin Buckley MD Date of Procedure: January 26, 2025 Equipment: Olympus 190 variable stiffness pediatric colonoscope Sedation: MAC sedation Indication: Mrs. Ward is a 54-year-old female who is here for diagnostic colonoscopy secondary to lower abdominal discomfort, cramps and bright red blood per rectum. The patient states that she had bright red rectal bleeding from August 2024 through October 2024 and she would see blood that filled the commode. The patient did have a colonoscopy with ca in 2019 and had grade 1-2 internal hemorrhoids. The patient does report right and left lower quadrant abdominal pain since last summer. She does have associated night sweats. She does report irregular bowel habits which alternate between constipation and diarrhea. She does report incomplete defecation. She has had bloating, belching and little gassiness. She has had a 10 to 15 pound weight loss. She reports no family history of colon cancer. Her cousin had Crohn's disease. The patient has had [address] Ramin Sanford and May 2023 and April 2024 with esophageal dilation. Procedure: Prior to the procedure, a history and physical exam was performed, and patient's medications and allergies were reviewed. The risks, benefits and alternatives of the sedation and procedure were discussed with the patient. All questions were answered and informed consent was obtained. The patient was brought to the procedure room. Patient identification and proposed procedure were verified by the physician and the nurse. The patient was placed in a left lateral decubitus position and the scope was passed under direct vision. Throughout the procedure, the patient's blood pressure, pulse, and oxygen saturations were monitored continuously. The colonoscopy was accomplished without difficulty. The patient tolerated the procedure well. Findings: On digital rectal examination there was normal rectal tone. There were no external hemorrhoids. The colonoscope was introduced through the anal canal to the rectum and advanced to the cecum. The ileocecal valve and appendiceal orifice were identified. The scope was advanced a short distance into the ileum which appeared grossly normal. The scope was then withdrawn into the colon. The cecum, ascending, transverse, descending, sigmoid and rectum were grossly normal. There were two 5 mm polyps in the sigmoid colon that were removed via cold snare polypectomy. There were no other mucosal abnormalities identified. Upon retroflexion within the rectum there were grade 2 internal hemorrhoids. 3 columns of hemorrhoids were banded using 3 bands with excellent ligation effect. The preparation was excellent throughout with [place] Preparation Score of 9. The cecal time was 12 minutes. Impression: 1. Diminutive sigmoid colon polyps x 2 2. Grade 2 internal hemorrhoids status post band ligation x 3 Plan: I would recommend compliance with the fiber bowel regimen (combined MiraLAX plus Metamucil or Citrucel) on a regular and daily basis. She does have functional abdominal pain and we will discuss treatment options. I will follow-up the polyp histology and recommend repeat surveillance colonoscopy again in 7 to 10 years.
[2025-01-26] MEDS: LACTATED RINGERS 1000ML 1,000 ML 50 ML IV (08:29)
[2025-01-26 08:37] VITALS: O2SAT 98
[2025-01-26 09:04] VITALS: BP 139/74; PULSE 85; RESP 18; TEMP 36.2; O2SAT 98
[2025-01-26] MEDS: HYDROMORPHONE 2MG/ML SYRINGE 0.5 MG IV ×2 (09:10→09:20)
[2025-01-26 09:14] VITALS: BP 131/72; PULSE 90; RESP 18; O2SAT 98
[2025-01-26 09:24] VITALS: BP 130/72; PULSE 81; RESP 18; O2SAT 98
[2025-01-26] MEDS: HYDROCODONE/APAP 5/325 MG TABLET 1 TAB PO (09:32)
[2025-01-26 09:56] VITALS: BP 129/80; PULSE 91; RESP 18; O2SAT 98
--- NOTE | 2025-01-26 10:03 | EXP.ANES.CKL ---
[facility] Disclaimer: The information contained in this section may have been updated after the patient was seen, as this information can be updated by other users. Medical History (Updated 01/26/25 @ 09:47 by Homar Guzmán II, MD) Other forms of dyspnea SVT (supraventricular tachycardia) SOB (shortness of breath) on exertion Slurred speech Diarrhea Dehydration Pericarditis Pericardial effusion Elevated troponin Non-STEMI (non-ST elevated myocardial infarction) Pericardial effusion Left arm pain Dizziness CAD in [place] artery Unstable angina Coronary artery calcification seen on CT scan Chest pain Polyarthralgia Knee pain Anorexia Sore throat, chronic Dysphagia History of hemorrhoids Difficulty passing stool Thyroid Nodule Chest pain Abdominal pain Constipation Altered thought processes Dizziness Hyperparathyroidism KORI on CPAP Postoperative spinal headache Atypical chest pain Lupus Celiac disease Osteoarthritis Depression KORI (obstructive sleep apnea) Candidal intertrigo Rash Breast swelling Breast enlargement Bilateral knee pain Right shoulder pain Low back pain KORI (obstructive sleep apnea) Cervical radicular pain Osteoarthritis Lumbar radiculopathy Comfort's thyroiditis Gastroesophageal reflux disease Dyspnea Cervical disc disease Sinus tachycardia Obesity (BMI 30.0-34.9) Migraine Neck pain Noncompliance with medication regimen Anxiety Palpitations Hypertension Chronic pain Thoracic back pain HHD (hypertensive heart disease) Fatigue Coronary vasospasm Tobacco use disorder Diastolic dysfunction Coronary artery dissection Coronary artery disease Abnormal EKG SOB (shortness of breath) Typical angina Hyperlipidemia Obesity Tobacco use Chest pain Vertigo Fibromyalgia Hyperlipidemia Hypothyroidism Vitamin D deficiency Surgical History (Updated 01/26/25 @ 09:47 by Homar Gzumán II, MD) Hx of cardiac cath History of cardiac cath History of partial hysterectomy H/O left knee surgery H/O tubal ligation S/P coronary artery stent placement Family History Other Cancer Coronary artery disease Diabetes Heart attack Hypertension Social History (Updated 01/24/25 @ 12:15 by Eva Charlton RN) Smoking Status: Unknown if ever smoked second hand exposure: No alcohol intake: never substance use type: denies use current occupational status: disabled Travel in the last 8 weeks: None household members: spouse housing: house lives independently: No marital status: education level: high school service: No correction: No current occupational exposures/hazards: No caffeine: Yes special giuliana needs: No agree to transfusion: No do you feel safe at home: Yes victim of physical abuse: No victim of emotional abuse: No victim of sexual abuse: No would you like helpful sources: No Have you lived/traveled outside [place] in past 30 days?: No Contact w/someone who lives/traveled outside [place] past 30 days?: No Exposure to someone with infectious disease in past 14 days?: No Do you have a fever (greater than 100.4 F or 38 C)?: No Have you tested positive for COVID-19: No Exposed to someone with COVID-19 in past 14 days?: No Do you have a sore throat?: No Do you have a cough?: No Do you have any weakness?: No Are you experiencing any nausea/vomitting?: No Do you have any diarrhea?: No Are you experiencing any unusual bleeding?: No Do you have any muscle aches/pain?: No Do you have any abdominal pain?: No Are you experiencing loss of taste or smell?: No [facility] Anesthesia Checklist Patient Identification Patient Identification: Verbal (Name & ) Structural Data Admitted From: Home Planned Operative Procedure/s: colonoscopy NPO Status Verified Time NPO: 00:00 Additional verifications Anesthesia Reactions: No Hx Blood Transfusions: No Blood Transfusion Reaction: No Airway Assessment Mallampati Score:: Class II C-Spine Mobility Assessed: Yes TMJ Mobility Assessed: Yes Dentition: Good Dentition Neurological Assessment Level of Consciousness: Awake, Alert and Appropriate Anesthesia Plan Anesthesia Risk discussed: Yes Anesthesia Plan: Verified ASA Class: II Anesthesia Type: MAC
== END 2025-01-26 09:56 | disposition home or self-care (01) ==
PROVIDERS: PCP Pediatrics; Visit Provider Internal Medicine Gastroenterology
PROC: 0DJD8ZZ Inspection of Lower Intestinal Tract, Via Natural or Artificial Opening Endoscopic (ICD-10-PCS; CPT 45378; principal; 2025-01-26 09:00)
DX: K63.5 Polyp of colon (principal); K64.1 Second degree hemorrhoids; K62.5 Hemorrhage of anus and rectum; R14.0 Abdominal distension (gaseous); R10.32 Left lower quadrant pain; R19.8 Other specified symptoms and signs involving the digestive system and abdomen; R10.9 Unspecified abdominal pain; Z98.890 Other specified postprocedural states; Z87.19 Personal history of other diseases of the digestive system; K59.4 Anal spasm
CPT/HCPCS: 45385; 45398; C1889; J1171; J7120

== ENCOUNTER 2025-03-24 14:30 | Outpatient (CLI) | payer OTHER, SELFPAY ==
[2025-03-24 14:33] LABS: Alanine Aminotransferase 22 U/L (12-78); Albumin Level 4.8 g/dl (3.5-5.0); Albumin/Globulin Ratio 1.8 (1.1-1.8); Alkaline Phosphatase 154 U/L (38-126); Anion Gap 13.7 mEq/L (5-15); Aspartate Amino Transferase 22 U/L (14-36); Bilirubin,Total 0.5 mg/dl (0.2-1.3); Blood Urea Nitrogen 14 mg/dl (7-17); Calcium 10.7 mg/dl (8.4-10.2); Carbon Dioxide 22 mmol/L (22.0-30.0); Chloride 103 mmol/L (98-107); Estimated Glomerular Filt Rate 128 ml/min (>60); GFR (African American) 154 ML/MIN (>60); Gamma Glutamyl Transpeptidase 40 U/L (12-43); Globulin 2.7 g/dL (1.3-3.2); Glucose 389 mg/dl (74-100); Potassium 4.7 mmoL/L (3.5-5.1); Sodium 134 mmol/L (136-145); Total Protein,Serum 7.5 g/dl (6.3-8.2)
[2025-03-24 14:44] LABS: Intact Parathyroid Hormone 38.6 pg/mL (7.5-53.5)
== END 2025-03-24 23:59 | disposition home or self-care (01) ==
LOC: LAB.DROPOF 14:30
PROVIDERS: PCP Internal Medicine; Visit Provider Internal Medicine
DX: R74.8 Abnormal levels of other serum enzymes (principal); E83.52 Hypercalcemia; R79.89 Other specified abnormal findings of blood chemistry
CPT/HCPCS: 80053; 82977; 83970

== ENCOUNTER 2025-03-31 13:08 | Outpatient (CLI) | payer OTHER, SELFPAY ==
--- NOTE | 2025-03-31 13:30 | MM_ITS ---
PROCEDURE INFORMATION: Exam: MG Bilateral Screening 3D Mammography Exam date and time: 03/31/2025 1:18 PM Age: 54 years old Clinical indication: Screening examination TECHNIQUE: Imaging protocol: Bilateral Screening tomosynthesis and 2D mammography including computer-aided detection (CAD) when performed. COMPARISON: 1. MG MM DIG MAMM BI DX W/CAD 08/15/2022 2:02 PM 2. MG MM DIG MAMM DX UNILAT RT CAD 11/28/2021 2:01 PM FINDINGS: MAMMOGRAPHY: Breast composition: There are scattered areas of fibroglandular density. Mass: None. Architectural distortion: None. Calcifications: No suspicious calcifications. Asymmetric density: None. Skin thickening: None. Axillary adenopathy: None. IMPRESSION: No mammographic evidence of malignancy. Annual screening is recommended unless otherwise clinically indicated. ASSESSMENT: BI-RADS Category 1: Negative.
== END 2025-03-31 23:59 | disposition home or self-care (01) ==
LOC: RAD 13:09
PROVIDERS: PCP Internal Medicine; Visit Provider Internal Medicine
DX: Z12.31 Encounter for screening mammogram for malignant neoplasm of breast (principal)
CPT/HCPCS: 77063; 77067

== ENCOUNTER 2025-04-15 14:00 | Outpatient (CLI) | payer OTHER, SELFPAY ==
[2025-04-15 16:56] LABS: Creatinine,Urine Random 34 mg/dL (Not Estab.)
[2025-04-15 16:57] LABS: Microalbumin/Creatinine Ratio 24.1
== END 2025-04-15 23:59 | disposition home or self-care (01) ==
LOC: LAB.DROPOF 04-19 11:19
PROVIDERS: PCP Internal Medicine; Visit Provider Internal Medicine
DX: E11.9 Type 2 diabetes mellitus without complications (principal); Z79.84 Long term (current) use of oral hypoglycemic drugs; Z79.4 Long term (current) use of insulin
CPT/HCPCS: 82043; 82570